=== PATIENT | male | born 1945 | race Caucasian/White ===

== ENCOUNTER 2016-07-05 15:45 | Inpatient (IN) ==
[2016-07-05] MEDS ORDERED: ASPIRIN ONE (15:58)
[2016-07-05] MEDS ORDERED: ASPIRIN PO ONE (15:59)
[2016-07-05 16:13] LABS: MANUAL DIFF NEEDED? NO
--- NOTE | 2016-07-05 16:14 | PROVIDER DOCUMENTATION ---
HPI-Respiratory General - General Chief Complaint: Shortness of Breath Stated Complaint: SOB Time Seen by Provider: 07/05/16 15:56 Source: patient Allergies/Adverse Reactions: Patient Allergies Allergy/AdvReac Type Severity Reaction Status Date / Time metoclopramide HCl * Allergy Unknown Unknown Verified 06/06/16 00:02 [From [facility]] Home Medications: Home Medication List Medication Instructions Recorded Confirmed Last Taken Type Amlodipine Besylate 5 mg PO QAM 09/10/14 07/05/16 07/05/16 History Aspirin 81 mg PO QAM 09/10/14 07/05/16 07/05/16 History Glipizide [Glipizide ER] 10 mg PO BID 09/10/14 07/05/16 07/05/16 History Isosorbide Mononitrate [Isosorbide 90 mg PO QAM 09/10/14 07/05/16 07/05/16 History Mononitrate ER] Levothyroxine [Synthroid] 0.05 mg PO QAM 09/10/14 07/05/16 07/05/16 History Metformin [Glucophage] 850 mg PO BID CC 09/10/14 07/05/16 07/05/16 History Lisinopril 20 mg PO QAM 03/09/15 07/05/16 07/05/16 History Metoprolol Tartrate 50 mg PO QAM #0 03/17/15 07/05/16 07/05/16 Rx Sucralfate [Carafate] 1 gm PO 4XDAY PRN PRN #120 tablet 04/30/15 07/05/16 Rx Polyethylene Glycol 3350 [Miralax] 17 gm PO DAILY 09/21/15 07/05/16 07/05/16 History Tamsulosin [Flomax] 0.4 mg PO HS 09/21/15 07/05/16 07/04/16 History Albuterol Sulfate [Albuterol 18 gm IH 3-4XDAY PRN PRN #1 03/03/16 07/05/1607/05 Rx Sulfate Hfa] [email or web address] Amoxicillin [Amoxil] 875 mg PO TID 7 Days 03/03/16 07/05/16 06/30/16 Rx - History of Present Illness-Resp Nature of Presenting Problem: 70 YO WM with hx of CHF and A fib presents via EMS for exertional SOB x 1 week. Has also had a cough x 2 weeks. Has been getting worse with minimal activity. Is on 2 lpm O2 at home; no SOB with rest, only with movement. Denies chest pain , ZIMMER, abdominal pain, N/V, swelling, fever, increased bruising. Quality of Pain: reports: tightness Severity in ED: reports: moderate Onset/Duration: reports: 1 week ago Timing: reports: still present, getting worse Cough Quality/Degree: reports: mild Episode Frequency: occasional episodes Current Respiratory Medication Therapy: Initiated other (Home O2) Modifying Factors: improves with: exertion (worsens), oxygen (states doesn't make him feel less SOB) Associated Symptoms: reports: cough, shortness of breath, short of breath. denies: chest pain/soreness, dizziness, earache, facial pain, fever/chills, headache, heart racing, hyperventilating, nasal congestion, sinus pain, sore throat, sweaty, wheezing Similar Symptoms Previously?: Yes Recently seen or treated by another doctor?: No (Last seen at [facility] in [place] in May. Was hospitalized for heart failure) Review of Systems - Adult - REVIEW OF SYSTEMS - ADULT Constitutional: denies: chills, fever Eyes: reports: eye pain (had recent surgery left eye, due for surgery again on Thursday). denies: decreased vision, blurred vision, double vision Ears, Nose, Mouth & Throat: denies: ear pain, nose pain, throat pain Cardiovascular: denies: chest pain, syncope Respiratory: reports: cough, dyspnea on exertion. denies: shortness of breath, wheezing Gastrointestinal: denies: abdominal pain, diarrhea, nausea, vomiting Musculoskeletal: denies: bone pain, back pain, joint pain, joint swelling, muscle weakness, neck pain Integumentary: denies: itching, rash Neurological: denies: dizziness/vertigo, headache/migraines, numbness Hematologic/Lymphatic: reports: easy bruising (on Eloquis). denies: blood clots Past History - Adult - PAST MEDICAL HISTORY-ADULT Review of Records: reports: Old Records Reviewed, Nursing Assessment Review, Medications Reviewed, Social history reviewed & non-contributory. Major Childhood Illnesses: reports: denies history Cardiovascular: reports: CAD, CHF, HTN, SC Respiratory: reports: sleep apnea Gastrointestinal: reports: denies history Obstetrical/Gynecological: reports: denies history Genitourinary: reports: denies history Musculoskeletal: reports: denies history Neurological: reports: denies history Endocrine/Immune: reports: Diabetes Other Conditions: reports: denies history - PRIOR SURGERIES/PROCEDURES Surgical/Procedure History: reports: CABG (last bypass 1999), cholecystectomy, cardiac stent (x5, last stent 12 years ago), hernia repair, other (exploratory surgery) - PRIOR HOSPITALIZATIONS Prior Hospitalizations: reports: for other non-related - IMMUNIZATION STATUS Childhood Immunizations: See Nurse Assessment Flu Vaccine: See Nurse Assessment - FAMILY HISTORY Family History: reviewed, not pertinent - SOCIAL HISTORY Smoking: quit greater than 1 year Physical Exam-General - PHYSICAL EXAM-ADULT Initial Vital Signs Reviewed: Yes - CONSTITUTIONAL General Appearance: appears well, alert, mild distress (increased breathing rate ) - EYES Eyes: PERRL/EOMI, pink conjunctivae. negative: EOM palsy, pale conjunctivae, sclera injected, scleral icterus - HEAD, EARS, NOSE, MOUTH & THROAT HENMT: normocephalic/atraumatic, moist mucous membranes - NECK Neck: non-tender, full range of motion, supple, normal inspection - RESPIRATORY Respiratory: chest non-tender, lungs clear, normal breath sounds, no pleuratic chest pain, no accessory muscle use. negative: decreased breath sounds, accessory muscle use, crackles, rales, rhonchi, stridor, wheezing - CARDIOVASCULAR Cardiovascular: normal peripheral pulses (Irregular rate, approx 64 in the room) , no edema, no gallop, no JVD, no murmur. negative: bradycardia, tachycardia - GASTROINTESTINAL (ABDOMEN) Abdominal Exam: normal bowel sounds, non tender, soft, no organomegaly, no pulsatile mass. negative: distended, guarding, rigid, rebound, tenderness, McBurney's point tenderness, Zaldivar's sign - LYMPHATIC Lymphatic: negative: cervical node tenderness - MUSCULOSKELETAL Back Exam: normal inspection, no CVA tenderness. negative: ecchymosis, muscle spasm, swelling Extremity: non-tender, normal gait, normal inspection, no pedal edema, no calf tenderness. negative: deformity, erythema, inflammation, joint effusion, pedal edema Peripheral Pulses: radial (R): 2+, radial (L): 2+, dorsalis-pedis (R): 2+, dorsalis-pedis (L): 2+ - SKIN Integumentary: normal color, warm/dry. 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 negative: aphasia, facial droop, focal weakness, motor weakness, sensory deficit - PSYCHIATRIC Psych/Mental Status: normal mood/affect, normal thought content, normal thought process Progress - PLAN OF CARE/RESULTS Progress/Plan/Lab Results: Vital Signs - 8 hr 07/05/16 15:50 07/05/16 17:38 07/05/16 18:45 Temperature 97.9 F Pulse Rate 66 71 61 Respiratory Rate 24 24 23 Blood Pressure 122/71 122/71 137/83 O2 Sat by Pulse Oximetry 91 L 92 L 94 L Laboratory Results - last 24 hr 07/05/16 07/05/16 07/05/16 15:50 15:50 15:50 WBC 7.56 RBC 4.21 L Hgb 10.9 L Hct 35.4 L MCV 84.1 MCH 25.9 L MCHC 30.8 L RDW Std Deviation 17.8 H Plt Count 150 MPV 10.9 H Immature Gran % (Auto) 0.3 Neut % (Auto) 71.6 Lymph % (Auto) 11.9 L Estill % (Auto) 10.4 H Eos % (Auto) 5.3 Baso % (Auto) 0.5 Immature Gran # (Auto) 0.02 Neut # (Auto) 5.41 Lymph # (Auto) 0.90 L Estill # (Auto) 0.79 H Eos # (Auto) 0.40 Baso # (Auto) 0.04 PTT (Actin FS) Specimen Type Sample Site pH pCO2 pO2 HCO3 Base Excess Oxyhemoglobin ABG O2 Sat (Calculated) ABG O2 Saturation ABG Carboxyhemoglobin ABG Methemoglobin Mika Test Total Hemoglobin Lactate Liter Flow Blood Gas Modality Sodium 140 Potassium 4.2 Chloride 101 Carbon Dioxide 18 L Anion Gap 21 BUN 30 H Creatinine 1.4 H Estimated GFR/1.73 m2 50 BUN/Creatinine Ratio 21 Glucose 189 H Calculated Osmolality 291 Calcium 9.6 Total Bilirubin 0.88 AST 22 ALT 25 Alkaline Phosphatase 95 Creatine Kinase 55 Troponin T Aah-E-Gillmybulmv Pept 1951 H Total Protein 6.7 Albumin 4.1 Globulin 2.6 Albumin/Globulin Ratio 1.6 07/05/16 07/05/16 07/05/16 15:50 15:50 18:45 WBC RBC Hgb Hct MCV MCH MCHC RDW Std Deviation Plt Count MPV Immature Gran % (Auto) Neut % (Auto) Lymph % (Auto) Estill % (Auto) Eos % (Auto) Baso % (Auto) Immature Gran # (Auto) Neut # (Auto) Lymph # (Auto) Estill # (Auto) Eos # (Auto) Baso # (Auto) PTT (Actin FS) 28.5 Specimen Type ARTERIAL Sample Site R RADIAL pH 7.45 pCO2 37 pO2 73 HCO3 26.2 H Base Excess 1.7 Oxyhemoglobin 94.2 L ABG O2 Sat (Calculated) 13.7 L ABG O2 Saturation 96.7 ABG Carboxyhemoglobin 1.70 ABG Methemoglobin 1.0 Mika Test YES Total Hemoglobin 10.3 L Lactate 2.20 Liter Flow 2.0 Blood Gas Modality CANNULA Sodium Potassium Chloride Carbon Dioxide Anion Gap BUN Creatinine Estimated GFR/1.73 m2 BUN/Creatinine Ratio Glucose Calculated Osmolality Calcium Total Bilirubin AST ALT Alkaline Phosphatase Creatine Kinase Troponin T < 0.010 Pnk-G-Tnuenmendwz Pept Total Protein Albumin Globulin Albumin/Globulin Ratio Orders Category Date Time Status IV Insertion ORDERED Care 07/05/16 15:58 Active CHEST-PORTABLE [RAD] Stat Exams 07/05/16 16:06 Completed ABG [RESP] Routine Lab 07/05/16 18:45 Completed CBC WITH DIFF [HEME] Stat Lab 07/05/16 15:50 Completed CK TOTAL [CHEM] Stat Lab 07/05/16 15:50 Completed COMPREHENSIVE METABOLIC PANEL [CHEM] Stat Lab 07/05/16 15:50 Completed PRO B-NATRIURETIC PEPTIDE Stat Lab 07/05/16 15:50 Completed PTT [COAG] Stat Lab 07/05/16 15:50 Completed TROPONIN T Stat Lab 07/05/16 15:50 Completed Aspirin Med 07/05/16 15:58 Discontinued 243 mg .ROUTE .STK-MED ONE Aspirin Med 07/05/16 15:59 Discontinued 325 mg PO NOW ONE Furosemide [Lasix] Med 07/05/16 18:35 Discontinued 40 mg IV NOW ONE EKG [EKG] Stat Ther 07/05/16 15:58 Ordered Result Diagrams: 07/05/16 15:50 07/05/16 15:50 - REASSESSMENT Reassessment #1 Time Reassessed: 18:34 (assumed care of pt. plan to admit for chf exacerbation and worsening chf.) Reassessment #2 Time Reassessed: 18:53 (Re-assessed pt. He states he has become profoundly SOB worsening over the past week. Discussed c Dr. Estrada (ER MD) who agreed c admission. ) - CONSULTS/PCP/HOSPITALIST Notification #1 *Consult/PCP/Hospitalist*: Dr. Waters (Hospitalist) Time Discussed: 19:29 Reason/Comments: Will see pt in the ER and write all orders. Departure - Departure Time of Disposition Decision: 18:55 DIAGNOSIS: CHF exacerbation Qualifiers: Congestive heart failure type: unspecified congestive heart failure type Qualified Code(s): I50.9 - Heart failure, unspecified Disposition: ADMITTED INPATIENT 09 Certified Medical Emergency: Emergent Condition: Stable Referrals and Follow-Ups: None,PCP [Primary Care Provider] - - Critical Care Note This patient required my direct & personal management of CC.: No Attestation - Physician/ LILI Attestation Patient care was provided by Advanced Practice Provider:: Yes Advanced Practice Provider:: Justin Parr Advanced Practice Provider documentation review:: The Mid-level provider documentation, treatment plan and medical decision making was reviewed by the physician who agrees with all treatment and medical decision making by the MLP.
[2016-07-05 16:17] LABS: BASO% 0.5 % (0.0-0.8); EOS% 5.3 % (0.0-10.0); HEMATOCRIT 35.4 % (42.0-52.0); HEMOGLOBIN 10.9 g/dL (14.0-18.0); IMM GRAN# 0.02 X1000 (0.0-0.04); IMM GRAN% 0.3 % (0.0-0.5); LYMPH% 11.9 % (20.5-51.1); MCH 25.9 PG (27-31); MCHC 30.8 g/dL (33-37); MCV 84.1 FL (81-99); MONO# 0.79 X1000 (0.11-0.59); MONO% 10.4 % (1.7-9.3); MPV 10.9 FL (7.4-10.4); NEUT% 71.6 % (42.2-75.2); PLT 150 X1000 (130-400); RBC 4.21 XMIL (4.7-6.1)
--- NOTE | 2016-07-05 16:18 | Diag Imaging Result Doc PS360 ---
EXAM: CHEST-PORTABLE HISTORY: SOB TECHNIQUE: Portable at 1615 COMMENT: There is cardiomegaly and increased pulmonary vascularity. This is not changed significantly since 06/06/2016. The lung bashir are stable in appearance. IMPRESSION: Stable chest. Cardiomegaly. Electronically signed by David Summers 07/05/2016 4:16 PM
[2016-07-05 16:34] LABS: ALBUMIN 4.1 g/dL (3.5-5.0); CALCIUM 9.6 mg/dL (8.8-10.2); POTASSIUM 4.2 mmol/L (3.5-5.1); TOTAL BILIRUBIN 0.88 mg/dL (0.20-1.00); TOTAL PROTEIN 6.7 g/dL (6.3-8.3)
--- NOTE | 2016-07-05 18:02 | ED EKG INTERP ---
This chart was entered by Belén Hendricks, acting as scribe for Will Medina MD. EKG Interpretation - EKG Time of EKG reading by physician:: 15:50 EKG Read and Signed by:: Will Medina EKG Interpretation (*Must complete 3 of following elements*): Abnormal (poor data quality, interpretation may be adversely affectred, atrial fibrillation with slow ventricular response, left axis deviation, ST & T wave abnormilty, consider lateral ischemia, abnormal ECG) Rate: 59 Rhythm: Atrial Fibrillation Rattan: left ND Interval: normal This chart was documented by the indicated scribe, (Belén Hendricks) and accurately reflects the services I performed and decisions made by me, Will Medina MD, as attested by the provider's signature.
[2016-07-05] MEDS ORDERED: LASIX IV ONE (18:35)
[2016-07-05 18:47] LABS: ALLEN TEST YES; BE 1.7 mmoll (-3.0-3.0); BLOOD TYPE ARTERIAL; DRAW SITE R RADIAL; O2(CT) 13.7 mL/dL (15.0-23.0); PCO2(98.6) 37 mmHg (35-45); PO2(98.6) 73 mmHg (60-100); SAMPLE BLOOD; SAO2 96.7 % (95.0-100.0); THB 10.3 g/dL (11.5-17.4); pH(98.6) 7.45 (7.35-7.45)
[2016-07-05 18:49] LABS: MODALITY CANNULA
[2016-07-05] MEDS: LASIX IV SCH (20:30)
[2016-07-05] MEDS ORDERED: LOVENOX SUBQ SCH (20:30)
[2016-07-05] MEDS: COREG PO SCH (20:41)
[2016-07-05 20:43] LABS: HEMOGLOBIN A1C 5.7 % (4.8-6.0)
[2016-07-05 20:58] LABS: FERRITIN 55 ng/mL (30-400)
[2016-07-05] MEDS: FLOMAX PO SCH (21:00)
--- NOTE | 2016-07-05 21:51 | HISTORY AND PHYSICAL ---
PRIMARY CARE PHYSICIAN: Dr. Loving. REASON FOR ADMISSION: Worsening shortness of breath for the last 2 weeks. HISTORY OF PRESENT ILLNESS: Mr. Khris Johnson is a 70-year-old man with past medical history of type 2 diabetes, obstructive sleep apnea with CPAP at night, CAD, atrial fibrillation, hypertensive heart disease, hypothyroidism, BPH, reflux disease and hiatal hernia. Comes in today complaining of a 2 month history of intermittent shortness of breath with exertion which lasts a few days and gets better. However over the last 2 weeks which was a part of 2 weeks he has noticed that his breathing has been getting worse with exertion such that today he said that while he was unloading his car he had a minor blackout spell. He said prior to blacking out he was profoundly short of breath but denies any chest pain, palpitations, diaphoresis, nausea, vomiting or any anginal type symptoms. He says he feels he was out for a few seconds and was not witnessed by anybody. He did not defecate or urinate on himself nor did he hit his head. He said prior to today his exercise tolerance has been getting worse more so over the last few days. Patient has been traveling around several states and states that he has been eating out in a lot of restaurants and not watching his diet as he should. He denies any PND or orthopnea as long as he is using his CPAP machine at night. He admits to having slight left leg swelling during the course of his travels but no pain or redness and he said once he woke up in the morning the swelling had gone down. He admits to having a cough which is dry and but more associated with eating and drinking. No upper respiratory symptoms. No fever, no chills. No decline his urinary output. He admits to having easy satiety and bloating recently. Other than this. REVIEW OF SYSTEMS: Twelve system review is negative. Positive findings per HPI. ALLERGIES: Reglan. HOME MEDICATIONS: Include albuterol sulfate 3-4 times a day p.r.n., Norvasc 5 mg q.a.m., aspirin 81 mg daily, glipizide 10 mg b.i.d., Imdur 90 mg q.a.m., Synthroid 50 mcg daily, lisinopril 20 mg daily, metformin 850 mg b.i.d., metoprolol tartrate 50 mg q.a.m., MiraLAX 17 g daily, Carafate 1 g 4 times a day, Flomax 0.4 mg at bedtime. PAST SURGICAL HISTORY: Notable for CABG, cholecystectomies, stents in his coronary arteries, hiatal hernia repair, prostate surgery and retinal surgery x2. SOCIAL HISTORY: Has not smoked in more than 3 decades, no alcohol or illicit drug use. Lives alone and is a [employer] [employer] vet. FAMILY HISTORY: Notable for heart disease, diabetes in first-degree relatives. No cancers reported. LABORATORY WORK: EKG shows atrial fibrillation with nonspecific ST-wave changes. Left axis deviation, poor R-wave progression. Of note chest x-ray showed increased vascular markings with cephalization. White count 7000, hemoglobin and hematocrit is 11 and 35, platelets 450,000 with normal differential. Bicarb is 18, BUN is 30, creatinine 1.4. GFR is 50. Troponins negative. ProBNP 1900. PTT normal, pH 7.45, pCO2 37, PO2 73 and is on 2 L nasal cannula. PHYSICAL EXAMINATION: GENERAL: Morbidly obese, elderly man who is not in acute distress. He is A, O x3. Normal mood and affect. VITAL SIGNS: Blood pressure is 137/83, heart rate 61, respirations 22, temperature is 97.9, 94% on 2 L. HEENT: Head is normocephalic, atraumatic. PERRLA. EOMI. Anicteric but pale. ENT and oral exam is grossly unremarkable. He has a mild xerostomia with no oropharyngeal exudates. No cyanosis is noted. NECK: Short and thick. He has positive hepatojugular reflux. No JVD. No thyromegaly. CHEST: Surprisingly is clear to auscultation with decreased entry in the bases. CARDIOVASCULAR: First and second heart sounds heard. No gallops, murmurs, rubs. Rhythm is irregular. ABDOMEN: Protuberant, soft. No focal areas of tenderness. No mass or megaly. Bowel sounds hypoactive. RECTAL: Deferred at this time. EXTREMITIES: Patient has trace to +1 edema in the left lower extremity but no redness, no thickened cords, no tenderness in either extremity. Pulses in the feet of the left leg are slightly diminished compared to the right but temperature is the same slightly warm to touch in both legs. No clubbing or peripheral cyanosis. NEURO: No focal deficits. SKIN: Intact. No breakdown, lesion, erythema. MUSCULOSKELETAL EXAM: Grossly normal. ASSESSMENT: 1. Acute on chronic systolic heart failure. 2. Hypertensive heart disease. 3. Coronary artery disease. 4. Atrial fibrillation. 5. Type 2 diabetes. 6. Hypothyroidism. 7. Benign prostatic hypertrophy. 8. Reflux disease. 9. Sleep apnea. 10. Anemia. PLAN: At this time will diurese patient cautiously while following his BMP closely. Also chest film tomorrow to see if diuresis has had any objective impact in his overall clinical condition. Will give the patient B2 agonist breathing treatments to help with his symptoms. At the same time start patient on Coreg as opposed to metoprolol since patient has borderline systolic heart failure. The patient is on Lopressor and there is no data backing Lopressor as opposed to Toprol when it comes to outcome data for CHF. Avoid anticholinergics in this patient with BPH. Will do anemia workup. Patient has low iron, he may benefit from iron transfusion. Continue CPAP at night. Consider statin therapy in this patient with documented coronary artery disease. Get a venous Doppler studies left lower extremity due to the fact that the pulses are diminished compared to the right although patient volunteers no pain and there is edema there on the left compared to the right. The patient has been traveling for several weeks and it will be prudent to at least excluded DVT in the left lower extremity. Resume all his other medications. Put him on sliding scale while he is here, check his A1c and modify treatment if needed. DVT prophylaxis with Lovenox. Pending is venous Doppler study. I have also added on spironolactone pending his echocardiogram and if it is depressed then this can be continued. cc: MD TOD Pires
[2016-07-05 21:58] LABS: URINE CULTURE NEEDED? NO; URINE MICRO REVIEW NEEDED? NO; URINE SOURCE CLEAN CATCH
[2016-07-05 22:07] LABS: BILIRUBIN URINE NEGATIVE (NEGATIVE); BLOOD URINE NEGATIVE (NEGATIVE); COLOR YELLOW; GLUCOSE URINE NEGATIVE (NEGATIVE); LEUKOCYTES URINE NEGATIVE (NEGATIVE); NITRITE URINE NEGATIVE (NEGATIVE); PROTEIN URINE NEGATIVE (NEGATIVE); SP GRAVITY URINE 1.007; TURBIDITY URINE CLEAR (CLEAR); UR EPITHELIAL CELLS <10 /HPF (<10); URINE BACTERIA NEGATIVE /HPF; URINE RBC <10 /HPF (<10); URINE WBC <10 /HPF (<10); UROBILINOGEN URINE NORMAL (NORMAL)
[2016-07-05] MEDS: ALBUTEROL NEB INH SCH (23:20)
--- NOTE | 2016-07-06 01:49 | ED EKG INTERP ---
This chart was entered by Julian Calhoun Scribe, acting as scribe for Yasmany Estrada MD. EKG Interpretation - EKG Time of EKG reading by physician:: 18:48 EKG Read and Signed by:: Yasmany Estrada EKG Interpretation (*Must complete 3 of following elements*): Abnormal (Left axis deviation; ST & T wave abnormality, consider lateral ischemia) Rate: 61 Rhythm: A-fib This chart was documented by the indicated scribe, (Julian Calhoun Scribe) and accurately reflects the services I performed and decisions made by me, Yasmany Estrada MD, as attested by the provider's signature.
[2016-07-06 05:27] LABS: HEMATOCRIT 34.2 % (42.0-52.0); HEMOGLOBIN 10.7 g/dL (14.0-18.0); MCH 26.1 PG (27-31); MCHC 31.3 g/dL (33-37); MCV 83.4 FL (81-99); MPV 10.7 FL (7.4-10.4); RBC 4.1 XMIL (4.7-6.1)
[2016-07-06] MEDS: SYNTHROID PO SCH (06:38)
[2016-07-06] MEDS: ALBUTEROL NEB INH SCH ×3 (07:41→23:06)
--- NOTE | 2016-07-06 09:30 | PROGRESS NOTE ---
DATE: 07/06/2016 SUBJECTIVE: This patient states that he is feeling about the same. He is still having shortness of breath. He also is complaining of mild abdominal discomfort. I checked his lab work and his troponins have been negative but proBNP is 1951. For now, I will continue with diuresis. We are getting an echocardiogram done today and we will continue monitoring this patient in the [facility] unit. OBJECTIVE: Vital Signs: Temperature 97.4 degrees, pulse 60, respiratory rate 20, blood pressure 114/82, oxygen saturation 98 on 2 L of nasal cannula. HEENT: Head normocephalic. No trauma. PERRLA. Neck: Supple. Mild JVD. He has positive hepatojugular reflux. No thyromegaly. Chest: Decreased air entry bilaterally, mostly at the bases. He has a midsternal scar. Cardiovascular: Irregularly irregular rate and rhythm. Abdomen: Protuberant and soft. Mild tenderness to palpation, mostly at the level of the periumbilical area. I cannot feel masses or organomegaly. Bowel sounds present. Extremities: Trace lower extremity edema. No clubbing. No cyanosis. Neurological Examination: The patient is alert and oriented x3. No focal deficits. Laboratory Data: WBC 7, hemoglobin 10.7, hematocrit 34.2, platelets 153,000. Glucose 106. Magnesium 1.8. Troponins negative. TSH 3.4. ASSESSMENT AND PLAN: 1. Congestive heart failure exacerbation, likely systolic. His ejection fraction was around 45% a year ago. I will continue with diuresis and monitoring this patient in the [facility] unit. I will get a new echocardiogram. 2. Hypertensive heart disease. Aware. Continue to monitor and treatment. 3. History of coronary artery disease. He is not complaining of chest pain at this moment but he is complaining of shortness of breath. 4. Atrial fibrillation, rate controlled. Continue with the same management. 5. Type 2 diabetes. I will treat this patient with sliding scale insulin and pattern of blood sugar. Blood sugar is stable at this moment. 6. Hypothyroidism. Continue with the same management. 7. Benign prostatic hypertrophy. Continue with the same treatment. 8. Reflux disease. Continue with proton pump inhibitors. 9. Anemia. Aware. 10. Sleep apnea. Aware. 11. Obesity. Education provided. CRITICAL CARE TIME: 30 minutes. cc: Anjel York MD
[2016-07-06] MEDS: MIRALAX PO SCH (09:49)
[2016-07-06] MEDS: IMDUR PO SCH (09:49)
[2016-07-06] MEDS: ALDACTONE PO SCH (09:49)
[2016-07-06] MEDS: NORVASC PO SCH (09:49)
[2016-07-06] MEDS: COREG PO SCH ×2 (09:50→20:04)
[2016-07-06] MEDS: LASIX IV SCH ×2 (09:50→20:04)
[2016-07-06] MEDS: PRINIVIL PO SCH (09:50)
[2016-07-06] MEDS: ASPIRIN PO SCH (09:50)
[2016-07-06] MEDS: HUMULIN R SUBQ SCH ×3 (10:31→20:11)
--- NOTE | 2016-07-06 13:45 | CONSULTATION ---
DATE OF CONSULTATION: 07/06/2016 INDICATION: Congestive heart failure. HISTORY OF PRESENT ILLNESS: Mr. Khris Gibbs is a 70-year-old white male who normally follows with Dr. Null. He presented for evaluation of shortness of breath that sounds like it has been going on since at least March. However, it got much worse in the last few days. He has been traveling for the last 5 days, eating out at restaurants, but has been compliant with his medications. He reports really any sort of upper right exertion gets him short of breath and yesterday he actually got so short of breath unloading his car from the trip that he thinks he actually blacked out for a few seconds. He had no chest pain or palpitations occurring at that time and no diaphoresis, no nausea, and no loss of bowel or bladder incontinence. Again, he reports compliance with his medications and has not had any issues with lower extremity edema. He has a history of paroxysmal atrial flutter and has not been maintained on any sort of antiarrhythmic per his outpatient cardiology records. PAST MEDICAL HISTORY: 1. Significant for coronary disease with a history of coronary bypass grafting. His last cardiac catheterization was performed in September of 2015. At that time he had a normal left main. Left anterior descending had 100% mid in-stent stenosis. KVNG to the LAD was widely patent. Circumflex had a 30% mid patent distal stent and a 20% mid OM1. The right coronary artery had a 30% proximal lesion with a patent mid stent, 100% mid PDA lesion. The vein graft to the PDA was noted to be open. 2. Morbid obesity. 3. COPD. 4. History of paroxysmal atrial flutter. 5. Hypertension. 6. Hyperlipidemia. 7. Diabetes mellitus. 8. Hypothyroidism. 9. Gastroparesis with peptic ulcer disease and reflux disease. 10. Sleep apnea. SOCIAL HISTORY: He has not smoked in more than 30 years. No alcohol. No illicit drugs. FAMILY HISTORY: Notable for diabetes and cancer. REVIEW OF SYSTEMS: A 10 system review of systems is negative except for those things mentioned in the HPI. PHYSICAL EXAMINATION: Vital signs: He has been afebrile. His heart rate is 89, blood pressure 113/68. General: No acute distress. HEENT: Oropharynx is moist. Poor dentition. Eye examination is pink conjunctivae, white sclerae. Neck: Examination shows no obvious thyromegaly or thyroid tenderness. Cardiovascular: He sounds to be in a regular rate and rhythm. I do not hear any obvious murmurs. There is no S3 present. Unable to visualize JVP secondary to short neck as well as neck girth. Again, no lower extremity edema and warm well perfused lower extremities. Chest: Exam is clear to auscultation bilaterally. He has no increased work of breathing. Abdomen: Soft, nontender, nondistended. He has no obvious organomegaly. Skin Exam: Warm and dry throughout without any rashes. Neurological: He is moving all extremities well. Cranial nerves 2 through 12 are intact without any sensation deficits. Psychiatric: Alert, oriented, pleasant. He has a normal mood and affect. PERTINENT DATA: His electrocardiogram shows atrial fib, rate of 61 beats per minute. No acute ischemic changes identified. This seems to be a new interim finding since his last EKG in October of 2015 in the office, it showed that he was in sinus rhythm. He had an EKG in May of 2016 demonstrating again what appears to be atrial fib, rate of 67 beats per minute. In February of 2016 he again appears to be in atrial fibrillation with a rapid ventricular response. This would seem to correspond to the same time period in which he was having issues with shortness of breath. His laboratory data demonstrates a white count of 7.1, hematocrit 34.2, and a platelet count 153,000. His chemistry yesterday showed a sodium 140, potassium 4.2, BUN 30, creatinine 1.4. His magnesium level was 1.8. His cardiac enzymes are negative. His proBNP is 1,951. It was 1,515 in May 2016. ASSESSMENT: 1. Atrial fibrillation. 2. Congestive heart failure. PLAN: Patient's last echocardiogram per our records was in July of 2015 and EF was roughly 45 to 50%. He had akinesis of the anterior apical segment of the left ventricle suggestive of focal anterior apical scar. Presently he is in atrial fibrillation and this may in fact be symptomatic. I agree with continuing to diurese the patient. We will follow up on the echocardiogram and may necessitate a transesophageal echocardiogram and possible DC cardioversion considering the patient is in atrial fibrillation. In addition, the patient is diabetic, hypertensive, and has a history of heart failure that would warrant anticoagulation in this patient. I will discuss this with him and if he is in agreement we will likely initiate. Considering his history of recent travel and he has not had a D-dimer this hospitalization, I will check a D-dimer and if elevated will consider evaluation for PTE. cc: Truman Manjarrez MD
--- NOTE | 2016-07-06 14:30 | Diag Imaging Result Doc PS360 ---
EXAM: CHEST-2 VIEWS HISTORY: Heart Failure TECHNIQUE: Two views COMMENT: There are granulomatous calcifications in the hilum bilaterally. The heart size is at the upper limits of normal. Overall there is been no significant change since 07/05/2014. Compared to 03/03/2016 there is been no significant change. IMPRESSION: Stable chest. Electronically signed by David Summers 07/06/2016 2:28 PM
--- NOTE | 2016-07-06 16:38 | ECHO REPORT ---
ORDER DATE: 07/06/2016 INDICATION: Diabetes. Coronary disease. Atrial fibrillation. Shortness breath. FINDINGS: 1. Right atrium is mildly enlarged at 4 cm. 2. Moderate tricuspid regurgitation. The RV systolic pressure is 83 indicating pulmonary hypertension. 3. Right ventricle does appear to be enlarged with mild reduction in RV systolic function. 4. Trace pulmonic insufficiency. 5. Mild left atrial enlargement at 4.1 cm. 6. No mitral valve prolapse. Mild mitral regurgitation. 7. Upper limits of normal LV size with an end-diastolic dimension of 5.7. Normal wall thicknesses with posterior and interventricular septal wall thickness 1.1 cm each. Mild reduction to borderline normal LV systolic function with an estimated EF of 45-50%. There does appear to be hypokinesis to akinesis of the very distal anterior apex as well as distal anterior septal. On some views, there is suggestion of a left ventricular apical thrombus. This was difficult to visualize in this patient. Definity contrast was not used on this study and may be of benefit versus a possible transesophageal echocardiogram. 8. Aortic valve opens well. It is trileaflet. No evidence of stenosis or insufficiency. 9. Aorta appears normal in visualized segments. 10. No pericardial effusion seen. cc: MD Melani Botello MD
[2016-07-06] MEDS: ELIQUIS PO SCH (20:04)
[2016-07-06] MEDS: FLOMAX PO SCH (20:04)
[2016-07-07 06:06] LABS: CALCIUM 9.7 mg/dL (8.8-10.2); POTASSIUM 3.8 mmol/L (3.5-5.1)
[2016-07-07] MEDS: HUMULIN R SUBQ SCH ×4 (07:32→20:29)
[2016-07-07] MEDS: SYNTHROID PO SCH (07:40)
[2016-07-07] MEDS: ALBUTEROL NEB INH SCH ×3 (07:42→23:26)
[2016-07-07] MEDS: LASIX IV SCH ×2 (09:48→20:20)
[2016-07-07] MEDS: ASPIRIN PO SCH (09:48)
[2016-07-07] MEDS: PRINIVIL PO SCH (09:48)
[2016-07-07] MEDS: ELIQUIS PO SCH ×2 (09:48→20:19)
[2016-07-07] MEDS: NORVASC PO SCH (09:48)
[2016-07-07] MEDS: IMDUR PO SCH (09:48)
[2016-07-07] MEDS: ALDACTONE PO SCH (09:48)
[2016-07-07] MEDS: COREG PO SCH ×2 (09:48→20:18)
[2016-07-07] MEDS: MIRALAX PO SCH (09:49)
--- NOTE | 2016-07-07 14:23 | PROGRESS NOTE ---
DATE: 07/07/2016 SUBJECTIVE: Mr. Gibbs continues to report significant shortness of breath occurring really with any physical exertion including just standing up next to the bed. PHYSICAL EXAMINATION: Vital signs: He is afebrile. Heart rates are in the 60s to 70s. His blood pressure is 106/77. General: He is no acute distress. Cardiovascular: He is in an irregularly irregular rhythm consistent with atrial fibrillation. Chest: Exam is clear bilaterally. No increased work of breathing. Abdomen: Soft, nontender, nondistended. He has no obvious organomegaly. Skin: Warm and dry throughout. PERTINENT DATA: His laboratory data shows a sodium 141, potassium 3.8, BUN 26, creatinine 1.4. ASSESSMENT: Atrial fibrillation. PLAN: We will refer the patient for a transesophageal echocardiogram and cardioversion tomorrow. His EF appears to be relatively stable in the 45-50% range. There was suggestion of a possible left ventricular apical thrombus. We will further evaluate this with transesophageal echo tomorrow. If there is no evidence of any clot, then we may consider cardioversion. He continues on apixaban. cc: Truman Manjarrez MD
--- NOTE | 2016-07-07 14:46 | PROGRESS NOTE ---
DATE: 07/07/2016 SUBJECTIVE: This patient states that he is feeling about the same. He is still having shortness of breath with physical activity. If he is not walking or doing any kind of physical activity, he feels fine. This patient has been evaluated by Cardiology Department, and they are considering transfixing esophageal echocardiogram and possible cardioversion. In addition because of his comorbidities he will need anticoagulation. OBJECTIVE: Vital Signs: Temperature 97.8 degrees, pulse 71, respiratory rate 18, blood pressure 106/77, oxygen saturation 100% on 4 L of nasal cannula. HEENT: Head normocephalic. No trauma. PERRLA. Neck: Supple. No JVD. No masses. Central trachea. He has a positive hepatojugular reflux. No thyromegaly. Chest: Decreased air entry bilaterally, mostly at the bases. He has a he has a midsternal scar. Cardiovascular: Irregularly irregular rate and rhythm. Abdomen: Protuberant and soft. Mild tenderness to palpation mostly at the level of the periumbilical area. No masses. Bowel sounds present. Extremities: No edema. No clubbing. No cyanosis. Neurological: The patient is alert and oriented x3. No focal deficits. LABORATORY: Sodium 141, potassium 3.8, chloride 102, bicarbonate 26, BUN 26, creatinine 1.4, glucose 133. Calcium 9.7, magnesium 2. ASSESSMENT AND PLAN: 1. Congestive heart failure exacerbation, likely systolic. His ejection fraction was around 40- 45% a year ago. An echocardiogram will be repeated, Cardiology Department is following this patient. Continue with the same management for now. 2. Hypertensive heart disease. Aware, continue to monitor and treat. 3. History of coronary artery disease. He is not complaining of chest pain at this moment. He is complaining of shortness with physical activity. 4. Atrial fibrillation, Cardiology Department is considering a transesophageal echocardiogram and cardioversion for this patient. Also, this patient will need anticoagulation. 5. Type 2 diabetes. Continue with sliding scale insulin and pattern blood sugar. 6. Hypothyroidism. Continue with the same management. 7. Benign prostatic hypertrophy continue the same treatment. 8. Reflux disease. Continue with proton pump inhibitor. 9. Anemia, aware. 10. Sleep apnea, aware. 11. Obesity. Education provided. CRITICAL CARE TIME: 40 minutes. cc: Anjel York MD
[2016-07-07] MEDS: FLOMAX PO SCH (20:18)
[2016-07-07] MEDS: TYLENOL PO PRN (20:18)
[2016-07-07] MEDS ORDERED: G.I. COCKTAIL PO ONE (21:42)
[2016-07-08 05:09] LABS: CALCIUM 9.5 mg/dL (8.8-10.2); POTASSIUM 3.8 mmol/L (3.5-5.1)
--- NOTE | 2016-07-08 05:14 | EKG Report ---
Test Performed on : 07/07/2016 8:01:56 PM Test Reason : chest pain, sob, dizziness Blood Pressure : / mmHG Vent. Rate : 075 BPM Atrial Rate : 267 BPM P-R Int : 000 ms QRS Dur : 086 ms QT Int : 386 ms P-R-T Axes : 000 -56 142 degrees QTc Int : 431 ms Atrial fibrillation. Left axis deviation ST \T\ T wave abnormality, consider lateral ischemia Abnormal ECG When compared with ECG of 05-JUN-2016 23:57, Nonspecific T wave abnormality no longer evident in Inferior leads Nonspecific T wave abnormality has replaced inverted T waves in Anterior leads Confirmed by Terry Conley MD ([id number]) on 07/09/2016 7:16:10 AM
[2016-07-08] MEDS: SYNTHROID PO SCH ×2 (05:58→07:14)
[2016-07-08] MEDS: HUMULIN R SUBQ SCH ×4 (06:16→20:10)
--- NOTE | 2016-07-08 07:18 | PROGRESS NOTE ---
DATE: 07/08/2016 SUBJECTIVE: Patient reports still feeling short of breath. He said that he is better in comparing with previous days but still present. Denies any fever or chills. OBJECTIVE: Vital Signs: Temperature 98.3 degrees, heart rate 80, respiratory rate 14, blood pressure 97/54, O2 saturation 97% on 4 L nasal cannula. General Examination: This is a 70-year- old male lying in bed, in no acute distress. HEENT: Head is normocephalic, atraumatic. Anicteric sclerae and pale conjunctivae. Mucous membranes moist. Pupils equal, round, reactive to light and accommodation. Neck: Supple. Mild JVD present. No thyromegaly. No carotid bruits. No lymphadenopathy. Cardiovascular exam: S1, S2 heard. Irregularly irregular. No murmurs, gallops, or rubs. Respiratory: Decreased air entry globally. There are no crackles or wheezing. Patient not using any accessory muscles or having work of breathing. Abdomen: Soft, nontender to palpation. Nondistended. Mild tenderness to palpation around the periumbilical area, but there is no sign of peritoneal irritation. Extremities: Mild edema in both lower extremities. No peripheral pulses present in both legs. Neurological: Patient alert and oriented x3. Able to move 4 extremities. Cranial nerves 2-12 grossly normal. LABORATORY DATA: BMP from today shows a creatinine 1.6 and BUN 29. ASSESSMENT/PLAN: 1. Congestive heart failure exacerbation, likely systolic. We have checked a new echo that shows again 45-50% ejection fraction. It also showed possible normal left apical thrombus. Cardiology has been consulted and they are planning to do a transthoracic echo and apparently cardioversion will be performed to try to restore sinus rhythm. We will see what they have to say. 2. Hypertensive heart disease. Aware. We will continue with the same management. By now, actually the blood pressure is borderline low in the range of high 90s. The patient is on Lasix 40 mg IV q. 12h. At this point, we are going to continue with the same management. 3. Coronary artery disease. Patient does not report any chest pain at this time. 4. Atrial fibrillation. The patient is going to have cardioversion today after transesophageal echo. This patient is on anticoagulation. 5. Diabetes mellitus type 2. Patient is on sliding scale insulin. 6. Hypothyroidism. We will continue with home medications. 7. Benign prostatic hypertrophy. We will continue with the same home medications. 8. Gastroesophageal reflux disease. We will continue with the PPIs, in this case Protonix. 9. Sleep apnea aware. 10. Obesity the patient has been advised to follow a diet and lose weight. cc: Jim Bailey MD
[2016-07-08] MEDS: ALBUTEROL NEB INH SCH ×3 (07:49→23:12)
[2016-07-08] MEDS: IMDUR PO SCH (08:12)
[2016-07-08] MEDS: ELIQUIS PO SCH ×2 (08:12→20:10)
[2016-07-08] MEDS: ASPIRIN PO SCH (08:12)
[2016-07-08] MEDS: ALDACTONE PO SCH (08:12)
[2016-07-08] MEDS: COREG PO SCH ×2 (08:12→20:09)
[2016-07-08] MEDS: PRINIVIL PO SCH (08:13)
[2016-07-08] MEDS: NORVASC PO SCH (08:13)
[2016-07-08] MEDS ORDERED: XYLOCAINE 2% VISCOUS ONE (10:36)
[2016-07-08] MEDS ORDERED: XYLOCAINE 4% TOPICAL SOLUTION ONE (10:36)
[2016-07-08] MEDS ORDERED: SODIUM CHLORIDE 0.9% 10 ML ONE (10:36)
[2016-07-08] MEDS ORDERED: ANESTHESIA PB SET 88 IN 5742 ONE (10:53)
[2016-07-08] MEDS ORDERED: CLAVE TWINSITE 32 IN 11959 ONE (10:53)
[2016-07-08] MEDS ORDERED: NS 1,000 ML ONE (10:54)
[2016-07-08] MEDS ORDERED: AMIDATE ONE (11:40)
[2016-07-08] MEDS ORDERED: XYLOCAINE-MPF 2% ONE (11:43)
--- NOTE | 2016-07-08 11:44 | ECHO REPORT ---
ORDER DATE: 07/08/2016 PROCEDURE PERFORMED: Transesophageal echocardiogram prior to cardioversion. DESCRIPTION OF PROCEDURE: Informed consent was obtained from the patient. The patient was brought to the cardiac catheterization laboratory. The patient's oropharynx was anesthetized using lidocaine swish and swallow, and Cetacaine spray. Anesthesia was present. Please see detailed anesthesia records. Patient was given etomidate and propofol. The patient tolerated the procedure well. There were no complications. FINDINGS: 1. Normal left ventricular cavity size. Estimated ejection fraction of 40-45%. There is apical hypokinesis with a layered thrombus noted in the left ventricular apex with an area of mobile thrombus as well which was small. 2. Normal right ventricular cavity size and function. 3. Aortic valve leaflets are trileaflet. 4. Mitral valve was normal. Tricuspid valve was normal. Pulmonic valve was normal. 5. There is mild mitral regurgitation. 6. There is no aortic stenosis or regurgitation. 7. There is mild tricuspid regurgitation. 8. There was no flow by color Doppler across the interatrial septum. 9. Left atrium was enlarged. 10. Left atrial appendage had prominent pectinate muscle. In addition, a questionable thrombus was noted with increased smoke in the left atrial appendage. 11. Right atrium was normal. CONCLUSIONS: Normal left ventricular cavity size. Estimated ejection fraction of 40-45%. There is apical hypokinesis with a layered thrombus in the left ventricular apex with an area of mobility as well. Given this, would recommend full anticoagulation. We will cancel the cardioversion. Patient needs to be anticoagulated prior to cardioversion. In addition, there was questionable smoke and thrombus noted in the left atrial appendage as well. cc: MD Truman Man MD
--- NOTE | 2016-07-08 13:36 | Extremity Venous Study ---
PROCEDURE NAME: Venous U/S Left Leg - 07/05/2016 Left lower extremity venous duplex and color flow imaging study using the [employer] vivid E 9 ultrasound System with a 9 L-D transducer. REFERRING PHYSICIAN: Dr. Melani Waters from the Emergency Department. IDENTIFYING DATA: A 70-year-old male. B[employer] PLANT OPERATOR: Mary Salgado RVT. INDICATIONS: 1. Shortness of breath, ICD 10 R06.02. 2. Swelling of the limb, M79.89. The patient had a trip to [place] and began experiencing edema of left lower extremity and shortness of breath. FINDINGS: The left common femoral vein and its branches, deep and superficial femoral veins were satisfactorily imaged. They had flow through them and were compressible. Left popliteal vein and the deep veins below the left knee were all compressible and had flow through them. The left greater saphenous vein has been harvested. The other superficial veins of the left lower extremity were compressible throughout their length. INTERPRETATION: No evidence of acute deep or superficial venous thrombosis of the left lower extremity. cc: MD Melani Chatterjee MD
[2016-07-08] MEDS: LASIX IV SCH ×2 (13:39→19:13)
[2016-07-08] MEDS: MIRALAX PO SCH (13:40)
[2016-07-08] MEDS: FLOMAX PO SCH (20:10)
[2016-07-08] MEDS ORDERED: CALMOSEPTINE OINTMENT TOP PRN (23:34)
[2016-07-09] MEDS: SYNTHROID PO SCH (06:15)
[2016-07-09] MEDS: HUMULIN R SUBQ SCH ×4 (06:15→20:46)
[2016-07-09] MEDS: LASIX IV SCH ×2 (06:18→18:25)
[2016-07-09] MEDS: ALBUTEROL NEB INH SCH ×4 (07:43→22:19)
--- NOTE | 2016-07-09 09:21 | PROGRESS NOTE ---
DATE: 07/09/2016 SUBJECTIVE: The patient reports feeling still short of breath. That happened when he tried to stand up and try to walk, but at present he is feeling fine. He denies any fever or chills. OBJECTIVE: Vital Signs: Temperature is 98.3, heart rate 77, respiratory rate 24, blood pressure 113/64. O2 saturation 100% on 3 L nasal cannula. General: This a 70-year-old male, lying in bed in no acute distress. HEENT: Head is normocephalic, atraumatic. Anicteric sclerae and pale conjunctivae. Mucous membranes moist. Neck supple. Mild JVD present. No carotid bruits. No thyromegaly. No lymphadenopathy. Cardiovascular: S1, S2 heard. Irregularly irregular. There are no murmurs, gallops, or rubs. Respiratory: Decreased air entry globally with mild crackles in both bases but no wheezing. The patient is not using any accessory muscles or having work of breathing. Abdomen is soft, nontender to palpation. Nondistended. Nontender to palpation. Extremities: Mild edema in both lower extremities. Peripheral pulses present in both legs. Neurologic: The patient is alert and oriented x3. Moves 4 extremities. LABORATORY DATA: There are no labs from today. ASSESSMENT AND PLAN: 1. Systolic congestive heart failure. We have checked yesterday's transesophageal and the ejection fraction was between 45% and 50%. Also, that confirmed thrombosis in the left atrial appendage and that is why cardiology recommends full anticoagulation on this patient. Of course, because of this finding, cardioversion cannot be done. 2. Chronic atrial fibrillation. As we mentioned above, cardioversion was not possible to perform. We will continue with full anticoagulation. 3. Coronary artery disease. The patient is not complaining of any chest pain at all. 4. Hypertensive heart disease. Blood pressure is stable. We will continue with the same management. 5. Diabetes mellitus, type 2. The patient is on sliding scale insulin. 6. Hypothyroidism. We will continue home medications. 7. Benign prostatic hypertrophy, aware. 8. Gastroesophageal reflux disease. The patient is on Protonix. 9. Sleep apnea, aware. Overall, this patient is not doing good, feeling still short of breath despite receiving 40 mg of Lasix IV q.12 hours. For check on anatomy of the lungs and to rule out any infection, we will do a CT of the chest today and will go from there. cc: Jim Bailey MD
--- NOTE | 2016-07-09 09:26 | Diag Imaging Result Doc PS360 ---
EXAM: CT THORAX W/O CONTRAST HISTORY: sob TECHNIQUE: CT of the chest without contrast with dose reduction (clarity.) COMMENT: The current study is compared with that of 09/21/2015. There is a fatty replaced prevascular node on the left measuring 2 cm in greatest dimension which has not changed appreciably since 09/21/2015 there is extensive coronary atherosclerotic calcification. There are calcified nodes in the right hilum. There is left nephrolithiasis and a apparent cyst in the left kidney measuring 5.3 cm in diameter. These findings were also present on the previous study. No abnormal fluid collections are present. There is been no significant change in the pulmonary parenchyma since the previous study. There is a calcified granuloma in the left upper lobe. IMPRESSION: Stable CT of the chest. Electronically signed by David Summers 07/09/2016 9:24 AM
[2016-07-09] MEDS: ELIQUIS PO SCH ×2 (10:03→20:45)
[2016-07-09] MEDS: MIRALAX PO SCH (10:03)
[2016-07-09] MEDS: NORVASC PO SCH (10:03)
[2016-07-09] MEDS: ASPIRIN PO SCH (10:03)
[2016-07-09] MEDS: PRINIVIL PO SCH (10:04)
[2016-07-09] MEDS: COREG PO SCH ×2 (10:04→20:45)
[2016-07-09] MEDS: ALDACTONE PO SCH (10:04)
[2016-07-09] MEDS: IMDUR PO SCH (10:04)
--- NOTE | 2016-07-09 12:20 | PROGRESS NOTE ---
DATE: 07/09/2016 SUBJECTIVE: Mr. Johnson continues to report significant amounts of shortness of breath with minimal ambulation. PHYSICAL EXAMINATION: Vital Signs: He is afebrile. His heart rate is 77. Blood pressure is 113/64. Systolics have been in the 90s to 110s. His I's and O's for the course of the hospitalization have been negative 4.1 liters. General: In no acute distress. Cardiovascular: He is in an irregularly irregular rhythm consistent with atrial fibrillation. No lower extremity edema. He has no murmurs. Lungs: Chest exam sounds relatively clear. Poor inspiratory effort. Abdomen: Soft, nontender, and nondistended. No obvious organomegaly. PERTINENT DATA: His sodium yesterday was 139, potassium 3.8, BUN 29, and creatinine 1.6. He had a proBNP of 1951 on presentation with negative cardiac enzymes. He had a chest CT performed this morning, demonstrating what appears to be a stable CT. He does not appear to have any significant parenchymal changes to suggest an etiology for his significant shortness of breath. He does have some peripheral scarring in the periphery of the left lower and left mid lung zones. ASSESSMENT: 1. Continued shortness of breath. 2. Suggestion of diastolic heart failure. 3. Left ventricular thrombus. 4. Atrial fibrillation. PLAN: I believe the patient's shortness of breath is most likely secondary to his continued issues with atrial fibrillation. We may need to consider doing a full ischemia evaluation with possible cardiac catheterization, considering his continued shortness of breath. He did have a transesophageal echo which suggested a left ventricular thrombus. We are unable to actively cardiovert the patient out of atrial fibrillation secondary to this thrombus present. I believe it would be appropriate to consider cardiac catheterization in the patient to fully rule out any possibility of fluid overload or ischemia to correlate with his symptoms. cc: Truman Manjarrez MD
[2016-07-09] MEDS: TYLENOL PO PRN (12:39)
[2016-07-09] MEDS: FLOMAX PO SCH (20:45)
[2016-07-10] MEDS: TYLENOL PO PRN ×2 (00:07→21:04)
[2016-07-10] MEDS: ALBUTEROL NEB INH SCH ×4 (03:59→23:06)
[2016-07-10] MEDS: HUMULIN R SUBQ SCH ×4 (06:05→21:07)
[2016-07-10] MEDS: SYNTHROID PO SCH (06:21)
[2016-07-10] MEDS: LASIX IV SCH ×2 (06:21→18:16)
[2016-07-10] MEDS: MIRALAX PO SCH (09:51)
[2016-07-10] MEDS: COREG PO SCH ×2 (09:52→21:05)
[2016-07-10] MEDS: NORVASC PO SCH (09:52)
[2016-07-10] MEDS: IMDUR PO SCH (09:52)
[2016-07-10] MEDS: ALDACTONE PO SCH (09:53)
[2016-07-10] MEDS: PRINIVIL PO SCH (09:53)
[2016-07-10] MEDS: ASPIRIN PO SCH (09:53)
[2016-07-10] MEDS: ELIQUIS PO SCH ×2 (09:53→21:05)
--- NOTE | 2016-07-10 13:38 | PROGRESS NOTE ---
DATE: 07/10/2016 SUBJECTIVE: The patient reports to continuing to having shortness of breath. Denies any fever or chills. Denies any chest pain. OBJECTIVE: Vital Signs: Temperature 98.2 degrees, heart rate 65, respiratory rate 18, blood pressure 115/65, O2 saturation 98% on 3 L nasal cannula. General Examination: This is a 70-year- old male, lying in bed, in no acute distress. HEENT: Head is normocephalic, atraumatic. Anicteric sclerae and pale conjunctivae. Mucous membranes moist. Neck: Supple. No JVD noted. No carotid bruits. No lymphadenopathy. No thyromegaly. Cardiovascular: S1, S2 heard. Irregularly irregular heart sounds. No gallops, murmurs or rubs. Respiratory: Decreased air entry globally with mild crackles in both bases but no wheezing. Patient is not using any accessory muscles or having work of breathing. Abdomen: Soft, nontender to palpation. Bowel sounds present. No organomegaly. Extremities: No clubbing or cyanosis. Mild edema in both lower extremities with signs of chronic venous insufficiency. Peripheral pulses present in both legs. Neurological: Patient is alert and oriented x3. Moves 4 extremities. LABORATORY DATA: There are no labs from today. ASSESSMENT AND PLAN: 1. Systolic congestive heart failure. As we mentioned before, the transesophageal echo showed ejection fraction to 45-50% and because that also showed left atrial appendage blood clot Cardiology is following this patient on full anticoagulation. 2. Chronic atrial fibrillation. This patient could have any cardioversion because of this finding of blood clots in the heart. Cardiology has evaluated this patient. I think that because of this chronic atrial fibrillation that this patient is still short of breath so they are apparently planning to do a cardiac catheterization. We will follow recommendations. 3. Coronary artery disease. Patient is not complaining of any chest pain. 4. Hypertensive heart disease. Blood pressure is better controlled. 5. Diabetes mellitus type 2. Patient is on sliding scale insulin. We will continue with the same. 6. Hypothyroidism. Will continue with home medications. 7. Benign prostatic hypertrophy, aware. 8. Gastroesophageal reflux disease. Patient is on Protonix. 9. Sleep apnea. Aware. Overall this patient continues to feel short of breath. Cardiology suggested a heart catheterization. The CT of the chest that we ordered to check for lung narrowing was unremarkable. At this time, we will see what Cardiology has to say. cc: Jim Bailey MD
[2016-07-10] MEDS: FLOMAX PO SCH (21:05)
--- NOTE | 2016-07-11 05:12 | EKG Report ---
Test Performed on : 07/10/2016 6:22:46 PM Test Reason : chest pain Blood Pressure : / mmHG Vent. Rate : 072 BPM Atrial Rate : 166 BPM P-R Int : 000 ms QRS Dur : 090 ms QT Int : 374 ms P-R-T Axes : 000 -52 179 degrees QTc Int : 409 ms Atrial fibrillation. Left anterior fascicular block T wave abnormality, consider lateral ischemia Abnormal ECG When compared with ECG of 07-JUL-2016 20:01, Nonspecific T wave abnormality now evident in Inferior leads Inverted T waves have replaced nonspecific T wave abnormality in Anterior leads Confirmed by Terry Conley MD ([id number]) on 07/11/2016 7:58:15 AM
[2016-07-11 05:58] LABS: CALCIUM 9.6 mg/dL (8.8-10.2); POTASSIUM 3.8 mmol/L (3.5-5.1)
[2016-07-11] MEDS: HUMULIN R SUBQ SCH ×4 (06:33→21:05)
[2016-07-11] MEDS: ALBUTEROL NEB INH SCH ×4 (06:50→22:02)
[2016-07-11 08:40] LABS: MANUAL DIFF NEEDED? NO
[2016-07-11 08:45] LABS: BASO% 0.9 % (0.0-0.8); EOS# 0.58 X1000 (0.0-0.7); EOS% 8.9 % (0.0-10.0); HEMATOCRIT 37.1 % (42.0-52.0); HEMOGLOBIN 11.7 g/dL (14.0-18.0); IMM GRAN# 0.02 X1000 (0.0-0.04); IMM GRAN% 0.3 % (0.0-0.5); LYMPH# 1.02 X1000 (1.2-3.4); LYMPH% 15.6 % (20.5-51.1); MCH 26.2 PG (27-31); MCHC 31.5 g/dL (33-37); MONO# 0.95 X1000 (0.11-0.59); MONO% 14.5 % (1.7-9.3); MPV 10.5 FL (7.4-10.4); NEUT% 59.8 % (42.2-75.2); PLT 172 X1000 (130-400); RBC 4.47 XMIL (4.7-6.1)
--- NOTE | 2016-07-11 09:14 | PROGRESS NOTE ---
DATE: 07/11/2016 SUBJECTIVE: Patient reports that he is having shortness of breath. Also, he reported having had chest pain in the left side of the thorax that lasted approximately five minutes and would go away by its own. No radiation noted. It was sharp in nature and no nausea, vomiting or diaphoresis noted. OBJECTIVE: Vital Signs: Temperature 97.8 degrees, heart rate 73, respiratory rate 18, blood pressure 118/70, O2 saturation 97% on 2 L nasal cannula. General Examination: This is a 70-year- old male, lying in bed in no acute distress. HEENT: Head is normocephalic, atraumatic. Anicteric sclerae and pale conjunctivae. Mucous membranes moist. Neck: Supple. No JVD noted. No carotid bruits. No lymphadenopathy. No thyromegaly. Cardiovascular exam: S1, S2 heard. No murmurs, gallops, or rubs. Regular rate and rhythm. Respiratory exam: Decreased air entry globally with mild crackles still present in both bases, but there is no wheezing noted. The patient is not using any accessory muscles or having work of breathing. Abdomen: Soft, nontender to palpation. Bowel sounds present. No organomegaly. Extremities: No clubbing or cyanosis but there is still mild edema with some signs of chronic venous insufficiency in both lower extremities. Peripheral pulses present in both legs. Neurological exam: Patient alert and oriented x3. Moves 4 extremities. LABORATORY DATA: The BMP showed creatinine 1.6 and BUN 29. ASSESSMENT AND PLAN: 1. Systolic congestive heart failure. Patient on Lasix 40 mg intravenous every 12 hours, and he is still noticing shortness of breath. CT of the chest done 2 days ago showed no significant change in the pulmonary parenchyma, and they do not describe any pulmonary edema at this time. Patient evaluated by cardiology. They have ordered a Lexiscan that is going to be done today. We will follow recommendations from cardiology. 2. Chronic atrial fibrillation. The patient is not a candidate for cardioversion because of left atrial appendage thrombus. We will continue with anticoagulation. 3. Coronary artery disease. Yesterday, he had an episode of chest pain last night, so we will see what this Lexiscan test shows. 4. Hypertensive heart disease. Blood pressure is in better control. 5. Hypothyroidism. Will continue home medications. 6. Benign prostatic hypertrophy, aware. 7. Gastroesophageal reflux disease. Patient is on some Protonix. cc: Jim Bailey MD
[2016-07-11] MEDS ORDERED: LEXISCAN ONE (09:15)
[2016-07-11] MEDS: IMDUR PO SCH (11:34)
[2016-07-11] MEDS: SYNTHROID PO SCH (11:35)
[2016-07-11] MEDS: ELIQUIS PO SCH ×2 (11:35→21:06)
[2016-07-11] MEDS: PRINIVIL PO SCH (11:35)
[2016-07-11] MEDS: MIRALAX PO SCH (11:35)
[2016-07-11] MEDS: NORVASC PO SCH (11:35)
[2016-07-11] MEDS: ASPIRIN PO SCH (11:35)
[2016-07-11] MEDS: LASIX IV SCH ×2 (11:35→18:00)
[2016-07-11] MEDS: COREG PO SCH ×2 (11:35→21:06)
[2016-07-11] MEDS: ALDACTONE PO SCH (11:35)
--- NOTE | 2016-07-11 12:59 | PROGRESS NOTE ---
DATE: 07/11/2016 SUBJECTIVE: Mr. Gibbs continues to complain of issues of shortness of breath. This does not seem to be substantiated by hypoxia on his overnight O2 saturations. PHYSICAL EXAMINATION: Vital signs: Afebrile. Heart rate is 70s to 80s. Blood pressure 116/68. General: He is in no acute distress. Cardiovascular: He is in an irregularly irregular rhythm consistent with atrial fibrillation. He has no lower extremity edema. Chest: Exam sounds clear bilaterally. No increased work of breathing. Abdomen: Soft, nontender, nondistended. He has no obvious organomegaly. PERTINENT DATA: White count 6.5, hematocrit 37.1, platelet count is 172,000, sodium 141, potassium 3.8, BUN 29, creatinine 1.6. ProBNP of 704. Stress today seems consistent with previous showing an anterior scar which is consistent with recent cardiac catheterizations. ASSESSMENT: 1. Continued dyspnea. 2. Atrial fibrillation. PLAN: Patient's symptoms seem out of proportion to what is going on from a cardiac standpoint. His proBNP is relatively low and has actually improved with no resolution in his symptoms. With continued diuresis his creatinine has risen slightly. His CT scan did not show any evidence for pulmonary edema so I do not believe the patient is in heart failure. His symptoms seem out of proportion to his atrial fib. His CT scan does not show any clear evidence of any significant findings to suggest an etiology to his shortness of breath. In addition, his D-dimer was normal. I would recommend pulmonary consultation to rule out any obvious pulmonary pathology. At this point, I have no further recommendations. I believe he can be discharged home from a cardiovascular standpoint as his atrial fibrillation is controlled. He is on appropriate medications presently. He is on appropriate anticoagulation. At some point, he can have reconsideration for a potential transesophageal echocardiogram and cardioversion in the future to see if his clot has resolved. Right now I would continue him on the [employer] cc: Truman Manjarrez MD
--- NOTE | 2016-07-11 16:38 | Diag Imaging Result Document ---
PROCEDURE NAME: MYOCARDIAL PERF SCAN, STR/REST - 07/11/2016 REFERRING PHYSICIAN: Dr. Truman Manjarrez and Hospitalist Service INDICATION: Chest pain, coronary artery disease. SUMMARY OF ELECTROCARDIOGRAPHIC PORTION OF THE STUDY: Resting electrocardiogram shows atrial fibrillation with controlled rate, 65 beats per minute. Resting blood pressure is 125/70. Resting ECG shows a left axis deviation with a diffuse repolarization abnormality, poor R wave progression across precordial leads, septal scar. During infusion of Lexiscan, the heart rate increased to 84 beats per minute. Blood pressure dropped to 95/57. The patient reported no chest pain, shortness of breath or palpitations. ECG showed no significant changes. The patient was in atrial fibrillation throughout the entire study. Occasional PVCs noted. CONCLUSIONS: Electrocardiographic response to infusion of Lexiscan is deemed to be unremarkable. SUMMARY OF THE MYOCARDIAL PERFUSION PORTION OF THE STUDY: Poststress tomographic views of the left ventricle showed a moderately extensive, severe apical anterior defect. The rest images showed that this defect is essentially a scar with very trivial periinfarction ischemia in the most apical portion of the defect. The polar plots revealed the same. There is a moderate size apical anterior scar with very minimal ronen-scar ischemia. This is consistent with an old anterior apical infarction. Gated SPECT shows relatively normal ventricular size with apical anterior akinesis. Ejection fraction by the Luis tool protocol is 49%, by the Myometrix protocol is 45%. I believe visually the ejection fraction is in the neighborhood of 45%. The lung/heart ratio is elevated, suggesting elevation of the left ventricular end diastolic pressure. The TID is normal. CONCLUSIONS: 1. Abnormal resting electrocardiogram. The patient demonstrates atrial fibrillation with diffuse repolarization abnormalities, septal scar. No significant abnormalities induced by infusion of Lexiscan. 2. Abnormal poststress myocardial perfusion scan. There is a scintigraphic evidence of a small to moderate size apical anterior scar with very trivial periinfarction ischemia. 3. Mildly decreased ejection fraction estimated at 45% with apical anterior akinesis. The study would be consistent with an old anterior apical myocardial infarction. Clinical correlation is recommended. cc: MD Truman Hubbard MD
[2016-07-11] MEDS: FLOMAX PO SCH (21:06)
[2016-07-12] MEDS: ALBUTEROL NEB INH SCH ×4 (03:36→21:52)
[2016-07-12 04:53] LABS: MANUAL DIFF NEEDED? NO
[2016-07-12 04:59] LABS: BASO% 0.7 % (0.0-0.8); EOS# 0.65 X1000 (0.0-0.7); EOS% 9.5 % (0.0-10.0); HEMOGLOBIN 12.2 g/dL (14.0-18.0); IMM GRAN# 0.03 X1000 (0.0-0.04); IMM GRAN% 0.4 % (0.0-0.5); LYMPH# 1.31 X1000 (1.2-3.4); LYMPH% 19.2 % (20.5-51.1); MCH 25.8 PG (27-31); MCHC 31.3 g/dL (33-37); MCV 82.5 FL (81-99); MONO% 11.7 % (1.7-9.3); MPV 10.2 FL (7.4-10.4); NEUT% 58.5 % (42.2-75.2); PLT 179 X1000 (130-400); RBC 4.73 XMIL (4.7-6.1)
[2016-07-12 05:26] LABS: CALCIUM 9.7 mg/dL (8.8-10.2); POTASSIUM 4.1 mmol/L (3.5-5.1)
[2016-07-12] MEDS: LASIX IV SCH ×2 (06:51→18:51)
[2016-07-12] MEDS: HUMULIN R SUBQ SCH ×4 (06:51→20:10)
[2016-07-12] MEDS: SYNTHROID PO SCH (06:51)
[2016-07-12] MEDS: ASPIRIN PO SCH (08:26)
[2016-07-12] MEDS: COREG PO SCH ×2 (08:26→20:08)
[2016-07-12] MEDS: IMDUR PO SCH (08:27)
[2016-07-12] MEDS: ELIQUIS PO SCH ×2 (08:27→20:08)
[2016-07-12] MEDS: ALDACTONE PO SCH (08:27)
[2016-07-12] MEDS: MIRALAX PO SCH (09:17)
[2016-07-12] MEDS: NORVASC PO SCH (09:17)
[2016-07-12] MEDS: PRINIVIL PO SCH (09:17)
--- NOTE | 2016-07-12 09:38 | PROGRESS NOTE ---
DATE: 07/12/2016 SUBJECTIVE: Patient reports still feeling short of breath. No fever or chills noted OBJECTIVE: Vital Signs: Temperature 97.8 degrees, heart rate 54, respiratory 20, blood pressure 112/61, O2 saturation 100% on 3 L nasal cannula. General: This is a 70-year-old male, lying in bed, in no acute distress. HEENT: Head is normocephalic, atraumatic. Anicteric sclerae and pale conjunctivae. Mucous membranes moist. Neck: Supple. No JVD noted. No carotid bruits. No lymphadenopathy. No thyromegaly. Cardiovascular: S1, S2 heard. Irregularly irregular. No murmurs, gallops, or rubs. Respiratory: Decreased air entry globally with fine crackles still present in both bases. Patient not using any accessory muscles or having work of breathing. Abdomen: Soft, nontender to palpation. Bowel sounds present. No organomegaly. Extremities: No clubbing, cyanosis. Mild edema in both lower extremities with signs of chronic venous insufficiency. Peripheral pulses present in both legs. Neurological: Patient alert and oriented x3. Able to move 4 extremities. LABORATORY DATA: White cell count 6.83, hemoglobin 12.2, hematocrit 39.0, platelets 179,000. BMP shows creatinine 1.6, BUN 34. ASSESSMENT/PLAN: 1. Persistent shortness of breath. Initially on this patient, we suspect shortness of breath because of cardiac source. We suspect congestive heart failure, but CT of the chest done 3 days ago did not show any signs of pulmonary edema. The patient has been, during the last 3-4 days, on Lasix 40 mg IV q.12 hours and patient is still short of breath. Cardiology also evaluated this patient and Dr. Manjarrez did think he is not in any heart failure. Lexiscan test was done yesterday which was basically unremarkable. From a cardiology standpoint. The patient is good to go. They have recommended to have a pulmonary consultation to see what else can be done for this patient. 2. Chronic atrial fibrillation. Patient is on Eliquis. Also because this patient has a left atrial appendage thrombus, she should continue with the same medication and elective cardioversion can be considered in the future. 3. Coronary artery disease. At this time, patient is not complaining of any chest pain, and as we mentioned before, the Lexiscan scan test done yesterday returned basically unremarkable. 4. Hypertensive heart disease. Blood pressure is definitely better. 5. Hypothyroidism. We will continue home medications. 6. Benign prostatic hypertrophy, aware. 7. Gastroesophageal disease patient is on Protonix. cc: Jim Bailey MD
--- NOTE | 2016-07-12 14:47 | CONSULTATION ---
DATE OF CONSULTATION: 07/12/2016 REFERRING PHYSICIAN: Dr. Jim Bailey MD Thank you very much for asking me to see this very unfortunate 70-year-old male. DIAGNOSES: 1. Exertional dyspnea, probably a result of restrictive pulmonary defect, obesity, with left ventricular dysfunction. Likely also to be rapid ventricular response. I do not believe that this is a pulmonary thromboembolism. 2. Morbid obesity. 3. Hypertension. RECOMMENDATIONS: Will give bronchodilators as well as Lovenox, supplemental oxygen. Intriguing is the possibility of a pulmonary thromboembolism. Will follow closely along with you. HISTORY OF PRESENT ILLNESS: This very unfortunate 70-year-old white male has recurrent episodes of exertional dyspnea. He relates shortness of breath and near syncope associated with this and has developed some chest pain. He subsequently was admitted to the hospital. I am consulted to assist in his care. REVIEW OF SYSTEMS: Positive for weakness, weight gain, and some anorexia. No ENT symptoms of odynophagia, dysphagia, epistaxis, or painful swallowing. No eye pain. No skin rashes, itching, or bruises. No seizures. No loss of consciousness or paralysis. Except for the features mentioned above, all other symptoms on the review of systems are negative. SOCIAL HISTORY: He is obese and is a former smoker with an approximately 20 pack-year history, having quit over 30 years ago. He lives alone. PAST MEDICAL HISTORY: Positive for ischemic heart disease as well as hypertension. HOME MEDS: Imdur 90 mg a day. Synthroid 50 mcg a day. Lisinopril 20 mg daily. Metformin 875 mg p.o. b.i.d. Metoprolol 50 mg q.a.m. MiraLAX 17 g a day. Carafate 1 g q.i.d. Flomax 0.4 mg at bedtime. FAMILY HISTORY: Noncontributory. PHYSICAL EXAMINATION: Vital Signs: He has a blood pressure of 118/58 with a pulse of 65, respirations of 18, and temperature 97.8 degrees. Neck: No thyromegaly. Lungs: There are crackles in both bases. Cardiac: Reveals a regular rhythm. Abdomen: Soft. Skin: Warm and dry. Extremities: There is 2+ edema. Neurological: He is grossly nonfocal. LABORATORY: His sodium is 137, potassium 4.1, chloride 98, CO2 is 25, BUN 34, creatinine 1.4, glucose 201. White count is 6800 with a hemoglobin of 12.2, hematocrit of 39.0, and platelets of 179,000.Imaging: Chest radiograph shows a modest cardiomegaly with edema. cc: Jim Bailey MD
[2016-07-12] MEDS: TYLENOL PO PRN (18:42)
[2016-07-12] MEDS: FLOMAX PO SCH (20:08)
[2016-07-13 04:46] LABS: MANUAL DIFF NEEDED? NO
[2016-07-13 04:53] LABS: EOS# 0.68 X1000 (0.0-0.7); HEMATOCRIT 38.8 % (42.0-52.0); HEMOGLOBIN 12.5 g/dL (14.0-18.0); IMM GRAN# 0.02 X1000 (0.0-0.04); IMM GRAN% 0.3 % (0.0-0.5); LYMPH# 1.35 X1000 (1.2-3.4); LYMPH% 19.8 % (20.5-51.1); MCH 26.5 PG (27-31); MCHC 32.2 g/dL (33-37); MCV 82.2 FL (81-99); MONO# 0.93 X1000 (0.11-0.59); MONO% 13.7 % (1.7-9.3); MPV 10.1 FL (7.4-10.4); NEUT% 55.2 % (42.2-75.2); PLT 182 X1000 (130-400); RBC 4.72 XMIL (4.7-6.1)
[2016-07-13 05:10] LABS: CALCIUM 10.4 mg/dL (8.8-10.2); POTASSIUM 4.1 mmol/L (3.5-5.1)
[2016-07-13] MEDS: ALBUTEROL NEB INH SCH ×2 (05:11→10:50)
[2016-07-13] MEDS: HUMULIN R SUBQ SCH ×4 (06:03→20:22)
[2016-07-13] MEDS: LASIX IV SCH (06:19)
[2016-07-13] MEDS: SYNTHROID PO SCH (06:19)
[2016-07-13] MEDS: ALDACTONE PO SCH (09:53)
[2016-07-13] MEDS: PRINIVIL PO SCH (09:53)
[2016-07-13] MEDS: NORVASC PO SCH (09:53)
[2016-07-13] MEDS: MIRALAX PO SCH (09:53)
[2016-07-13] MEDS: COREG PO SCH ×2 (09:53→20:22)
[2016-07-13] MEDS: ASPIRIN PO SCH (09:53)
[2016-07-13] MEDS: IMDUR PO SCH (09:54)
[2016-07-13] MEDS: ELIQUIS PO SCH ×2 (09:54→20:22)
[2016-07-13] MEDS ORDERED: DUONEB (A & A) INH PRN (13:05)
--- NOTE | 2016-07-13 15:02 | PROGRESS NOTE ---
DATE: 07/13/2016 SUBJECTIVE: Patient reports less short of breath but that sensation still present. No fever or chills noted, no chest pain. OBJECTIVE: Vitals: Temperature 97.0 degrees, heart rate 81, respiratory 16, blood pressure 117/67, O2 saturation 99% 2 L nasal cannula. General Examination: This is a chronically ill- looking 70-year-old male lying in bed in no acute distress. HEENT: Head is normocephalic, atraumatic. Anicteric sclerae and pale conjunctivae. Mucous membranes moist. Neck: Supple. No JVD noted. No carotid bruits. No lymphadenopathy. No thyromegaly. Cardiovascular: S1 and S2 heard. Irregularly irregular. No murmurs, gallops, or rubs. Respiratory Examination: Decreased air entry globally but there is no crackles, no wheezing noted. Patient is not using any accessory muscles or having work of breathing. Abdomen: Soft, nontender to palpation. Bowel sounds present. No organomegaly. Extremities: No clubbing, cyanosis. Mild edema in both lower extremities with signs of chronic venous insufficiency. Peripheral pulses present in both legs. Neurological: Patient alert, oriented x3. Moves 4 extremities. LABORATORY DATA: White cell count 6.81, hemoglobin 12.5, hematocrit 38.8, platelets 182,000. BMP remarkable for creatinine 1.4 and BUN 33. ASSESSMENT/PLAN: 1. Persistent shortness of breath. Patient has been in the hospital for almost week. Initially we suspected congestive heart failure. Patient was on furosemide 40 mg IV q.12 hours for last few days but the shortness of breath has been unchanged. CT of the chest done 3 days ago did not show any signs of pulmonary edema. Also Cardiology has been consulted and permaculture designer was following this patient. He does not think this patient is in any heart failure and also they ordered a stress test a Lexiscan that was unremarkable so from cardiology standpoint this patient good to go and there was recommendation to consult pulmonary who thinks this could be related to chronic obstructive pulmonary disease. At this point what I have done today is to increase the frequency of nebulizations to every 4 hours. The patient was receiving albuterol. We are going to do with this time DuoNeb. We are going to add Spiriva to his current treatment. We are going to consult physical therapy. Will continue with incentive spirometry. Regarding this condition if this patient started feeling better tomorrow day after he after he can go. 2. Chronic atrial fibrillation. Patient is on Eliquis. It is important to remark that the patient also has atrial appendage thrombosis so that is why cardioversion was not possible to perform. At this point he can go home with Eliquis and get an appointment with his permaculture designer and see if we can perform cardioversion in the near future. 3. Coronary artery disease. No chest pain reported and the stress test was normal. 4. Hypertensive heart disease. Blood pressure is well controlled with blood pressure in the 120s and 130. Will continue with same management. 5. Hypothyroidism, will continue with home medications. 6. Benign prostatic hypertrophy, aware. 7. Gastroesophageal reflux disease. Patient is on Protonix. 8. Physical deconditioning. Physical therapy has been consulted. Will see they recommend for this patient to go to rehab facility versus going home with home health. cc: Jim Bailey MD
[2016-07-13] MEDS: TYLENOL PO PRN ×2 (15:06→22:12)
[2016-07-13] MEDS: DUONEB (A & A) INH SCH ×3 (15:42→23:02)
[2016-07-13] MEDS: SPIRIVA INH SCH (19:07)
[2016-07-13] MEDS: FLOMAX PO SCH (20:22)
[2016-07-14] MEDS: DUONEB (A & A) INH SCH ×6 (03:59→23:03)
[2016-07-14 04:58] LABS: BASO% 0.9 % (0.0-0.8); EOS# 0.62 X1000 (0.0-0.7); EOS% 9.7 % (0.0-10.0); HEMATOCRIT 37.7 % (42.0-52.0); IMM GRAN# 0.02 X1000 (0.0-0.04); IMM GRAN% 0.3 % (0.0-0.5); LYMPH# 1.33 X1000 (1.2-3.4); LYMPH% 20.7 % (20.5-51.1); MANUAL DIFF NEEDED? NO; MCH 26.1 PG (27-31); MCHC 31.8 g/dL (33-37); MCV 82.1 FL (81-99); MONO# 0.65 X1000 (0.11-0.59); MONO% 10.1 % (1.7-9.3); MPV 10.1 FL (7.4-10.4); NEUT% 58.3 % (42.2-75.2); PLT 170 X1000 (130-400); RBC 4.59 XMIL (4.7-6.1)
[2016-07-14 05:21] LABS: CALCIUM 10.4 mg/dL (8.8-10.2); POTASSIUM 4.6 mmol/L (3.5-5.1)
[2016-07-14] MEDS: HUMULIN R SUBQ SCH ×4 (06:06→20:45)
[2016-07-14] MEDS: SYNTHROID PO SCH (06:38)
[2016-07-14] MEDS ORDERED: HALL'S COUGH LOZENGE MT PRN (06:39)
[2016-07-14] MEDS: SPIRIVA INH SCH (07:33)
[2016-07-14] MEDS: MIRALAX PO SCH (09:43)
[2016-07-14] MEDS: NORVASC PO SCH (09:44)
[2016-07-14] MEDS: ALDACTONE PO SCH (09:44)
[2016-07-14] MEDS: ELIQUIS PO SCH ×2 (09:44→20:44)
[2016-07-14] MEDS: IMDUR PO SCH (09:44)
[2016-07-14] MEDS: COREG PO SCH ×2 (09:44→20:44)
[2016-07-14] MEDS: ASPIRIN PO SCH (09:44)
[2016-07-14] MEDS: PRINIVIL PO SCH (09:44)
[2016-07-14] MEDS: LASIX PO SCH (09:44)
--- NOTE | 2016-07-14 13:44 | PROGRESS NOTE ---
DATE: 07/14/2016 SUBJECTIVE: The patient is still complaining of having shortness of breath even at rest. He is very concerned about going home. He denies having any fever or chills. Seen and examined in his room before he was transferred downstairs. OBJECTIVE: Vital Signs: Blood pressure 112/66, pulse of 77, respiration 19, temperature 97.9 degrees, saturations of 97% on 2 L. General Appearance: Morbidly obese, white male, in no acute distress. HEENT: Anicteric sclerae and conjunctivae. Neck: Supple. No JVD. No bruit. Cardiovascular: S1, S2. Normal rate and rhythm. No murmur, rubs, or gallops. Pulmonary: He has wheezes bilaterally. GI: Soft, nontender, nondistended. Normoactive bowel sounds. Musculoskeletal: No clubbing, cyanosis, or edema. LABORATORY: White count 6.42, hemoglobin 12.0, hematocrit of 37.7, platelets of 170,000. Chemistry: Sodium 136, potassium is 4.6, chloride 98, bicarb 25, BUN 37, creatinine 1.7, glucose of 177. ASSESSMENT AND PLAN: This is a 70-year-old white male, admitted to the hospital for congestive heart failure exacerbation. 1. Mild systolic congestive heart failure, depression, ejection fraction of 45%-50%. The patient is feeling somewhat better though when he came in, but still not at his baseline. We will continue IV Lasix. 2. Mild chronic obstructive pulmonary disease exacerbations. The patient has wheezes bilaterally. We will continue with nebulizer treatment. We will add IV steroid and keep him on Spiriva. 3. Chronic kidney disease stage 3. We will watch his renal function carefully. We will recheck it tomorrow, and if increasing again we will stop his Aldactone and his lisinopril. 4. Hypertension. We will keep the patient on isosorbide and Norvasc. 5. Atrial fibrillation. We will continue Coreg and Eliquis for anticoagulation. Cardiology is following. 6. Hypothyroidism. Continue Synthroid. 7. Deconditioning. Consult Physical Therapy to ambulate the patient. 8. Deep vein thrombosis prophylaxis. The patient is on Eliquis. 9. Medication, laboratory, and radiology were personally reviewed.
[2016-07-14] MEDS: TYLENOL PO PRN (14:50)
[2016-07-14] MEDS: SOLU-MEDROL IV SCH ×2 (14:54→20:47)
[2016-07-14] MEDS: FLOMAX PO SCH (20:44)
[2016-07-15] MEDS: DUONEB (A & A) INH SCH ×6 (03:37→22:55)
[2016-07-15] MEDS: SOLU-MEDROL IV SCH ×2 (05:23→17:11)
[2016-07-15] MEDS: SYNTHROID PO SCH (06:09)
[2016-07-15] MEDS: HUMULIN R SUBQ SCH ×4 (06:09→21:03)
[2016-07-15 06:24] LABS: BASO% 0.1 % (0.0-0.8); EOS# 0.01 X1000 (0.0-0.7); EOS% 0.1 % (0.0-10.0); HEMATOCRIT 37.2 % (42.0-52.0); IMM GRAN# 0.02 X1000 (0.0-0.04); IMM GRAN% 0.3 % (0.0-0.5); LYMPH# 0.65 X1000 (1.2-3.4); LYMPH% 8.4 % (20.5-51.1); MANUAL DIFF NEEDED? YES; MCH 26.4 PG (27-31); MCHC 32.3 g/dL (33-37); MCV 81.8 FL (81-99); MONO# 0.24 X1000 (0.11-0.59); MONO% 3.1 % (1.7-9.3); MPV 10.3 FL (7.4-10.4); PLT 171 X1000 (130-400); RBC 4.55 XMIL (4.7-6.1)
[2016-07-15 06:50] LABS: POTASSIUM 5.1 mmol/L (3.5-5.1)
[2016-07-15 06:54] LABS: LYMPHS 10 % (21-51); MONO 1 % (1-9)
[2016-07-15] MEDS: SPIRIVA INH SCH (07:37)
[2016-07-15] MEDS: MIRALAX PO SCH (08:01)
[2016-07-15] MEDS: ASPIRIN PO SCH (08:01)
[2016-07-15] MEDS: IMDUR PO SCH (08:02)
[2016-07-15] MEDS: NORVASC PO SCH (08:02)
[2016-07-15] MEDS: PRINIVIL PO SCH (08:02)
[2016-07-15] MEDS: ALDACTONE PO SCH (08:02)
[2016-07-15] MEDS: ELIQUIS PO SCH ×2 (08:02→21:02)
[2016-07-15] MEDS: LASIX PO SCH (08:02)
[2016-07-15] MEDS: COREG PO SCH ×2 (08:02→21:02)
--- NOTE | 2016-07-15 10:30 | PROGRESS NOTE ---
DATE: 07/15/2016 SUBJECTIVE: The patient is feeling much better. Breathing is much improved. He has ambulated with the staff to the bathroom without any significant shortness of breath. OBJECTIVE: Vital Signs: Blood pressure 131/74, pulse of 75, respirations 20, temperature 97.3 degrees, saturation of 97% on 2 L nasal cannula. General Appearance: Obese, white male, in no acute distress. HEENT: Anicteric sclerae. Clear conjunctivae. Neck: Supple. No JVD. No bruit. Cardiovascular: S1 and S2. Normal rate and rhythm. No murmur, rubs, or gallops. Pulmonary: Clear to auscultation bilaterally. GI: Soft, nontender, nondistended. Normoactive bowel sounds. Musculoskeletal: No clubbing, cyanosis, or edema. Laboratory: White count of 7.71, hemoglobin 12, hematocrit 37.2, platelets 171,000. Chemistry: Sodium 134, potassium 5.1, chloride 98, bicarb 20, BUN 39, creatinine 1.7, glucose of 293. ASSESSMENT AND PLAN: 1. This is a 70-year-old, white male admitted to the hospital for systolic congestive heart failure exacerbations. The patient is still on intravenous Lasix and has been doing well. His creatinine has been stable. 2. Chronic kidney disease stage III. We will monitor his renal function. 3. Chronic obstructive pulmonary disease exacerbation, improving. We will cut down his steroid. We will keep him on Spiriva and nebulizer treatment. The patient is on home oxygen at 2 L as needed. 4. Hypertension. The patient is on isosorbide and Norvasc. Blood pressure is reasonably controlled. 5. Hypothyroidism. Continue Synthroid. 6. Deconditioning. Continue physical therapy. 7. Deep vein thrombosis prophylaxis. The patient is on Eliquis for his atrial fibrillation. 8. Code status. The patient is a full code. 9. Disposition. The patient probably is going home tomorrow. We will cut down his steroids today.
[2016-07-15] MEDS ORDERED: SOLU-MEDROL ONE (13:21)
[2016-07-15] MEDS: FLOMAX PO SCH (21:02)
[2016-07-16] MEDS: DUONEB (A & A) INH SCH ×2 (03:26→07:34)
[2016-07-16] MEDS: SOLU-MEDROL IV SCH (05:57)
[2016-07-16] MEDS: HUMULIN R SUBQ SCH ×2 (06:01→11:33)
[2016-07-16] MEDS: SYNTHROID PO SCH (06:03)
[2016-07-16 06:06] VITALS: BP 109/67
[2016-07-16 07:16] LABS: EOS# 0.01 X1000 (0.0-0.7); EOS% 0.1 % (0.0-10.0); HEMATOCRIT 36.8 % (42.0-52.0); HEMOGLOBIN 11.6 g/dL (14.0-18.0); IMM GRAN# 0.03 X1000 (0.0-0.04); IMM GRAN% 0.3 % (0.0-0.5); LYMPH% 6.8 % (20.5-51.1); MANUAL DIFF NEEDED? YES; MCH 26.1 PG (27-31); MCHC 31.5 g/dL (33-37); MCV 82.7 FL (81-99); MONO# 0.78 X1000 (0.11-0.59); MONO% 6.7 % (1.7-9.3); MPV 10.6 FL (7.4-10.4); NEUT% 86.1 % (42.2-75.2); PLT 172 X1000 (130-400); RBC 4.45 XMIL (4.7-6.1)
[2016-07-16] MEDS: SPIRIVA INH SCH (07:36)
[2016-07-16 07:39] LABS: CALCIUM 9.9 mg/dL (8.8-10.2); POTASSIUM 4.8 mmol/L (3.5-5.1)
[2016-07-16 08:09] LABS: BANDS 2 % (0-1); LYMPHS 6 % (21-51); MONO 4 % (1-9)
[2016-07-16] MEDS: MIRALAX PO SCH (08:27)
[2016-07-16] MEDS: IMDUR PO SCH (08:28)
[2016-07-16] MEDS: PRINIVIL PO SCH (08:29)
[2016-07-16] MEDS: ASPIRIN PO SCH (08:29)
[2016-07-16] MEDS: ELIQUIS PO SCH (08:29)
[2016-07-16] MEDS: ALDACTONE PO SCH (08:29)
[2016-07-16] MEDS: COREG PO SCH (08:30)
[2016-07-16] MEDS: NORVASC PO SCH (08:30)
[2016-07-16] MEDS: LASIX PO SCH (08:30)
--- NOTE | 2016-07-16 12:55 | PROGRESS NOTE ---
DATE: 07/16/2016 SUBJECTIVE: The patient is feeling well. He is eager to go home. He denies having any fever or chills. Denies having any cough. Denies having any shortness of breath. OBJECTIVE: Vital signs: Blood pressure 109/67, pulse of 71, respiration 16, temperature 98.1 degrees, saturations of 98% on 2 L nasal cannula. The patient is on 3 L at home. General appearance: Obese white male, in no acute distress. HEENT: Anicteric. Clear conjunctivae. Neck: Supple. No JVD. No bruit. Cardiovascular: S1, S2. Normal rate and rhythm. No murmur, rubs, or gallops. Pulmonary: Clear to auscultation bilaterally. GI: Soft, nontender, nondistended. Normoactive bowel sounds. Musculoskeletal: No clubbing, cyanosis, or edema. LABORATORY: White count 11.68, hemoglobin 11.6, hematocrit of 36.8, platelets 172,000. Sodium 136, potassium 4.8, chloride 100, bicarb 22, BUN 40, creatinine 1.4, glucose of 204. ASSESSMENT AND PLAN: This is a 70-year-old admitted to the hospital for acute respiratory failure. 1. Acute respiratory failure. This is a combination of a pulmonary process and cardiac process. The patient had a stress test in the hospital and was found to have systolic heart failure. Had an acute exacerbation when he was in the hospital. At the same time, the patient does have chronic lung disease and chronic obstructive pulmonary disease exacerbation. He seems to be doing well with IV steroid for the past 2 days. Of course, IV steroid caused his WBC to increase. The patient is asymptomatic and feeling much better. I will continue steroids but we will taper the patient down for the next week and will discharge the patient home today with his home medication.
--- NOTE | 2016-07-16 15:23 | DISCHARGE SUMMARY ---
ADMISSION DATE: 07/05/2016 DISCHARGE DATE: 07/16/2016 CONSULTATIONS: 1. Dr. Truman Manjarrez with Cardiology. 2. Dr. Clayton Price with Pulmonology. PERTINENT PROCEDURES: 1. Echocardiogram showed an EF of 45-50% with hypokinesis to akinesis to the very distal anterior apex as well as distal anterior septal. 2. Venous Doppler of the left leg showed no evidence of acute deep or superficial venous thrombosis of the left lower extremity. 3. ALYCE cardioversion that showed an EF of 40-45%. Apical hypokinesis with layered thrombus in the left ventricular apex with area of mobility as well. Recommended full anticoagulation. Canceled the cardioversion. 4. Chest CT was stable. 5. Perfusion scan, abnormal. 6. Resting electrocardiogram demonstrated atrial fibrillation with diffuse repolarization abnormalities. Septal scar. No significant abnormalities induced by the infusion of Lexiscan. Abnormal post stress test myocardial perfusion scan. Evidence of a small to moderate size apical anterior scar with very trivial periinfarction ischemia mildly decreased EF at 45% with apical anterior akinesis consistent with old anterior apical OK. DISCHARGE DIAGNOSES: 1. Systolic congestive heart failure exacerbation. Patient was adequately diuresed. Stable. 2. Atrial fibrillation. The patient was set to undergo a ALYCE cardioversion however there was noted to be layered thrombus in the left ventricle apex with an area of mobility as well and recommended anticoagulation. The patient will resume on Eliquis. 3. Exertional dyspnea as a result of restrictive pulmonary deficit, obesity and LV dysfunction along with atrial fibrillation. We will need to continue on bronchodilators. Supplemental O2 as well as anticoagulation followed by Dr. Price. 4. Chronic kidney disease stage 3. Stable. 5. Chronic obstructive pulmonary disease exacerbation improved. 6. Hypertension. Continue home medications. 7. Hypothyroidism. Continue Synthroid. 8. Deconditioning. Continue with physical therapy. HOSPITAL COURSE: Mr. Gibbs is a 70-year-old male with a past medical history obstructive sleep apnea with CPAP at night, diabetes mellitus type 2, coronary artery disease, atrial fibrillation, hypertensive heart disease, hypothyroidism, BPH, reflux disease and hiatal hernia. He came to the ED with a 2 month history of intermittent shortness of breath with exertion that lasts a few days and then gets better. However the last 2 weeks prior to his admission he noticed his breathing had been getting worse with exertion. On the day of his admission he was unloading his car and had a minor blackout spell. Prior to blacking out, he was profoundly short of breath but did not have any chest pain, palpitations, diaphoresis, nausea, vomiting or any anginal- type symptoms. He did not defecate or urinate on himself. There were no witnesses nor did he hit his head. The patient did admit to traveling several states and had been eating out a lot at restaurants and was not watching his diet as he should. Also complained of some left leg swelling. EKG showed atrial fibrillation with nonspecific ST wave changes. Poor R-wave progression. Chest x-ray, showed increased vascular markings. White count of 7000. Creatinine of 1.4. GFR was 50. Negative troponins. ProBNP of 1900. Mr. Gibbs was admitted for acute on chronic systolic heart failure. Started on IV diuresis, followed his renal function closely. Also had a consult for Cardiology. He did undergo venous Doppler studies of his left leg that did not show any deep or superficial venous thrombosis. He did have an echocardiogram that showed an EF of 40-45% with hypokinesis to akinesis at the distal anterior apex and suggestion of left ventricular apical thrombus. He was set to undergo ALYCE cardioversion. The patient did have a ALYCE, however it did show a layered thrombus in the left ventricular apex of an area of mobility as well. Given this, they recommended full anticoagulation and canceled the cardioversion. Patient was started on Eliquis. Given elevated D-dimer, he underwent a chest CT that was stable. No pulmonary emboli noted. Also underwent a perfusion scan that was abnormal. Dr. Price was consulted in reference to continued exertional dyspnea and felt that it was the result of restrictive pulmonary defect, obesity, and LV function as well as his atrial fibrillation. Recommendations to continue on bronchodilators. Supplemental O2 as well as anticoagulation. Clinically, the patient has improved. His breathing has improved. He is ambulating with staff to the bathroom without any significant shortness of breath. The patient is appropriate for discharge today. VITAL SIGNS: Temperature is 98.1 degrees, heart rate 71, respirations 16, blood pressure 109/67, O2 is 97% on 2 L nasal cannula. DISCHARGE MEDICATIONS: As per Dr. Anderson: 1. Albuterol sulfate 18 g inhaled 3-4 times per day. 2. Norvasc 5 mg p.o. q.a.m. 3. Eliquis 5 mg p.o. b.i.d. 4. Aspirin 81 mg p.o. q.a.m. 5. Lasix 20 mg p.o. daily. 6. Glipizide ER 10 mg p.o. b.i.d. 7. Isosorbide mononitrate. 90 mg p.o. q.a.m. 8. Synthroid 0.05 mg p.o. q.a.m. 9. Lisinopril 20 mg p.o. q.a.m. 10. Metformin 850 mg p.o. b.i.d. 11. Metoprolol 50 mg p.o. q.a.m. 12. MiraLAX 17 g p.o. at bedtime. 13. Prednisone dose pack as directed. 14. Aldactone 25 mg p.o. daily. 15. Carafate 1 g p.o. 4 times a day. 16. Flomax 0.4 mg p.o. at bedtime. 17. Spiriva 1 puff inhaled RT daily. DISPOSITION: The patient is being discharged home. FOLLOWUP: He will continue to follow up with Dr. Truman Manjarrez as instructed as well as his primary care physician, Dr. Aidan Loving. He has an appointment set up on July 24 at 10:40 a.m. as well as follow up with the racket stringer. The patient can return to the ED for any worsening of symptoms. DISCHARGE TIME: Greater than 30 minutes. Dictated by ROBIN Cabrera for Anil Anderson MD Addendum: I personally evaluated and examined the patient in conjunction to the CLOTH HAND[employer]ER and agreed with his assessments and disposition [facility]
== END 2016-07-16 11:55 | disposition home or self-care (01) ==
LOC: ED 15:45 → SUATTDRO 20:12 → 3S 20:12 → 3N 07-14 11:27
PROVIDERS: ATTEND Internal Medicine

== ENCOUNTER 2016-10-14 17:56 | Observation (INO) ==
[2016-10-14] MEDS ORDERED: AFRIN NASAL SPRAY NAS ONE (18:53)
[2016-10-14 19:35] LABS: MANUAL DIFF NEEDED? NO
[2016-10-14 19:46] LABS: BASO% 0.6 % (0.0-0.8); EOS# 0.35 X1000 (0.0-0.7); EOS% 5.1 % (0.0-10.0); HEMATOCRIT 31.3 % (42.0-52.0); HEMOGLOBIN 9.6 g/dL (14.0-18.0); IMM GRAN# 0.02 X1000 (0.0-0.04); IMM GRAN% 0.3 % (0.0-0.5); LYMPH# 1.23 X1000 (1.2-3.4); MCH 24.9 PG (27-31); MCHC 30.7 g/dL (33-37); MCV 81.3 FL (81-99); MONO# 0.72 X1000 (0.11-0.59); MONO% 10.6 % (1.7-9.3); MPV 10.2 FL (7.4-10.4); NEUT% 65.4 % (42.2-75.2); PLT 162 X1000 (130-400); RBC 3.85 XMIL (4.7-6.1)
[2016-10-14 19:51] LABS: INR 1.23; PROTIME 13.1 Seconds (9.2-11.7); PTT 29.1 Seconds (22.0-36.0)
[2016-10-14 19:56] LABS: ALBUMIN 3.8 g/dL (3.5-5.0); CALCIUM 9.2 mg/dL (8.8-10.2); TOTAL BILIRUBIN 1.16 mg/dL (0.20-1.00); TOTAL PROTEIN 6.2 g/dL (6.3-8.3)
--- NOTE | 2016-10-14 20:25 | Diag Imaging Result Doc PS360 ---
EXAM: CT HEAD W/O CONTRAST - 10/14/2016 HISTORY: BLEEDING TECHNIQUE: Dose reduction protocol COMPARISON: None. FINDINGS: There are generalized mild atrophic changes. There is a chronic appearing infarct at anterior periventricular white matter on the right. There are mild chronic appearing microvascular ischemic changes similar location on the left. There is no acute-appearing infarct is identified, although acute infarcts may not be immediately visible. There is no evidence of intracranial hemorrhage, mass effect, midline shift. The visualized nasal cavities and nasopharynx are largely opacified. There is some paranasal sinus disease. IMPRESSION: Chronic appearing ischemic changes. No intracranial hemorrhage or mass effect. Opacification of much of the visualized nasal cavities and nasopharynx. Paranasal sinus disease. Electronically signed by Te Galindo 10/14/2016 8:22 PM
[2016-10-14] MEDS ORDERED: NS 1,000 ML IV ONE (21:14)
[2016-10-14] MEDS ORDERED: PROTONIX IV ONE (21:40)
[2016-10-14] MEDS ORDERED: SODIUM CHLORIDE 0.9% INJ ONE (21:40)
--- NOTE | 2016-10-14 21:42 | PROVIDER DOCUMENTATION ---
This chart was entered by Gabriella Angela Scribe, acting as scribe for Eliceo Rhodes MD. HPI-EENT General - General Chief Complaint: Nose Bleed Stated Complaint: nose bleed Time Seen by Provider: 10/14/16 18:27 Source: patient Allergies/Adverse Reactions: Patient Allergies Allergy/AdvReac Type Severity Reaction Status Date / Time metoclopramide HCl * AdvReac Severe NAUSEA Verified 10/14/16 18:35 [From Reglan] Home Medications: Home Medication List Medication Instructions Recorded Confirmed Last Taken Type Amlodipine Besylate 5 mg PO QAM 09/10/14 10/14/16 10/13/16 21:00 History Aspirin 81 mg PO QAM 09/10/14 10/14/16 10/13/16 21:00 History Glipizide [Glipizide ER] 10 mg PO QAM 09/10/14 10/14/16 10/13/16 21:00 History Metformin [Glucophage] 500 mg PO QAM 09/10/14 10/14/16 10/13/16 21:00 History Lisinopril 2.5 mg PO QAM 03/09/15 10/14/16 10/13/16 21:00 History Metoprolol Tartrate 50 mg PO QAM #0 03/17/15 10/14/16 10/13/16 21:00 Rx Apixaban [Eliquis] 5 mg PO BID #60 tablet 07/16/16 10/14/16 10/13/16 21:00 Rx Tiotropium [place] Inhaler 1 puff INH RTDAILY #30 inhaler 07/16/16 10/14/16 09:00 Rx [Spiriva] Albuterol [Albuterol Neb] 2.5 mg INH [id number] 10/11/16 10/14/16 10/13/16 21:00 History Atorvastatin Calcium 80 mg PO HS 10/11/16 10/14/16 10/13/16 21:00 History Budesonide [Pulmicort Flexhaler] 2 puff IH QPM 10/11/16 10/14/16 10/13/16 21:00 History Cholecalciferol (Vit D3) [Vitamin 1,000 unit PO QAM 10/11/16 10/14/16 10/13/16 21:00 History D] Clopidogrel Bisulfate [Clopidogrel] 75 mg PO QAM 10/11/16 10/14/16 10/13/16 21: 00 History Escitalopram Oxalate 20 mg PO QAM 10/11/16 10/14/16 10/13/16 21:00 History Ketorolac 0.5% Oph Solution 1 drop LEFT EYE 4XDAY 10/11/16 10/14/16 10/13/16 21: 00 History [Toradol 0.5% Oph Solution] Levothyroxine Sodium [Synthroid] 50 microgm PO DAILY 10/11/16 10/14/16 10/13/16 21:00 History Melatonin 5 mg PO HS 10/11/16 10/14/16 10/13/16 21:00 History Naphazoline HCl/Pheniramine 1 drop BOTH EYES QPM 10/11/16 10/14/16 10/13/16 21: 00 History [Naphcon-A Eye Drops] Nitroglycerin 0.4 mg SL PRN PRN 10/11/16 10/14/16 Unknown History Ondansetron HCl [Zofran] 4 mg PO Q6H PRN PRN 10/11/16 10/14/16 10/13/16 21:00 History Polyethylene Glycol 3350 [Miralax] 17 gm PO PRN PRN 10/11/16 10/14/16 10/13/16 21:00 History Polyethylene Glycol 3350 [Miralax] 17 gm PO QPM 10/11/16 10/14/16 10/13/16 20: 00 History Polyvinyl Alcohol Eye Drops 1 drop LEFT EYE PRN PRN 10/11/16 10/14/16 10/13/16 21:00 History [Tearisol Oph Solution] Ranitidine HCl 150 mg PO QPM 10/11/16 10/14/16 10/13/16 21:00 History Tamsulosin HCl 0.4 mg PO QPM 10/11/16 10/14/16 10/13/16 21:00 History Furosemide [Lasix] 40 mg PO DAILY 10/14/16 10/14/16 10/13/16 21:00 History - History of Present Illness-EENT General Nature of Presenting Problem: 70 Y/O M presents to ED with EENT. Pt states that he began having a nose bleed around 5pm and states that he is on 3 different types of blood thinners. Pt states that he was just sitting and felt something in his nose and it was bleeding. Bright red blood noted. EENT Location: reports: nose Quality of Pain: reports: none Severity: reports: severe Onset/Duration: reports: just prior to arrival, 1-3 hours ago Timing: reports: still present Associated Symptoms: denies: cough, drooling, ear drainage, facial pain/swelling , fever, malaise, poor fluid intake, poor solids intake - Nose Nose Problem Symptoms: nosebleed Review of Systems - Adult - REVIEW OF SYSTEMS - ADULT Constitutional: denies: chills, fever Eyes: reports: no symptoms reported Ears, Nose, Mouth & Throat: reports: epistaxis. denies: ear pain, hearing loss , loose teeth, mouth swelling, throat pain Cardiovascular: reports: no symptoms reported Respiratory: reports: no symptoms reported Gastrointestinal: reports: no symptoms reported Genitourinary: reports: no symptoms reported Musculoskeletal: reports: no symptoms reported Integumentary: reports: no symptoms reported Neurological: reports: no symptoms reported Psychiatric: reports: no symptoms reported Endocrine: reports: no symptoms reported Hematologic/Lymphatic: reports: no symptoms reported Allergic/Immunologic: reports: no symptoms reported All Other Systems: Reviewed and Negative Past History - Adult - PAST MEDICAL HISTORY-ADULT Review of Records: reports: Old Records Reviewed, Nursing Assessment Review, Medications Reviewed, Social history reviewed & non-contributory. Major Childhood Illnesses: reports: denies history Cardiovascular: reports: CAD, CHF, HTN, [place] Respiratory: reports: sleep apnea Gastrointestinal: reports: denies history Obstetrical/Gynecological: reports: denies history Genitourinary: reports: denies history Musculoskeletal: reports: denies history Neurological: reports: denies history Endocrine/Immune: reports: Diabetes Other Conditions: reports: denies history - PRIOR SURGERIES/PROCEDURES Surgical/Procedure History: reports: CABG (last bypass 1999), cholecystectomy, cardiac stent (x5, last stent 12 years ago), hernia repair, other (exploratory surgery) - PRIOR HOSPITALIZATIONS Prior Hospitalizations: reports: for other non-related - IMMUNIZATION STATUS Childhood Immunizations: See Nurse Assessment Flu Vaccine: See Nurse Assessment - FAMILY HISTORY Family History: reviewed, not pertinent Physical Exam- EENT - Physical Exam EENT General Appearance: alert, no apparent distress Eye Exam: bilateral eye: normal inspection, PERRL, EOMI Ear Exam: bilateral ear: auricle normal, canal normal, TM normal Nasal Exam: active bleeding Throat Exam: pharynx normal Neck: full range of motion, supple, normal inspection Respiratory: lungs clear, normal breath sounds Cardiovascular: regular rate, rhythm, no edema, no gallop, no JVD, no murmur Abdominal Exam: non tender, soft Lymphatic: no adenopathy Back Exam: no CVA tenderness, no vertebral tenderness Extremity: non-tender, normal gait Integumentary: normal color, normal turgor Psych/Mental Status: normal mood/affect, normal thought content, normal thought process, oriented x 3 Progress - PLAN OF CARE/RESULTS Progress/Plan/Lab Results: Vital Signs - 8 hr 10/14/16 18:15 10/14/16 19:34 Temperature 97.9 F Pulse Rate 80 74 Respiratory Rate 21 Blood Pressure 132/73 117/75 O2 Sat by Pulse Oximetry 92 L 96 Laboratory Results - last 24 hr 10/14/16 10/14/16 10/14/16 19:12 19:12 19:14 WBC 6.82 RBC 3.85 L Hgb 9.6 L Hct 31.3 L MCV 81.3 MCH 24.9 L MCHC 30.7 L RDW Std Deviation 17.1 H Plt Count 162 MPV 10.2 Immature Gran % (Auto) 0.3 Neut % (Auto) 65.4 Lymph % (Auto) 18.0 L [place] % (Auto) 10.6 H Eos % (Auto) 5.1 Baso % (Auto) 0.6 Immature Gran # (Auto) 0.02 Neut # (Auto) 4.46 Lymph # (Auto) 1.23 [place] # (Auto) 0.72 H Eos # (Auto) 0.35 Baso # (Auto) 0.04 PT 13.1 H INR 1.23 PTT (Actin FS) 29.1 Sodium 138 Potassium 4.0 Chloride 100 Carbon Dioxide 23 L Anion Gap 15 BUN 23 H Creatinine 1.5 H Estimated GFR/1.73 m2 46 BUN/Creatinine Ratio 15 Glucose 57 L Calculated Osmolality 277 Calcium 9.2 Total Bilirubin 1.16 H AST 14 ALT 12 Alkaline Phosphatase 91 Total Protein 6.2 L Albumin 3.8 Globulin 2.4 Albumin/Globulin Ratio 1.6 Orders Category Date Time Status [facility] Communication Order DIRECTED Care 10/14/16 20:[address] HEAD W/O CONTRAST [CT] Stat Exams 10/14/16 18:55 Completed CBC WITH DIFF [HEME] Stat Lab 10/14/16 19:12 Completed COMPREHENSIVE METABOLIC PANEL [CHEM] Stat Lab 10/14/16 19:12 Completed PROTIME WITH INR [COAG] Stat Lab 10/14/16 19:14 Completed PTT [COAG] Stat Lab 10/14/16 19:14 Completed TYPE & SCREEN [BBK] Stat Lab 10/14/16 21:40 Uncollected 0.9% Sodium Chloride Inj [Ns] 1,000 ml Med 10/14/16 21:14 Active IV 999 mls/hr Oxymetazoline Nasal [place] [Afrin Nasal [place]] Med 10/14/16 18:53 Discontinued See Dose Instructions GARRET NOW ONE Pantoprazole [Protonix] Med 10/14/16 21:40 Once 40 mg IV NOW ONE Sodium Chloride 0.9% Med 10/14/16 21:40 Once 10 ml INJ NOW ONE Result Diagrams: 10/14/16 19:12 10/14/16 19:12 - CONSULTS/PCP/HOSPITALIST Notification #1 *Consult/PCP/Hospitalist*: Time Discussed: 21:36 Reason/Comments: Admit Consult Disposition: Admit (Admit Accepted) Procedures - ENT PROCEDURES Epistaxis Management: Bilateral Clots cleared from Nasal Passages:: By Patient Blowing Nose Nasal Drops Instilled: Afrin External Pressure for ___ Minutes.: 180 Inspection: Otoscope Nasal Rocket Insertion: Right Departure - Departure Date of Disposition Decision: 10/14/16 Time of Disposition Decision: 21:41 DIAGNOSIS: Epistaxis not due to trauma Disposition: ADMITTED INPATIENT 09 Certified Medical Emergency: Emergent Condition: Stable Referrals and Follow-Ups: None,PCP [Primary Care Provider] - - Critical Care Note This patient required my direct & personal management of CC.: No Attestation - Physician/ LILI Attestation The physician spent face to face time with patient:: Yes Advanced Practice Provider documentation review:: Supervising physician onsite and consulted in the evaluation and care of this patient. The physician did have a face to face encounter with the patient. This chart was documented by the indicated scribe, (Gabriella Angela Scribe) and accurately reflects the services I performed and decisions made by me, Eliceo Rhodes MD, as attested by the provider's signature.
--- NOTE | 2016-10-14 22:23 | HISTORY AND PHYSICAL ---
PRIMARY CARE PHYSICIAN: [facility]. CHIEF COMPLAINT: Nosebleeds. HISTORY OF PRESENTING ILLNESS: A 70-year-old male with a history of atrial fibrillation, chronic kidney disease, diabetes mellitus type 2, congestive heart failure, hypertension, COPD on home oxygen who apparently has been having nosebleeds for the past 2 days. He states that it was not improving. He is apparently on antiplatelets and anticoagulants, and he was evaluated in the ER. He apparently had a packing placed on the right nose. However, it still was oozing and due to his presenting symptoms, it was thought that we would place him for observation for further evaluation by ENT. At the time of my examination, he had denied any headache, fever, chills, chest pain, shortness of breath or any recent weight changes. He complains of nosebleeds. PAST MEDICAL HISTORY: Hypertension, atrial fibrillation, chronic kidney disease, congestive heart failure, systolic distention, chronic anemia, diabetes mellitus, type 2, COPD on home oxygen. PAST SURGICAL HISTORY: Cataract surgery. Cholecystectomy. ALLERGIES: Reglan. CURRENT MEDICATIONS: As listed in the medication reconciliation. SOCIAL HISTORY: He is a former smoker. Denies any history of alcohol or illicit drug use. FAMILY HISTORY: Positive for coronary artery disease in father. REVIEW OF SYSTEMS: Twelve point review of systems is as listed in HPI. Other systems negative. PHYSICAL EXAMINATION: GENERAL: Cooperative, friendly male. He is resting more comfortably now. VITAL SIGNS: Temperature 97.9 degrees, pulse 80, respirations 21, blood pressure 132/73, saturating 92%. HEENT: Atraumatic, normocephalic. Extraocular movements intact. There is a moderate amount of blood from his nose. Packing is in place. NECK: No masses. CHEST: Clear to auscultation. CARDIOVASCULAR: Regular rate and rhythm. ABDOMEN: Soft. Positive bowel sounds. EXTREMITIES: No edema. NEUROLOGIC: He is awake, alert, oriented x3. : No bladder distention. SKIN: Warm. LABORATORIES AND STUDIES: WBC 6.82, hemoglobin 9.6, hematocrit 31.3, platelets 162,000. Sodium 138, potassium 4, chloride 100, CO2 23, BUN is 23, creatinine 1.5, glucose is 57. ASSESSMENT: This is a 70-year-old male with a history of hypertension, atrial fibrillation, chronic kidney disease, diabetes mellitus type 2 who presented to emergency department with complaint of nosebleeds that have been ongoing for the past 2 days. He was evaluated in the ER. He had packing placed. However, it still is oozing and due to his presenting symptoms, we will place him in for observation for further management. ASSESSMENT: 1. Epistaxis. 2. Atrial fibrillation on anticoagulants. 3. Diabetes mellitus type 2. 4. Hypertension. PLAN: 1. We will admit patient to medical floor with telemetry. 2. Consult ENT. 3. We will monitor blood glucose and put patient on sliding scale insulin regimen. 4. We will hold his anticoagulants for now. 5. Monitor blood pressure. Resume antihypertensive agent. 6. Put patient on DVT prophylaxis with SCDs. 7. Continue to follow and reassess. cc: Stepan Weaver MD
[2016-10-14] MEDS ORDERED: TEARISOL OPH SOLUTION LEFT EYE PRN (23:02)
[2016-10-14] MEDS ORDERED: ZOFRAN IV PRN (23:02)
[2016-10-14] MEDS ORDERED: DUONEB (A & A) INH PRN (23:02)
[2016-10-14] MEDS ORDERED: MELATONIN PO SCH (23:25)
[2016-10-14] MEDS ORDERED: FLOMAX PO SCH (23:26)
[2016-10-15] MEDS: SYNTHROID PO SCH ×3 (03:35→06:16)
[2016-10-15] MEDS: HUMULIN R SUBQ SCH ×2 (06:15→11:16)
[2016-10-15 06:48] LABS: MANUAL DIFF NEEDED? NO
[2016-10-15 06:58] LABS: BASO% 0.7 % (0.0-0.8); EOS# 0.29 X1000 (0.0-0.7); EOS% 5.2 % (0.0-10.0); HEMATOCRIT 28.8 % (42.0-52.0); HEMOGLOBIN 8.8 g/dL (14.0-18.0); IMM GRAN# 0.02 X1000 (0.0-0.04); IMM GRAN% 0.4 % (0.0-0.5); LYMPH# 0.93 X1000 (1.2-3.4); LYMPH% 16.5 % (20.5-51.1); MCH 25.2 PG (27-31); MCHC 30.6 g/dL (33-37); MCV 82.5 FL (81-99); MONO# 0.63 X1000 (0.11-0.59); MONO% 11.2 % (1.7-9.3); MPV 10.7 FL (7.4-10.4); PLT 140 X1000 (130-400); RBC 3.49 XMIL (4.7-6.1)
[2016-10-15] MEDS ORDERED: SYNTHROID PO SCH (07:00)
[2016-10-15 07:46] LABS: CALCIUM 9.2 mg/dL (8.8-10.2); POTASSIUM 4.9 mmol/L (3.5-5.1)
[2016-10-15 07:47] VITALS: BP 110/70
[2016-10-15] MEDS: KETOROLAC 0.5% LEFT EYE SCH ×2 (08:31→08:33)
[2016-10-15] MEDS ORDERED: PRINIVIL PO SCH (09:00)
[2016-10-15] MEDS ORDERED: LEXAPRO PO SCH (09:00)
[2016-10-15] MEDS ORDERED: NORVASC PO SCH (09:00)
[2016-10-15] MEDS ORDERED: LOPRESSOR PO SCH (09:00)
[2016-10-15] MEDS ORDERED: FLOMAX PO SCH ×2 (09:00→21:00)
[2016-10-15] MEDS ORDERED: LASIX PO SCH (09:00)
[2016-10-15] MEDS ORDERED: BACTROBAN OINTMENT TOP ONE (10:38)
[2016-10-15] MEDS ORDERED: AFRIN NASAL SPRAY NAS ONE (10:39)
--- NOTE | 2016-10-15 13:23 | DISCHARGE SUMMARY ---
ADMISSION DATE: 10/14/2016 DISCHARGE DATE: 10/15/2016 CONSULTATIONS: Dr. Kermit Terry with ENT. PERTINENT PROCEDURES: Head CT showed chronic appearing ischemic changes. No intracranial hemorrhage or mass effect. Opacification of much of the visualized nasal cavities and nasopharynx basal sinus disease. DISCHARGE DIAGNOSES: 1. Epistaxis. The patient was seen by Dr. Terry. He repositioned his rhino rocket. Will see the patient in his office on Thursday and initiated the patient on doxycycline 50 mg p.o. b.i.d. He can return back to the senior living today. 2. Atrial fibrillation on anticoagulant. 3. Diabetes mellitus type 2. 4. Hypertension. HOSPITAL COURSE: Mr. Johnson is a 70-year-old male with history of atrial fibrillation, chronic kidney disease, diabetes mellitus type 2, congestive heart failure, hypertension , COPD on home O2 who had been having nosebleeds for the past 2 days and was not improving. He apparently is on antiplatelets and anticoagulants. He was evaluated in the ED where they placed a rhino rocket and wanted to admit him for observation with ENT evaluation. His anticoagulants were initially held. He was evaluated by Dr. Terry. His packing was repositioned. He was placed on doxycycline 50 b.i.d. He will be seen again in the office by Dr. Terry on Thursday and from his standpoint he can be discharged back to [facility]. VITAL SIGNS: At time of his discharge, temperature 97.6 degrees, heart rate 75 , respirations 20, blood pressure is 110/70, O2 94% on 2 L nasal cannula. DISCHARGE DIET: Healthy heart. DISCHARGE MEDICATIONS: As per Dr. Mackay. Please see MAR. FOLLOWUP: Mr. Johnson is being discharged back to [facility] with his rhino rocket in place and doxycycline 50 mg p.o. b.i.d. He will follow up with Dr. Terry on Thursday. He can return to the ED for any worsening of symptoms. I personally evaluated this patient face to face, images, vitals signs and lab work were reviewed, patient is table, Dr Terry adjusted the pressure on the rhino rocket, and he will monitor this patient in a couple days , I agree with the assessment and plan for this patient, and can be discharged today, Anjel Heredia MD Dictated by ROBIN Cabrera for Anjel York MD cc: Anjel York MD [facility]
[2016-10-15] MEDS ORDERED: VISINE OPH DROPS BOTH EYES SCH (21:00)
[2016-10-15] MEDS ORDERED: DOXYCYCLINE PO SCH (21:00)
[2016-10-15] MEDS ORDERED: MELATONIN PO SCH (21:00)
== END 2016-10-15 14:26 ==
LOC: 3N 17:56 → ED 17:56 → SUATTDRO 22:30
PROVIDERS: ATTEND Internal Medicine

== ENCOUNTER 2016-10-24 15:33 | Inpatient (IN) ==
--- NOTE | 2016-10-24 15:55 | EKG Report ---
Test Performed on : 10/24/2016 3:38:44 PM Test Reason : Chest Pain Blood Pressure : / mmHG Vent. Rate : 054 BPM Atrial Rate : 300 BPM P-R Int : 000 ms QRS Dur : 158 ms QT Int : 462 ms P-R-T Axes : 000 -36 110 degrees QTc Int : 438 ms Undetermined rhythm Left axis deviation Left bundle branch block Abnormal ECG When compared with ECG of 11-OCT-2016 21:00, Current undetermined rhythm precludes rhythm comparison, needs review Unconfirmed Result
--- NOTE | 2016-10-24 16:15 | Diag Imaging Result Doc PS360 ---
CHEST-2 VIEWS - 10/24/2016 INDICATION: CP TECHNIQUE: COMPARISON: 10/11/2016 FINDINGS: Stable cardiomegaly. Pulmonary vascularity is top normal. No focal infiltrates, pneumothorax, or pleural effusion. IMPRESSION: Cardiomegaly. No change from prior. Electronically signed by Dawson Willams 10/24/2016 4:13 PM
[2016-10-24 16:24] LABS: MANUAL DIFF NEEDED? NO
--- NOTE | 2016-10-24 16:24 | PROVIDER DOCUMENTATION ---
This chart was entered by Elba Walker Scribe, acting as scribe for Yasmany Chávez CRNP. HPI-Respiratory General - General Chief Complaint: Chest Pain Stated Complaint: TROUBLE BREATHING, HURTING ALL OVER Time Seen by Provider: 10/24/16 15:48 Source: patient Allergies/Adverse Reactions: Patient Allergies Allergy/AdvReac Type Severity Reaction Status Date / Time metoclopramide HCl * AdvReac Severe NAUSEA Verified 10/24/16 16:44 [From Reglan] Home Medications: Home Medication List Medication Instructions Recorded Confirmed Last Taken Type Amlodipine Besylate 5 mg PO QAM 09/10/14 10/24/16 10/24/16 08:00 History Aspirin 81 mg PO QAM 09/10/14 10/24/16 10/24/16 08:00 History Glipizide [Glipizide ER] 10 mg PO QAM 09/10/14 10/24/16 10/24/16 08:00 History Metformin [Glucophage] 500 mg PO QAM 09/10/14 10/24/16 10/24/16 08:00 History Lisinopril 2.5 mg PO QAM 03/09/15 10/24/16 10/24/16 08:00 History Metoprolol Tartrate 50 mg PO QAM #0 03/17/15 10/24/16 10/24/16 08:00 Rx Apixaban [Eliquis] 5 mg PO BID #60 tablet 07/16/16 10/24/16 10/24/16 08:00 Rx Tiotropium [place] Inhaler 1 puff INH RTDAILY #30 inhaler 07/16/16 10/24/16 09:00 Rx [Spiriva] Albuterol [Albuterol Neb] 2.5 mg INH [id number] 10/11/16 10/24/16 10/13/16 21:00 History Atorvastatin Calcium 80 mg PO HS 10/11/16 10/24/16 10/24/16 08:00 History Budesonide [Pulmicort Flexhaler] 2 puff IH QPM 10/11/16 10/24/16 10/13/16 21:00 History Clopidogrel Bisulfate [Clopidogrel] 75 mg PO QAM 10/11/16 10/24/16 10/13/16 21: 00 History Escitalopram Oxalate 20 mg PO QAM 10/11/16 10/24/16 10/13/16 21:00 History Ketorolac 0.5% Oph Solution 1 drop LEFT EYE 4XDAY 10/11/16 10/24/16 10/13/16 21: 00 History [Toradol 0.5% Oph Solution] Levothyroxine Sodium [Synthroid] 50 microgm PO DAILY 10/11/16 10/24/16 10/24/16 08:00 History Melatonin 5 mg PO HS 10/11/16 10/24/16 10/13/16 21:00 History Naphazoline HCl/Pheniramine 1 drop BOTH EYES QPM 10/11/16 10/24/16 10/13/16 21: 00 History [Naphcon-A Eye Drops] Nitroglycerin 0.4 mg SL PRN PRN 10/11/16 10/24/16 Unknown History Ondansetron HCl [Zofran] 4 mg PO Q6H PRN PRN 10/11/16 10/24/16 10/13/16 21:00 History Polyethylene Glycol 3350 [Miralax] 17 gm PO QPM 10/11/16 10/24/16 10/13/16 20: 00 History Polyvinyl Alcohol Eye Drops 1 drop LEFT EYE PRN PRN 10/11/16 10/24/16 10/13/16 21:00 History [Tearisol Oph Solution] Ranitidine HCl 150 mg PO QPM 10/11/16 10/24/16 10/24/16 08:00 History Tamsulosin HCl 0.4 mg PO QPM 10/11/16 10/24/16 10/24/16 08:00 History Furosemide [Lasix] 40 mg PO DAILY 10/14/16 10/24/16 10/24/16 08:00 History - History of Present Illness-Resp Nature of Presenting Problem: Patient is a 70 y/o M presents to the ED with shortness of breath. Pt states left side chest pain. Pt states chest pain radiates to left shoulder and posterior neck. Pt's son states Pt was just in a 21 day rehab program. Pt's son states syncopal episodes this am. Pt's son states LOC was only a few seconds. Pt denies headache. Quality of Pain: reports: aching Severity in ED: reports: mild Onset/Duration: reports: 1-3 hours ago (1.5 hrs) Timing: reports: still present Cough Quality/Degree: reports: no cough Current Respiratory Medication Therapy: Initiated see nurses note Modifying Factors: improves with: nothing Associated Symptoms: reports: chest pain/soreness (left side of chest pain), shortness of breath, other (neck pain, syncope, and left shoulder pain). denies : cough, dizziness, earache, facial pain, fever/chills, flu-like symptoms, headache, heart racing, hurts to breathe, hyperventilating, lightheadedness, muscle/bodyaches, nasal congestion, nasal drainage, sinus pain, short of breath , sore throat, sweaty, wheezing Similar Symptoms Previously?: No Recently seen or treated by another doctor?: No Review of Systems - Adult - REVIEW OF SYSTEMS - ADULT Constitutional: denies: chills, fever Eyes: denies: decreased vision, blurred vision, double vision Ears, Nose, Mouth & Throat: denies: ear pain, nose pain, throat pain Cardiovascular: reports: chest pain (left side). denies: heart murmur, irregular heart rate Respiratory: reports: shortness of breath. denies: cough, wheezing Gastrointestinal: denies: abdominal pain, diarrhea, nausea, vomiting Genitourinary: denies: dysuria, flank pain, hematuria Musculoskeletal: reports: neck pain, other (left shoulder pain). denies: bone pain, back pain Integumentary: denies: hives, itching, rash Neurological: reports: syncope. denies: dizziness/vertigo, headache/migraines, numbness, seizure, slurred speech Psychiatric: denies: anxiety, depression, suicidal thoughts Endocrine: reports: no symptoms reported Hematologic/Lymphatic: reports: no symptoms reported Allergic/Immunologic: reports: no symptoms reported All Other Systems: Reviewed and Negative Past History - Adult - PAST MEDICAL HISTORY-ADULT Review of Records: reports: Nursing Assessment Review, Medications Reviewed, Social history reviewed & non-contributory. Major Childhood Illnesses: reports: denies history Cardiovascular: reports: CAD, CHF, HTN, [place] Respiratory: reports: sleep apnea Gastrointestinal: reports: denies history Obstetrical/Gynecological: reports: denies history Genitourinary: reports: denies history Musculoskeletal: reports: denies history Neurological: reports: denies history Psychiatric: reports: depression Endocrine/Immune: reports: Diabetes, thyroid disorder Other Conditions: reports: denies history - PRIOR SURGERIES/PROCEDURES Surgical/Procedure History: reports: CABG (last bypass 1999), cholecystectomy, cardiac stent (x5, last stent 12 years ago), hernia repair, other (exploratory surgery) - PRIOR HOSPITALIZATIONS Prior Hospitalizations: reports: for other non-related - IMMUNIZATION STATUS Childhood Immunizations: See Nurse Assessment Flu Vaccine: See Nurse Assessment - FAMILY HISTORY Family History: reviewed, not pertinent - SOCIAL HISTORY Smoking: quit less than 1 year, cigarettes Substance Use: denies Living Situation: family Physical Exam-General - PHYSICAL EXAM-ADULT Initial Vital Signs Reviewed: Yes - CONSTITUTIONAL General Appearance: alert, no apparent distress. negative: lethargic, slow to respond - EYES Eyes: PERRL/EOMI, pink conjunctivae. negative: pale conjunctivae, sunken eyes - HEAD, EARS, NOSE, MOUTH & THROAT HENMT: normocephalic/atraumatic, moist mucous membranes, normal ENT inspection. negative: angioedema, hearing deficit - NECK Neck: normal inspection. negative: lymphadenopathy, tender lateral - RESPIRATORY Respiratory: chest non-tender, lungs clear, normal breath sounds. negative: crackles, rhonchi - CARDIOVASCULAR Cardiovascular: normal peripheral pulses, other (irregular rates). negative: regular rate, rhythm - GASTROINTESTINAL (ABDOMEN) Abdominal Exam: non tender, soft. negative: distended, rebound - LYMPHATIC Lymphatic: no adenopathy. negative: enlargement, streaking - MUSCULOSKELETAL Back Exam: normal inspection, no CVA tenderness. negative: ecchymosis, swelling Extremity: normal range of motion, normal inspection, pedal edema. negative: deformity, erythema Peripheral Pulses: radial (R): 2+, radial (L): 2+, dorsalis-pedis (R): 2+, dorsalis-pedis (L): 2+ - SKIN Integumentary: normal color, normal turgor, warm/dry. negative: diaphoresis, ecchymosis, erythema, tenderness - NEUROLOGIC Neurologic: grossly normal. negative: aphasia, facial droop - PSYCHIATRIC Psych/Mental Status: normal mood/affect, oriented x 3. negative: anxious, paranoid, tearful Progress - PLAN OF CARE/RESULTS Progress/Plan/Lab Results: Vital Signs - 8 hr 10/24/16 15:36 10/24/16 16:50 Temperature 97.9 F Pulse Rate 63 59 L Respiratory Rate 22 18 Blood Pressure 107/58 111/57 O2 Sat by Pulse Oximetry 95 95 Laboratory Results - last 24 hr 10/24/16 10/24/16 10/24/16 15:44 15:44 15:44 WBC 6.83 RBC 3.37 L Hgb 8.3 L Hct 27.6 L MCV 81.9 MCH 24.6 L MCHC 30.1 L RDW Std Deviation 17.7 H Plt Count 161 MPV 10.8 H Immature Gran % (Auto) 0.0 Neut % (Auto) 78.9 H Lymph % (Auto) 9.4 L [place] % (Auto) 8.9 Eos % (Auto) 2.5 Baso % (Auto) 0.3 Immature Gran # (Auto) 0.00 Neut # (Auto) 5.39 Lymph # (Auto) 0.64 L [place] # (Auto) 0.61 H Eos # (Auto) 0.17 Baso # (Auto) 0.02 PT INR PTT (Actin FS) D-Dimer 0.74 H Sodium 135 L Potassium 4.8 Chloride 101 Carbon Dioxide 19 L Anion Gap 15 BUN 33 H Creatinine 1.9 H Estimated GFR/1.73 m2 35 BUN/Creatinine Ratio 17 Glucose 142 H Calculated Osmolality 280 Calcium 9.0 Magnesium 2.4 Total Bilirubin 1.07 H AST 13 ALT 12 Alkaline Phosphatase 83 Creatine Kinase 132 Troponin T Dlb-C-Ymtojbdomcq Pept Total Protein 6.1 L Albumin 3.8 Globulin 2.3 Albumin/Globulin Ratio 1.7 10/24/16 10/24/16 10/24/16 15:44 15:44 15:44 WBC RBC Hgb Hct MCV MCH MCHC RDW Std Deviation Plt Count MPV Immature Gran % (Auto) Neut % (Auto) Lymph % (Auto) [place] % (Auto) Eos % (Auto) Baso % (Auto) Immature Gran # (Auto) Neut # (Auto) Lymph # (Auto) [place] # (Auto) Eos # (Auto) Baso # (Auto) PT 13.4 H INR 1.26 PTT (Actin FS) 28.8 D-Dimer Sodium Potassium Chloride Carbon Dioxide Anion Gap BUN Creatinine Estimated GFR/1.73 m2 BUN/Creatinine Ratio Glucose Calculated Osmolality Calcium Magnesium Total Bilirubin AST ALT Alkaline Phosphatase Creatine Kinase Troponin T < 0.010 Hda-M-Zrfeveietio Pept 3458 H Total Protein Albumin Globulin Albumin/Globulin Ratio Orders Category Date Time Status CHEST-2 VIEWS [RAD] Stat Exams 10/24/16 15:43 Completed LUNG SCAN / VQ [NM] Stat Exams 10/24/16 17:17 Ordered CBC WITH ELECTRONIC DIFF [HEME] Stat Lab 10/24/16 15:44 Completed CK PROFILE [SP CHEM] Stat Lab 10/24/16 15:44 Completed COMPREHENSIVE METABOLIC PANEL [CHEM] Stat Lab 10/24/16 15:44 Completed D-DIMER [CHEM] Stat Lab 10/24/16 15:44 Completed MAGNESIUM [CHEM] Stat Lab 10/24/16 15:44 Completed PRO B-NATRIURETIC PEPTIDE Stat Lab 10/24/16 15:44 Completed PROTIME WITH INR [COAG] Stat Lab 10/24/16 15:44 Completed PTT [COAG] Stat Lab 10/24/16 15:44 Completed TROPONIN T Stat Lab 10/24/16 15:44 Completed Furosemide [Lasix] Med 10/24/16 17:15 Discontinued 40 mg IV NOW ONE Morphine Med 10/24/16 17:16 Discontinued 4 mg IV NOW ONE Ondansetron [Zofran] Med 10/24/16 17:16 Discontinued 4 mg IV NOW ONE EKG [EKG] Stat Ther 10/24/16 15:43 Draft Result Diagrams: 10/24/16 15:44 10/24/16 15:44 - EKG 1 Time of EKG reading by physician:: 15:38 EKG Read and Signed by:: Gerardo Crabtree EKG Interpretation (*Must complete 3 of following elements*): Abnormal Rate: 54 Rhythm: undetermined rhythm Comments: left axis deviation; LBBB - XRAY 1 XRAY Study: Chest Impression: Abnormal (Cardiomegaly. No change from prior) - CONSULTS/PCP/HOSPITALIST Notification #1 *Consult/PCP/Hospitalist*: Hospitalist ([facility]) Consult Disposition: Will see in ED, Admit Departure - Departure Date of Disposition Decision: 10/24/16 Time of Disposition Decision: 17:15 DIAGNOSIS: CHF (congestive heart failure) Qualifiers: Congestive heart failure type: unspecified congestive heart failure type Congestive heart failure chronicity: acute on chronic Qualified Code(s): I50.9 - Heart failure, unspecified Disposition: ADMITTED INPATIENT 09 Certified Medical Emergency: Emergent Condition: Stable Referrals and Follow-Ups: None,PCP [Primary Care Provider] - - Critical Care Note This patient required my direct & personal management of CC.: No Attestation - Physician/ LILI Attestation Patient care was provided by Advanced Practice Provider:: Yes Advanced Practice Provider:: Yasmany Chávez Advanced Practice Provider documentation review:: The Mid-level provider documentation, treatment plan and medical decision making was reviewed by the physician who agrees with all treatment and medical decision making by the MLP. The physician spent face to face time with patient:: Yes Advanced Practice Provider documentation review:: Supervising physician onsite and consulted in the evaluation and care of this patient. The physician did have a face to face encounter with the patient. This chart was documented by the indicated scribe, (Elba Walker Scribe) and accurately reflects the services I performed and decisions made by me, Yasmany Chávez CRNP, as attested by the provider's signature.
[2016-10-24 16:28] LABS: BASO% 0.3 % (0.0-0.8); EOS# 0.17 X1000 (0.0-0.7); EOS% 2.5 % (0.0-10.0); HEMATOCRIT 27.6 % (42.0-52.0); HEMOGLOBIN 8.3 g/dL (14.0-18.0); LYMPH# 0.64 X1000 (1.2-3.4); LYMPH% 9.4 % (20.5-51.1); MCH 24.6 PG (27-31); MCHC 30.1 g/dL (33-37); MCV 81.9 FL (81-99); MONO# 0.61 X1000 (0.11-0.59); MONO% 8.9 % (1.7-9.3); MPV 10.8 FL (7.4-10.4); NEUT% 78.9 % (42.2-75.2); PLT 161 X1000 (130-400); RBC 3.37 XMIL (4.7-6.1)
[2016-10-24 16:38] LABS: INR 1.26; PROTIME 13.4 Seconds (9.2-11.7); PTT 28.8 Seconds (22.0-36.0)
[2016-10-24 16:48] LABS: ALBUMIN 3.8 g/dL (3.5-5.0); MAGNESIUM 2.4 mg/dL (1.5-2.7); POTASSIUM 4.8 mmol/L (3.5-5.1); TOTAL BILIRUBIN 1.07 mg/dL (0.20-1.00); TOTAL PROTEIN 6.1 g/dL (6.3-8.3)
[2016-10-24] MEDS ORDERED: LASIX IV ONE (17:15)
[2016-10-24] MEDS ORDERED: ZOFRAN IV ONE (17:16)
[2016-10-24] MEDS ORDERED: MORPHINE IV ONE (17:16)
--- NOTE | 2016-10-24 19:45 | HISTORY AND PHYSICAL ---
PRESENTING COMPLAINT: Shortness of breath. HISTORY OF PRESENTING COMPLAINT: Mr. Johnson is a 70-year-old, male with multiple comorbidities including congestive heart failure, diabetes mellitus, chronic kidney disease, COPD on home oxygen, triple antithrombotic therapy, who was recently seen here and discharged to [facility] on 10/15/2016 at that time because of nasal bleeding. Apparently Mr. Johnson was sent home yesterday and he seemed to have been doing well. He went to pay some bills and then just started having an acute onset of shortness of breath upon ambulation so he decided to come to the emergency department where he was evaluated and found to be saturating between 94-95% on room air. Patient also referred that during the acute onset of the shortness of breath he did feel some chest pain that radiated to the back and to the left arm. When he was given morphine at the ER the pain has now subsided. PAST MEDICAL HISTORY: 1. Hypertension. 2. Atrial fibrillation. 3. Chronic kidney disease. 4. Congestive heart failure. 5. Diabetes mellitus. 6. Coronary artery disease status post multiple stents including a stent placed in August of this year. PAST SURGICAL HISTORY: Cataract surgery and cholecystectomy. ALLERGIES: Reglan. CURRENT MEDICATIONS: Reviewed with patient and are documented in the chart. SOCIAL HISTORY: Patient is a former smoker who stopped about 40 years ago. He denies alcohol or any illicit drugs. FAMILY HISTORY: Positive for coronary artery disease in the family, diabetes and hypertension. REVIEW OF SYSTEMS: A 12 point review of systems has been conducted with the patient and was unremarkable except what is in the HPI. Specifically, patient denies any abdominal pain, no diarrhea, no headaches, no vomiting and no urine symptoms. The [facility] PHYSICAL EXAMINATION: VITAL SIGNS: Blood pressure is 111/57, pulse of 71 and goes down to 59, respiration is 18. GENERAL: Mr. Johnson is a 70-year-old, male. He is obese with a BMI of 32.7. He is in bed and seems to be in mild respiratory distress. HEENT: Head is normocephalic and atraumatic. Mucosa is pink and moist. Anicteric, acyanotic. NECK: Supple. There is positive JVD. No carotid bruit. RESPIRATORY SYSTEM: Good air entry bilaterally in the lungs. There are a few bibasilar crackles. No accessory muscle use. CARDIOVASCULAR: Irregularly irregular heart rate, bradycardic. I do not appreciate any murmurs. No rubs. No gallops. ABDOMEN: Soft, distended. There is no hepatosplenomegaly. Bowel sounds are present. There is an old midline complete surgical scar from the xiphoid to the pubis midline. There is also a sternotomy scar. EXTREMITIES: Pedal edema about 2+, distal pulses are present. CENTRAL NERVOUS SYSTEM: Patient is awake, alert, oriented x4. Motor function is intact, 5/5 in all extremities. There is no sensory deficit. Executive function seems to be intact. Normal cerebellar functions. I did not explore the patient's gait. Cranial nerves 2-12 have been grossly examined and are unremarkable. PSYCHIATRIC: Patient seems to have good judgment and insight of his disease. LABORATORY DATA: 1. WBC 6.83, hemoglobin is 8.3, platelet count of 161,000. Chemistry is reviewed. Sodium is 135, potassium is 4.8, chloride 101, bicarbonate 19, anion gap of 15, BUN is 33, and creatinine is 1.9. This is not new. Patient left the hospital with 1.6 previously. proBNP is 3458, this is higher than it has been. Troponins have been negative. 2. Chest x-ray: Cardiomegaly with mild pulmonary vascular congestion. 3. EKG shows atrial fibrillation, bradycardic with left axis deviation and left bundle branch block. 4. Review of echocardiogram done in June of this year shows an ejection fraction of 45-50%. 5. 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 ASSESSMENT: Mr. Johnson is a 70-year-old, male who has been back and forth to the hospital. Recently discharged to rehabilitation. Sent home yesterday. He comes back with acute onset of shortness of breath. proBNP is significantly elevated. Chest x-ray is consistent with pulmonary edema. 1. Hypoxemic respiratory distress secondary to pulmonary edema. 2. Acute on chronic congestive systolic heart failure. 3. Coronary artery disease status post multiple stents in the past. Recently a stent placed in August 2016. 4. Triple antithrombotic therapy. Patient is on aspirin, Plavix and Eliquis. He recently had a nosebleed but this has resolved. 5. History of atrial fibrillation. Currently patient is still in atrial fibrillation but is actually bradycardic so I will kind of hold off on the beta-ignacio since he seems to also have left bundle branch block with bradycardia on EKG. I presume patient will probably benefit from a pacemaker/defibrillator. We will, however, defer this recommendation to the Cardiology group. 6. Chronic kidney disease. Stable. PLAN: In general, I think Mr. Johnson is having acute on chronic congestive heart failure. We will admit him to [facility], continue with IV Lasix 40 IV b.i.d., continue with triple antithrombotic therapy. I have withheld the lisinopril because of the little bump in his creatinine. I have also withheld his diabetic oral medications because of acidosis and mild worsening creatinine. We will use insulin to control the glucose while the patient is here in the hospital. We will consult Cardiology to evaluate the patient as well and ask Physical Therapy to evaluate the patient as well. In terms of rate control for the atrial fibrillation, I withheld the metoprolol because patient is now bradycardic. I wonder if patient would benefit from any device because of severe coronary artery disease, low EF and significant arrhythmia. cc: Dereck Schaefer MD MTDD
[2016-10-24] MEDS ORDERED: PEPCID PO SCH (21:00)
[2016-10-24] MEDS: PATIENT'S OWN MED BOTH EYES SCH ×2 (21:46→21:47)
[2016-10-24] MEDS: MELATONIN PO SCH (21:47)
[2016-10-24] MEDS: FLOMAX PO SCH (21:48)
[2016-10-24] MEDS: ELIQUIS PO SCH (21:48)
[2016-10-24] MEDS: LIPITOR PO SCH (21:48)
--- NOTE | 2016-10-24 21:51 | Diag Imaging Result Doc PS360 ---
LUNG SCAN / VQ - 10/24/2016 INDICATION: elevated D-Dimer TECHNIQUE: 39.4 mCi of DTPA was used for inhalation. 5.5 mCi of MAA was used for injection. COMPARISON: Chest x-ray from today FINDINGS: There is normal localization pattern of both radiotracer. No perfusion defects. IMPRESSION: Negative for pulmonary embolism. Electronically signed by Dawson Willams 10/24/2016 9:49 PM
[2016-10-24] MEDS: PULMICORT FLEXHALER INH SCH (22:05)
[2016-10-24] MEDS: MIRALAX PO SCH (22:11)
[2016-10-25] MEDS ORDERED: MORPHINE IV ONE (00:32)
[2016-10-25 05:18] LABS: MANUAL DIFF NEEDED? NO
[2016-10-25 05:33] LABS: INR 1.26; PROTIME 13.4 Seconds (9.2-11.7)
[2016-10-25 05:37] LABS: BASO% 0.6 % (0.0-0.8); EOS# 0.28 X1000 (0.0-0.7); EOS% 5.8 % (0.0-10.0); HEMATOCRIT 26.2 % (42.0-52.0); HEMOGLOBIN 7.7 g/dL (14.0-18.0); LYMPH# 0.89 X1000 (1.2-3.4); LYMPH% 18.6 % (20.5-51.1); MCH 24.2 PG (27-31); MCHC 29.4 g/dL (33-37); MCV 82.4 FL (81-99); MONO# 0.65 X1000 (0.11-0.59); MONO% 13.6 % (1.7-9.3); MPV 10.2 FL (7.4-10.4); NEUT% 61.4 % (42.2-75.2); PLT 157 X1000 (130-400); RBC 3.18 XMIL (4.7-6.1)
[2016-10-25 05:41] LABS: ALBUMIN 3.5 g/dL (3.5-5.0); CALCIUM 9.5 mg/dL (8.8-10.2); POTASSIUM 4.7 mmol/L (3.5-5.1); TOTAL BILIRUBIN 0.86 mg/dL (0.20-1.00); TOTAL PROTEIN 6.1 g/dL (6.3-8.3)
[2016-10-25] MEDS: SYNTHROID PO SCH (06:01)
[2016-10-25 06:29] LABS: IRON SATURATION 7 %; TIBC 278 ug/dL; TOTAL IRON 20 ug/dL (53-167); UNBOUND IRON 258 ug/dL (112-346)
[2016-10-25 06:46] LABS: RETIC% 1.62 % (0.8-2.1)
[2016-10-25] MEDS: ELIQUIS PO SCH ×2 (08:16→21:10)
[2016-10-25] MEDS: NORVASC PO SCH (08:16)
[2016-10-25] MEDS: ASPIRIN PO SCH (08:16)
[2016-10-25] MEDS: PLAVIX PO SCH (08:16)
--- NOTE | 2016-10-25 09:01 | Diag Imaging Result Doc PS360 ---
CHEST-PORTABLE - 10/25/2016 INDICATION: SOB TECHNIQUE: COMPARISON: 10/24/2016 FINDINGS: Stable cardiomegaly and pulmonary vascular congestion. No infiltrates or significant edema. No pneumothorax or pleural effusion. IMPRESSION: No change from prior. Electronically signed by Dawson Willams 10/25/2016 8:59 AM
[2016-10-25] MEDS ORDERED: NS 500 ML ONE (09:03)
[2016-10-25] MEDS: TYLENOL PO PRN (10:49)
--- NOTE | 2016-10-25 14:30 | CONSULTATION ---
DATE OF CONSULTATION: 10/25/2016 IMPRESSION: 1. Acute congestive heart failure mixed systolic/diastolic. Left ventricular ejection fraction reportedly 45%. 2. Significant anemia. 3. Atherosclerotic coronary disease. A) status post previous myocardial infarction 1998 and 2 subsequent coronary angioplasty/stent procedures. B) status post coronary bypass grafting 1999 at the [facility]. C) status post 3 coronary angioplasty/stent procedures 2003. D) status post more recent coronary angioplasty/stent procedure in August 2016. Records not available as procedures performed in the [facility] system. The last procedure performed at [facility]. 4. Chronic atrial fibrillation. 5. Left bundle branch block. 6. Tendency for bradycardia manifest. 7. Diabetes mellitus. RECOMMENDATIONS: 1. Agree with plans to diurese. 2. Agree with plans to transfuse. 3. Continue medical management of patient's coronary atherosclerosis. Is reasonable to hold beta ignacio pending increase in heart rate and reconsider dosing. 4. Patient is service connected for his heart condition and consideration should be given to contacting [facility] for possible transfer particularly in the event if extended hospitalization is needed. HISTORY: This 70-year-old white male with extensive history of coronary atherosclerosis as outlined above, mixed systolic/diastolic heart failure, diabetes mellitus, chronic kidney disease, COPD requiring chronic home oxygen, and atrial fibrillation was admitted through emergency room with acute dyspnea. He has had chronic tendency for recurrent dyspnea and has been on chronic home O2 on an as needed basis. He underwent coronary angioplasty/stent procedure at the [facility] in August of this year after which he continued on aspirin, Plavix and Eliquis. He relates that during his hospital stay he was almost continually on oxygen. He was transferred to a rehab facility here in the [facility]. Last week he was transferred to the emergency room for evaluation of acute nose bleed which apparent was quite significant. He stabilized with packing of his nose. He was sent back to the rehab facility. He was just discharged from rehab facility 2 days ago. Yesterday morning he went out to pay some bills in [facility] and became acutely dyspneic. He had some chest discomfort radiating to the back of his neck. He contacted his family and was emergently brought to the ER here. He has been started on diuretic therapy for congestive heart failure. He is also receiving transfusion of blood for significant anemia. He is present without dyspnea or chest discomfort on supplemental oxygen. He did note some transient melena not long after he had a prominent nose bleed last week. PAST MEDICAL HISTORY: 1. Atherosclerotic coronary disease as outlined above. 2. Atrial fibrillation, chronic. 3. Chronic kidney disease. 4. Diabetes mellitus. 5. Congestive heart failure mixed systolic and diastolic. 6. Obstructive sleep apnea. He does use CPAP. 7. Chronic lung disease requiring home oxygen use on an as needed basis. 8. History of apical infarct with some associated laminated thrombus by transesophageal echocardiography at this facility earlier this year. PAST SURGICAL HISTORY: Also includes cataract surgery and cholecystectomy. ALLERGIES: He is allergic or intolerant to Reglan. MEDICATIONS: Prior to admission as listed. SOCIAL HISTORY: He quit smoking more than 40 years ago. He has history of some heavy alcohol use in the past but has not drank alcohol in many years. He served with the [employer] during the [place] [employer]. He has been followed by the [place] medical system for the past 5 or so years and is service connected. FAMILY HISTORY: Positive for coronary disease, diabetes and hypertension. REVIEW OF SYSTEMS: Pulmonary: Noteworthy for dyspnea. Gastrointestinal: Noteworthy for melena for a few days last week but otherwise negative. Constitutional: Negative/noncontributory. Remainder of review of systems negative/noncontributory with 14 total systems reviewed. PHYSICAL EXAMINATION: General: This is a obese older white male in no distress. Vital signs: Blood pressure 100/60, heart rate 66 and irregular. HEENT: Extraocular movements intact. Mucous membranes moist. Neck: Supple without jugular venous distention evident. Chest: Auscultation of the chest reveals bibasilar inspiratory crackles. Cardiac Exam: Reveals an irregular rate and rhythm without appreciable murmur or gallop. Abdomen: Soft, nontender. Extremities: Without edema. Neurologic Exam: Reveals him to be alert, fully oriented. Speech is fluent. Moves all 4 extremities equally well. Skin: Warm and dry. Psychiatric: Reveals mood to be appropriate. DIAGNOSTIC DATA: ECG demonstrates atrial fibrillation, left axis deviation, and left bundle branch block. LABORATORY DATA: Remarkable for hematocrit 26.2, white blood cell count 4.8, platelet count 157,000, BUN 36, creatinine 1.8. Troponin T less than 0.01. cc: Alec Khan MD
[2016-10-25] MEDS ORDERED: LASIX IV ONE (15:32)
[2016-10-25] MEDS: NORCO-7.5 PO PRN (16:33)
[2016-10-25] MEDS: LASIX IV SCH (16:35)
--- NOTE | 2016-10-25 16:41 | PROGRESS NOTE ---
DATE: 10/25/2016 SUBJECTIVE: Today, Mr. Johnson referred to be doing a little better. He continues to have some muscular pains at the back. He denies any chest pain, however. OBJECTIVE: Vital signs: Blood pressure is 109/54, pulse is 63, respirations 18 , temperature 97.6 degrees. General: Mr. Johnson is a 70-year-old male. He is in bed. He did not seem to be in any remarkable distress. HEENT: Mucosa is pink and moist. Anicteric. Acyanotic. Neck: Supple. Chest: Good air entry bilaterally. Few bibasilar crepitations. Cardiovascular: Regular rate and rhythm. It feels slightly bradycardic. I did not appreciate any murmurs. No rubs. No gallops. Abdomen: Distended, nontender. There is a midline old surgical scar. Extremities: No pedal edema. Central nervous system: The patient is awake alert and oriented. No focal neurological deficit. LABORATORY DATA: WBC is 4.79, hemoglobin is 7.7, platelet count of 157,000. The patient has retic count of 1.62. Chemistry is also reviewed. Sodium 139, potassium is 4.7 , chloride is 103, BUN went up to 36, creatinine came down to 1.8. IMAGING: A chest x-ray this morning showed stable cardiomegaly and pulmonary vascular congestion. ASSESSMENT: 1. Acute hypoxemic respiratory distress, secondary to pulmonary edema. We are going to continue with the diuretic therapy. 2. Severe iron deficiency anemia. Hemoglobin and hematocrit have dropped to 7.7. We will group and crossmatch the patient and give him 2 units of packed red blood cells. I think the patient has a chronic gastrointestinal bleed. He has a history of gastritis on a previous esophagogastroduodenoscopy done in March 2015, also presumably because of anemia. 3. Triple anti-thrombolic therapy. We will continue with this; however, put the patient on proton pump inhibitor. 4. History of chronic atrial fibrillation. Beta ignacio has been withheld because the patient was bradycardic. 5. Significant coronary artery disease, status post coronary artery bypass graft and multiple stents. 6. Chronic kidney disease, stable. 7. Folate deficiency. We will replace this. PLAN: In general, I think Mr. Dutta is relatively stable. We will give him 2 PRBC transfusion today. Continue with the diuretic therapy. Replace his folate, and review him tomorrow morning with new labs. cc: Dereck Schaefer MD MTDRicardo
[2016-10-25] MEDS: PULMICORT FLEXHALER INH SCH (21:06)
[2016-10-25] MEDS: LIPITOR PO SCH (21:08)
[2016-10-25] MEDS: FLOMAX PO SCH (21:09)
[2016-10-25] MEDS: FOLIC ACID PO SCH (21:10)
[2016-10-25] MEDS: MIRALAX PO SCH (21:11)
[2016-10-25] MEDS: MELATONIN PO SCH (21:11)
[2016-10-25] MEDS: PATIENT'S OWN MED BOTH EYES SCH (21:22)
[2016-10-26] MEDS: LASIX IV SCH ×2 (05:42→18:03)
[2016-10-26] MEDS: PROTONIX PO SCH ×2 (05:43→07:04)
[2016-10-26] MEDS: SYNTHROID PO SCH ×2 (05:43→07:04)
[2016-10-26] MEDS: SPIRIVA INH SCH ×2 (07:46)
[2016-10-26] MEDS: NORVASC PO SCH (09:38)
[2016-10-26] MEDS: ELIQUIS PO SCH ×2 (09:38→21:20)
[2016-10-26] MEDS: ASPIRIN PO SCH (09:38)
[2016-10-26] MEDS: PLAVIX PO SCH (09:39)
[2016-10-26] MEDS: FOLIC ACID PO SCH ×2 (09:39→21:20)
[2016-10-26 10:37] LABS: MANUAL DIFF NEEDED? NO
[2016-10-26 10:49] LABS: BASO% 0.6 % (0.0-0.8); EOS# 0.25 X1000 (0.0-0.7); EOS% 4.8 % (0.0-10.0); HEMATOCRIT 32.2 % (42.0-52.0); HEMOGLOBIN 9.9 g/dL (14.0-18.0); IMM GRAN# 0.02 X1000 (0.0-0.04); IMM GRAN% 0.4 % (0.0-0.5); LYMPH# 0.48 X1000 (1.2-3.4); LYMPH% 9.2 % (20.5-51.1); MCH 24.9 PG (27-31); MCHC 30.7 g/dL (33-37); MCV 81.1 FL (81-99); MONO# 0.45 X1000 (0.11-0.59); MONO% 8.6 % (1.7-9.3); MPV 10.2 FL (7.4-10.4); NEUT% 76.4 % (42.2-75.2); PLT 147 X1000 (130-400); RBC 3.97 XMIL (4.7-6.1)
[2016-10-26 11:31] LABS: POTASSIUM 4.5 mmol/L (3.5-5.1)
--- NOTE | 2016-10-26 14:03 | PROGRESS NOTE ---
DATE: 10/26/2016 SUBJECTIVE: Patient denies chest discomfort or dyspnea on supplemental oxygen per nasal cannula. He does complain of vague abdominal discomfort as well as anorexia. OBJECTIVE: Vital Signs: Blood pressure 109/73, heart rate 68. Oxygen saturation 92% on nasal cannula oxygen at 2 L/minute. ECG monitor shows atrial fibrillation and left bundle branch block. Neck: There is no significant jugular venous distention. Chest: Auscultation of chest reveals diminished breath sounds diffusely. No rales could be appreciated. Cardiac Exam: Reveals an irregular rate and rhythm without appreciable murmur or gallop. There is no evidence of peripheral edema. LABORATORY DATA: Demonstrates hematocrit 32.2 following recent transfusion, white blood cell count 5.2. BUN 33, creatinine 1.8 which is stable since admission. IMPRESSION: 1. Acute on chronic congestive heart failure. Clinically appears to have improved with diuresis as well as transfusion for severe anemia. 2. Significant anemia. I suspect this is likely related to recent significant nosebleed on triple therapy anticoagulation. 3. Atherosclerotic coronary disease. Patient continues without angina. He is status post fairly recent angioplasty/stent procedure in August 2016. 4. Chronic atrial fibrillation. 5. Left bundle branch block. 6. Diabetes mellitus. RECOMMENDATIONS: 1. Transition back to oral diuretic therapy. 2. Resume metoprolol succinate 25 mg daily. 3. Consider patient's request for transfer to [facility] for further care, particularly if continued hospitalization is needed. cc: Alec Khan MD
--- NOTE | 2016-10-26 14:57 | PROGRESS NOTE ---
DATE: 10/26/2016 SUBJECTIVE: Today Mr. Johnson referred to be doing the same. He said he has not seen any improvement. However, when I saw him he was sitting up at the edge of the bed eating some breakfast, something that he was not able to do when he came in. He also had a lot of complaints. He said he has been in and out of multiple hospitals and he keeps going back into heart failure. He is not very happy because the condition keeps coming back. OBJECTIVELY: Vital Signs: Blood pressure is 109/73, pulse 68, respirations 18, temperature 97.8 degrees. General: Mr. Johnson is a 70-year-old male. He was sitting up in the bed not seemingly in an distress. HEENT: Mucosa is pink and moist. Anicteric. Acyanotic. Neck: Supple. Chest: Clear. Cardiovascular: Regular rate and rhythm. No murmurs, no rubs, no gallops. Abdomen: Soft, slightly distended but nontender. Bowel sounds are present. There is an old midline surgical scar which is noted. Extremities: No pedal edema. Central Nervous System: Patient is awake, alert and oriented. LABORATORY DATA: WBC is 5.23, hemoglobin is 9.9, platelet count of 147,000. Chemistry is reviewed. Creatinine continues to be 1.8. ASSESSMENT: 1. Acute hypoxemic respiratory distress secondary to pulmonary edema. The patient is doing fine. 2. Severe iron deficiency anemia. Patient is status post 2 PRBC transfusions. Hemoglobin and hematocrit is stable. Guaiac is negative. 3. Triple antithrombotic therapy noted. 4. History of chronic atrial fibrillation currently rate controlled. Beta-ignacio was withheld yesterday. 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 5. Chronic kidney disease stage 3B. Stable. 6. Folate deficiency. We will continue to replace. 7. In general, I think clinically Mr. Johnson seems to be stable. However he has multiple complaints. He does not seem to be happy that his condition keeps coming back. At one point he said he is not willing to go home any time soon because he wants his condition to be fixed. Mr. Johnson has had multiple office care in the [place] system. I will get in touch with the [place] tomorrow to see if we can get some documentation from them or if they want to take him in over there. cc: Dereck Schaefer MD
[2016-10-26] MEDS: TOPROL XL PO SCH (15:49)
[2016-10-26] MEDS: NORCO-7.5 PO PRN (16:06)
[2016-10-26] MEDS: PULMICORT FLEXHALER INH SCH (20:57)
[2016-10-26] MEDS: MELATONIN PO SCH (21:20)
[2016-10-26] MEDS: FLOMAX PO SCH (21:20)
[2016-10-26] MEDS: MIRALAX PO SCH (21:20)
[2016-10-26] MEDS: LIPITOR PO SCH (21:20)
[2016-10-26] MEDS: PATIENT'S OWN MED BOTH EYES SCH (22:18)
[2016-10-26] MEDS: TYLENOL PO PRN (23:21)
[2016-10-27 05:14] LABS: MANUAL DIFF NEEDED? NO
[2016-10-27 05:24] LABS: BASO% 0.6 % (0.0-0.8); EOS# 0.28 X1000 (0.0-0.7); EOS% 5.3 % (0.0-10.0); HEMATOCRIT 31.9 % (42.0-52.0); LYMPH# 0.76 X1000 (1.2-3.4); LYMPH% 14.5 % (20.5-51.1); MCH 25.1 PG (27-31); MCHC 31.3 g/dL (33-37); MCV 80.2 FL (81-99); MONO# 0.59 X1000 (0.11-0.59); MONO% 11.2 % (1.7-9.3); MPV 10.4 FL (7.4-10.4); NEUT% 68.4 % (42.2-75.2); PLT 168 X1000 (130-400); RBC 3.98 XMIL (4.7-6.1)
[2016-10-27 05:46] LABS: CALCIUM 10.1 mg/dL (8.8-10.2); MAGNESIUM 1.9 mg/dL (1.5-2.7); POTASSIUM 4.1 mmol/L (3.5-5.1)
--- NOTE | 2016-10-27 05:57 | EKG Report ---
Test Performed on : 10/25/2016 06:24:00 AM Test Reason : chest pain Blood Pressure : / mmHG Vent. Rate : 043 BPM Atrial Rate : 357 BPM P-R Int : 000 ms QRS Dur : 162 ms QT Int : 526 ms P-R-T Axes : 000 -42 109 degrees QTc Int : 444 ms Atrial fibrillation. with slow ventricular response. Left axis deviation Left bundle branch block Abnormal ECG When compared with ECG of 25-OCT-2016 00:02, (Unconfirmed) No significant change was found Confirmed by Jignesh Valdez MD ([id number]) on 10/27/2016 7:50:41 PM
--- NOTE | 2016-10-27 06:05 | EKG Report ---
Test Performed on : 10/25/2016 00:02:41 AM Test Reason : No Order in resmio Blood Pressure : / mmHG Vent. Rate : 048 BPM Atrial Rate : 061 BPM P-R Int : 000 ms QRS Dur : 164 ms QT Int : 506 ms P-R-T Axes : 000 -44 112 degrees QTc Int : 452 ms Atrial fibrillation. with slow ventricular response. Left axis deviation Left bundle branch block Abnormal ECG When compared with ECG of 24-OCT-2016 15:38, (Unconfirmed) No significant change was found Confirmed by Jignesh Valdez MD ([id number]) on 10/27/2016 7:47:32 PM
[2016-10-27] MEDS: LASIX IV SCH (06:13)
[2016-10-27] MEDS: SYNTHROID PO SCH (06:14)
[2016-10-27] MEDS: PROTONIX PO SCH (06:14)
--- NOTE | 2016-10-27 07:32 | Diag Imaging Result Doc PS360 ---
EXAM: CHEST-PORTABLE HISTORY: dyspnea TECHNIQUE: AP portable at 0500 COMMENT: There is cardiomegaly. There are calcified nodes present in the right hilum. The pulmonary edema present on 10/25/2016 has improved. IMPRESSION: Improved pulmonary edema. Electronically signed by David Summers 10/27/2016 7:30 AM
[2016-10-27] MEDS: SPIRIVA INH SCH (07:40)
[2016-10-27] MEDS: NORVASC PO SCH (09:26)
[2016-10-27] MEDS: ASPIRIN PO SCH (09:26)
[2016-10-27] MEDS: PLAVIX PO SCH (09:26)
[2016-10-27] MEDS: TOPROL XL PO SCH (09:26)
[2016-10-27] MEDS: FOLIC ACID PO SCH ×2 (09:26→21:11)
--- NOTE | 2016-10-27 12:42 | PROGRESS NOTE ---
DATE: 10/27/2016 SUBJECTIVE: Today Mr. Gibbs referred to be doing a lot better from a breathing standpoint, but then since this morning, he started having some nasal bleeding through the right nostril. OBJECTIVE: Vital signs: Blood pressure is 120/60, pulse about 61, respiration is 16, temperature is 98.4 degrees. General: Mr. Gibbs is a 70-year-old male. He was in bed. He did not seem to be in any distress. HEENT: Mucosa is pink and moist. Anicteric. Acyanotic. Neck: Supple. Chest: Good air entry bilateral. No crepitations. No rhonchi. Cardiovascular: Regular rate and rhythm. There are no murmurs, no rubs, no gallops. Abdomen: Soft, distended, but nontender. Bowel sounds are present. There is an old surgical scar noted on the anterior abdominal wall midline. Central nervous system: Patient is awake and alert and oriented x4. There is no focal neurological deficit. Face: The right nostril has the gauze stuffed in there to help clot the bleeding vessel. LABORATORY DATA: WBC is 5.25, hemoglobin is 10.0, platelet count of 168,000. Chemistry is reviewed; sodium is 135, potassium is 4.1, chloride is 98, bicarbonate is 27, creatinine continues to 1.8 which has not changed. ProBNP is 3648, that is pretty much stable. Patient's I O: 3425 yesterday, today 125. Patient has a negative total balance of -4590. A chest x-ray this morning shows improved pulmonary edema. CURRENT MEDICATIONS: Have been reviewed. Include: 1. Amlodipine 5 mg daily. 2. Aspirin 81 mg daily. 3. Atorvastatin 80 mg daily. 4. Budesonide 2 puffs daily. 5. Plavix 75 mg daily. 6. Folic acid 1 mg b.i.d. 7. Levothyroxine 50 mg daily. 8. Melatonin. 9. Metoprolol 25 mg daily has been started. 10. Pantoprazole 40 mg daily. 11. Lasix 20 mg b.i.d. has been started. ASSESSMENT: 1. Acute hypoxemic respiratory distress on presentation secondary to pulmonary edema: This is improved. Patient is on minimum nasal oxygen and is saturating very well. A chest x-ray this morning shows remarkable improvement. 2. Severe iron deficiency anemia secondary to chronic blood loss: The patient was admitted and discharged just at the end of last month because of nasal bleed. Had an EGD that shows some gastritis as well so I think he kind of bleeds very frequently because of the triple antithrombotic therapy. Patient at this time got 2 units of PRBC, and hemoglobin and hematocrit are stable. 3. Right nasal bleed: We think this is secondary to the antithrombotic therapy. For now, I have withheld the Eliquis. We will continue observing him on the aspirin and clopidogrel. 4. Chronic atrial fibrillation, currently rate controlled: We will continue with the beta ignacio. For now, Eliquis has been withheld because of the bleeding. 5. Chronic kidney disease, stage 3B. 6. Folate deficiency: We will continue to replace. This morning I had to put in a nasal tampon in the right nostril. The patient tolerated the procedure without any problem. We will keep it in there for 24-48 hours to make sure that he has adequate hemostasis before we remove it. I have also tried to get in touch with the [place] system to see if the patient can be accepted over there for his medical care. Patient this morning voiced his willingness to wanting to be transferred to the OR system. I was able to speak with Nurse Garret, one of the triage nurse in the [place] hospital. She took all the information and promised to get hold of the admitting nurses and call me back. I did not get any call back. cc: Dereck Schaefer MD MTDD
[2016-10-27] MEDS: NORCO-7.5 PO PRN (14:47)
--- NOTE | 2016-10-27 16:38 | PROGRESS NOTE ---
DATE: 10/27/2016 SUBJECTIVE: The patient continues without further dyspnea. He had recurrent nosebleed this morning. Eliquis has been held. There has been no chest pain. OBJECTIVE: Vital Signs: Blood pressure 113/77, heart rate 75. Neck: There is no significant jugular venous distention. Chest: Clear to auscultation bilaterally with somewhat diminished breath sounds diffusely. Cardiac: Reveals an irregular rate and rhythm without appreciable murmur or gallop. Extremities: There is no evidence of peripheral edema. LABORATORY DATA: Includes hematocrit 31.9, white blood cell count 5.25. BUN 29, creatinine 1.8. IMPRESSION: 1. Recent acute on chronic congestive heart failure mixed systolic/diastolic. Left ventricular ejection fraction reportedly 45%. Patient appears to have improved clinically with diuresis. 2. Significant anemia on presentation. Patient transfused. Suspect likely recent prominent nosebleed last week culprit. No evidence of any significant blood loss following transfusion, other than limited nosebleed. 3. Atherosclerotic coronary disease. Patient has had fairly recent angioplasty/stent procedure in August of this year. 4. Chronic atrial fibrillation. 5. Left bundle branch block. 6. Diabetes mellitus. RECOMMENDATIONS: 1. Continue current cardiovascular regimen unchanged with exception of holding Eliquis. 2. Consider resuming Eliquis at 2.5 mg twice daily. 3. Continue dual anti-platelet therapy given fairly recent angioplasty/stent procedure. cc: Alec Khan MD
[2016-10-27] MEDS: TEARISOL OPH SOLUTION LEFT EYE PRN (20:49)
[2016-10-27] MEDS: MIRALAX PO SCH (21:09)
[2016-10-27] MEDS: LASIX PO SCH (21:10)
[2016-10-27] MEDS: LIPITOR PO SCH (21:10)
[2016-10-27] MEDS: MELATONIN PO SCH (21:10)
[2016-10-27] MEDS: PULMICORT FLEXHALER INH SCH (21:11)
[2016-10-27] MEDS: FLOMAX PO SCH (21:11)
[2016-10-27] MEDS: PATIENT'S OWN MED BOTH EYES SCH (21:11)
[2016-10-28 05:30] LABS: MANUAL DIFF NEEDED? NO
[2016-10-28 05:35] LABS: BASO% 0.5 % (0.0-0.8); EOS# 0.34 X1000 (0.0-0.7); EOS% 5.7 % (0.0-10.0); HEMATOCRIT 31.4 % (42.0-52.0); HEMOGLOBIN 9.9 g/dL (14.0-18.0); LYMPH# 0.89 X1000 (1.2-3.4); LYMPH% 14.8 % (20.5-51.1); MCH 25.6 PG (27-31); MCHC 31.5 g/dL (33-37); MCV 81.1 FL (81-99); MONO# 0.74 X1000 (0.11-0.59); MONO% 12.3 % (1.7-9.3); MPV 10.4 FL (7.4-10.4); NEUT% 66.7 % (42.2-75.2); PLT 164 X1000 (130-400); RBC 3.87 XMIL (4.7-6.1)
[2016-10-28 05:51] LABS: CALCIUM 9.4 mg/dL (8.8-10.2); POTASSIUM 3.9 mmol/L (3.5-5.1)
[2016-10-28] MEDS: SYNTHROID PO SCH (06:07)
[2016-10-28] MEDS: PROTONIX PO SCH (06:07)
[2016-10-28] MEDS: SPIRIVA INH SCH (07:39)
[2016-10-28] MEDS: PLAVIX PO SCH (08:22)
[2016-10-28] MEDS: LASIX PO SCH ×2 (08:22→20:41)
[2016-10-28] MEDS: ASPIRIN PO SCH (08:22)
[2016-10-28] MEDS: TOPROL XL PO SCH (08:22)
[2016-10-28] MEDS: FOLIC ACID PO SCH ×2 (08:22→20:41)
[2016-10-28] MEDS: NORVASC PO SCH (08:22)
[2016-10-28] MEDS ORDERED: SAMSCA PO ONE (09:58)
[2016-10-28] MEDS: ZOFRAN PO PRN ×2 (10:11→20:43)
--- NOTE | 2016-10-28 11:01 | PROGRESS NOTE ---
DATE: 10/28/2016 SUBJECTIVE: Today, Mr. Johnson refers to be a little better. However, complains of some nausea in the epigastrium. No vomiting. Has not had any more nasal bleed and no diarrhea. Also denies of any chest pain. OBJECTIVE: Vital signs: Blood pressure is 102/70, pulse of 78, respirations 14 , temperature 98.7. General: Mr. Johnson is a 70-year-old, male. He is in bed, not seemingly distressed. HEENT: Mucosa is pink and moist. Anicteric. Acyanotic. Neck: Supple. No JVD. Chest: Air entry continues to be reduced bilaterally. There are mild crepitations in the posterior lung bases. Cardiovascular: Regular rate and rhythm. No murmurs, no rubs. No gallops. Abdomen: Soft, distended, but nontender. Bowel sounds are present. There is an old surgical scar noted on the anterior abdominal wall midline. 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 No focal neurological deficit. LABORATORY DATA: WBC is 6.00, hemoglobin is 9.9, platelet count 164. Chemistry is reviewed. Creatinine continues to be as 1.7, relatively stable. Sodium is 132. ASSESSMENT: 1. Acute hypoxemic respiratory distress on presentation, secondary to pulmonary edema. The patient was placed on nasal cannula. However, because of nasal bleed, this was discontinued. He is currently on a face mask and he is saturating 97%. 2. Acute on chronic congestive heart failure. Ejection fraction reported to be 45%. The patient seems to now be euvolemic and well compensated. 3. Severe iron deficiency anemia secondary to chronic blood loss. The patient is status post 2 packed red blood cells transfusion. Hemoglobin and hematocrit is stable. 4. Nasal bleed, likely secondary to antithrombotic therapy. Eliquis has been withheld. Patient's nose was packed yesterday. This was removed and there has not been any more bleeding since yesterday. 5. Chronic atrial fibrillation. Currently rate controlled. Patient has been started on a beta ignacio. As I said, Eliquis has been withheld. We will for now use Plavix with the aspirin for antithrombotic therapy. 6. Chronic kidney disease, stage 3B. Stable. 7. Folate deficiency. We will continue to replace this. 8. Hyponatremia. We will give the patient a dose of Samsca to get his sodium around 135 to 140 since he is a congestive heart failure patient. PLAN: So, in general, I think Mr. Gibbs is relatively stable. [facility] I spoke this morning with Nurse Brennan who is their admission nurse and she said they know about him and they are looking for a bed. As soon as there is a bed available, they will notify us to send him over there. cc: Dereck Schaefer MD MTDRicardo
--- NOTE | 2016-10-28 13:55 | PROGRESS NOTE ---
DATE: 10/28/2016 SUBJECTIVE: Patient continues without dyspnea or chest discomfort. He has not had any further nose bleeds. OBJECTIVE: Vital signs: Blood pressure 114/71, heart rate 62, oxygen saturation 99%. Neck: There is no significant jugular venous distention. Chest: Is clear to auscultation. Cardiac exam: Reveals an irregular rate and rhythm without appreciable murmur or gallop. There is no evidence of peripheral edema. LABORATORY DATA: Includes a hematocrit of 31.4 which is stable. BUN 24, creatinine 1.7. IMPRESSION: 1. Recent acute on chronic congestive heart failure mixed systolic and diastolic in nature. The patient clinically improved. 2. Significant anemia on presentation. Patient stabilized after transfusion. Because of recurrent epistaxis, Eliquis on hold. 3. Atherosclerotic coronary disease. Patient has history of previous coronary bypass surgery, multiple previous angioplasty/stent procedures, and recent angioplasty/stent procedure in August this year. 4. Chronic atrial fibrillation. 5. Left bundle branch block. 6. Diabetes mellitus. 7. Chronic pulmonary disease requiring home oxygen. RECOMMENDATIONS: 1. Continue current cardiovascular regimen unchanged. Consider resuming Eliquis at 2.5 mg twice daily. 2. Continue dual anti-platelet therapy in light of fairly recent angioplasty/stent procedure. cc: Alec Khan MD
[2016-10-28] MEDS: PULMICORT FLEXHALER INH SCH (20:10)
[2016-10-28] MEDS: PATIENT'S OWN MED BOTH EYES SCH ×2 (20:39→20:41)
[2016-10-28] MEDS: LIPITOR PO SCH (20:41)
[2016-10-28] MEDS: FLOMAX PO SCH (20:41)
[2016-10-28] MEDS: MELATONIN PO SCH (20:41)
[2016-10-28] MEDS: MIRALAX PO SCH (20:41)
[2016-10-29 05:40] LABS: MANUAL DIFF NEEDED? NO
[2016-10-29 05:47] LABS: BASO% 0.9 % (0.0-0.8); EOS# 0.29 X1000 (0.0-0.7); EOS% 5.1 % (0.0-10.0); HEMATOCRIT 33.8 % (42.0-52.0); HEMOGLOBIN 10.4 g/dL (14.0-18.0); LYMPH# 0.86 X1000 (1.2-3.4); LYMPH% 15.2 % (20.5-51.1); MCH 25.1 PG (27-31); MCHC 30.8 g/dL (33-37); MCV 81.6 FL (81-99); MONO# 0.74 X1000 (0.11-0.59); MONO% 13.1 % (1.7-9.3); MPV 10.6 FL (7.4-10.4); NEUT% 65.7 % (42.2-75.2); PLT 170 X1000 (130-400); RBC 4.14 XMIL (4.7-6.1)
[2016-10-29] MEDS: PROTONIX PO SCH (05:59)
[2016-10-29] MEDS: SYNTHROID PO SCH (05:59)
[2016-10-29 06:10] LABS: CALCIUM 9.1 mg/dL (8.8-10.2); POTASSIUM 4.4 mmol/L (3.5-5.1)
[2016-10-29] MEDS: SPIRIVA INH SCH (07:37)
[2016-10-29] MEDS: FOLIC ACID PO SCH ×2 (08:38→20:23)
[2016-10-29] MEDS: LASIX PO SCH ×2 (08:38→20:23)
[2016-10-29] MEDS: NORVASC PO SCH (08:38)
[2016-10-29] MEDS: ASPIRIN PO SCH (08:38)
[2016-10-29] MEDS: TOPROL XL PO SCH (08:38)
[2016-10-29] MEDS: PLAVIX PO SCH (08:38)
--- NOTE | 2016-10-29 10:55 | PROGRESS NOTE ---
DATE: 10/29/2016 SUBJECTIVE: Today Mr. Johnson referred to be feeling presumably the same. He actually shows very little emotions. He said he still is having some shortness of breath whenever he walks around. OBJECTIVE: Vital signs: Blood pressure is 116/67, pulse of 63, respiration is 17, temperature 97.9 degrees. General exam: Mr. Johnson is a 70-year-old male. He was in bed. Not seemingly distressed. HEENT: Mucosa is pink and moist. Anicteric. Acyanotic. Neck: Supple. Chest: Air entry is bilaterally reduced. There is still some diffuse posterior wet crackles. Cardiovascular: Regular rate and rhythm. There is no murmurs, no rubs, no gallops. Abdomen: Soft, distended, but nontender. There is an old surgical scar noted on the anterior abdominal wall. ROUTE SPECIALIST: Patient is awake and alert and oriented. There is no focal neurological deficit. Extremities: No pedal edema. Distal pulses are present bilaterally. LABORATORY DATA: WBC is 5.67, hemoglobin is 10.4, platelet count 170. Chemistry is also reviewed. Creatinine is 1.8. Rest of chemistry is completely unremarkable. Sodium is back to 139 after Samsca yesterday. ASSESSMENT: 1. Acute hypoxemic respiratory distress on presentation secondary to pulmonary edema. This morning face mask was actually resting on top of the site table, and he seems to be breathing very well, but he did say that he just took it out to eat breakfast. He has been saturating pretty fine on the face mask throughout the night. Saturations have been in the 96s to 97s. 2. Acute on chronic congestive heart failure. Ejection fraction 45%. The patient seems to be euvolemic and compensated at this point. 3. Severe iron deficiency anemia secondary to chronic blood loss. Patient is status post two packed red blood cell transfusion. Hemoglobin and hematocrit is stable. 4. Nasal bleed likely secondary to anti thrombolytic therapy. Eliquis has been withheld. The patient has not had any more nasal bleed since 2 days ago. 5. Chronic atrial fibrillation currently rate controlled. Patient is on beta ignacio. Eliquis was withheld. There are recommendations from cardiology, who started at a lower dose. We will put the patient on 2.5 twice daily and monitor him while he is here in the hospital. 6. Chronic kidney disease stage III-B. Creatinine is stable. 7. Folate deficiency. We will replace this. 8. Hyponatremia in the context of congestive heart failure. Samsca was given yesterday. Sodium has now normalized. DISPOSITION: The patient insists he would rather go to [facility] in [place] to continue his care. He is very adamant that he would not want to go home and have to come back with similar presentation because that is what has been going on in the past few months. I spoke with . Carol Lake, who is the admitting nurse in [place] for the [facility], and she did say they have Mr. Johnson on their list and that there is no medical bed at this point; as soon as there is one open, she will contact us and get him transferred over there. This has been communicated to Mr. Johnson. cc: Dereck Schaefer MD MTDD
[2016-10-29] MEDS: NORCO-7.5 PO PRN (13:47)
[2016-10-29] MEDS ORDERED: COLACE LIQUID PO PRN (15:11)
[2016-10-29] MEDS: IMDUR PO SCH (16:24)
[2016-10-29] MEDS: LIPITOR PO SCH (20:23)
[2016-10-29] MEDS: ELIQUIS PO SCH (20:23)
[2016-10-29] MEDS: FLOMAX PO SCH (20:23)
[2016-10-29] MEDS: MIRALAX PO SCH (20:24)
[2016-10-29] MEDS: MELATONIN PO SCH (20:24)
[2016-10-29] MEDS: PULMICORT FLEXHALER INH SCH (21:22)
[2016-10-29] MEDS: PATIENT'S OWN MED BOTH EYES SCH (23:39)
[2016-10-30] MEDS: NITROGLYCERIN SL PRN (05:08)
[2016-10-30] MEDS ORDERED: MORPHINE IV ONE (05:25)
[2016-10-30] MEDS: SYNTHROID PO SCH ×2 (05:41→06:27)
[2016-10-30] MEDS: PROTONIX PO SCH ×2 (05:41→06:27)
--- NOTE | 2016-10-30 06:11 | EKG Report ---
Test Performed on : 10/30/2016 04:58:03 AM Test Reason : CP Blood Pressure : / mmHG Vent. Rate : 066 BPM Atrial Rate : 416 BPM P-R Int : 000 ms QRS Dur : 152 ms QT Int : 450 ms P-R-T Axes : 000 -40 123 degrees QTc Int : 471 ms Atrial fibrillation. Left axis deviation Nonspecific intraventricular block Possible Lateral infarct , age undetermined Abnormal ECG When compared with ECG of 25-OCT-2016 06:24, Current undetermined rhythm precludes rhythm comparison, needs review Nonspecific intraventricular block has replaced Left bundle branch block Borderline criteria for Lateral infarct are now present Confirmed by Jignesh Valdez MD ([id number]) on 11/02/2016 12:19:28 PM
[2016-10-30 07:13] LABS: CALCIUM 9.7 mg/dL (8.8-10.2); POTASSIUM 4.4 mmol/L (3.5-5.1)
[2016-10-30] MEDS: SPIRIVA INH SCH (08:46)
[2016-10-30] MEDS: PLAVIX PO SCH (10:30)
[2016-10-30] MEDS: FOLIC ACID PO SCH ×2 (10:30→22:53)
[2016-10-30] MEDS: IMDUR PO SCH (10:30)
[2016-10-30] MEDS: ASPIRIN PO SCH (10:30)
[2016-10-30] MEDS: LASIX PO SCH ×2 (10:31→22:53)
[2016-10-30] MEDS: TOPROL XL PO SCH (10:31)
[2016-10-30] MEDS: ELIQUIS PO SCH ×2 (10:31→22:53)
[2016-10-30] MEDS: NORVASC PO SCH (10:31)
--- NOTE | 2016-10-30 11:52 | PROGRESS NOTE ---
DATE: 10/30/2016 SUBJECTIVE: Patient reports feeling fine. Did not get short of breath when he went to the bathroom but apparently when he removes the nasal cannula, oxygen drops to the low 80s. But he does not report any shortness of breath when he walks around. OBJECTIVE: Vital Signs: Temperature 97.6 degrees, heart rate 77, respiratory rate 21, blood pressure 122/67, O2 saturation 96% on 2 L nasal cannula. General Examination: This is a 70-year- old male, lying in bed, in no acute distress. HEENT: Head is normocephalic, atraumatic. Anicteric sclerae. Pale conjunctivae. Mucous membranes moist. Neck: Supple. No JVD noted. No carotid bruits. No lymphadenopathy. No thyromegaly. Cardiovascular: S1 and S2 heard. Irregularly irregular heart rhythm. No murmurs, gallops, or rubs. Respiratory: Clear bilaterally to auscultation. There are mild crackles in both bases. Patient is not using any accessory muscles or having work of breathing. Abdomen: Soft. Nontender to palpation. Bowel sounds are present. No organomegaly. There is an old scar noted in the anterior abdominal wall. Extremities: No clubbing, cyanosis, or edema. Peripheral pulses present in both legs. Neurological: Patient is alert and oriented x3. Moves 4 extremities. LABORATORY DATA: White cell count 5.67, hemoglobin 10.4, hematocrit 33.8, platelets 170,000. BMP remarkable for creatinine 1.9 and sugar 122. ASSESSMENT AND PLAN: 1. Acute hypoxemic respiratory failure secondary to pulmonary edema. At this time, this patient is definitely doing much better. Oxygen bhandari, he is on 2 L of oxygen by nasal cannula which is his home medication. For pulmonary edema, he is on Lasix 20 mg p.o. b.i.d. Cardiology is also following this patient. We will follow their recommendations. 2. Acute on chronic congestive heart failure, mixed systolic and diastolic. At this point, the patient clinically is much better. No shortness of breath at rest. Also, when he is walking from bed to bathroom he also denies any shortness of breath. At this time, we are going to continue with the same management, in this case furosemide 20 mg p.o. b.i.d. 3. Severe iron-deficiency anemia secondary to chronic blood loss. After 2 units of PRBCs the hemoglobin is stable so far. The last hemoglobin that we have is 10.4. We will continue to check CBC. 4. Nasal bleeding, likely secondary to thrombolytic therapy. Eliquis has been restarted because for last 3 days he has not had any more bleeding. Also the aspirin and Plavix have been restarted as well considering that he had a recent angioplasty with stenting in August 2016. 5. Chronic atrial fibrillation. Currently rate controlled and also Eliquis has been restarted. Currently he is on low dose of this medication as per cardiology's recommendation, in this case 2.5 mg p.o. b.i.d. We will continue to monitor him closely. 6. Coronary artery disease, status post recent angioplasty. The patient complains of mild chest pain last night that lasted less than a minute, like pressure, but right now he is not having any chest pain. We are going to continue with both antiplatelet medication and we will monitor him closely. 7. Chronic kidney disease stage 3B. Creatinine at baseline. 8. Folate deficiency. We are going to supplement this. 9. Hyponatremia. That condition has resolved after 1 dose of Samsca. 10. Disposition. Patient clinically is doing good. The patient reports that most of the time he feels better, he goes home, and then when he starts developing shortness of breath he is back. At this time I am planning to keep him 1 more day. He is maintaining his O2 saturation of 90 and above and he is not complaining of any shortness of breath while he walks. I am planning to send him home tomorrow. cc: MD TOD Saenz
[2016-10-30] MEDS: TYLENOL PO PRN (15:46)
[2016-10-30] MEDS: NORCO-7.5 PO PRN ×2 (17:27→22:53)
[2016-10-30] MEDS: PULMICORT FLEXHALER INH SCH (21:01)
[2016-10-30] MEDS: LIPITOR PO SCH (22:53)
[2016-10-30] MEDS: FLOMAX PO SCH (22:53)
[2016-10-30] MEDS: MELATONIN PO SCH (22:53)
[2016-10-30] MEDS: MIRALAX PO SCH (22:57)
[2016-10-30] MEDS: PATIENT'S OWN MED BOTH EYES SCH (22:57)
[2016-10-31] MEDS: NORCO-7.5 PO PRN ×2 (03:34→18:00)
[2016-10-31] MEDS: SYNTHROID PO SCH (06:05)
[2016-10-31] MEDS: PROTONIX PO SCH (06:05)
[2016-10-31] MEDS: SPIRIVA INH SCH (07:38)
[2016-10-31] MEDS: ELIQUIS PO SCH ×2 (10:25→23:25)
[2016-10-31] MEDS: TOPROL XL PO SCH (10:25)
[2016-10-31] MEDS: ASPIRIN PO SCH (10:25)
[2016-10-31] MEDS: FOLIC ACID PO SCH ×2 (10:25→23:25)
[2016-10-31] MEDS: PLAVIX PO SCH (10:25)
[2016-10-31] MEDS: IMDUR PO SCH (10:25)
[2016-10-31] MEDS: NORVASC PO SCH (10:26)
[2016-10-31] MEDS: LASIX PO SCH ×2 (10:26→23:25)
--- NOTE | 2016-10-31 13:56 | PROGRESS NOTE ---
DATE: 10/31/2016 SUBJECTIVE: Patient reports feeling fine. Denies any shortness of breath. Sometimes he remove nasal cannula to eat and to walk and he did not feel any short of breath. He denies any chest pain. OBJECTIVE: Vital Signs: Temperature 97.6 degrees, heart rate 72, respiratory 16, blood pressure 119/84, O2 saturation 98% on 2 L nasal cannula. General Examination: This is a 71-year-old male lying in bed in no acute distress. HEENT: Head is normocephalic, atraumatic. Anicteric sclerae and pale conjunctivae. Mucous membranes moist. Neck: Supple. No JVD noted. No carotid bruits. No lymphadenopathy. No thyromegaly. Cardiovascular: S1, S2 heard. Irregularly irregular heart rhythm. No murmurs, gallops, or rubs. Respiratory : There is some crackles in both bases pretty much the same in compared with yesterday but patient not using any accessory muscles or having work of breathing. Abdomen: Soft, nontender to palpation. Bowel sounds present. No organomegaly. There is an old scar in the anterior abdominal wall. Extremities: No clubbing, cyanosis, or edema. Peripheral pulses present in both legs. Neuro: Patient alert, oriented x3. Moves 4 extremities. LABORATORY DATA: There is no labs from today. ASSESSMENT AND PLAN: 1. Acute hypoxemic respiratory failure secondary to pulmonary edema. This patient he is doing fine. He is on his oxygen baseline which is 2 L/minute at home. Cardiology is following this patient. Currently he is on Lasix 20 mg p.o. twice daily. At home he is on 40 mg daily and Ins and Outs indicates that he is making during the last 24 hours 2500 mL of urine. Considering that he reports that when he is in the hospital and he feels okay after few days or weeks from discharge he started having shortness of breath again we may need to increase the doses of Lasix from 40 daily to 60 daily. Cardiology is following also this patient, will see what they have to say today. 2. Acute on chronic congestive heart failure diastolic and systolic. Cardiology following this patient. At this point they are okay to continue with furosemide same doses. 3. Severe iron-deficient anemia secondary to chronic blood loss. Hemoglobin checked it 2 days ago is so far stable. Will continue with the same management. 4. Nasal breathing secondary to anticoagulation therapy. Because this bleeding has stopped Eliquis has been restarted 2 days ago and there is no more signs of bleeding. 5. Chronic atrial fibrillation. Patient is on Eliquis. 6. Coronary artery disease status post recent angioplasty. Patient is not reporting any chest pain recently. Patient is on both antiplatelet medication in this case aspirin and Plavix. Will continue with the same management. 7. Chronic kidney disease stage 3 creatinine at baseline. Will continue with the same management. 8. Folate deficiency. We are going to supplement this. 9. Hyponatremia. We do not have labs from today but is most likely be okay. 10. Disposition. The patient clinically is doing good so I think at this point we are going to keep this patient 1 more day because he is afraid that when he gets home he is going to start having shortness of breath he is going to be back to the hospital so we are going to keep this patient here and he is feeling okay tomorrow we will discharge him. cc: Jim Bailey MD MTDD
[2016-10-31] MEDS: PULMICORT FLEXHALER INH SCH (19:22)
[2016-10-31] MEDS: PATIENT'S OWN MED BOTH EYES SCH (23:24)
[2016-10-31] MEDS: LIPITOR PO SCH (23:25)
[2016-10-31] MEDS: FLOMAX PO SCH (23:26)
[2016-10-31] MEDS: MELATONIN PO SCH (23:26)
[2016-10-31] MEDS: MIRALAX PO SCH (23:26)
[2016-11-01 06:38] LABS: MANUAL DIFF NEEDED? NO
[2016-11-01 06:50] LABS: BASO% 0.7 % (0.0-0.8); EOS# 0.31 X1000 (0.0-0.7); EOS% 5.6 % (0.0-10.0); HEMATOCRIT 32.9 % (42.0-52.0); LYMPH# 0.82 X1000 (1.2-3.4); LYMPH% 14.9 % (20.5-51.1); MCH 24.9 PG (27-31); MCHC 30.4 g/dL (33-37); MCV 81.8 FL (81-99); MONO# 0.48 X1000 (0.11-0.59); MONO% 8.7 % (1.7-9.3); MPV 10.5 FL (7.4-10.4); NEUT% 70.1 % (42.2-75.2); PLT 156 X1000 (130-400); RBC 4.02 XMIL (4.7-6.1)
[2016-11-01] MEDS: PROTONIX PO SCH ×2 (06:55→06:56)
[2016-11-01] MEDS: SYNTHROID PO SCH (07:03)
[2016-11-01 07:07] LABS: CALCIUM 9.5 mg/dL (8.8-10.2); POTASSIUM 4.2 mmol/L (3.5-5.1)
[2016-11-01] MEDS: SPIRIVA INH SCH (07:53)
[2016-11-01] MEDS: LASIX PO SCH (09:22)
[2016-11-01] MEDS: ELIQUIS PO SCH (09:23)
[2016-11-01] MEDS: IMDUR PO SCH (09:23)
[2016-11-01] MEDS: NORVASC PO SCH (09:23)
[2016-11-01] MEDS: ASPIRIN PO SCH (09:23)
[2016-11-01] MEDS: FOLIC ACID PO SCH (09:23)
[2016-11-01] MEDS: TOPROL XL PO SCH (09:23)
[2016-11-01] MEDS: PLAVIX PO SCH (09:24)
[2016-11-01] MEDS: LASIX IV SCH (09:29)
--- NOTE | 2016-11-01 09:51 | Diag Imaging Result Doc PS360 ---
EXAM: CHEST-2 VIEWS HISTORY: pulmonary edema TECHNIQUE: PA and lateral chest COMMENT: There is no appreciable change in the chest since the previous examination of 10/27/2016. The lungs appear somewhat clearer compared to 10/25/2016. There may be a minimal amount of fluid in the minor fissure on the right. Costophrenic angles are otherwise clear. IMPRESSION: No evidence of acute pulmonary disease. Improved pulmonary edema since 10/25/2016. Electronically signed by David Summers 11/01/2016 9:48 AM
--- NOTE | 2016-11-01 10:27 | PROGRESS NOTE ---
DATE: 10/31/2016 SUBJECTIVE: The patient reports getting short of breath with minimal exertion like going from the bed to the bathroom. Also, when he tries to chart picker something from the floor he also gets more short of breath. He denies any fever or chills. OBJECTIVE: Vital Signs: Temperature is 98.1, heart rate 51, respiratory rate 18, blood pressure 95/74, and O2 saturation 97% on 3 L nasal cannula. General: This is a chronically ill-appearing 71-year-old male lying in bed in no acute distress. HEENT: The head is normocephalic and atraumatic. Anicteric sclerae. Pale conjunctivae. Neck: Supple. No JVD noted. No carotid bruits. No lymphadenopathy. No thyromegaly. Cardiovascular: S1 and S2 are heard. Irregularly irregular heart rhythm. No murmurs, gallops, or rubs. Respiratory: Some crackles in both bases but the same when compared with yesterday. The patient is not using any accessory muscles or having work of breathing. Abdomen: Soft and nontender to palpation. Bowel sounds are present. No organomegaly. Old scar in the anterior abdominal wall. Extremities: No clubbing, cyanosis, or edema. Peripheral pulses are present in both legs. Neurological: The patient is alert and oriented times 3 and moves all 4 extremities. LABORATORY DATA: White cell count is 5.52, hemoglobin 10, hematocrit 32.9, and platelets 156. BMP is remarkable for a creatinine of 1.5 and BUN of 25. ASSESSMENT AND PLAN: 1. Acute hypoxemic respiratory failure secondary to pulmonary edema. Clinically this patient reports not doing good in the last 2 days. Surprisingly he is oxygen needs are back to baseline. He is using 2 L of oxygen at home. Cardiology is following this patient and on their last note from 3 days ago they said that they are okay with the current medical treatment. Currently he is receiving Lasix 20 mg p.o. b.i.d. Input and output from yesterday indicate that he was making good urine. Because this patient reports more shortness of breath what we are going to do today is first check an x-ray, PA and lateral, and then we are going to increase his dosage of Lasix from 20 mg to 40 mg IV and see how he does. We will see what Cardiology has to say today. 2. Acute on chronic congestive heart failure, diastolic and systolic. Cardiology is following this patient. We are going to make the changes mentioned in the above number. 3. Iron deficiency anemia secondary to chronic blood loss. Hemoglobin has been the same during the last few days. We will check a CBC. 4. Nasal bleeding secondary to anticoagulation therapy, not present any more. Eliquis has been restarted 3 days ago with no more signs of bleeding. 5. Chronic atrial fibrillation. The patient is Eliquis. 6. Coronary artery disease status post recent angioplasty. The patient did not report any chest pain recently. We will continue with the same management. 7. Chronic kidney disease stage 3. Creatinine is at his baseline. We will continue to monitor. 8. Folate deficiency. We are going to supplement this. 9. Hyponatremia. The sodium is okay today. 10.Disposition: The patient is going to be monitored here in the hospital and see how he responds to the new dosage of Lasix and we will check the results of his chest x-ray. cc: Jim Bailey MD
[2016-11-01] MEDS: NORCO-7.5 PO PRN (14:40)
[2016-11-01] MEDS: PULMICORT FLEXHALER INH SCH (19:13)
[2016-11-02] MEDS: LIPITOR PO SCH ×2 (00:54→22:35)
[2016-11-02] MEDS: ELIQUIS PO SCH ×3 (00:55→22:37)
[2016-11-02] MEDS: FLOMAX PO SCH ×2 (00:55→22:36)
[2016-11-02] MEDS: FOLIC ACID PO SCH ×3 (00:55→22:36)
[2016-11-02] MEDS: MELATONIN PO SCH ×2 (00:55→22:35)
[2016-11-02] MEDS: MIRALAX PO SCH ×2 (00:55→22:37)
[2016-11-02] MEDS: LASIX IV SCH ×3 (00:56→22:37)
[2016-11-02] MEDS: PATIENT'S OWN MED BOTH EYES SCH ×2 (05:17→22:40)
[2016-11-02] MEDS: SYNTHROID PO SCH (06:08)
[2016-11-02] MEDS: PROTONIX PO SCH (06:08)
[2016-11-02 06:34] LABS: MANUAL DIFF NEEDED? NO
[2016-11-02 06:37] LABS: BASO% 0.4 % (0.0-0.8); EOS% 5.8 % (0.0-10.0); HEMATOCRIT 33.7 % (42.0-52.0); HEMOGLOBIN 10.5 g/dL (14.0-18.0); IMM GRAN# 0.02 X1000 (0.0-0.04); IMM GRAN% 0.3 % (0.0-0.5); LYMPH# 0.93 X1000 (1.2-3.4); LYMPH% 13.4 % (20.5-51.1); MCH 24.9 PG (27-31); MCHC 31.2 g/dL (33-37); MONO# 0.68 X1000 (0.11-0.59); MONO% 9.8 % (1.7-9.3); MPV 10.5 FL (7.4-10.4); NEUT% 70.3 % (42.2-75.2); PLT 177 X1000 (130-400); RBC 4.21 XMIL (4.7-6.1)
[2016-11-02 07:03] LABS: CALCIUM 9.7 mg/dL (8.8-10.2); POTASSIUM 4.1 mmol/L (3.5-5.1)
[2016-11-02] MEDS: SPIRIVA INH SCH (08:19)
--- NOTE | 2016-11-02 11:27 | Diag Imaging Result Doc PS360 ---
EXAM: CT THORAX W/O CONTRAST HISTORY: sob TECHNIQUE: CT of the chest without contrast with dose reduction (clarity.) COMMENT: The current study is compared with that of 07/09/2016. There is some pleural-based fibrosis present in the lingula and left lower lobe which has not changed significantly since the previous study. There are scattered calcified granulomata. No evidence of acute pulmonary parenchymal disease is present. There is a fatty replaced aorticopulmonary window node which has increased slightly in largest dimension from 19 to 22 mm since the previous study. There is a right paratracheal node which has increased from 12 to 14 mm. There is extensive coronary calcification. There is previous sternotomy. No abnormal fluid collections are present. The visualized portion of the abdomen has not changed significantly. Other than postsurgical changes in the posterior left sixth rib, and the sternotomy changes both of which were present at the time the previous study, the visualized skeleton is intact and unchanged in appearance. IMPRESSION: No significant change since 07/09/2016. Electronically signed by David Summers 11/02/2016 11:25 AM
[2016-11-02] MEDS: PLAVIX PO SCH (11:36)
[2016-11-02] MEDS: ASPIRIN PO SCH (11:37)
[2016-11-02] MEDS: IMDUR PO SCH (11:37)
[2016-11-02] MEDS: TOPROL XL PO SCH (11:38)
[2016-11-02] MEDS: NORVASC PO SCH (11:38)
[2016-11-02] MEDS: NORCO-7.5 PO PRN ×3 (11:55→22:33)
--- NOTE | 2016-11-02 13:22 | PROGRESS NOTE ---
DATE: 11/02/2016 SUBJECTIVE: Patient reports that from around 8-9 p.m. he started getting short of breath. He reports that is more short of breath than the previous days. Patient reports that 2-3 days ago he was able to go to the bathroom but now he cannot do that because he got short of breath. He also described chest tightness in the substernal area. He denies any nausea, vomiting, or diaphoresis. OBJECTIVE: Vital Signs: Temperature 98.4 degrees, heart rate 71, respiratory rate 18, blood pressure 112/47, O2 saturation 98% on 3 L nasal cannula. General Examination: This is a chronically ill appearing 71-year-old male, lying in bed, in no acute distress. HEENT: Head is normocephalic, atraumatic. Anicteric sclerae and pale conjunctivae. Mucous membranes moist. Neck: Supple. No JVD noted. No carotid bruits. No lymphadenopathy. No thyromegaly. Cardiovascular: S1, S2 heard. Irregularly irregular heart rhythm. No murmurs , gallops, or rubs. Respiratory: There are few crackles noted in both bases but definitely decreased and the physical examination is pretty much the same in comparing with the last 3 days. The patient is not using any accessory muscles or having work of breathing. Abdomen: Soft, a little bit distended but nontender to palpation. Bowel sounds present. No organomegaly. Extremities: No clubbing, cyanosis, or edema. Peripheral pulses present in both legs. Neurological: Patient is alert and oriented x3. Moves 4 extremities. LABORATORY DATA: White cell count 6.94, hemoglobin 10.5, hematocrit 33.7, platelets 177,000. BMP is remarkable for creatinine 1.6 with BUN 24. ASSESSMENT AND PLAN: 1. Acute hypoxemic respiratory failure secondary to pulmonary edema. Clinically this patient is not doing good during the last 2 days, complaining of more shortness of breath and chest discomfort and chest tightness. His oxygen needs are still the same in this case, 2 L of oxygen which is what he is on at home. Cardiology has been following this patient. The last note is from 3 days ago. At this point, the patient has been increased from yesterday from Lasix 20 mg p.o. b.i.d. to Lasix 40 IV b.i.d. The x-ray basically shows pulmonary edema. Considering that he persists to be on short of breath, I prefer to first check cardiac enzymes and troponins q.6 h. x3. Also we are going to do a CT of the chest without contrast to see if there is any anything that could explain the shortness of breath. Cardiology will be reconsulted today. 2. Acute on chronic congestive heart failure and diastolic and systolic. We have increased the doses of Lasix from 20 to 40 mg IV b.i.d. The patient is still complaining of shortness of breath. Cardiology is following. We will see what they have to say today. 3. Iron deficiency anemia secondary to chronic blood loss. The hemoglobin is stable so far. 4. Chronic atrial fibrillation. The patient is on Eliquis 2.5 mg p.o. b.i.d. as per cardiology recommendations. 5. Coronary artery disease, status post recent angioplasty. Patient is reporting more shortness of breath and chest tightness from the last 1-2 days. We are going to reconsult Cardiology to see if we need to proceed with a more cardiac workup or not. 6. Chronic kidney disease. Creatinine at baseline we will continue checking BMP. 7. Folate deficiency. Patient is going to be supplement with folic. 8. Hyponatremia, resolved. DISPOSITION: Reconsult Cardiology today to see if this patient will need further cardiac workup or not. cc: Jim Bailey MD MTDD
[2016-11-02] MEDS: NITROGLYCERIN SL PRN (13:55)
--- NOTE | 2016-11-02 15:39 | PROGRESS NOTE ---
DATE: 11/02/2016 SUBJECTIVE: Mr. Gibbs is not complaining of any overt chest pain. He is complaining of a lot of shortness of breath that seems to be worse over the last 24 hours. PHYSICAL EXAMINATION: Vital signs: Afebrile, heart rate is 64, blood pressure 97/65. General: He is in no acute distress. Cardiovascular: Regular rate and rhythm. He has no murmurs, no S3, no lower extremity edema. Chest: Clear bilaterally. No increased work of breathing. Abdomen: Soft, nontender. PERTINENT DATA: White count 6.9, hematocrit 33.7, platelet count 177,000. Sodium 136, potassium 4.1, BUN 24, creatinine 1.6. Cardiac enzymes are negative. His proBNP is 1904, which is down from a peak of 3641 this hospitalization. ASSESSMENT: The patient with continued shortness of breath that seems worse over the last 24 hours. PLAN: His chest CT did not seem to show any significant worsening. I will plan on checking myocardial perfusion imaging in the morning. He reportedly had a stent over at the OR in [place]. We will try to evaluate the patency of that. In addition, I will try to increase his antianginals in the form of adding in Ranexa. Presently, his heart rate and blood pressure seem well-controlled, so I do not think we can adjust many more of those. cc: Truman Manjarrez MD
[2016-11-02] MEDS: TEARISOL OPH SOLUTION LEFT EYE PRN (17:25)
[2016-11-02] MEDS: RANEXA PO SCH (22:34)
--- NOTE | 2016-11-03 05:48 | EKG Report ---
Test Performed on : 11/02/2016 10:49:14 AM Test Reason : chest pain Blood Pressure : / mmHG Vent. Rate : 062 BPM Atrial Rate : 375 BPM P-R Int : 000 ms QRS Dur : 170 ms QT Int : 458 ms P-R-T Axes : 000 -51 110 degrees QTc Int : 464 ms Atrial fibrillation. with premature ventricular or aberrantly conducted complexes. Left axis deviation Left bundle branch block Abnormal ECG When compared with ECG of 30-OCT-2016 04:58, (Unconfirmed) Left bundle branch block has replaced Nonspecific intraventricular block Borderline criteria for Lateral infarct are no longer present Confirmed by Jignesh Valdez MD ([id number]) on 11/05/2016 6:15:03 PM
[2016-11-03] MEDS: SYNTHROID PO SCH (06:37)
[2016-11-03] MEDS: PROTONIX PO SCH (06:37)
[2016-11-03 06:39] LABS: MANUAL DIFF NEEDED? NO
[2016-11-03 06:56] LABS: BASO% 0.8 % (0.0-0.8); EOS# 0.39 X1000 (0.0-0.7); EOS% 6.2 % (0.0-10.0); HEMATOCRIT 34.5 % (42.0-52.0); HEMOGLOBIN 10.7 g/dL (14.0-18.0); IMM GRAN# 0.02 X1000 (0.0-0.04); IMM GRAN% 0.3 % (0.0-0.5); LYMPH# 0.93 X1000 (1.2-3.4); LYMPH% 14.8 % (20.5-51.1); MCH 24.7 PG (27-31); MCV 79.5 FL (81-99); MONO# 0.67 X1000 (0.11-0.59); MONO% 10.7 % (1.7-9.3); MPV 10.3 FL (7.4-10.4); NEUT% 67.2 % (42.2-75.2); PLT 171 X1000 (130-400); RBC 4.34 XMIL (4.7-6.1)
[2016-11-03 06:58] LABS: CALCIUM 10.1 mg/dL (8.8-10.2); POTASSIUM 3.6 mmol/L (3.5-5.1)
[2016-11-03] MEDS: PULMICORT FLEXHALER INH SCH ×3 (07:16→23:07)
[2016-11-03] MEDS ORDERED: LEXISCAN ONE (08:43)
[2016-11-03] MEDS: SPIRIVA INH SCH (11:20)
[2016-11-03] MEDS: LASIX IV SCH (11:52)
[2016-11-03] MEDS: FOLIC ACID PO SCH ×2 (12:09→20:28)
[2016-11-03] MEDS: RANEXA PO SCH ×2 (12:09→20:27)
[2016-11-03] MEDS: ASPIRIN PO SCH (12:09)
[2016-11-03] MEDS: IMDUR PO SCH (12:09)
[2016-11-03] MEDS: NORVASC PO SCH ×2 (12:09→12:10)
[2016-11-03] MEDS: PLAVIX PO SCH (12:09)
[2016-11-03] MEDS: ELIQUIS PO SCH ×2 (12:09→20:28)
[2016-11-03] MEDS: TOPROL XL PO SCH ×2 (12:09→12:12)
--- NOTE | 2016-11-03 13:42 | Diag Imaging Result Document ---
PROCEDURE NAME: MYOCARDIAL PERF SCAN, STR/REST - 11/03/2016 MYOCARDIAL PERFUSION SCAN: INDICATION: Chest pain. PROCEDURES PERFORMED: 1. Lexiscan stress. 2. One-day stress rest myocardial perfusion imaging. PROCEDURE IN DETAIL: Mr. Gibbs is brought to the nuclear laboratory and had a resting study with injection of 14.8 mCi of technetium-99m sestamibi with usual imaging protocol utilized. He subsequently was brought back down and had a Lexiscan stress and at peak stress, was injected with 41.8 mCi of technetium-99m sestamibi with usual imaging protocol utilized. FINDINGS: LEXISCAN STRESS RESULTS: 1. Baseline EKG shows sinus rhythm, and a appearance of a nonspecific intraventricular conduction delay. Appearance of a left bundle type pattern. In addition, patient appears to be in atrial fib. 2. No evidence of ischemic related EKG changes or significant arrhythmias identified. Occasional PVCs or aberrantly conducted beats are noted. PERFUSION IMAGING RESULTS: 1. No evidence of abnormal extracardiac uptake. 2. TID ratio is 1.07. 3. Perfusion imaging shows a moderate sized, moderate to severe intensity fixed defect located in the apex, anterior apical, portions of the mid anterior and portions of the anterior septum. This defect is fixed. There is no evidence of significant reversibility. In addition, there does appear to be prominent uptake of the right ventricle suggesting pulmonary hypertension and/or right ventricular hypertrophy. 4. Mild reduction in LV systolic function with a calculated ejection fraction of 41%. The end- diastolic volume is 114. End systolic volume of 67. There appears to be akinesis of the apex. cc: Truman Manjarrez MD
--- NOTE | 2016-11-03 16:23 | PROGRESS NOTE ---
DATE: 11/03/2016 SUBJECTIVE: The patient reports still noticing shortness of breath, a little bit better. He also noticed some chest discomfort, too, every time he tries to walk around. Denies any fever or chills. OBJECTIVE: Vital Signs: Temperature 98 degrees, heart rate 88, respiratory rate 17, blood pressure 118/63, O2 saturation 97% on 2 L nasal cannula. General Examination: This is a chronically ill-appearing, 71-year-old, male. Lying in bed, in no acute distress. HEENT: Head is normocephalic, atraumatic. Neck: Supple. No JVD noted. Cardiovascular: Irregularly irregular heart rhythm. No murmurs, gallops, or rubs. Neck: Supple. No JVD noted. Respiratory: There is almost no crackles noted in both bases. Decreased air entry globally. The patient is not using any accessory muscles or having work of breathing. Abdomen : Soft, a little bit distended, but nontender to palpation. Bowel sounds present. No organomegaly. Extremities: No clubbing, cyanosis, or edema. Peripheral pulses present in both legs. Neurological: The patient alert and oriented x3. Able to move 4 extremities. LABORATORY DATA: White cell count 6.27, hemoglobin 10.7, hematocrit 34.5, platelets 171,000. BMP remarkable for creatinine 1.6. ASSESSMENT AND PLAN: 1. Acute hypoxemic respiratory failure, secondary to pulmonary edema. Clinically, he is not doing ok because he was complaining of shortness of breath for the last 2 the patient 3 days. He is fine while he is resting on the bed. Also, he complains of chest tightness. Oxygen needs are at baseline. He uses 2 L of oxygen at home. Cardiology has reevaluated this patient. They decided to perform a stress test to evaluate a stent that had been placed recently in the [facility] in [place]. At this point, we are going to continue with Lasix 40 mg IV twice daily. We have checked 3 sets of troponins and, so far, all of them have been negative. 2. [id number] congestive heart failure, diastolic and systolic. Will continue with Lasix 40 mg IV daily. We may need to check an x-ray tomorrow to see if there is any improvement in the in the pulmonary edema. 3. Chronic atrial fibrillation. The patient has been started on Eliquis 2.5 mg p.o. b.i.d., as per Cardiology recommendations. 4. Coronary artery disease, status post recent angioplasty. The stress test has been ordered for this patient to see if the stent, recently placed in August, is patent or not. We will follow the results of this exam. 5. Chronic kidney disease. The patient at baseline. 6. Folate deficiency. The patient is going to receive supplemental folic acid. 7. Hyponatremia. That condition is resolved. 8. Disposition: The patient has been ordered a stress test. Cardiology is following. We will follow their recommendations. cc: Jim Bailey MD MTDD
[2016-11-03] MEDS: MIRALAX PO SCH (20:27)
[2016-11-03] MEDS: MELATONIN PO SCH (20:27)
[2016-11-03] MEDS: FLOMAX PO SCH (20:27)
[2016-11-03] MEDS: LIPITOR PO SCH (20:27)
[2016-11-03] MEDS: NORCO-7.5 PO PRN (20:28)
[2016-11-03] MEDS: PATIENT'S OWN MED BOTH EYES SCH (20:30)
[2016-11-04] MEDS: NORCO-7.5 PO PRN ×4 (02:20→21:42)
[2016-11-04 06:20] LABS: MANUAL DIFF NEEDED? NO
[2016-11-04] MEDS: PROTONIX PO SCH (06:22)
[2016-11-04] MEDS: SYNTHROID PO SCH (06:22)
[2016-11-04 06:24] LABS: BASO% 0.5 % (0.0-0.8); EOS# 0.44 X1000 (0.0-0.7); EOS% 5.9 % (0.0-10.0); HEMATOCRIT 33.4 % (42.0-52.0); HEMOGLOBIN 10.5 g/dL (14.0-18.0); IMM GRAN# 0.02 X1000 (0.0-0.04); IMM GRAN% 0.3 % (0.0-0.5); LYMPH# 1.06 X1000 (1.2-3.4); LYMPH% 14.3 % (20.5-51.1); MCH 24.9 PG (27-31); MCHC 31.4 g/dL (33-37); MCV 79.3 FL (81-99); MONO# 0.88 X1000 (0.11-0.59); MONO% 11.9 % (1.7-9.3); MPV 10.3 FL (7.4-10.4); NEUT% 67.1 % (42.2-75.2); PLT 159 X1000 (130-400); RBC 4.21 XMIL (4.7-6.1)
[2016-11-04 06:44] LABS: CALCIUM 9.5 mg/dL (8.8-10.2); POTASSIUM 3.9 mmol/L (3.5-5.1)
[2016-11-04] MEDS: ASPIRIN PO SCH (09:13)
[2016-11-04] MEDS: FOLIC ACID PO SCH ×2 (09:13→21:41)
[2016-11-04] MEDS: RANEXA PO SCH ×2 (09:13→21:41)
[2016-11-04] MEDS: TOPROL XL PO SCH (09:13)
[2016-11-04] MEDS: PLAVIX PO SCH (09:13)
[2016-11-04] MEDS: NORVASC PO SCH (09:13)
[2016-11-04] MEDS: IMDUR PO SCH (09:13)
[2016-11-04] MEDS: LASIX IV SCH (09:13)
[2016-11-04] MEDS: ELIQUIS PO SCH ×2 (09:13→21:41)
[2016-11-04 09:29] LABS: ALLEN TEST NO; BE 1.4 mmoll (-3.0-3.0); BLOOD TYPE ARTERIAL; DRAW SITE R BRACHIAL; METHB 1.1 % (0.0-1.5); O2(CT) 15.5 mL/dL (15.0-23.0); PCO2(98.6) 33 mmHg (35-45); PO2(98.6) 102 mmHg (60-100); SAMPLE BLOOD; SAO2 99.2 % (95.0-100.0); THB 11.3 g/dL (11.5-17.4); pH(98.6) 7.48 (7.35-7.45)
[2016-11-04 09:30] LABS: MODALITY CANNULA
--- NOTE | 2016-11-04 10:29 | CONSULTATION ---
DATE OF CONSULTATION: 11/04/2016 CHIEF COMPLAINT: Shortness of breath. HISTORY OF PRESENT ILLNESS: This is a 71-year-old, male with a past medical history of hypertension, atrial fibrillation, chronic kidney disease, congestive heart failure, diabetes and CAD that presented to the emergency room with complaints of acute onset of shortness of breath. He also did have some chest pain that radiated to his left arm and back. The pain has since subsided, but the patient continues to be short of breath. He has been admitted for evaluation of his hypoxic respiratory failure secondary to pulmonary edema. REVIEW OF SYSTEMS: A 10-point review of systems was conducted. Pertinent is as noted in HPI, otherwise noncontributory. PAST MEDICAL HISTORY: As mentioned in the HPI, otherwise noncontributory. PAST SURGICAL HISTORY: Cataract surgery and cholecystectomy. ALLERGIES: Reglan. SOCIAL HISTORY: Former smoker, stopped 40 years ago. Denies the use of alcohol or illicit drugs. FAMILY HISTORY: Notable for CAD, diabetes and hypertension. ACTIVE MEDICATIONS: 1. Tylenol. 2. Norvasc. 3. Eliquis. 4. Aspirin. 5. Lipitor. 6. Pulmicort. 7. Plavix. 8. Colace. 9. Folic acid. 10. Lasix. 11. [place]. 12. Imdur. 13. Synthroid. 14. Melatonin. 15. Toprol. 16. Nitroglycerin. 17. Zofran. 18. Protonix. 19. MiraLAX. 20. Ranexa. 21. Flomax. 22. Spiriva. PHYSICAL EXAMINATION: Vital Signs: Blood pressure 117/71, heart rate 74, respiratory rate 16, temperature 97.9, oxygen saturation 100%. General: A chronically ill-appearing , 71-year-old male, lying in bed in no acute distress. HEENT: Normocephalic and atraumatic. PERRL. Cardiovascular: Irregular rate and rhythm. S1 and S2 present. Chest: Reduced entry. Abdomen: Soft. Bowel sounds present. Extremities: No edema noted. Neurologic: Alert and oriented x3. No focal deficits. LABS/INVESTIGATIONS: WBC 7.42, RBC is 4.21, hemoglobin 10.5, hematocrit 33.4, platelet count 159. Sodium 136, potassium 3.9, chloride 96, CO2 27, anion gap 13, BUN 26, creatinine 1.6, glucose 155. ASSESSMENT/PLAN: This is a 71-year-old, male with a past medical history mentioned in the history of present illness, that presented to the hospital with complaints of acute shortness of breath. He is admitted for his acute on chronic hypoxemic respiratory failure secondary to pulmonary edema. Cardiology is following. Patient is complaining of worsening shortness of breath. He does have a history of cardiac stents and will continue Eliquis, Plavix, his home medications for blood pressure control and thyroid. Antianginals. Protonix for gastrointestinal prophylaxis and inhaled Spiriva and Pulmicort. Further recommendations pending diagnostic studies. COPD Pulmonary fibrosis Lymphnodes can be observed. Thank you for the courtesy of this consult. Dictated by ROBIN Rand for Eros Owens MD cc: ROBIN Rand MD MTDD
[2016-11-04] MEDS: SPIRIVA INH SCH (12:15)
[2016-11-04] MEDS: PULMICORT FLEXHALER INH SCH (19:24)
--- NOTE | 2016-11-04 20:12 | PROGRESS NOTE ---
DATE: 11/04/2016 SUBJECTIVE: The patient is resting comfortably in bed. He complains of severe shortness of breath with minimal exertion. He states that he can barely get up to walk to the restroom without feeling severely short of breath. He does report that he does use oxygen at home only as needed. OBJECTIVE: Vital Signs: Temperature 98.4 degrees, blood pressure 129/89, heart rate 73, respirations 16, O2 saturations 96% on 2 L nasal cannula. Intake 1.4 L, output 2.2 L. General: This is a morbidly obese male, lying in bed, in no acute distress. HEENT: Head normocephalic atraumatic. Heart: S1, S2. Normal. Lungs: Equal air entry bilaterally. No wheezing. No rales. Abdomen: Positive bowel sounds. Soft, nontender, nondistended. Extremities: +1 edema. No cyanosis. No calf tenderness. Neurologic: The patient is alert and oriented x 3. LABS: White blood cell count 7.4, hemoglobin 10, hematocrit 33, platelets 159, 000. Sodium 136, potassium 3.9, chloride 96, CO2 27, BUN 26, creatinine 1.6, glucose 155. ASSESSMENT AND PLAN: 1. Acute on chronic diastolic and systolic congestive heart failure exacerbation. Continue with the diuretic therapy as directed by the lead generation marketing manager. The patient still remains symptomatic. 2. Coronary artery disease status post coronary artery bypass graft. Continue on the current cardiac medications. The patient had a recent angioplasty and is currently on antiplatelet therapy. 3. Chronic atrial fibrillation. The patient is currently rate controlled. Continue on Toprol XL. 4. Benign prostatic hypertrophy. Continue on Flomax. 5. Hypothyroidism. Continue on Synthroid. 6. Obesity. Aware. 7. Chronic obstructive pulmonary disease. Continue on bronchodilator therapy and Spiriva. 8. Diabetes mellitus type 2. We will start the patient on sliding scale insulin. 9. Chronic kidney disease. Stable. 10. Continue with physical therapy. cc: MD TOD Massey
[2016-11-04] MEDS: MELATONIN PO SCH (21:41)
[2016-11-04] MEDS: LIPITOR PO SCH (21:41)
[2016-11-04] MEDS: HUMULIN R SUBQ SCH (21:41)
[2016-11-04] MEDS: FLOMAX PO SCH (21:41)
[2016-11-04] MEDS: MIRALAX PO SCH (21:41)
[2016-11-04] MEDS: PATIENT'S OWN MED BOTH EYES SCH (21:43)
[2016-11-05 05:04] LABS: ALLEN TEST YES; BE 0.1 mmoll (-3.0-3.0); BLOOD TYPE ARTERIAL; DRAW SITE R RADIAL; METHB 0.9 % (0.0-1.5); O2(CT) 14.2 mL/dL (15.0-23.0); PCO2(98.6) 39 mmHg (35-45); PO2(98.6) 112 mmHg (60-100); SAMPLE BLOOD; SAO2 99.2 % (95.0-100.0); THB 10.3 g/dL (11.5-17.4); pH(98.6) 7.41 (7.35-7.45)
[2016-11-05 05:05] LABS: MODALITY CANNULA
[2016-11-05 06:06] LABS: MANUAL DIFF NEEDED? NO
[2016-11-05 06:09] LABS: BASO% 0.6 % (0.0-0.8); EOS% 5.6 % (0.0-10.0); HEMATOCRIT 34.5 % (42.0-52.0); HEMOGLOBIN 10.6 g/dL (14.0-18.0); IMM GRAN# 0.02 X1000 (0.0-0.04); IMM GRAN% 0.3 % (0.0-0.5); LYMPH# 0.85 X1000 (1.2-3.4); LYMPH% 11.8 % (20.5-51.1); MCH 24.5 PG (27-31); MCHC 30.7 g/dL (33-37); MCV 79.9 FL (81-99); MONO# 0.76 X1000 (0.11-0.59); MONO% 10.6 % (1.7-9.3); MPV 10.3 FL (7.4-10.4); NEUT% 71.1 % (42.2-75.2); PLT 150 X1000 (130-400); RBC 4.32 XMIL (4.7-6.1)
[2016-11-05] MEDS: HUMULIN R SUBQ SCH ×2 (06:22→22:37)
[2016-11-05] MEDS: PROTONIX PO SCH (06:22)
[2016-11-05] MEDS: SYNTHROID PO SCH (06:22)
[2016-11-05] MEDS: NORCO-7.5 PO PRN (06:22)
[2016-11-05 06:31] LABS: ALBUMIN 4.3 g/dL (3.5-5.0); DIRECT BILIRUBIN 0.3 mg/dL (0.00-0.20); TOTAL BILIRUBIN 1.11 mg/dL (0.20-1.00); TOTAL PROTEIN 6.7 g/dL (6.3-8.3)
[2016-11-05 06:35] LABS: HEMOGLOBIN A1C 5.4 % (4.8-6.0)
[2016-11-05 06:40] LABS: CALCIUM 10.2 mg/dL (8.8-10.2); POTASSIUM 4.7 mmol/L (3.5-5.1)
--- NOTE | 2016-11-05 07:43 | Diag Imaging Result Doc PS360 ---
EXAM: CHEST-2 VIEWS INDICATION: pulmonary edema TECHNIQUE: 2 views COMPARISON: 11/01/2016 FINDINGS: Lungs are essentially clear. No new consolidation is appreciated. The cardiac silhouette is prominent but stable. IMPRESSION: Essentially stable chest with no definite acute pathology by plain radiograph. Electronically signed by Justin Rodriguez 11/05/2016 7:41 AM
[2016-11-05] MEDS: SPIRIVA INH SCH (07:50)
[2016-11-05] MEDS: ASPIRIN PO SCH (08:10)
[2016-11-05] MEDS: RANEXA PO SCH ×2 (08:10→22:36)
[2016-11-05] MEDS: NORVASC PO SCH (08:10)
[2016-11-05] MEDS: PLAVIX PO SCH (08:10)
[2016-11-05] MEDS: LASIX IV SCH (08:10)
[2016-11-05] MEDS: IMDUR PO SCH (08:11)
[2016-11-05] MEDS: TOPROL XL PO SCH (08:11)
[2016-11-05] MEDS: ELIQUIS PO SCH ×2 (08:11→22:36)
[2016-11-05] MEDS: FOLIC ACID PO SCH ×2 (08:11→22:37)
--- NOTE | 2016-11-05 13:02 | PROGRESS NOTE ---
DATE: 11/05/2016 SUBJECTIVE: The patient is resting comfortably in bed. He states that he started having a nose bleed this morning. OBJECTIVE: Vital Signs: Temperature 98 degrees, blood pressure 135/69, heart rate 72, respirations 16, O2 saturation is 98% on the face mask. General: This is an overweight male lying in bed, in no acute distress. Heart: S1, S2 normal. Lungs: Equal air entry bilaterally. No crackles. No rales. Abdomen: Positive bowel sounds. Soft, nontender, nondistended. Extremities: No edema. No cyanosis. No calf tenderness. Neurologic: The patient is alert and oriented x4. LABS: White blood cell count 7.2, hemoglobin 10, hematocrit 34, platelets 150, 000. Sodium 135, potassium 4.7, chloride 94, CO2 27, BUN 32, creatinine 1.9, glucose 153, total bilirubin 1. ASSESSMENT AND PLAN: 1. Acute on chronic systolic and diastolic congestive heart failure exacerbation. The patient is currently on IV Lasix as directed by the tube room cashier. Will continue to monitor the patient's urine output closely. The chest x-ray shows clear lungs. 2. Coronary artery disease status post coronary artery bypass graft. Continue on the current cardiac medications. 3. Chronic atrial fibrillation. The patient is currently rate controlled. Continue on Toprol XL 4. Hypothyroidism. Continue on Synthroid. 5. Benign prostatic hypertrophy. Continue Flomax. 6. Constipation. We will start the patient on scheduled laxative therapy. 7. Chronic kidney disease. The patient's creatinine is slightly elevated. This may be secondary to the Lasix. We will continue to monitor closely while on diuretic therapy. 8. Chronic obstructive pulmonary disease. Continue on bronchodilator therapy. 9. Continue with physical therapy. 10. Disposition. The patient states that he may be interested in going to rehab on discharge. We will consult social security specialist for placement. cc: Claudia Diaz MD [facility]
[2016-11-05] MEDS: PULMICORT FLEXHALER INH SCH (19:38)
[2016-11-05] MEDS: MELATONIN PO SCH (22:36)
[2016-11-05] MEDS: FLOMAX PO SCH (22:36)
[2016-11-05] MEDS: LIPITOR PO SCH (22:36)
[2016-11-05] MEDS: PATIENT'S OWN MED BOTH EYES SCH (22:37)
[2016-11-05] MEDS: MIRALAX PO SCH (22:40)
[2016-11-06 04:50] LABS: ALLEN TEST YES; BE 0.7 mmoll (-3.0-3.0); BLOOD TYPE ARTERIAL; DRAW SITE R RADIAL; O2(CT) 12.2 mL/dL (15.0-23.0); PCO2(98.6) 40 mmHg (35-45); SAMPLE BLOOD; SAO2 89.4 % (95.0-100.0); THB 10.1 g/dL (11.5-17.4); pH(98.6) 7.41 (7.35-7.45)
[2016-11-06 04:55] LABS: PO2(98.6) 49 mmHg (60-100)
[2016-11-06 04:56] LABS: MODALITY ROOM AIR
[2016-11-06] MEDS: PROTONIX PO SCH ×2 (05:46→06:04)
[2016-11-06] MEDS: SYNTHROID PO SCH ×2 (05:46→06:04)
[2016-11-06 06:19] LABS: MANUAL DIFF NEEDED? NO
[2016-11-06] MEDS: HUMULIN R SUBQ SCH ×6 (06:19→22:08)
[2016-11-06 06:29] LABS: BASO% 0.8 % (0.0-0.8); EOS# 0.33 X1000 (0.0-0.7); HEMATOCRIT 33.2 % (42.0-52.0); HEMOGLOBIN 10.5 g/dL (14.0-18.0); IMM GRAN# 0.03 X1000 (0.0-0.04); IMM GRAN% 0.5 % (0.0-0.5); LYMPH# 0.75 X1000 (1.2-3.4); LYMPH% 11.4 % (20.5-51.1); MCH 25.1 PG (27-31); MCHC 31.6 g/dL (33-37); MCV 79.2 FL (81-99); MONO# 0.59 X1000 (0.11-0.59); MPV 10.5 FL (7.4-10.4); NEUT% 73.3 % (42.2-75.2); PLT 148 X1000 (130-400); RBC 4.19 XMIL (4.7-6.1)
[2016-11-06 07:10] LABS: CALCIUM 9.2 mg/dL (8.8-10.2); POTASSIUM 4.5 mmol/L (3.5-5.1)
[2016-11-06] MEDS: SPIRIVA INH SCH (08:00)
[2016-11-06] MEDS: TOPROL XL PO SCH (10:29)
[2016-11-06] MEDS: FOLIC ACID PO SCH ×2 (10:29→20:46)
[2016-11-06] MEDS: RANEXA PO SCH ×2 (10:29→20:46)
[2016-11-06] MEDS: IMDUR PO SCH (10:29)
[2016-11-06] MEDS: LASIX IV SCH (10:30)
[2016-11-06] MEDS: PLAVIX PO SCH (10:30)
[2016-11-06] MEDS: ELIQUIS PO SCH ×2 (10:30→20:46)
[2016-11-06] MEDS: NORVASC PO SCH (10:30)
[2016-11-06] MEDS: ASPIRIN PO SCH (10:30)
[2016-11-06] MEDS: ZOFRAN PO PRN (12:41)
--- NOTE | 2016-11-06 18:23 | PROGRESS NOTE ---
DATE: 11/06/2016 SUBJECTIVE: The patient was up walking with Physical Therapy this morning, and states that he is feeling better. No acute events noted overnight. OBJECTIVE: Vital Signs: Temperature 97 degrees, blood pressure 116/79, heart rate 72, respirations 20, O2 saturations 99% on a Ventimask. General: This is a morbidly obese male, lying in bed, in no acute distress. Heart: S1, S2. Normal. Regular rate and rhythm. Lungs: Clear to auscultation bilaterally. No crackles. No wheezing. No rales. Abdomen: Positive bowel sounds. Soft, nontender, nondistended. Extremities: No edema. No cyanosis. No calf tenderness. Neurologic: The patient is alert and oriented x4. LABORATORY STUDIES: White blood cell count 6.5, hemoglobin 10, hematocrit 33, platelets 148,000. Sodium 133, potassium 4.5, chloride 95, CO2 26, BUN 30, creatinine 1.7, glucose 158. ASSESSMENT AND PLAN: 1. [id number] systolic and diastolic congestive heart failure exacerbation. Improved. We will switch the patient to oral Lasix. 2. Coronary artery disease, status post coronary artery bypass graft. Continue on the current cardiac medications. 3. Chronic atrial fibrillation. The patient is currently rate controlled. Continue on Toprol- XL. 4. Hypothyroidism. Continue on Synthroid. 5. Chronic obstructive pulmonary disease. Continue on bronchodilator therapy. 6. Chronic kidney disease. Stable. 7. Disposition. The patient states that he would like to go to [facility]. Director Of Vendor Management is assisting with placement. The patient is stable for discharge to rehab once a bed is available. cc: Claudia Diaz MD
[2016-11-06] MEDS: NORCO-7.5 PO PRN ×2 (18:29→23:52)
[2016-11-06] MEDS: PULMICORT FLEXHALER INH SCH (20:11)
[2016-11-06] MEDS: LIPITOR PO SCH (20:45)
[2016-11-06] MEDS: MIRALAX PO SCH (20:45)
[2016-11-06] MEDS: FLOMAX PO SCH (20:46)
[2016-11-06] MEDS: MELATONIN PO SCH (20:46)
[2016-11-06] MEDS: PATIENT'S OWN MED BOTH EYES SCH (22:09)
[2016-11-07] MEDS: SYNTHROID PO SCH ×2 (05:32→06:03)
[2016-11-07] MEDS: PROTONIX PO SCH ×2 (05:32→06:03)
[2016-11-07 06:16] LABS: POTASSIUM 4.3 mmol/L (3.5-5.1)
[2016-11-07] MEDS: HUMULIN R SUBQ SCH (06:19)
[2016-11-07] MEDS: SPIRIVA INH SCH (07:41)
[2016-11-07] MEDS: PLAVIX PO SCH (10:08)
[2016-11-07] MEDS: NORVASC PO SCH (10:08)
[2016-11-07] MEDS: IMDUR PO SCH (10:09)
[2016-11-07] MEDS: ELIQUIS PO SCH (10:09)
[2016-11-07] MEDS: RANEXA PO SCH (10:09)
[2016-11-07] MEDS: TOPROL XL PO SCH (10:09)
[2016-11-07] MEDS: ASPIRIN PO SCH (10:09)
[2016-11-07] MEDS: FOLIC ACID PO SCH (10:09)
[2016-11-07 11:32] VITALS: BP 117/63
--- NOTE | 2016-11-08 14:05 | DISCHARGE SUMMARY ---
ADMISSION DATE: 10/24/2016 DISCHARGE DATE: 11/07/2016 CONSULTATIONS: 1. Dr. Alec Khan with Cardiology. 2. Dr. Owens with Pulmonology. PERTINENT PROCEDURES: 1. V/Q scan. Negative for PE. 2. Chest CT. No significant change since 07/09/2016. 3. Myocardial perfusion scan. Does not show anything acute. DISCHARGE DIAGNOSES: 1. Acute on chronic systolic and diastolic congestive heart failure exacerbation. 2. Coronary artery disease status post coronary artery bypass grafting. 3. Chronic atrial fibrillation 4. Acute hypoxemic respiratory distress secondary to pulmonary edema. 5. Hypothyroidism. 6. Chronic obstructive pulmonary disease. 7. Chronic kidney disease. HOSPITAL COURSE: Mr. Johnson is a 71-year-old male with a past medical history of congestive heart failure, diabetes mellitus, chronic kidney disease, COPD on home O2. Triple antithrombotic therapy, recently discharged from here to [facility] on 2016. At that time, because of nasal bleeding, he was sent home the day before his admission. Seemed to be doing well. He went to go pay some bills and just started having acute onset of shortness of breath upon ambulation. He decided to come to the ED where he was evaluated and he was saturating between 94 and 95% on room air. He also referred that during his acute onset shortness of breath he did feel some chest pain that radiated to the back and down the left arm and when he was given morphine in the ED, his chest pain subsided. Laboratory and diagnostic data in the ED showed a white count of 6, hemoglobin of 8. Platelet count 161,000. Sodium 135, potassium 4.8. BUN 33, creatinine 1.9. ProBNP of 3458. Troponins have been negative. Chest x-ray showed cardiomegaly with mild pulmonary vascular congestion. EKG showed atrial fibrillation, bradycardia with left axis deviation and a left bundle branch block. He was admitted for hypoxemic respiratory distress secondary to pulmonary edema. Admitted to [facility], started on IV Lasix. Consulted Cardiology. V/Q scan ruled out any PE. He also had severe iron deficiency anemia. He was given 2 units of PRBC. Also had a nasal bleed. His Eliquis was held. The patient requested to be sent to the [facility] and we did put in a request for transfer with the [facility], however, they did not have any beds available. Per Mr. Johnson, he states he has been coming to the hospital for several months now. He gets better. He goes back home and has to come back to the hospital and that is why he wants to go to the [facility] to continue his care. Patient was able to come off IV Lasix. He was transitioned to p.o. He was weaned back down to his normal home O2 at 2 L. However, he continued to complain of shortness of breath. CT of the chest was performed. 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 Scattered calcifications. No evidence of acute pulmonary parenchymal disease. No significant change since 07/09/2016. Dr. Manjarrez decided to do a perfusion scan to check the patency of his stent. Pulmonology was also consulted. They recommended to continue his bronchodilators. Subsequent follow-up chest x-ray showed that the lungs are essentially clear. There was no new consolidation. No pulmonary or vascular congestion. The [facility] still did not have any beds. He stated he would like to go to rehab. Unfortunately, he did not have any rehab days available. Initially, he declined home health. However, he is now going home with [facility]. He has been up walking with physical therapy. He is being discharged home today with [facility]. Follow up with his PCP, his [facility] doctor. VITAL SIGNS: Temperature is 97.9 degrees, heart rate 67, respirations 18, blood pressure 117/63, O2 is 97% on room air. DISCHARGE DIET: Diabetic. DISCHARGE MEDICATIONS: 1. Albuterol nebulizer 2.5 mg inhaled RT 4 times a day. 2. Norvasc 5 mg p.o. q.a.m. 3. Eliquis 2.5 mg p.o. b.i.d. 4. Aspirin 81 mg p.o. q.a.m. 5. Pravastatin 80 mg p.o. at bedtime. 6. Pulmicort 2 puffs inhaled every evening. 7. Plavix 75 mg p.o. q.a.m. 8. Colace 25 mg p.o. q. 24 hours. 9. Escitalopram p.r.n. 20 mg p.o. q.a.m. 10. Folic acid 1 mg p.o. b.i.d. 11. Lasix 40 mg p.o. daily. 12. Glipizide 10 mg p.o. q.a.m. 13. [place] 7/325, 1 each p.o. q.4 hours. 14. Imdur 120 mg p.o. daily. 15. Toradol ophthalmic solution 1 drop left eye. 16. Synthroid 50 mcg p.o. daily, Q.a.m. 17. Melatonin 5 mg p.o. at bedtime. 18. Toprol-XL 25 mg p.o. daily. 19. Naphazoline HCL 1 drop both eyes. 20. Nitroglycerin 0.4 mg sublingual p.r.n. 21. Zofran 4 mg p.o. q.6 hours p.r.n. 22. MiraLAX 17 g p.o. q.p.m. 23. Terazol ophthalmic solution 1 drop left eye. 24. Zantac 150 mg p.o. q.p.m. 25. Ranexa 500 mg p.o. b.i.d. 26. Flomax 0.4 mg p.o. q.p.m. 27. Spiriva 1 puff inhaled RT daily. DISPOSITION: Mr. Johnson is being discharged home with [facility]. DISCHARGE INSTRUCTIONS: He is to follow up with Dr. Khan in 2 weeks. [facility]. Take all medications as prescribed. Diabetic diet. Strict I's and O's and daily weights. Return to the ED for any worsening of symptoms. Dictated by ROBIN Cabrera for Claudia Diaz MD cc: Claudia Diaz MD [facility]
== END 2016-11-07 12:09 | disposition home health service (06) ==
LOC: ED 15:33 → SUATTDRO 19:26 → 3S 19:26 → 4N 10-29 15:10
PROVIDERS: ATTEND Internal Medicine

== ENCOUNTER 2018-05-23 08:11 | Inpatient (IN) ==
[2018-05-23] MEDS ORDERED: TORADOL IV ONE (09:03)
[2018-05-23] MEDS ORDERED: ZOFRAN IV ONE (09:03)
--- NOTE | 2018-05-23 09:44 | PROVIDER DOCUMENTATION ---
HPI-Chest Pain - General Chief Complaint: Chest Pain Stated Complaint: cp Time Seen by Provider: 05/23/18 08:20 Allergies/Adverse Reactions: Patient Allergies Allergy/AdvReac Type Severity Reaction Status Date / Time metoclopramide HCl * AdvReac Intermediate NAUSEA Verified 03/05/18 20:35 [From [facility]] Home Medications: Home Medication List Medication Instructions Recorded Confirmed Last Taken Type Atorvastatin Calcium 20 mg PO QHS 10/11/16 01/09/18 12/03/17 20:00 History Clopidogrel Bisulfate [Clopidogrel] 75 mg PO QAM 10/11/16 01/09/18 12/04/17 08:00 History Escitalopram Oxalate 20 mg PO QAM 10/11/16 01/09/18 12/04/17 08:00 History Melatonin 5 mg PO HS 10/11/16 01/09/18 12/03/17 20:00 History Nitroglycerin 0.4 mg SL PRN PRN 10/11/16 01/09/18 12/22/16 History 3 - 0.4 SL Docusate Sodium [Colace] 250 mg PO QHS 12/23/16 01/09/18 12/03/17 20:00 History Loratadine 10 mg PO QAM 03/28/17 01/09/18 12/04/17 08:00 History Tamsulosin [Flomax] 0.4 mg PO QHS 09/11/17 01/09/18 12/03/17 20:00 History Acetaminophen [Tylenol] 500 mg PO Q6H PRN PRN 10/23/17 01/09/18 Unknown History Amiodarone HCl 200 mg PO QAM 10/23/17 01/09/18 12/04/17 08:00 History Apixaban [Eliquis] 2.5 mg PO BID 10/23/17 01/09/18 12/04/17 08:00 History Budesonide/Formoterol Fumarate 1 unit INH QHS 10/23/17 01/09/18 12/03/17 20:00 History [Symbicort 160-4.5 Mcg Inhaler] Lactulose 10 gm PO QAM 10/23/17 01/09/18 12/04/17 08:00 History Multivitamin [Multi-Vitamin Daily] 1 tab PO QAM 10/23/17 01/09/18 12/04/17 08:00 History Pantoprazole [Protonix] 40 mg PO QAM 10/23/17 01/09/18 12/04/17 07:00 History Polyethylene Glycol 3350 [Miralax] 1 packet PO QAM 10/23/17 01/09/18 12/04/17 08:00 History Tetrahydrozoline HCl [Opti-Clear] 15 ml OP PRN PRN 10/23/17 01/09/18 Unknown History Trazodone [Desyrel] 50 mg PO QHS 10/23/17 01/09/18 12/03/17 20:00 History Umeclidinium [place] [Incruse 62.5 mcg IH QAM 10/23/17 01/09/18 12/04/17 08:00 History Ellipta] Ranitidine [Zantac] 150 mg PO QAM 12/05/17 01/09/18 12/04/17 08:00 History Guaifenesin/Dm [Robitussin-Dm] 10 ml PO Q4H PRN PRN 01/09/18 01/09/18 Unknown History Hydralazine HCl 10 mg PO TID 01/09/18 01/09/18 Unknown History Hydrocodone/Chlorphen P-Stirex 5 ml PO Q12H PRN PRN 01/09/18 01/09/18 01/04/18 History [Hydrocodone-Chlorphen ER Susp] Levalbuterol HCl 0.63 mg IH Q4H PRN PRN 01/09/18 01/09/18 Unknown History Spironolactone [Aldactone] 25 mg PO QAM 01/09/18 01/09/18 Unknown History Furosemide [Lasix] 40 mg PO BID #60 tab 01/13/18 Unknown Rx Levothyroxine Sodium [Synthroid] 88 microgm PO QAM #120 tab 01/13/18 Unknown Rx Metolazone [Zaroxolyn] 2.5 mg PO DAILY #120 tab 01/13/18 Unknown Rx - History of Present Illness-CP Nature of Presenting Problem: Presents to the with complaints of chest pain that started yesterday. He states that it goes across his chest and into his left arm. He states that it feels stabbing in nature and nothing makes it better. He was at rest when it started. He states it was always present but would go through phases where it would get worse. He did not try anything at home. He states that nitro does not work for him. He endorses some nausea associated with it and felt more nauseous after dinner last night. He endorses some associated SOB as well. He has a significant cardiac history which includes cabg, 6 stents, afib, CHF and COPD. He sees Dr Null and does not remember when his last stress test was but states it was a long time ago. Review of Systems - Adult - REVIEW OF SYSTEMS - ADULT Constitutional: reports: no symptoms reported. denies: chills, fever Eyes: reports: no symptoms reported Ears, Nose, Mouth & Throat: reports: no symptoms reported Cardiovascular: reports: chest pain. denies: palpitations Respiratory: reports: see HPI, shortness of breath Gastrointestinal: reports: see HPI, nausea. denies: vomiting Genitourinary: reports: no symptoms reported Musculoskeletal: reports: no symptoms reported Integumentary: reports: no symptoms reported Neurological: reports: no symptoms reported Psychiatric: reports: no symptoms reported Endocrine: reports: no symptoms reported Hematologic/Lymphatic: reports: no symptoms reported Allergic/Immunologic: reports: no symptoms reported All Other Systems: Reviewed and Negative Past History - Adult - PAST MEDICAL HISTORY-ADULT Review of Records: reports: Old Records Reviewed, Nursing Assessment Review, Medications Reviewed Major Childhood Illnesses: reports: denies history Cardiovascular: reports: A-Fib, CAD, CHF, HTN, hyperlipidemia, [place] Respiratory: reports: COPD, sleep apnea Gastrointestinal: reports: denies history Obstetrical/Gynecological: reports: denies history Genitourinary: reports: kidney disease (CKD) Musculoskeletal: reports: denies history Neurological: reports: denies history Psychiatric: reports: depression Endocrine/Immune: reports: Diabetes, thyroid disorder Other Conditions: reports: denies history - PRIOR SURGERIES/PROCEDURES Surgical/Procedure History: reports: CABG (last bypass 1999), cholecystectomy, cardiac stent (x5, last stent 12 years ago), hernia repair, orthopedic (extremity) (bone spur), other (exploratory surgery; retina; prostate) - PRIOR HOSPITALIZATIONS Prior Hospitalizations: reports: for other non-related - IMMUNIZATION STATUS Childhood Immunizations: See Nurse Assessment Flu Vaccine: See Nurse Assessment - FAMILY HISTORY Family History: reviewed, not pertinent Physical Exam-General - CONSTITUTIONAL General Appearance: appears well, alert, no apparent distress - EYES Eyes: PERRL/EOMI - HEAD, EARS, NOSE, MOUTH & THROAT HENMT: normocephalic/atraumatic, moist mucous membranes - NECK Neck: non-tender, full range of motion, supple - RESPIRATORY Respiratory: chest non-tender, lungs clear, normal breath sounds, no respiratory distress, no accessory muscle use, other (CP reproducible at some points to palpation) - CARDIOVASCULAR Cardiovascular: normal peripheral pulses, regular rate, rhythm - GASTROINTESTINAL (ABDOMEN) Abdominal Exam: normal bowel sounds, non tender, soft - LYMPHATIC Lymphatic: no adenopathy - MUSCULOSKELETAL Back Exam: normal inspection Extremity: normal range of motion, non-tender, normal gait - SKIN Integumentary: normal color, normal turgor, warm/dry - NEUROLOGIC Neurologic: grossly normal, no motor/sensory deficits - PSYCHIATRIC Psych/Mental Status: normal mood/affect, oriented x 3 - HEART Score HEART Score: History: Moderately Suspicious HEART Score: ECG: Non-Specific Repolarization Disturbance/LBBB/PM HEART Score: Age: > or = 65 Years HEART Score: Risk Factors for Atherosclerotic Disease: > or = 3 Risk Factors or History of Atherosclerotic Disease HEART Score: Troponin: 1-3x Normal Limit Total HEART Score:: 7 Progress - PLAN OF CARE/RESULTS Progress/Plan/Lab Results: Vital Signs - 8 hr 05/23/18 08:22 05/23/18 08:42 05/23/18 08:50 Temperature 98.1 F 98.0 F Pulse Rate 63 74 75 Respiratory Rate 18 21 15 Blood Pressure 110/75 106/72 O2 Sat by Pulse Oximetry 97 99 05/23/18 08:51 05/23/18 09:00 05/23/18 09:10 Temperature Pulse Rate 85 70 65 Respiratory Rate 17 16 15 Blood Pressure O2 Sat by Pulse Oximetry 98 97 100 05/23/18 09:20 05/23/18 09:30 05/23/18 09:40 Temperature Pulse Rate 66 61 64 Respiratory Rate 15 20 20 Blood Pressure O2 Sat by Pulse Oximetry 98 96 93 L 05/23/18 09:50 05/23/18 10:00 05/23/18 10:10 Temperature Pulse Rate 101 H 108 H 64 Respiratory Rate 14 26 H 17 Blood Pressure O2 Sat by Pulse Oximetry 90 L 97 05/23/18 10:20 05/23/18 10:30 05/23/18 10:40 Temperature Pulse Rate 62 66 71 Respiratory Rate 20 23 20 Blood Pressure O2 Sat by Pulse Oximetry 96 94 L 94 L 05/23/18 10:50 05/23/18 11:00 05/23/18 11:10 Temperature Pulse Rate 68 74 70 Respiratory Rate 27 H 19 18 Blood Pressure O2 Sat by Pulse Oximetry 95 92 L 90 L 05/23/18 11:20 05/23/18 11:30 05/23/18 11:40 Temperature Pulse Rate 69 64 62 Respiratory Rate 20 23 19 Blood Pressure O2 Sat by Pulse Oximetry 94 L 92 L 94 L 05/23/18 11:50 05/23/18 12:00 05/23/18 12:10 Temperature Pulse Rate 66 73 65 Respiratory Rate 17 19 17 Blood Pressure O2 Sat by Pulse Oximetry 95 95 95 05/23/18 12:20 Temperature Pulse Rate 63 Respiratory Rate 18 Blood Pressure O2 Sat by Pulse Oximetry 95 Laboratory Results - last 24 hr 05/23/18 05/23/18 05/23/18 08:45 09:20 09:20 WBC 8.53 RBC 4.64 L Hgb 13.7 L Hct 39.9 L MCV 86.0 MCH 29.5 MCHC 34.3 RDW Std Deviation 16.4 H Plt Count 152 MPV 9.9 Immature Gran % (Auto) 0.5 Neut % (Auto) 70.7 Lymph % (Auto) 12.1 L Coffey % (Auto) 10.7 H Eos % (Auto) 5.4 Baso % (Auto) 0.6 Immature Gran # (Auto) 0.04 Neut # (Auto) 6.04 Lymph # (Auto) 1.03 L Coffey # (Auto) 0.91 H Eos # (Auto) 0.46 Baso # (Auto) 0.05 PT INR PTT (Actin FS) Sodium 131 L Potassium 4.5 Chloride 92 L Carbon Dioxide 24 L Anion Gap 15 BUN 60 H Creatinine 2.5 H Estimated GFR/1.73 m2 26 BUN/Creatinine Ratio 24 Glucose 167 H POC Glucose 189 H Calculated Osmolality 283 Calcium 10.4 H Total Bilirubin 1.15 H AST 51 H ALT 39 Alkaline Phosphatase 180 H Troponin T [id number]-A-Smuveaoqbxe Pept Total Protein 7.8 Albumin 4.7 Globulin 3.1 Albumin/Globulin Ratio 1.5 Amylase 76 Lipase 98 H 05/23/18 05/23/18 05/23/18 09:20 09:20 09:20 WBC RBC Hgb Hct MCV MCH MCHC RDW Std Deviation Plt Count MPV Immature Gran % (Auto) Neut % (Auto) Lymph % (Auto) Coffey % (Auto) Eos % (Auto) Baso % (Auto) Immature Gran # (Auto) Neut # (Auto) Lymph # (Auto) Coffey # (Auto) Eos # (Auto) Baso # (Auto) PT 17.1 H INR 1.29 PTT (Actin FS) 35.5 Sodium Potassium Chloride Carbon Dioxide Anion Gap BUN Creatinine Estimated GFR/1.73 m2 BUN/Creatinine Ratio Glucose POC Glucose Calculated Osmolality Calcium Total Bilirubin AST ALT Alkaline Phosphatase Troponin T 0.059 Tpr-[id number]-Wvebzucbqkn Pept 1963 H Total Protein Albumin Globulin Albumin/Globulin Ratio Amylase Lipase Orders Category Date Time Status Admit - [facility] Routine AdmDCTranf 05/23/18 11:50 Active Activity - Up with Assistance ORDERED Care 05/23/18 11:50 Active FSBS/Accucheck Result AC + HS Care 05/23/18 11:50 Active Intake and Output-Strict ORDERED Care 05/23/18 11:50 Active Update & Confirm Home Medicati ROUTINE Care 05/23/18 11:54 Active Vital Signs Order Q 8-HR ASSESS Care 05/23/18 11:50 Active Z-Document. for Tele Applied ORDERED Care 05/23/18 11:52 Active Diabetic Diet Diet 05/23/18 11:52 Active NPO Diet 05/24/18 00:01 Active CHEST-2 VIEWS [RAD] Stat Exams 05/23/18 09:02 Completed Barbara [MYOCARDIAL PERF SCAN, STR/REST] [NM] Stat Exams 05/24/18 08:00 Ordered AMYLASE [CHEM] Stat Lab 05/23/18 09:20 Completed CBC WITH ELECTRONIC DIFF [HEME] Stat Lab 05/23/18 09:20 Completed CBC WITH NO DIFF [HEME] Routine Lab 05/24/18 06:00 Uncollected CK PROFILE [SP CHEM] Q6H Lab 05/23/18 11:43 Ordered CK PROFILE [SP CHEM] Q6H Lab 05/23/18 17:43 Ordered COMPREHENSIVE METABOLIC PANEL [CHEM] Routine Lab 05/24/18 06:00 Uncollected COMPREHENSIVE METABOLIC PANEL [CHEM] Stat Lab 05/23/18 09:20 Completed LIPASE [CHEM] Stat Lab 05/23/18 09:20 Completed PRO B-NATRIURETIC PEPTIDE Stat Lab 05/23/18 09:20 Completed PROTIME WITH INR [COAG] Stat Lab 05/23/18 09:20 Completed PTT [COAG] Stat Lab 05/23/18 09:20 Completed TROPONIN T Q6H Lab 05/23/18 11:43 Ordered TROPONIN T Q6H Lab 05/23/18 17:43 Ordered TROPONIN T Stat Lab 05/23/18 09:20 Completed TSH Urgent Lab 05/23/18 11:55 Ordered Ketorolac [Toradol] Med 05/23/18 09:03 Discontinued 30 mg IV NOW ONE Ondansetron [Zofran] Med 05/23/18 09:03 Discontinued 4 mg IV NOW ONE Telemetry [OM.EQ] Routine Oth 05/23/18 11:50 Active Transfer/Admit Order [TRANSFER] Routine Transfer 05/23/18 11:55 Ordered Result Diagrams: 05/23/18 09:20 05/23/18 09:20 - EKG 1 Time of EKG reading by physician:: 08:20 EKG Read and Signed by:: Alondra Dooley EKG Interpretation (*Must complete 3 of following elements*): Abnormal Rate: 68 QRS: LBB Prior EKG Comparison: unchanged from prior - CONSULTS/PCP/HOSPITALIST Notification #1 *Consult/PCP/Hospitalist*: Dr Cheney Time Discussed: 11:15 Consult Disposition: other (Admit to hospitalist, will see patient in consult) #2 Consult: SIDE LASTER TACK for hospitalist Time Discussed: 11:20 Consult Disposition: Admit Departure - Departure Date of Disposition Decision: 05/23/18 Time of Disposition Decision: 11:20 DIAGNOSIS: CAD (coronary artery disease), Chest pain, CHF (congestive heart failure), CKD (chronic kidney disease) Disposition: ADMITTED INPATIENT 09 Certified Medical Emergency: Emergent Condition: Stable - Critical Care Note This patient required my direct & personal management of CC.: No Attestation - Physician/ LILI Attestation Patient care was provided by Advanced Practice Provider:: No The physician spent face to face time with patient:: Yes Advanced Practice Provider documentation review:: Supervising physician onsite and consulted in the evaluation and care of this patient. The physician did have a face to face encounter with the patient.
[2018-05-23 09:47] LABS: BASO# 0.05 X1000 (0.0-0.2); BASO% 0.6 % (0.0-0.8); EOS# 0.46 X1000 (0.0-0.7); EOS% 5.4 % (0.0-10.0); HEMATOCRIT 39.9 % (42.0-52.0); HEMOGLOBIN 13.7 g/dL (14.0-18.0); IMM GRAN# 0.04 X1000 (0.0-0.04); IMM GRAN% 0.5 % (0.0-0.5); LYMPH# 1.03 X1000 (1.2-3.4); LYMPH% 12.1 % (20.5-51.1); MCH 29.5 PG (27-31); MCHC 34.3 g/dL (33-37); MONO# 0.91 X1000 (0.11-0.59); MONO% 10.7 % (1.7-9.3); MPV 9.9 FL (7.4-10.4); NEUT# 6.04 X1000 (1.4-6.5); NEUT% 70.7 % (42.2-75.2); PLT 152 X1000 (130-400); RBC 4.64 XMIL (4.7-6.1); RDW 16.4 % (11.5-14.5); WBC 8.53 X1000 (4.8-10.8)
[2018-05-23 10:04] LABS: ALB/GLOB RATIO 1.5; ALBUMIN 4.7 g/dL (3.5-5.0); CALCIUM 10.4 mg/dL (8.8-10.2); CREATININE 2.5 mg/dL (0.7-1.2); POTASSIUM 4.5 mmol/L (3.5-5.1); TOTAL BILIRUBIN 1.15 mg/dL (0.20-1.00); TOTAL PROTEIN 7.8 g/dL (6.3-8.3)
[2018-05-23 10:07] LABS: INR 1.29; PROTIME 17.1 Seconds (11.0-16.0)
[2018-05-23 10:24] LABS: PTT 35.5 Seconds (22.3-41.8)
--- NOTE | 2018-05-23 10:47 | Diag Imaging Result Doc PS360 ---
EXAM: CHEST-2 VIEWS HISTORY: chest pain TECHNIQUE: Chest two views COMPARISON: 01/12/2018 FINDINGS: The lungs are well expanded. The heart is not enlarged. The vessels are not distended. There are no infiltrates although there is likely scarring in the left base. Tiny left effusion versus pleural thickening. IMPRESSION: Small left pleural effusion versus pleural thickening Electronically signed by Patrice Ordonez 05/23/2018 10:45 AM
--- NOTE | 2018-05-23 12:15 | CARDIOLOGY CONSULTATION ---
DATE: 05/23/2018 REASON FOR CONSULTATION: Cardiology was consulted for chest pain. HISTORY OF PRESENT ILLNESS: Mr. Gibbs is a 72-year-old, gentleman with a known history of coronary artery disease, pulmonary arterial hypertension, severe. Comes with complaints of chest pain. He describes his chest pain as sharp in character, associated with chest wall tenderness on the left side, radiating to the left shoulder and left arm. This happened since yesterday. There are no palpitations. There is no dizziness or syncope. He has chronic shortness of breath which has been stable. He has a history of chronic atrial fibrillation, pulmonary arterial hypertension. When he was admitted on 01/10/2018, he had a CT scan which at that time had pleural effusion, ascites, and anasarca. He was started on IV Lasix and then treated at that time. Currently, today, his chest x-ray revealed small pleural effusion. He underwent cardiac catheterization 09/17/2017 which revealed severe pulmonary arterial hypertension with mean pulmonary artery systolic pressure of 40 mmHg. He has severe coronary artery disease with total occlusion of the left anterior descending artery, total occlusion of PDA, and patent DAVIS to left anterior descending artery, patent saphenous vein graft to PDA, LV function of 40%. There is significant pulmonary arterial hypertension. Pulmonary hypertension clinic referral to [facility] was made. He has also chronic renal insufficiency. REVIEW OF SYSTEMS: A 14 point review of systems was done. GI System: There is no history of nausea, vomiting, diarrhea. There is no history of hematemesis or melena. Central Nervous System: No focal weakness to suggest a CVA or TIA. System: There is no dysuria or hematuria. PAST MEDICAL HISTORY: 1. Coronary artery disease, coronary artery bypass grafting. 2. Severe pulmonary arterial hypertension. 3. COPD. 4. LV dysfunction. 5. Chronic atrial fibrillation. 6. Chronic renal insufficiency. 7. Chronically elevated troponin. 8. Gastroesophageal reflux disease, gastritis. 9. Splenomegaly. 10. Cataract surgery. 11. Hernia repair. CURRENT MEDICATIONS: Unverified but it includes amiodarone 200 mg a day, Eliquis 2.5 mg a day, atorvastatin 20, Plavix 75, Lasix 40 b.i.d., hydralazine, loratadine, metolazone, spironolactone 25, ranitidine, levothyroxine. PHYSICAL EXAMINATION: Vital Signs: Blood pressure was 106/72. Cardiovascular System: Normal jugular venous pressure. There was no thyromegaly. There was no carotid bruit. First and second heart sounds were heard. There was no S3 gallop. Respiratory System: Normal air entry. There were no crepitations or rhonchi. Abdomen: Soft, nontender. There was no guarding or rigidity. Bowel sounds were heard. Central Nervous System: Alert, oriented, was moving all 4 extremities. Examination of extremities revealed no pedal edema. HEENT: Atraumatic, normocephalic. Pupils were equal and reacting to light. Examination of his chest wall revealed severe tenderness in the 4th and 5th left costochondral junction, reproducible chest pain. ASSESSMENT AND PLAN: Mr. Khris Johnson is a 72-year-old, gentleman with a history of coronary artery disease, coronary artery bypass grafting, severe pulmonary arterial hypertension, chronic atrial fibrillation. 1. Gastroesophageal reflux disease. Had a cardiac catheterization in 2018 as described above. His symptoms of chest pain are very atypical, more suggestive of costochondritis. From a cardiac standpoint, first set of cardiac enzymes were negative. We will get serial cardiac enzymes. If cardiac enzymes are negative, we will plan for a Cardiolite stress test to assess for and rule out ischemia. 2. He has left ventricular dysfunction, ejection fraction of 40%. I have not made any changes to his medications. 3. He has atrial fibrillation and he is on anticoagulation therapy. I have not made any changes. 4. He has severe pulmonary arterial hypertension. Referral to [facility] was planned as outpatient to Pul[facility] Hypertension Clinic. 5. He has abnormal amylase levels as well. Would defer further workup as far as that is concerned to the hospitalist service. However, he does not complain of any chest pain. 6. Chronic renal insufficiency. Creatinine around 2. I have not made any other changes. Thank you for the consult. We will follow hospital course. cc: Vu Cheney MD
--- NOTE | 2018-05-23 14:38 | HISTORY AND PHYSICAL ---
CHIEF COMPLAINT: Chest pain, shortness of breath. HISTORY OF PRESENT ILLNESS: This is a 72-year-old gentleman with a history of CAD, severe pulmonary artery hypertension who presented to the emergency room complaining of left-sided chest pain that radiates to his left shoulder for the last 24 hours. He denies any palpitations, dizziness, or syncope. He has chronic shortness of breath and he states that this is unchanged. PAST MEDICAL HISTORY: 1. Coronary artery disease. Coronary artery bypass graft in 1999 with 4 stents placed 2 or 3 years after. 2. Severe pulmonary hypertension. 3. COPD. 4. LV dysfunction. 5. Chronic renal insufficiency. 6. Chronically elevated troponin. 7. Chronic atrial fibrillation. 8. Gastroesophageal reflux disease. PAST SURGICAL HISTORY: Cataract surgery, hernia repair, coronary artery bypass graft. SOCIAL HISTORY: He denies alcohol, tobacco, or illicit drug use. ALLERGIES: Reglan. HOME MEDICATIONS: A list will be obtained by the nursing staff and once verified, will review and restart as is appropriate. REVIEW OF SYSTEMS: Discussed with patient with pertinent positives stated in HPI. He denies any syncope or dizziness, any nausea, vomiting, diarrhea, constipation, black or bloody vomitus or stools, any hematuria, dysuria, frequency, urgency. PHYSICAL EXAMINATION: GENERAL: This is a 72-year-old gentleman who is sitting up in the bed, in no distress. VITAL SIGNS: Blood pressure is 128/90, with heart rate of 59, respirations are 16, temperature is 97.9 degrees oral, with room air saturations 95 to 97%. EYES: Pupils equal, round, react to light. EOMs are intact. Sclerae anicteric. HENT: Head is normocephalic, atraumatic. Mucous membranes are moist. NECK: Supple with trachea midline. No JVD. PULMONARY: Breath sounds are clear with no increased work of breathing noted. Chest rises and falls symmetrically with respiration. Chest wall is tender to palpation about the area of the 4th and 5th costochondral junctions, which is reproducible with palpation. NEUROLOGIC: He is alert and oriented x3. SKIN: Warm and dry. LABS: WBC is 8.5, with hemoglobin 13.7, hematocrit 39, and platelets 152,000. Sodium 131, potassium 4.5, BUN is 60, creatinine 2.5, with a glucose of 167, calcium is 10.4, total, bilirubin is 1.5 with AST of 51, ALT of 39, alkaline phosphatase 180. Troponin is negative. Lipase is 98. ASSESSMENT: 1. Chest pain. His chest pain is atypical, more suggestive of costochondritis. He does have reproducible pain at the 4th and 5th left costochondral junction. This pain covers his left chest and up into his shoulder. We will continue to rule-out enzymes. We will check an EKG in the morning. He will be NPO after midnight and if he rules out, we will get Lexiscan in the morning. Dr. Cheney in Cardiology has been consulted. 2. Left ventricular dysfunction with EF of 40%. We will continue his home medications as appropriate. 3. Atrial fibrillation. He is on Eliquis, which we will continue. 4. Severe pulmonary artery hypertension. He has been referred to the Pulmonary Hypertension Clinic at [place]. 5. Chronic obstructive pulmonary disease. 6. Chronic kidney disease with a baseline creatinine of 2.1 to 2.4 over the last 6 months or so. 7. Elevated lipase. PLAN: The patient will be admitted to the hospital. Placed on telemetry. We will follow vital signs. We will continue to trend his cardiac enzymes as well as troponin. If he rules out we will get a Lexiscan in the morning. He will be placed on pattern blood glucose with sliding scale insulin. We will continue NSAIDs for his costochondritis. DuoNeb p.r.n. wheezing, shortness of breath. We will continue his Plavix. Further treatments pending hospital course. Dictated by ROBIN Rowan for Anjel York MD This chart was documented by, ROBIN Rowan and accurately reflects the services performed, treatment plan and medical decisions as attested by the providers signature Anjel York MD. cc: ROIBN Rowan MD
[2018-05-23] MEDS: DUONEB (A & A) INH SCH ×2 (15:00→19:45)
[2018-05-23] MEDS: ULTRAM PO PRN ×2 (17:23→23:44)
[2018-05-23] MEDS: HUMALOG SUBQ SCH ×2 (17:23→22:08)
[2018-05-23] MEDS: ELIQUIS PO SCH (22:08)
[2018-05-24] MEDS: DUONEB (A & A) INH SCH ×5 (03:28→20:15)
[2018-05-24 04:12] LABS: URINE SOURCE CLEAN CATCH
[2018-05-24 04:15] LABS: BILIRUBIN URINE NEGATIVE (NEGATIVE); BLOOD URINE NEGATIVE (NEGATIVE); COLOR YELLOW; GLUCOSE URINE NEGATIVE (NEGATIVE); KETONE URINE NEGATIVE (NEGATIVE); LEUKOCYTES URINE NEGATIVE (NEGATIVE); NITRITE URINE NEGATIVE (NEGATIVE); PH URINE 5.5; PROTEIN URINE NEGATIVE (NEGATIVE); SP GRAVITY URINE 1.012; TURBIDITY URINE CLEAR (CLEAR); UROBILINOGEN URINE NORMAL (NORMAL)
[2018-05-24 04:17] LABS: UR EPITHELIAL CELLS <10 /HPF (<10); URINE BACTERIA NEGATIVE /HPF; URINE RBC <10 /HPF (<10); URINE WBC <10 /HPF (<10)
[2018-05-24 06:32] LABS: HEMATOCRIT 36.5 % (42.0-52.0); HEMOGLOBIN 12.2 g/dL (14.0-18.0); MCH 29.8 PG (27-31); MCHC 33.4 g/dL (33-37); MCV 89.2 FL (81-99); MPV 9.7 FL (7.4-10.4); RBC 4.09 XMIL (4.7-6.1); RDW 16.4 % (11.5-14.5); WBC 9.23 X1000 (4.8-10.8)
[2018-05-24] MEDS: HUMALOG SUBQ SCH ×4 (06:39→20:35)
[2018-05-24 07:21] LABS: ALB/GLOB RATIO 1.3; CALCIUM 9.4 mg/dL (8.8-10.2); CREATININE 3.5 mg/dL (0.7-1.2); POTASSIUM 4.3 mmol/L (3.5-5.1); TOTAL BILIRUBIN 1.12 mg/dL (0.20-1.00); TOTAL PROTEIN 7.2 g/dL (6.3-8.3)
[2018-05-24] MEDS ORDERED: LEXISCAN ONE (08:07)
[2018-05-24] MEDS ORDERED: NS 250 ML IV SCH (08:15)
[2018-05-24] MEDS ORDERED: NS 1,000 ML IV SCH (08:15)
[2018-05-24] MEDS ORDERED: AMINOPHYLLINE ONE (08:36)
[2018-05-24] MEDS: ELIQUIS PO SCH ×2 (10:28→20:33)
[2018-05-24] MEDS: ULTRAM PO PRN ×2 (11:53→20:31)
--- NOTE | 2018-05-24 12:03 | Diag Imaging Result Doc PS360 ---
EXAM: US ABDOMEN-COMPLETE 05/24/2018 HISTORY: elevated lipase, nausea TECHNIQUE: Abdominal ultrasound COMMENT: The study is limited due to the patient's body habitus and bowel gas. The pancreas is obscured. The visualized portions of the aorta and inferior vena cava are within normal limits. The liver is hyperechoic suggesting fatty change. There is antegrade flow in the portal vein. The kidneys are somewhat hyperechoic in appearance. There are multiple cysts present in the kidneys. The gallbladder is surgically absent. There is no evidence of biliary dilatation the common bile duct measuring 5 mm. The spleen is enlarged measuring over 17 cm. No abnormal fluid collections are present. IMPRESSION: Hepatic steatosis. Splenomegaly. The possibility of cirrhosis is suggested. Questionable medical renal disease. Electronically signed by David Summers 05/24/2018 12:01 PM
--- NOTE | 2018-05-24 12:29 | EKG Report ---
Test Performed on : 05/23/2018 08:17:18 AM Test Reason : ED. NO EKG ORDER FOR MUSE Blood Pressure : / mmHG Vent. Rate : 068 BPM Atrial Rate : 072 BPM P-R Int : 000 ms QRS Dur : 184 ms QT Int : 472 ms P-R-T Axes : 000 -56 102 degrees QTc Int : 501 ms Undetermined rhythm Left axis deviation Left bundle branch block Abnormal ECG When compared with ECG of 09-JAN-2018 20:35, Current undetermined rhythm precludes rhythm comparison, needs review Unconfirmed Result
[2018-05-24 13:32] LABS: URINE SOURCE CATH
[2018-05-24 13:41] LABS: BILIRUBIN URINE NEGATIVE (NEGATIVE); BLOOD URINE NEGATIVE (NEGATIVE); COLOR YELLOW; GLUCOSE URINE NEGATIVE (NEGATIVE); KETONE URINE NEGATIVE (NEGATIVE); LEUKOCYTES URINE NEGATIVE (NEGATIVE); NITRITE URINE NEGATIVE (NEGATIVE); PH URINE 5.5; PROTEIN URINE NEGATIVE (NEGATIVE); SP GRAVITY URINE 1.005; TURBIDITY URINE CLEAR (CLEAR); UROBILINOGEN URINE NORMAL (NORMAL)
[2018-05-24 13:42] LABS: UR EPITHELIAL CELLS <10 /HPF (<10); URINE BACTERIA NEGATIVE /HPF; URINE RBC <10 /HPF (<10); URINE WBC <10 /HPF (<10)
--- NOTE | 2018-05-24 14:03 | Diag Imaging Result Document ---
PROCEDURE NAME: MYOCARDIAL PERF SCAN, STR/REST - 05/24/2018 MYOCARDIAL PERFUSION SCAN AND RESULT: INDICATION: Chest pain, history of coronary disease. PROCEDURES PERFORMED: 1. Lexiscan stress. 2. One-day stress/rest myocardial perfusion imaging. PROCEDURE IN DETAIL: Mr. Gibbs was brought to the nuclear laboratory and had a resting study with injection of 12.3 mCi of technetium-99m sestamibi with the usual imaging protocol utilized. He subsequently was brought back in and had a Lexiscan stress, and at peak stress, was injected with 36.8 mCi of technetium-99m sestamibi with the usual imaging protocol utilized FINDINGS: LEXISCAN STRESS RESULTS: 1. Baseline EKG appears to show atrial fibrillation with a nonspecific intraventricular conduction delay that appears to be an atypical left bundle. 2. Lexiscan stress does not demonstrate any clear evidence of ischemic-related EKG changes or significant arrhythmias. PERFUSION IMAGING RESULTS: 1. There does appear to be evidence of abnormal extracardiac uptake that appears to be in the area of the left forearm. It is present on both the rest and stress imaging, suggesting the possibility of external contamination. 2. TID ratio of 1.14. On review of splash images, there does not appear to be any significant transient ischemic dilatation. 3. Perfusion imaging demonstrates a moderate- to large-sized predominantly fixed defect that is severe in intensity. It is involving the apex, distal anterior septum, and the mid anterior septum. There is some very scant ronen-infarct ischemia in the more basal portions of the defect predominantly in the mid anterior septum portion. Again this is a very scant amount of ischemia with a predominantly fixed component suggesting infarct. 4. There is a reduced ejection fraction of 33% on myometric software with an end-diastolic volume of 108 and systolic volume of 72. There is severe hypokinesis of the septum and the apex, as well as the distal inferior wall. cc: MD Jacquelyn Botello CRNP MTDD
--- NOTE | 2018-05-24 14:18 | PROGRESS NOTE ---
DATE: 05/24/2018 SUBJECTIVE: This patient is still complaining of chest pain, but I do believe the pain that is chest wall pain is reproducible with palpation. His BUN and creatinine increased compared with yesterday. Creatinine went up from 2.5 to 3.5. He received yesterday a single dose of Toradol. I will hold for today his diuretics, and I will re-evaluate this patient tomorrow. Patient has been evaluated by Cardiology Department, and they did a stress test today; pending results. OBJECTIVE: Vital Signs: Temperature 97.6 degrees, pulse 75, respiratory rate 21, blood pressure 104/65, oxygen saturation 98 on room air. HEENT: Head normocephalic. No trauma. PERRLA. Neck: Supple. No JVD. No masses. Central trachea. Chest: Clear to auscultation. Painful to palpation at the level of the chest wall. Abdomen: Soft, nontender, nondistended. No hepatosplenomegaly. Extremities: No edema. No clubbing. No cyanosis. Neurological: The patient is alert. He is oriented x3. No focal deficits. LABORATORY: WBC 9.2, hemoglobin 12.2, hematocrit 36.5, platelets 117,000. Sodium 131, potassium 4.3, chloride 93, bicarbonate 23, BUN 70, creatinine 3.5, glucose 144, calcium 9.4, AST 34, ALT 30, alkaline phosphatase 154. ASSESSMENT AND PLAN: 1. Chest pain. This patient had a stress test done today, but it looks like this is more related to costochondritis. We will continue monitoring this patient and follow the recommendation of Cardiology Department. 2. Coronary artery disease with an ejection fraction of 40%, systolic congestive heart failure. Continue with home medications, but today I will stop for now the diuretics since this patient's kidney function got worse. 3. Uyaem-mc-[id number] kidney disease. His baseline creatinine is between 2.1 to 2.4 over the last 6 months. Today it is 3.5. We will monitor. I gave him a low dose of fluids 250 mL, and I held his diuretics for now. I will re-evaluate his numbers tomorrow. 4. Severe pulmonary artery hypertension. It looks like this patient has been following with the [facility] at [place]. For now, we will continue with the same management. 5. Chronic obstructive pulmonary disease. Continue with home medication. 6. Elevated lipase. This is chronic. I do not think he is having any problem today with the pancreas. 7. History of coronary artery disease with coronary artery bypass graft in 1999 with 4 stents placed 2 or 3 years ago. He is not sure if he is still taking the Plavix. For now, I will put him back on that medication, and we will find out. cc: Anjel York MD
[2018-05-24 14:35] LABS: PROTEIN CREAT RATIO 0.2; UR CREAT RANDOM 55.7 mg/dL (14-26); UR PROT RANDOM 12.2 mg/dL
[2018-05-24] MEDS ORDERED: COLACE PO SCH (21:00)
[2018-05-24] MEDS ORDERED: SYMBICORT 160/4.5 MICROGM INHALER INH SCH (21:00)
[2018-05-24] MEDS ORDERED: FLOMAX PO SCH (21:00)
[2018-05-24] MEDS ORDERED: DESYREL PO SCH (21:00)
[2018-05-24] MEDS ORDERED: MELATONIN PO SCH (21:00)
[2018-05-24] MEDS ORDERED: LIPITOR PO SCH (21:00)
[2018-05-25] MEDS: DUONEB (A & A) INH SCH ×2 (03:22→07:37)
[2018-05-25] MEDS: HUMALOG SUBQ SCH ×2 (06:29→10:49)
[2018-05-25 07:10] LABS: ALB/GLOB RATIO 1.1; ALBUMIN 3.6 g/dL (3.5-5.0); CALCIUM 9.1 mg/dL (8.8-10.2); CREATININE 2.6 mg/dL (0.7-1.2); TOTAL BILIRUBIN 1.1 mg/dL (0.20-1.00); TOTAL PROTEIN 6.9 g/dL (6.3-8.3)
[2018-05-25] MEDS ORDERED: INCRUSE ELLIPTA INH SCH (07:30)
[2018-05-25] MEDS: ELIQUIS PO SCH (08:27)
[2018-05-25] MEDS ORDERED: LEXAPRO PO SCH (09:00)
[2018-05-25] MEDS ORDERED: SYNTHROID PO SCH (09:00)
[2018-05-25] MEDS ORDERED: PLAVIX PO SCH (09:00)
[2018-05-25] MEDS ORDERED: CLARITIN PO SCH (09:00)
[2018-05-25] MEDS ORDERED: PROTONIX PO SCH (09:00)
[2018-05-25] MEDS ORDERED: BASAGLAR SUBQ ONE (11:12)
[2018-05-25 11:35] VITALS: BP 104/61
[2018-05-25] MEDS ORDERED: LEVEMIR SUBQ ONE (11:37)
--- NOTE | 2018-05-25 12:20 | DISCHARGE SUMMARY ---
ADMISSION DATE: 05/23/2018 DISCHARGE DATE: 05/25/2018 PRIMARY CARE PHYSICIAN: Dr. Shaw. ADMISSION DIAGNOSES: 1. Chest pain, atypical, more suggestive of costochondritis. 2. The left ventricular dysfunction with ejection fraction of 40%. 3. Atrial fibrillation on chronic anticoagulation. 4. Severe pulmonary artery hypertension. 5. Chronic obstructive pulmonary disease. 6. Chronic kidney disease with a baseline of 2.1 to 2.4 over the last 6 months. 7. Elevated lipase. DISCHARGE DIAGNOSES: 1. Chest pain, resolved. Related to costochondritis. 2. Coronary artery disease with an ejection fraction of 40%, systolic congestive heart failure. 3. Acute on chronic kidney disease. 4. Severe pulmonary arterial hypertension and has been followed by the [facility] in [place]. 5. Chronic obstructive pulmonary disease. 6. Elevated lipase, chronic. 7. History of coronary artery disease with coronary artery bypass grafting in 1999 with 4 stents placed 2 or 3 years ago. SUMMARY OF FINDINGS: This is a 72-year-old male who presented to the emergency room with left- sided chest pain that radiated to his left shoulder for 24 hours prior to arriving, had chronic shortness of breath and states that has been unchanged. He had reproducible pain at the 4th and 5th left costochondral junction. The pain covered his left chest and up into his left shoulder. He was ruled out with negative troponins. We did an abdominal ultrasound on 05/24/2018 that showed hepatic steatosis, splenomegaly and the possibility of cirrhosis, suggested questionable medical renal disease. We did a myocardial perfusion scan yesterday that findings showed a baseline EKG with atrial fibrillation and the Lexiscan does not demonstrate any clear evidence of ischemia related to EKG changes or significant arrhythmias. The perfusion images did show an appearance of evidence of abnormal extracardiac uptake that appeared to be in the area of the left forearm but showed the possibility of external contamination. It did demonstrate a moderate to large size predominantly fixed defect that is severe in intensity involving the apex, distal anterior septum and mid anterior septum with scant ronen-infarct ischemia in the more basal portions of the defect predominantly in the mid anterior septum portion, reduced ejection fraction of 33%, and it is now felt that he can be safely discharged home. DISCHARGE MEDICATIONS: Will include: 1. Atorvastatin 20 mg p.o. at bedtime. 2. Symbicort 160/4.5, 1 inhalation at bedtime. 3. Plavix 75 mg p.o. q.a.m. 4. Colace 250 mg p.o. at bedtime. 5. Escitalopram 20 mg p.o. q.a.m. 6. Synthroid 88 mcg p.o. q.a.m. 7. Loratadine 10 mg p.o. q.a.m. 8. Melatonin 5 mg p.o. at bedtime. 9. Protonix 40 mg p.o. q.a.m. 10. Tamsulosin 0.4 mg p.o. at bedtime. 11. Trazodone 50 mg p.o. at bedtime. 12. Incruse Ellipta 62.5 mcg inhalation q.a.m. 13. Tylenol 500 mg p.o. q.6 hours p.r.n. 14. Amiodarone 200 mg p.o. q.a.m. 15. Eliquis 2.5 mg p.o. b.i.d. 16. Lasix 40 mg p.o. b.i.d. 17. Hydralazine 10 mg p.o. t.i.d. 18. Prescription for Levemir 5 units subcutaneous daily. 19. Insulin pen. 20. Lactulose 10 g per 15 mL, give 10 g p.o. q.a.m. 21. Albuterol 0.63 mg inhalation q.4 hours p.r.n. 22. Metolazone 2.5 mg p.o. daily. 23. Multivitamin p.o. q.a.m.. 24. Nitroglycerin 0.4 mg sublingually p.r.n. 25. MiraLAX 17 g p.o. q.a.m. 26. Zantac 150 mg p.o. q.a.m. 27. Spironolactone 25 mg p.o. q.a.m. 28. Opti-Clear p.r.n. FOLLOWUP: He will need to follow up with his primary care physician in 1 to 2 weeks, call the office for an appointment. TIME SPENT: 35 minutes. Dictated by ROBIN Gray for Jim Bailey MD Addendum: Patient seen and examined by myself. Agree with ROBIN note. It reflects my assessment and plan. Patient is being discharged in stable condition. cc: ROBIN Gray MD MTDD
== END 2018-05-25 15:58 | DRG 206 ==
LOC: SUPCPDRO → ED 08:11 → 4N 12:24 → SUATTDRO 12:24
PROVIDERS: ATTEND Internal Medicine
CPT/HCPCS: 36415; 71020; 71046; 76700; 78452; 80053; 81001; 82150; 82550; 82570; 82948; 83690; 83880; 84153; 84156; 84300; 84439; 84443; 84480; 84484; 85025; 85027; 85610; 85730; 93005; 93017; 94640; 94761; 96374; 96375; 99285; A9270; A9500; J0280; J0820; J1815; J1885; J2405; J2785; J7030; XXXXX

== ENCOUNTER 2018-06-30 13:30 | Inpatient (IN) ==
[2018-06-30] MEDS ORDERED: ASPIRIN PO ONE (13:56)
[2018-06-30 14:31] LABS: INR 1.21; PROTIME 16.2 Seconds (11.0-16.0); PTT 34.2 Seconds (22.3-41.8)
--- NOTE | 2018-06-30 14:37 | Diag Imaging Result Doc PS360 ---
EXAM: CHEST-PORTABLE 06/30/2018 HISTORY: cp TECHNIQUE: AP portable at 1406 COMMENT: There is blunting of the left costophrenic angle and a prominent fat pad over the cardiophrenic angle on the left. Compared to 05/23/2018 this has not changed. There are calcified granulomata present in the left upper lobe and right hilum. IMPRESSION: No evidence of acute disease. Electronically signed by David Summers 06/30/2018 2:34 PM
[2018-06-30 14:58] LABS: BASO# 0.07 X1000 (0.0-0.2); BASO% 0.8 % (0.0-0.8); EOS# 0.59 X1000 (0.0-0.7); HEMATOCRIT 39.6 % (42.0-52.0); HEMOGLOBIN 13.2 g/dL (14.0-18.0); IMM GRAN# 0.06 X1000 (0.0-0.04); IMM GRAN% 0.7 % (0.0-0.5); LYMPH# 1.14 X1000 (1.2-3.4); LYMPH% 13.6 % (20.5-51.1); MCH 29.3 PG (27-31); MCHC 33.3 g/dL (33-37); MCV 87.8 FL (81-99); MONO# 1.05 X1000 (0.11-0.59); MONO% 12.5 % (1.7-9.3); MPV 10.3 FL (7.4-10.4); NEUT# 5.47 X1000 (1.4-6.5); NEUT% 65.4 % (42.2-75.2); PLT 143 X1000 (130-400); RBC 4.51 XMIL (4.7-6.1); RDW 15.8 % (11.5-14.5); WBC 8.38 X1000 (4.8-10.8)
[2018-06-30 15:09] LABS: ALB/GLOB RATIO 1.2; ALBUMIN 4.4 g/dL (3.5-5.0); CALCIUM 10.4 mg/dL (8.8-10.2); POTASSIUM 4.2 mmol/L (3.5-5.1); TOTAL BILIRUBIN 0.66 mg/dL (0.20-1.00); TOTAL PROTEIN 8.1 g/dL (6.3-8.3)
--- NOTE | 2018-06-30 16:24 | EKG Report ---
Test Performed on : 06/30/2018 1:40:37 PM Test Reason : AFIB Blood Pressure : / mmHG Vent. Rate : 067 BPM Atrial Rate : 288 BPM P-R Int : 000 ms QRS Dur : 170 ms QT Int : 462 ms P-R-T Axes : 000 -53 099 degrees QTc Int : 488 ms Atrial fibrillation. with premature ventricular or aberrantly conducted complexes. Left axis deviation Left bundle branch block Abnormal ECG When compared with ECG of 23-MAY-2018 08:17, (Unconfirmed) Previous ECG has undetermined rhythm, needs review Unconfirmed Result
--- NOTE | 2018-06-30 17:38 | Diag Imaging Result Doc PS360 ---
EXAM: CT ABDOMEN/PELVIS W/O CONTRAST - 06/30/2018 HISTORY: abd pain, acute kidney injury TECHNIQUE: CT abdomen/pelvis without contrast. No contrast administered per request the referring provider. COMPARISON: 01/09/2018 FINDINGS: There is some limitation of detail due to the lack of administered contrast. There is pleural thickening at the posterior base of the left chest which is decreased. The visualized lung bases appear essentially clear. There is a 1.5 cm low-density lesion in the posterior superior right lobe of liver which appears grossly stable. Otherwise, there are no acute abnormalities of the liver, spleen, adrenal glands, or pancreas identified. The gallbladder surgically absent. There are bilateral renal cysts. There are stable cortical calcification versus nonobstructing stone at the upper left kidney. There is no obvious renal injury or perinephric hematoma. There is no hydronephrosis. The stomach is moderately distended with debris. There is no evidence of small bowel obstruction. There is no substantial bowel wall thickening identified. There is a moderate amount retained fecal debris in the colon. The rectum is distended with fecal debris. There is an anterior abdominal wall surgical mesh. There is no peritoneal or retroperitoneal hematoma identified. There is no free air or free fluid identified. IMPRESSION: Some limitation of detail due to the lack of administered contrast. No obvious renal injury. No obvious injury to the abdomen or pelvis. Moderately distended stomach with retained debris. Apparent constipation. 1.5 cm low-density lesion in posterior superior right lobe of liver which is clinically stable compared to prior. Stable cortical calcification versus nonobstructing stone at upper left kidney. Constipation. Apparent rectal fecal impaction. This exam was performed using automated exposure control, adjustment of mA or kV according to patient size, and/or use of iterative reconstruction technique. Electronically signed by Te Galindo 06/30/2018 5:36 PM
--- NOTE | 2018-06-30 18:06 | PROVIDER DOCUMENTATION ---
This chart was entered by Tiny San Scribe, acting as scribe for Brian Barajas MD. HPI-Chest Pain <Gino Platt - Last Filed: 06/30/18 20:33> - General Source: patient - History of Present Illness-CP Location: reports: other (L sided) Chest Pain Radiation: reports: neck, shoulders, epigastric Quality of Pain: reports: sharp Severity in ED: moderate Onset/Duration: this morning Timing: still present Context/Activities at Onset: reports: none Modifying Factors: improves with: nothing Associated Symptoms: reports: abdominal pain, syncope (near) Nitro Today/Relief: 0.4 mg x 1, provided at home, no relief Aspirin Treatment Today: 325 mg x 1, provided by ED Prior Chest Pain/Cardiac Workup: reports: heart attack Similar Symptoms Previously?: Yes Recently Seen Here or By Another Healthcare Provider: No <Brian Barajas - Last Filed: 07/01/18 07:02> - General Chief Complaint: Chest Pain Stated Complaint: CHEST PAIN Time Seen by Provider: 06/30/18 13:43 Allergies/Adverse Reactions: Patient Allergies Allergy/AdvReac Type Severity Reaction Status Date / Time metoclopramide HCl * AdvReac Intermediate NAUSEA Verified 03/05/18 20:35 [From Reglan] Home Medications: Home Medication List Medication Instructions Recorded Confirmed Last Taken Type Atorvastatin Calcium 20 mg PO QHS 10/11/16 06/30/18 06/30/18 History Clopidogrel Bisulfate [Clopidogrel] 75 mg PO QAM 10/11/16 06/30/18 06/30/18 History Escitalopram Oxalate 20 mg PO QAM 10/11/16 06/30/18 06/30/18 History Melatonin 5 mg PO HS 10/11/16 06/30/18 06/30/18 History Nitroglycerin 0.4 mg SL PRN PRN 10/11/16 06/30/18 06/30/18 History Docusate Sodium [Colace] 250 mg PO QHS 12/23/16 06/30/18 06/30/18 History Loratadine 10 mg PO QAM 03/28/17 06/30/18 06/30/18 History Tamsulosin [Flomax] 0.4 mg PO QHS 09/11/17 06/30/18 06/30/18 History Acetaminophen [Tylenol] 500 mg PO Q6H PRN PRN 10/23/17 06/30/18 06/30/18 History Amiodarone HCl 200 mg PO QAM 10/23/17 06/30/18 06/30/18 History Apixaban [Eliquis] 2.5 mg PO BID 10/23/17 06/30/18 06/30/18 History Budesonide/Formoterol Fumarate 1 unit INH QHS 10/23/17 06/30/18 06/30/18 History [Symbicort 160-4.5 Mcg Inhaler] Lactulose 10 gm PO QAM 10/23/17 06/30/18 06/30/18 History Multivitamin [Multi-Vitamin Daily] 1 tab PO QAM 10/23/17 06/30/18 06/30/18 History Pantoprazole [Protonix] 40 mg PO QAM 10/23/17 06/30/18 06/30/18 History Polyethylene Glycol 3350 [Miralax] 1 packet PO QAM 10/23/17 06/30/18 06/30/18 History Tetrahydrozoline HCl [Opti-Clear] 15 ml OP PRN PRN 10/23/17 06/30/18 06/30/18 History Trazodone [Desyrel] 50 mg PO QHS 10/23/17 06/30/18 06/30/18 History Umeclidinium [place] [Incruse 62.5 mcg IH QAM 10/23/17 06/30/18 06/30/18 History Ellipta] Ranitidine [Zantac] 150 mg PO QAM 12/05/17 06/30/18 06/30/18 History Hydralazine HCl 10 mg PO TID 01/09/18 06/30/18 06/30/18 History Levalbuterol HCl 0.63 mg IH Q4H PRN PRN 01/09/18 06/30/18 06/30/18 History Spironolactone [Aldactone] 25 mg PO QAM 01/09/18 06/30/18 06/30/18 History Furosemide [Lasix] 40 mg PO BID #60 tab 01/13/18 06/30/18 06/30/18 Rx Levothyroxine Sodium [Synthroid] 88 microgm PO QAM #120 tab 01/13/18 06/30/18 06/30/18 Rx Metolazone [Zaroxolyn] 2.5 mg PO DAILY #120 tab 01/13/18 06/30/18 06/30/18 Rx Insulin Detemir [Levemir] 5 unit SUBQ DAILY #5 insuln.pen 05/25/18 06/30/18 06/30/18 Rx - History of Present Illness-CP Nature of Presenting Problem: 72 y/o male presents to ED with L sided chest pain radiating to neck, shoulder, and abdomen onset this morning. Pt reports he was given nitro at assisted living, but it has not helped. Pt states he has felt like he "will pass out" since this morning. Pt is alert and oriented. (Brian Barajas) Review of Systems - Adult - REVIEW OF SYSTEMS - ADULT Constitutional: denies: chills, fever Eyes: reports: no symptoms reported Ears, Nose, Mouth & Throat: reports: no symptoms reported Cardiovascular: reports: chest pain. denies: palpitations Respiratory: denies: cough, shortness of breath Gastrointestinal: reports: abdominal pain. denies: diarrhea, nausea, vomiting Genitourinary: reports: no symptoms reported Musculoskeletal: reports: joint pain (shoulder), neck pain. denies: back pain Integumentary: reports: no symptoms reported Neurological: reports: other (near syncope). denies: dizziness/vertigo, seizure Psychiatric: reports: no symptoms reported Endocrine: reports: no symptoms reported Hematologic/Lymphatic: reports: no symptoms reported Allergic/Immunologic: reports: no symptoms reported All Other Systems: Reviewed and Negative <Brian Barajas - Last Filed: 07/01/18 07:02> Past History - Adult - PAST MEDICAL HISTORY-ADULT Review of Records: reports: Old Records Reviewed, Nursing Assessment Review, Medications Reviewed Major Childhood Illnesses: reports: denies history Cardiovascular: reports: A-Fib, CAD, CHF, HTN, hyperlipidemia, MT Respiratory: reports: COPD, sleep apnea Gastrointestinal: reports: denies history, GERD Obstetrical/Gynecological: reports: denies history Genitourinary: reports: kidney disease (CKD) Musculoskeletal: reports: denies history Neurological: reports: denies history Psychiatric: reports: depression Endocrine/Immune: reports: Diabetes, thyroid disorder (hypo) Diabetes Type: Type 2 Other Conditions: reports: denies history - PRIOR SURGERIES/PROCEDURES Surgical/Procedure History: reports: CABG (last bypass 1999), cholecystectomy, cardiac stent (x5, last stent 12 years ago), hernia repair, orthopedic (extremity) (bone spur), other (exploratory surgery; retina; prostate) - PRIOR HOSPITALIZATIONS Prior Hospitalizations: reports: for other non-related - IMMUNIZATION STATUS Childhood Immunizations: See Nurse Assessment Flu Vaccine: See Nurse Assessment - FAMILY HISTORY Family History: reviewed, not pertinent - SOCIAL HISTORY Smoking: non-smoker Substance Use: none/never Alcohol Use Frequency: never Living Situation: care facility <Brian Barajas - Last Filed: 07/01/18 07:02> Physical Exam-General - PHYSICAL EXAM-ADULT Initial Vital Signs Reviewed: Yes - CONSTITUTIONAL General Appearance: appears well, alert, no apparent distress - EYES Eyes: PERRL/EOMI, pink conjunctivae - HEAD, EARS, NOSE, MOUTH & THROAT HENMT: normocephalic/atraumatic, moist mucous membranes, normal ENT inspection - NECK Neck: non-tender, full range of motion - RESPIRATORY Respiratory: chest non-tender, lungs clear, normal breath sounds - CARDIOVASCULAR Cardiovascular: normal peripheral pulses, regular rate, rhythm - GASTROINTESTINAL (ABDOMEN) Abdominal Exam: normal bowel sounds, non tender, soft - MUSCULOSKELETAL Back Exam: normal inspection, no CVA tenderness Extremity: normal range of motion, non-tender, normal gait - SKIN Integumentary: normal color, warm/dry - NEUROLOGIC Neurologic: grossly normal - PSYCHIATRIC Psych/Mental Status: normal mood/affect, normal thought content, normal thought process <Brian Barajas - Last Filed: 07/01/18 07:02> - HEART Score HEART Score: History: Slightly Suspicious HEART Score: ECG: Normal HEART Score: Age: > or = 65 Years HEART Score: Risk Factors for Atherosclerotic Disease: > or = 3 Risk Factors or History of Atherosclerotic Disease HEART Score: Troponin: < or = Normal Limit Total HEART Score:: 4 <Brian Barajas - Last Filed: 07/01/18 07:02> Progress - PLAN OF CARE/RESULTS Result Diagrams: 06/30/18 14:10 06/30/18 14:10 <Gino Platt - Last Filed: 06/30/18 20:33> - PLAN OF CARE/RESULTS Result Diagrams: 06/30/18 14:10 06/30/18 14:10 - EKG 1 Time of EKG reading by physician:: 13:40 EKG Read and Signed by:: Brian Barajas EKG Interpretation (*Must complete 3 of following elements*): Abnormal Rate: 67 Rhythm: Afib with premature ventricular or aberrantly conducted complexes [place]: left QRS: LBB CO Interval: normal ST Wave: normal - XRAY 1 XRAY Study: Chest Impression: Normal (COMMENT: There is blunting of the left costophrenic angle and a prominent fat pad over the cardiophrenic angle on the left. Compared to 05/23/2018 this has not changed. There are calcified granulomata present in the left upper lobe and right hilum. IMPRESSION: No evidence of acute disease. Electronically signed by David Summers 06/30/2018 2:34 PM) - CT/MRI 1 CT Study: Abdomen, Pelvis Impression: Abnormal (FINDINGS: There is some limitation of detail due to the lack of administered contrast. There is pleural thickening at the posterior base of the left chest which is decreased. The visualized lung bases appear essentially clear. There is a 1.5 cm low-density lesion in the posterior superior right lobe of liver which appears grossly stable. Otherwise, there are no acute abnormalities of the liver, spleen, adrenal glands, or pancreas identified. The gallbladder surgically absent. There are bilateral renal cysts. There are stable cortical calcification versus nonobstructing stone at the upper left kidney. There is no obvious renal injury or perinephric hematoma. There is no hydronephrosis. The stomach is moderately distended with debris. There is no evidence of small bowel obstruction. There is no substantial bowel wall thickening identified. There is a moderate amount retained fecal debris in the colon. The rectum is distended with fecal debris. There is an anterior abdominal wall surgical mesh. There is no peritoneal or retroperitoneal hematoma identified. There is no free air or free fluid identified. IMPRESSION: Some limitation of detail due to the lack of administered contrast. No obvious renal injury. No obvious injury to the abdomen or pelvis. Moderately distended stomach with retained debris. Apparent constipation. 1.5 cm low-density lesion in posterior superior right lobe of liver which is clinically stable compared to prior. Stable cortical calcification versus nonobstructing stone at upper left kidney. Constipation. Apparent rectal fecal impaction. This exam was performed using automated exposure control, adjustment of mA or kV according to patient size, and/or use of iterative reconstruction technique. Electronically signed by Te Galindo 06/30/2018 5:36 PM) - CONSULTS/PCP/HOSPITALIST Notification #1 *Consult/PCP/Hospitalist*: ROBIN Vo for hospitalist Consult Disposition: Admit <Brian Barajas - Last Filed: 07/01/18 07:02> - PLAN OF CARE/RESULTS Progress/Plan/Lab Results: Laboratory Results - last 24 hr 06/30/18 06/30/18 06/30/18 14:10 14:10 14:10 WBC 8.38 RBC 4.51 L Hgb 13.2 L Hct 39.6 L MCV 87.8 MCH 29.3 MCHC 33.3 RDW Std Deviation 15.8 H Plt Count 143 MPV 10.3 Immature Gran % (Auto) 0.7 H Neut % (Auto) 65.4 Lymph % (Auto) 13.6 L [place] % (Auto) 12.5 H Eos % (Auto) 7.0 Baso % (Auto) 0.8 Immature Gran # (Auto) 0.06 H Neut # (Auto) 5.47 Lymph # (Auto) 1.14 L [place] # (Auto) 1.05 H Eos # (Auto) 0.59 Baso # (Auto) 0.07 PT INR PTT (Actin FS) Sodium 136 Potassium 4.2 Chloride 93 L Carbon Dioxide 25 Anion Gap 18 BUN 63 H Creatinine 2.0 H Estimated GFR/1.73 m2 33 BUN/Creatinine Ratio 32 Glucose 162 H Calculated Osmolality 293 Calcium 10.4 H Total Bilirubin 0.66 AST 35 H ALT 34 Alkaline Phosphatase 129 H Creatine Kinase 54 Troponin T Egs-E-Cohhtmypzxi Pept 3229 H Total Protein 8.1 Albumin 4.4 Globulin 3.7 Albumin/Globulin Ratio 1.2 Lipase 121 H 06/30/18 06/30/18 06/30/18 14:10 14:10 22:25 WBC RBC Hgb Hct MCV MCH MCHC RDW Std Deviation Plt Count MPV Immature Gran % (Auto) Neut % (Auto) Lymph % (Auto) [place] % (Auto) Eos % (Auto) Baso % (Auto) Immature Gran # (Auto) Neut # (Auto) Lymph # (Auto) [place] # (Auto) Eos # (Auto) Baso # (Auto) PT 16.2 H INR 1.21 PTT (Actin FS) 34.2 Sodium Potassium Chloride Carbon Dioxide Anion Gap BUN Creatinine Estimated GFR/1.73 m2 BUN/Creatinine Ratio Glucose Calculated Osmolality Calcium Total Bilirubin AST ALT Alkaline Phosphatase Creatine Kinase Troponin T 0.049 0.041 Qow-Q-Szvtchpsgbu Pept Total Protein Albumin Globulin Albumin/Globulin Ratio Lipase Orders Category Date Time Status Admit - [facility] Routine AdmDCTranf 06/30/18 21:26 Active Apply Mechanical Device [QM] ORDERED Care 06/30/18 21:26 Active FSBS/Accucheck Result Q4HR Care 06/30/18 21:26 Active Notify MD if DIRECTED Care 06/30/18 21:26 Active Nursing- MD Consult Request ROUTINE Care 06/30/18 21:27 Active Saline Loc DIRECTED Care 06/30/18 21:26 Active Update & Confirm Home Medicati ROUTINE Care 06/30/18 21:25 Active Vital Signs Order Q 4-HR ASSESS Care 06/30/18 21:26 Active Z-Document. for Tele Applied ORDERED Care 06/30/18 21:26 Completed Physician/Provider Consults Routine Cons 07/01/18 08:00 Ordered Heart Healthy Diet Diet 06/30/18 21:27 Completed NPO Diet 07/01/18 00:01 Active CHEST-PORTABLE [RAD] Stat Exams 06/30/18 13:[address] ABDOMEN/PELVIS W/O CONTRAST [CT] Stat Exams 06/30/18 15:19 Completed BASIC METABOLIC PANEL [CHEM] Routine Lab 07/01/18 06:00 Ordered CBC WITH ELECTRONIC DIFF [HEME] Routine Lab 07/01/18 06:00 Ordered CBC WITH ELECTRONIC DIFF [HEME] Stat Lab 06/30/18 14:10 Completed CK PROFILE [SP CHEM] Stat Lab 06/30/18 14:10 Completed COMPREHENSIVE METABOLIC PANEL [CHEM] Stat Lab 06/30/18 14:10 Completed LIPASE [CHEM] Stat Lab 06/30/18 14:10 Completed LIPID PROFILE W/DIR LDL [LIPIDS] Routine Lab 07/01/18 06:00 Ordered MAGNESIUM [CHEM] Routine Lab 07/01/18 06:00 Ordered PRO B-NATRIURETIC PEPTIDE Stat Lab 06/30/18 14:10 Completed PROTIME WITH INR [COAG] Stat Lab 06/30/18 14:10 Completed PTT [COAG] Stat Lab 06/30/18 14:10 Completed TROPONIN T Lab 06/30/18 22:25 Completed TROPONIN T Lab 07/01/18 05:30 Ordered TROPONIN T Lab 07/01/18 13:30 Ordered TROPONIN T Stat Lab 06/30/18 14:10 Completed 0.9% Sodium Chloride Inj [Ns] 500 ml Med 06/30/18 20:09 Discontinued .ROUTE As directed 0.9% Sodium Chloride Inj [Ns] 500 ml Med 06/30/18 20:04 Discontinued IV 999 mls/hr ATORVAstatin [Lipitor] Med 07/01/18 21:00 Active 20 mg PO QHS Acetaminophen [Tylenol] Med 06/30/18 21:26 Active 650 mg PO Q6H PRN PRN Amiodarone [Cordarone] Med 07/01/18 09:00 Active 200 mg PO QAM Apixaban [Eliquis] Med 07/01/18 09:00 Active 2.5 mg PO BID Aspirin Med 06/30/18 13:56 Discontinued 325 mg PO NOW ONE Bisacodyl [Dulcolax] Med 06/30/18 21:50 Discontinued 10 mg CO NOW ONE Budesonide/Formoterol Inhaler [Symbicort 160/4.5 Med 07/01/18 21:00 Active Microgm Inhaler] 1 puff INH RTDAILY@2100 Clopidogrel [Plavix] Med 07/01/18 09:00 Active 75 mg PO QAM Docusate Sodium [Colace] Med 07/01/18 21:00 Active 200 mg PO QHS Escitalopram [Lexapro] Med 07/01/18 09:00 Active 20 mg PO QAM Furosemide [Lasix] Med 07/01/18 09:00 Active 40 mg PO BID Hydralazine [Apresoline] Med 07/01/18 09:00 Active 10 mg PO TID Insulin Lispro [Humalog] Med 06/30/18 22:00 Active See Protocol SUBQ Q4H Lactulose Med 07/01/18 09:00 Active 30 ml PO QAM Levalbuterol Neb [Xopenex Neb] Med 06/30/18 21:29 Active 0.63 mg INH Q4H PRN PRN Levothyroxine [Synthroid] Med 07/01/18 07:00 Active 88 microgm PO DAILY@0700 Melatonin Med 07/01/18 21:00 Active 5 mg PO HS Metolazone [Zaroxolyn] Med 07/01/18 09:00 Active 2.5 mg PO DAILY Morphine Med 06/30/18 20:09 Discontinued 2 mg .ROUTE .STK-MED ONE Morphine Med 06/30/18 20:04 Discontinued 2 mg IV NOW ONE Multivit,Fe,Ca,FA & Min [Thera M Plus] Med 07/01/18 09:00 Active 1 each PO QAM Nitroglycerin Sl [Nitroglycerin] Med 06/30/18 21:26 Active 0.4 mg SL Q5M PRN PRN Omeprazole [Prilosec] Med 07/01/18 07:00 Active 20 mg PO DAILY@0700 Ondansetron [Zofran] Med 06/30/18 21:26 Active 4 mg IV Q4H PRN PRN Polyethylene Glycol 3350 [Miralax] Med 07/01/18 09:00 Active 17 gm PO QAM Ranitidine [Zantac] Med 07/01/18 09:00 Active 150 mg PO QAM Spironolactone [Aldactone] Med 07/01/18 09:00 Active 25 mg PO QAM Tamsulosin [Flomax] Med 07/01/18 21:00 Active 0.4 mg PO QHS Tetrahydrozoline Oph Drops [Visine Oph Drops] Med 06/30/18 21:29 Active 0 ml BOTH EYES PRN PRN Trazodone [Desyrel] Med 07/01/18 21:00 Active 50 mg PO QHS Umeclidinium [place] Inhaler [Incruse Ellipta] Med 07/01/18 07:30 Active 1 puff INH RTDAILY MDI Treatments Stat Oth 06/30/18 21:31 Active Oxygen Device Routine Oth 06/30/18 21:26 Active Telemetry [OM.EQ] Routine Oth 06/30/18 21:26 Active EKG [EKG] Routine Ther 07/01/18 06:00 Ordered EKG [EKG] Stat Ther 06/30/18 13:40 Draft Transfer/Admit Order [TRANSFER] Routine Transfer 06/30/18 21:40 Completed Pt signed out to me by Dr. Barajas, workup finished but pt just needed to be ad mitted for ACS workup, spoke with hospitalist and will admit (Gino Platt) Departure - Departure Date of Disposition Decision: 06/30/18 Time of Disposition Decision: 20:35 Certified Medical Emergency: Emergent - Critical Care Note This patient required my direct & personal management of CC.: No <Gino Platt - Last Filed: 06/30/18 20:33> <Brian Barajas - Last Filed: 07/01/18 07:02> - Departure DIAGNOSIS: Chest pain Qualifiers: Chest pain type: other chest pain Qualified Code(s): R07.89 - Other chest pain Disposition: ADMITTED INPATIENT 09 Condition: Stable Attestation - Physician/ LILI Attestation Patient care was provided by Advanced Practice Provider:: No The physician spent face to face time with patient:: Yes Advanced Practice Provider documentation review:: Supervising physician onsite and consulted in the evaluation and care of this patient. The physician did have a face to face encounter with the patient. <Brian Barajas - Last Filed: 07/01/18 07:02> This chart was documented by the indicated scribe, (Tiny San, Scribmanan) and accurately reflects the services I performed and decisions made by me, Brian Barajas MD, as attested by the provider's signature.
[2018-06-30] MEDS ORDERED: MORPHINE IV ONE (20:04)
[2018-06-30] MEDS ORDERED: NS 500 ML IV ONE (20:04)
[2018-06-30] MEDS ORDERED: NS 500 ML ONE (20:09)
[2018-06-30] MEDS ORDERED: MORPHINE ONE (20:09)
[2018-06-30] MEDS ORDERED: NITROGLYCERIN SL PRN (21:26)
[2018-06-30] MEDS ORDERED: TYLENOL PO PRN (21:26)
[2018-06-30] MEDS ORDERED: VISINE OPH DROPS BOTH EYES PRN (21:29)
[2018-06-30] MEDS ORDERED: XOPENEX NEB INH PRN (21:29)
[2018-06-30] MEDS ORDERED: DULCOLAX PR ONE (21:50)
--- NOTE | 2018-06-30 23:23 | HISTORY AND PHYSICAL ---
CHIEF COMPLAINT: Chest pain. HISTORY OF PRESENT ILLNESS: Mr. Johnson is a pleasant 72-year-old male who presents to the emergency room tonight after having substernal chest pain. It appears that he was admitted on 05/23/2018 for chest pain. He has had multiple admissions over the last year for shortness of breath and chest pain, is well known to Cardiology. He had a stress test on his last admission and is followed closely by Cardiology. I believe his ejection fraction was 33%. He is being maintained medically. He has had coronary artery bypass grafting as well as multiple stents in the past. He stated that this morning he just felt abnormal, thought maybe his blood sugar was low. He checked it. It was normal. He then had what he considered to be a near syncopal episode. The people at the intermediate facility helped him back to his room from what he was telling me. He then started having 10/10 substernal chest pain that radiated into his left neck and abdomen. This was unrelieved by a spray of nitroglycerin. He received morphine in the emergency room. Pain has somewhat subsided at this time. He will be admitted in observation status and Cardiology consulted tomorrow morning. PAST MEDICAL HISTORY: 1. Congestive heart failure with an ejection fraction around 33%. 2. Coronary artery disease status post bypass grafting and multiple stents. 3. Severe pulmonary hypertension. 4. COPD. 5. Chronic kidney disease stage 3. 6. Tropinemia. 7. Chronic atrial fibrillation. 8. GERD. PREVIOUS SURGICAL HISTORY: CABG, multiple cardiac stents, hernia repair, cataract surgery. SOCIAL HISTORY: No tobacco, alcohol or illicit drugs. FAMILY HISTORY: Father in his 40s with myocardial infarction. ALLERGY: Reglan. HOME MEDICATION: A list of home medications could not be obtained on admission. An order was placed for Nursing to reconcile home medications with the intermediate facility. REVIEW OF SYSTEMS: Fourteen-point review of systems conducted with the patient. Pertinent positives listed above in the HPI. He also described what sounded like constipation. He denied hematochezia, melena. No nausea, vomiting. No hematemesis. Denied diaphoresis. He was positive for urinary frequency but denied dysuria or hematuria. PHYSICAL EXAMINATION: VITAL SIGNS: Temperature 98.5, pulse 71, respirations 19, blood pressure 87/68, oxygen saturation 96% on room air. GENERAL: Pleasant 72-year-old male lying in the ER stretcher, answers all questions appropriately, is alert and oriented times 3. HEENT: Head is atraumatic, normocephalic. Pupils equal, round, react to light. Extraocular eye movement is intact. Sclerae are anicteric. Conjunctiva are pink. Oral mucosa is moist. NECK: Supple. No JVD. No thyromegaly. Trachea is midline. No cervical lymphadenopathy. CARDIAC: S1, S2 appreciated. No murmurs, gallops, rubs. LUNGS: Clear to auscultation bilaterally. No rhonchi, wheezes, rales. Symmetrical rise and fall with respiration. ABDOMEN: Protuberant, soft, nondistended, nontender. Bowel sounds present all 4 quadrants, normoactive. No pulsatile mass. No organomegaly. EXTREMITIES: No clubbing, cyanosis, or edema. One-plus pedal pulses bilaterally. GENITOURINARY: No bladder distention. Patient voids. Otherwise deferred. NEUROLOGICAL: Alert and oriented times 3. No focal motor deficits. Otherwise nonfocal examination. DIAGNOSTIC DATA: Chest x-ray shows blunting of the left costophrenic angle, unchanged since the 05/23/2018 x-ray, no acute disease. CT of the abdomen and pelvis shows apparent constipation with a possible rectal fecal impaction. LABORATORY DATA: WBC 8.38. Hemoglobin 13.2. Hematocrit 39.6. Platelet count 143. Sodium 136. Potassium 4.2. Chloride 93. Carbon dioxide 25. BUN 63. Creatinine 2. Glucose 162. ASSESSMENT AND PLAN: 1. Chest pain, rule out acute myocardial infarction. Seems somewhat to be atypical. It is possibly related to his constipation. We will continue patient's home bowel regimen and give a rectal suppository. We will consult Dr. Truman Manjarrez to evaluate tomorrow. NPO after midnight. 2. Chronic obstructive pulmonary disease. Continue bronchodilators. 3. Congestive heart failure. I believe his ejection fraction is around 33%. Continue home medications. 4. Chronic atrial fibrillation. Continue Eliquis and amiodarone. 5. Pulmonary artery hypertension. Believe he has been referred to the pulmonary hypertension clinic in [place]. 6. Chronic kidney disease 3. Patient is at baseline. Further recommendations per patient clinical course. Dictated by ROBIN Parnell for Melani Waters MD cc: ROBIN Parnell MD Independent exam performed by me showed no abnormal cardiorespiratory findings. Dr. Manjarrez was notified and will see in a.m. Serial troponins ordered. Pt appears to be optimally treated for angina. MTDD
[2018-06-30] MEDS: HUMALOG SUBQ SCH (23:52)
[2018-07-01] MEDS: MORPHINE IV PRN ×2 (02:39→08:19)
[2018-07-01] MEDS: HUMALOG SUBQ SCH ×6 (03:55→21:55)
[2018-07-01] MEDS: PRILOSEC PO SCH (06:32)
[2018-07-01] MEDS ORDERED: SYNTHROID PO SCH (07:00)
--- NOTE | 2018-07-01 07:30 | EKG Report ---
Test Performed on : 07/01/2018 07:09:59 AM Test Reason : CP Blood Pressure : / mmHG Vent. Rate : 070 BPM Atrial Rate : 416 BPM P-R Int : 000 ms QRS Dur : 176 ms QT Int : 470 ms P-R-T Axes : 000 -54 108 degrees QTc Int : 507 ms Atrial fibrillation. with a competing junctional pacemaker. Left axis deviation Left bundle branch block Abnormal ECG When compared with ECG of 30-JUN-2018 13:40, (Unconfirmed) No significant change was found Confirmed by Roderick LI, Donaldo Brown ([id number]) on 07/02/2018 10:53:51 AM
[2018-07-01 08:02] LABS: BASO# 0.05 X1000 (0.0-0.2); BASO% 0.6 % (0.0-0.8); EOS# 0.65 X1000 (0.0-0.7); EOS% 8.3 % (0.0-10.0); HEMOGLOBIN 12.7 g/dL (14.0-18.0); IMM GRAN# 0.05 X1000 (0.0-0.04); IMM GRAN% 0.6 % (0.0-0.5); LYMPH# 1.48 X1000 (1.2-3.4); LYMPH% 18.9 % (20.5-51.1); MCH 29.6 PG (27-31); MCHC 33.4 g/dL (33-37); MCV 88.6 FL (81-99); MONO# 1.03 X1000 (0.11-0.59); MONO% 13.1 % (1.7-9.3); MPV 9.7 FL (7.4-10.4); NEUT# 4.58 X1000 (1.4-6.5); NEUT% 58.5 % (42.2-75.2); PLT 139 X1000 (130-400); RBC 4.29 XMIL (4.7-6.1); WBC 7.84 X1000 (4.8-10.8)
[2018-07-01] MEDS: INCRUSE ELLIPTA INH SCH (08:41)
[2018-07-01 08:46] LABS: CALCIUM 9.5 mg/dL (8.8-10.2); CREATININE 2.3 mg/dL (0.7-1.2); MAGNESIUM 2.2 mg/dL (1.5-2.7); POTASSIUM 3.9 mmol/L (3.5-5.1)
[2018-07-01] MEDS ORDERED: ELIQUIS PO SCH (09:00)
[2018-07-01] MEDS ORDERED: CORDARONE PO SCH (09:00)
[2018-07-01] MEDS ORDERED: RELISTOR SUBQ ONE (12:04)
--- NOTE | 2018-07-01 12:26 | PROGRESS NOTE ---
DATE: 07/01/2018 SUBJECTIVE: This morning, Mr. Johnson referred to be still hurting. According to him, the pain gets better with morphine but aspirin and nitroglycerin did not really help. OBJECTIVELY: Current Vital Signs: Blood pressure is 104/51, pulse is 67, respirations are 16, temperature is 97.9 degrees. General Examination : Mr. Johnson is a 72-year-old, gentleman. He is in bed. He is not in any distress. HEENT: Mucosa is pink and moist. Anicteric. Acyanotic. Neck: Supple. Chest: Good air entry bilaterally. There were no crepitations. No rhonchi. Cardiovascular: Regular rate and rhythm. There is an old sternotomy scar on the anterior chest wall. GI: Abdomen is soft, nontender. Extremities: No pedal edema. 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 There is no focal neurological deficit. Laboratory Data: Has been reviewed. Hemoglobin is 12.7. Rest of CBC is unremarkable. Creatinine is 2.3. That is probably the patient's baseline. A CT scan of the abdomen and pelvis showed a distended stomach with apparent constipation. ASSESSMENT: 1. Atypical chest pain. The patient is pending cardiology evaluation. It is very possible that this is noncardiac. However, the patient has an extensive coronary history. 2. Severe coronary artery disease, status post coronary artery bypass graft and stents in the past. 3. History of gastroparesis. 4. Severe constipation. We will start the patient on a bowel regimen. 5. Chronic kidney disease stage 3B. PLAN: In general, Mr. Jhonson, who lives in assisted living, still complained of some epigastric pain and chest pain. I think the pain is probably not cardiac-related. However, he has a very strong cardiac history and will be pending further recommendations from cardiology. We will also start the patient on a bowel regimen to help with the constipation and start him back on his metoclopramide. We will try as much as possible to avoid any narcotic excessive use in this patient. cc: Dereck Schaefer MD
[2018-07-01] MEDS: ALDACTONE PO SCH (13:41)
[2018-07-01] MEDS: APRESOLINE PO SCH ×2 (13:41→18:00)
[2018-07-01] MEDS: LASIX PO SCH ×2 (13:42→21:54)
[2018-07-01] MEDS: LACTULOSE PO SCH (13:42)
[2018-07-01] MEDS: LEXAPRO PO SCH (13:43)
[2018-07-01] MEDS: PLAVIX PO SCH (13:45)
[2018-07-01] MEDS: MIRALAX PO SCH (13:45)
[2018-07-01] MEDS: ZAROXOLYN PO SCH (13:46)
[2018-07-01] MEDS: ZANTAC PO SCH (13:46)
[2018-07-01] MEDS: THERA M PLUS PO SCH (13:46)
--- NOTE | 2018-07-01 15:17 | CONSULTATION ---
DATE OF CONSULTATION: 07/01/2018 IMPRESSION: 1. Recurrent chest discomfort with mixed but predominantly atypical features for myocardial ischemia. There has been no evidence of myocardial insult, despite extended duration of chest discomfort. 2. Atherosclerotic coronary disease. Patient is status post previous coronary bypass grafting. Last cardiac catheterization study in September of 2017 dictated continued medical management, and more recent Lexiscan sestamibi study demonstrated no significant burden of ischemia. Left ventricular ejection fraction on recent nuclear study was 33%. 3. Moderate to severe pulmonary hypertension. 4. Chronic obstructive pulmonary disease. 5. Chronic atrial fibrillation. 6. Chronic kidney disease. 7. History of apical thrombus. RECOMMENDATIONS: 1. Given persistence of atrial fibrillation despite amiodarone for well over a year, I would consider atrial fibrillation chronic/permanent. Recommend discontinuation of amiodarone. 2. Add metoprolol to try a short anti anginal regimen. 3. Repeat echocardiography to reassess left ventricular ejection fraction. It is noteworthy that on previous echocardiography in November of last year indicated left ventricular ejection fraction 45%. A more recent nuclear study indicated left ejection fraction 33%. HISTORY: This 72-year-old white male with past history of previous coronary bypass surgery, ischemic cardiomyopathy, pulmonary hypertension, chronic kidney disease, and chronic atrial fibrillation was admitted to the emergency room yesterday for evaluation of chest pain. He resides in assisted living. He relates that around noon yesterday, he started having sharp substernal discomfort. Discomfort is piercing but discomfort was also persistent. There is also some associated dull discomfort. Discomfort was neither pleuritic nor positional. Discomfort persisted despite several sublingual nitroglycerin's. With persistent discomfort, EMS was summoned. He was brought to the emergency room and discomfort was finally relieved with morphine. He denies any orthopnea or shortness of breath. He was just hospitalized a few weeks ago, and also has multiple hospitalizations for chest discomfort over the past 2 years. He had coronary angiography in November of last year which demonstrated systolic PA pressure of 70 mmHg, occluded left anterior descending coronary artery, occluded posterior descending artery, patent left internal mammary artery graft to left anterior descending coronary, and patent saphenous vein graft to posterior descending artery with mild narrowing of saphenous vein graft, and left ventricular ejection fraction of 40%. More recent Lexiscan sestamibi study demonstrated evidence of infarction in distribution of left anterior descending coronary. But no significant burden of ischemia. Left ventricular ejection fraction on nuclear study was 33%. PAST MEDICAL HISTORY: 1. Atherosclerotic coronary disease with previous coronary bypass grafting and ischemic cardiomyopathy. 2. Moderate to severe pulmonary hypertension. 3. Chronic obstructive pulmonary disease. 4. Chronic kidney disease stage 3. 5. Chronic atrial fibrillation. 6. Gastroesophageal reflux disease. PAST SURGICAL HISTORY: Coronary bypass grafting, multiple cardiac stents, hernia repair, and cataract surgery. ALLERGIES: He is allergic or intolerant to Reglan. MEDICATIONS PRIOR TO ADMISSION: As listed. SOCIAL HISTORY: He does not currently smoke. He has history of previous significant cigarette use in the past. He does not use alcohol. He currently lives in assisted living. He has a daughter who resides in [place], [place]. FAMILY HISTORY: Positive for coronary disease. REVIEW OF SYSTEMS: Pulmonary: Negative for dyspnea or cough. Gastrointestinal: Negative. Constitutional: Negative. Remainder of the review of systems negative/noncontributory with 14 total systems reviewed. PHYSICAL EXAMINATION: General: This is an elderly white male in no distress on room air. Vital Signs: Blood pressure 104/51, heart rate 80, and oxygen saturation 96% on room air. HEENT: Extraocular movements appear intact. Mucous membranes are moist. Neck: Supple. Estimated jugular venous pressure is around 10 cm. There are no carotid bruits. Chest: Clear to auscultation. Cardiac: Exam reveals an irregular rate and rhythm without appreciable murmur or gallop. Abdomen: Soft. Bowel sounds are normal. Extremities: Without edema. Neurologic: Exam reveals him to be alert and fully oriented. Speech is fluent. Moves all 4 extremities equally well. PERTINENT DATA: Twelve-lead EKG demonstrates atrial fibrillation. Left axis deviation and left bundle branch block. LABORATORY DATA: Includes white blood cell count 7.84, hematocrit 38.0, hemoglobin 12.7, and platelet count 139,000. Sodium 138, potassium 3.9, chloride 99, carbon dioxide 25, BUN 66, creatinine 2.3. Glucose 135. Initial troponin 0.041. Followup troponin 0.056. cc: Alec Khan MD
--- NOTE | 2018-07-01 17:59 | ECHO REPORT ---
ORDER DATE: 07/01/2018 INDICATIONS: Chest pain. CHF. FINDINGS: 1. Right atrium appears normal in size at 3.1 cm. 2. Mild tricuspid regurgitation. RV systolic pressure is 65. 3. Normal RV size and systolic function. 4. No significant pulmonic insufficiency. 5. Severe left atrial enlargement with a volume index of 48. 6. No mitral valve prolapse. Mild mitral regurgitation. No evidence of mitral stenosis. 7. Normal LV size, end-diastolic dimension of 4.7. Moderate left ventricular hypertrophy with a posterior and interventricular septal wall thickness of 1.0 and 1.5 cm respectively. There is reduction in LV systolic function on the order of 40%. Previous echo in November 2017 estimated at 45%. Optison contrast was used and did not identify any clear evidence of organized thrombus in the apex, but there is some evidence of low flow in this area based on the swirling of the contrast. 8. Aortic valve opens well. It is trileaflet. There is no evidence of stenosis or insufficiency. 9. Aorta appears normal in visualized segments. 10. No pericardial effusion identified. cc: MD Lisa Botello PA
[2018-07-01] MEDS: LOPRESSOR PO SCH ×2 (20:02→21:55)
[2018-07-01] MEDS: COLACE PO SCH (21:53)
[2018-07-01] MEDS: ELIQUIS PO SCH (21:53)
[2018-07-01] MEDS: MELATONIN PO SCH (21:53)
[2018-07-01] MEDS: FLOMAX PO SCH (21:54)
[2018-07-01] MEDS: LIPITOR PO SCH (21:54)
[2018-07-01] MEDS: DESYREL PO SCH (21:54)
[2018-07-01] MEDS: SYMBICORT 160/4.5 MICROGM INHALER INH SCH (22:56)
[2018-07-02] MEDS: MORPHINE IV PRN (00:25)
[2018-07-02] MEDS: HUMALOG SUBQ SCH ×7 (02:23→22:32)
[2018-07-02] MEDS: PRILOSEC PO SCH (06:19)
[2018-07-02] MEDS: MOVANTIK PO SCH (06:19)
[2018-07-02] MEDS: SYNTHROID PO SCH (06:25)
[2018-07-02] MEDS: PLAVIX PO SCH (08:20)
[2018-07-02] MEDS: LEXAPRO PO SCH (08:20)
[2018-07-02] MEDS: ZANTAC PO SCH (08:20)
[2018-07-02] MEDS: THERA M PLUS PO SCH (08:22)
[2018-07-02] MEDS: ZAROXOLYN PO SCH (08:22)
[2018-07-02] MEDS: ELIQUIS PO SCH ×2 (08:23→22:31)
[2018-07-02] MEDS: LASIX PO SCH ×2 (08:24→22:31)
[2018-07-02] MEDS: LACTULOSE PO SCH (08:27)
[2018-07-02] MEDS: APRESOLINE PO SCH ×3 (08:28→22:31)
[2018-07-02] MEDS: LOPRESSOR PO SCH ×2 (08:29→22:32)
[2018-07-02] MEDS: ALDACTONE PO SCH (08:29)
[2018-07-02] MEDS: MIRALAX PO SCH (08:31)
[2018-07-02 08:50] LABS: CALCIUM 9.3 mg/dL (8.8-10.2); CREATININE 2.4 mg/dL (0.7-1.2)
--- NOTE | 2018-07-02 12:30 | PROGRESS NOTE ---
DATE: 07/02/2018 SUBJECTIVE: This morning Mr. Johnson refers to be doing okay. He had 1 more episode of chest discomfort early on today. OBJECTIVE: Vital Signs: Blood pressure is 89/57, pulse of 65, respiration is 18 and temperature is 98.0 degrees. General exam: Mr. Johnson is a 72-year-old male. He is in bed, not seemingly distressed. HEENT: Mucosa is pink and moist. Anicteric. Acyanotic. Neck: Supple. Chest: Air entry is bilaterally reduced, but no crackles, no rhonchi. Cardiovascular: Regular rate and rhythm. There is an old sternotomy scar on the anterior chest wall. GI: Abdomen is soft, distended, but nontender. Extremities: No pedal edema. CRITICAL CARE PARAMEDIC: Patient is awake, alert, oriented. There is no focal neurological deficit. Intake/output: The patient's I's and O's revealed he was able to tolerate about 75% of his breakfast today. He had 2 bowel movements yesterday and none today. LAB WORKS: Chemistry is reviewed. Creatinine is 2.4. Rest of chemistry is unremarkable. CURRENT MEDICATIONS: Have all been reviewed. ASSESSMENT: 1. Atypical chest pain. 2. Severe coronary artery disease status post coronary artery bypass graft and stents in the past. 3. History of gastroparesis. 4. Severe constipation, likely due to underlying narcotic use. 5. Chronic kidney disease stage III-B. 6. History of congestive heart failure with ejection fraction of 40%. Patient is currently euvolemic. PLAN: So, in general, I think Mr. Johnsno is fairly stable. His blood pressures have been up and down, so we are going to be keeping eyes on that today. His amiodarone was discontinued and metoprolol was started yesterday by Cardiology. cc: Dereck Schaefer MD
[2018-07-02] MEDS: ZOFRAN IV PRN ×2 (13:36→22:40)
[2018-07-02] MEDS: LIPITOR PO SCH (22:31)
[2018-07-02] MEDS: COLACE PO SCH (22:31)
[2018-07-02] MEDS: FLOMAX PO SCH (22:32)
[2018-07-02] MEDS: MELATONIN PO SCH (22:32)
[2018-07-02] MEDS: DESYREL PO SCH (22:32)
[2018-07-02] MEDS: SYMBICORT 160/4.5 MICROGM INHALER INH SCH (23:13)
[2018-07-03] MEDS: HUMALOG SUBQ SCH ×7 (02:10→22:27)
[2018-07-03] MEDS: PRILOSEC PO SCH (06:19)
[2018-07-03] MEDS: SYNTHROID PO SCH (06:19)
[2018-07-03] MEDS: MOVANTIK PO SCH (06:19)
[2018-07-03] MEDS: INCRUSE ELLIPTA INH SCH (08:23)
[2018-07-03] MEDS: LEXAPRO PO SCH (09:24)
[2018-07-03] MEDS: PLAVIX PO SCH (09:24)
[2018-07-03] MEDS: ZANTAC PO SCH (09:24)
[2018-07-03] MEDS: THERA M PLUS PO SCH (09:24)
[2018-07-03] MEDS: ELIQUIS PO SCH ×2 (09:24→20:11)
[2018-07-03] MEDS: LASIX PO SCH ×2 (09:24→20:11)
[2018-07-03] MEDS: MIRALAX PO SCH (09:24)
[2018-07-03] MEDS: LOPRESSOR PO SCH ×2 (09:25→20:13)
[2018-07-03] MEDS: APRESOLINE PO SCH ×2 (09:25→17:39)
[2018-07-03] MEDS: ZAROXOLYN PO SCH (09:25)
[2018-07-03] MEDS: ALDACTONE PO SCH (09:25)
[2018-07-03] MEDS: LACTULOSE PO SCH (09:26)
[2018-07-03] MEDS: ZOFRAN IV PRN ×2 (11:26→22:18)
--- NOTE | 2018-07-03 19:38 | PROGRESS NOTE ---
DATE: 07/03/2018 SUBJECTIVE: This morning Mr. Johnson referred to be doing fairly okay, denies any complaints. There was no more chest pain. OBJECTIVE: Vital signs: Blood pressure is 86/55, pulse is 54, respirations 16, temperature 98.0 degrees, the patient is saturating 98%. General: Mr. Johnson is a 72-year-old gentleman. He was in bed, no distress. Mucosa is pink and moist. Anicteric. Acyanotic. Neck: Supple. Chest: Good air entry bilateral, did not hear any crepitations. No rhonchi. There is an old sternotomy scar on the anterior chest wall. Cardiovascular: Regular rate and rhythm. No murmurs, no rubs, no gallops. GI: Abdomen is soft, distended but nontender. Bowel sounds present. Extremities: No pedal edema. 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 There is no focal neurological deficit. LABORATORY DATA: None for today. Patient glucose is 168. CURRENT MEDICATIONS: Have all been reviewed. ASSESSMENT: 1. Atypical chest pain, improved. 2. Severe coronary artery disease status post coronary artery bypass graft and stents in the past. Cardiology is on board. 3. History of gastroparesis, improved. 4. Severe constipation likely due to narcotic use. Patient was given methylnaltrexone and he is currently on Movantik. He has been moving his bowel on daily basis. 5. Chronic kidney disease stage IIIB noted. 6. History of congestive heart failure with ejection fraction of 40%. The patient is currently euvolemic. PLAN: In general, I think Mr. Johnson is doing a whole lot better. He has been seen also by Cardiology. There is a plan to transition him back to the assisted living. Unfortunately, that cannot be done over the weekend, so hopefully we can discharge him on Thursday. cc: Dereck Schaefer MD
[2018-07-03] MEDS: COLACE PO SCH (20:11)
[2018-07-03] MEDS: DESYREL PO SCH (20:11)
[2018-07-03] MEDS: LIPITOR PO SCH (20:11)
[2018-07-03] MEDS: MELATONIN PO SCH (20:11)
[2018-07-03] MEDS: FLOMAX PO SCH (20:12)
[2018-07-03] MEDS: SYMBICORT 160/4.5 MICROGM INHALER INH SCH (23:02)
[2018-07-04] MEDS: HUMALOG SUBQ SCH ×7 (03:29→21:45)
[2018-07-04] MEDS: PRILOSEC PO SCH (06:08)
[2018-07-04] MEDS: MOVANTIK PO SCH (06:08)
[2018-07-04] MEDS: SYNTHROID PO SCH (06:08)
[2018-07-04] MEDS: INCRUSE ELLIPTA INH SCH (08:00)
[2018-07-04] MEDS: ALDACTONE PO SCH (08:37)
[2018-07-04] MEDS: LASIX PO SCH (08:37)
[2018-07-04] MEDS: THERA M PLUS PO SCH (08:37)
[2018-07-04] MEDS: ZANTAC PO SCH (08:37)
[2018-07-04] MEDS: APRESOLINE PO SCH (08:37)
[2018-07-04] MEDS: MIRALAX PO SCH (08:37)
[2018-07-04] MEDS: LOPRESSOR PO SCH ×2 (08:37→19:24)
[2018-07-04] MEDS: ELIQUIS PO SCH ×2 (08:37→20:14)
[2018-07-04] MEDS: LACTULOSE PO SCH (08:37)
[2018-07-04] MEDS: PLAVIX PO SCH (08:37)
[2018-07-04] MEDS: LEXAPRO PO SCH (08:37)
[2018-07-04] MEDS: ZAROXOLYN PO SCH (08:38)
[2018-07-04] MEDS: NS 1,000 ML IV SCH (13:00)
--- NOTE | 2018-07-04 13:35 | PROGRESS NOTE ---
DATE: 07/04/2018 SUBJECTIVE: Today Mr. Gibbs refers to be doing a lot better. He said he had one episode of chest pain early on today. They gave him one time morphine and he felt better. He has not had any more chest pain. OBJECTIVELY: Vital: Blood pressure is 71/42, pulse is 73, respirations 20, temperature is 97.5 degrees. General: Mr. Gibbs is a 72-year-old male. He is in bed. No distress. HEENT: Mucosa is pink and moist. Anicteric, acyanotic. Neck: Supple. Chest: Clear to auscultation. No crepitations. No rhonchi. Cardiovascular: Regular rate and rhythm. There is an old sternotomy scar on the anterior chest wall. Abdomen: Soft, nontender. Bowel sounds present. Extremities: No pedal edema. UNDERTAKER HELPER: Patient is awake, alert, and oriented. LABORATORY WORK: No laboratory work for today. Glucose is 272. ASSESSMENT: 1. Atypical chest pain, improved. 2. Severe coronary artery disease, status post coronary artery bypass graft and stents in the past. 3. History of gastroparesis, improved. 4. Constipation, secondary to narcotic use. The patient is on home bowel regimen. 5. Chronic kidney disease stage 3B. 6. History of congestive heart failure with ejection fraction of 40%. Patient is currently euvolemic. 7. Hypotension secondary to blood pressure medications. We have withhold this for now. cc: Dereck Schaefer MD
[2018-07-04] MEDS: COLACE PO SCH (20:14)
[2018-07-04] MEDS: LIPITOR PO SCH (20:14)
[2018-07-04] MEDS: FLOMAX PO SCH (20:14)
[2018-07-04] MEDS: MELATONIN PO SCH (20:14)
[2018-07-04] MEDS: ZOFRAN IV PRN (21:45)
[2018-07-04] MEDS: SYMBICORT 160/4.5 MICROGM INHALER INH SCH (21:50)
[2018-07-05] MEDS: HUMALOG SUBQ SCH ×3 (02:39→09:07)
[2018-07-05] MEDS: SYNTHROID PO SCH (06:17)
[2018-07-05] MEDS: PRILOSEC PO SCH (06:17)
[2018-07-05] MEDS: MOVANTIK PO SCH (06:18)
--- NOTE | 2018-07-05 07:00 | Diag Imaging Result Doc PS360 ---
EXAM: KUB ABDOMEN HISTORY: SBO TECHNIQUE: Abdomen single view COMPARISON: None. FINDINGS: The bowel loops are not dilated. No organomegaly. Surgical clips and coils overlying the abdomen. Left pelvic phlebolith. Mild degenerative spine changes. IMPRESSION: No bowel obstruction. Electronically signed by Patrice Ordonez 07/05/2018 6:57 AM
--- NOTE | 2018-07-05 07:02 | Diag Imaging Result Doc PS360 ---
EXAM: CHEST-PORTABLE HISTORY: dyspnea TECHNIQUE: Portable chest single view COMPARISON: 06/30/2018 FINDINGS: Poor inspiratory effort. The heart is not enlarged. The vessels are not distended. There are no infiltrates. No effusion identified. IMPRESSION: Negative exam. Electronically signed by Patrice Ordonez 07/05/2018 7:00 AM
[2018-07-05 07:55] LABS: ALBUMIN 3.7 g/dL (3.5-5.0); CALCIUM 8.9 mg/dL (8.8-10.2); CREATININE 2.4 mg/dL (0.7-1.2); PHOSPHORUS 4.1 mg/dL (2.7-4.5); POTASSIUM 3.1 mmol/L (3.5-5.1)
[2018-07-05] MEDS: ZANTAC PO SCH (09:06)
[2018-07-05] MEDS: THERA M PLUS PO SCH (09:06)
[2018-07-05] MEDS: LOPRESSOR PO SCH (09:06)
[2018-07-05] MEDS: PLAVIX PO SCH (09:07)
[2018-07-05] MEDS: ELIQUIS PO SCH (09:07)
[2018-07-05] MEDS: LACTULOSE PO SCH (09:07)
[2018-07-05] MEDS: MIRALAX PO SCH (09:07)
[2018-07-05] MEDS: LEXAPRO PO SCH (09:07)
[2018-07-05] MEDS: NS 1,000 ML IV SCH (09:08)
[2018-07-05] MEDS ORDERED: SAMSCA PO ONE (11:32)
[2018-07-05 12:32] VITALS: BP 93/74
--- NOTE | 2018-07-06 11:28 | DISCHARGE SUMMARY ---
ADMISSION DATE: 06/30/2018 DISCHARGE DATE: 07/05/2018 DISPOSITION: Back to [facility]. CONSULTATIONS DURING THIS ADMISSION: Cardiology was consulted. Patient was seen by Dr. Khan. INVASIVE PROCEDURES DONE DURING THIS ADMISSION: None. IMAGING STUDIES OF SIGNIFICANCE: 1. A chest x-ray on admission showed no evidence of acute disease. 2. A CT scan of the abdomen and pelvis showed apparent rectal fecal impaction. 3. A repeat chest x-ray was negative. 4. A KUB this morning showed no bowel obstruction. ADMISSION DIAGNOSES: 1. Chest pain. 2. Chronic obstructive pulmonary disease. DIAGNOSES AT THE TIME OF DISCHARGE: 1. Atypical chest pain. 2. Severe coronary artery disease, status post coronary artery bypass graft and stents in the past. 3. History of gastroparesis. 4. Chronic kidney disease stage IIIB. 5. History of congestive heart failure with ejection fraction of 40%. 6. Hypotension, believed to be related to blood pressure medication as well as diuretics use. These were withheld. The patient was gently hydrated. Blood pressures have been normalized. 7. Hyponatremia, presumably multifactorial including medication side effects and syndrome of inappropriate antidiuretic hormone secretion. Diuretics have been withheld and the patient was given a dose of Samsca. He is advised to repeat his BMP in 1 week. DISCHARGE MEDICATIONS: 1. Nitroglycerin. 2. Atorvastatin 20 mg p.o. at bedtime. 3. Melatonin 5 mg at bedtime. 4. Escitalopram 20 mg p.o. q.a.m. 5. Clopidogrel 75 mg p.o. daily. 6. Colace 250 p.o. at bedtime. 7. Tamsulosin 0.4 p.o. daily. 8. Apixaban 2.5 b.i.d. 9. Pantoprazole 40 mg p.o. q.a.m. 10. MiraLAX. 11. Trazodone 50 mg at bedtime. 12. Levothyroxine 88 mcg p.o. daily. 13. Levemir 5 units subcutaneous daily. 14. Metoprolol 25 mg b.i.d. 15. Movantik 12.5 p.o. before breakfast. PRESENTING COMPLAINT: Chest pain. HISTORY OF PRESENTING COMPLAINT: Mr. Johnson is a 75-year-old, male who has multiple, multiple comorbidities including coronary artery disease, status post coronary artery bypass graft and stents in the past. He also has congestive heart failure. Ejection fraction is around 33%. Mr. Johnson came to the emergency department and got admitted because of chest pain. He was admitted for further medical care. HOSPITAL COURSE: Mr. Johnson was admitted to the medical floor on the telemetry monitoring. His chest pain was, for the most part, relieved only with morphine. The patient was seen by cardiology and from discussions with Dr. Khan, it appears to him that the pain is not cardiac related, which I also do believe. His troponins were trended 4 times in a row. There were all negative. There were not any changes on his EKG. Cardiology decided to change his amiodarone to metoprolol. During the later part of the hospital course, he was found to be remarkably hypotensive. He looked slightly dry so his diuretics and blood pressure medications were withheld. He was given gentle diuresis overnight. His blood pressures have been phenomenally better after those changes. He has been completely asymptomatic. We think he is now stable for discharge and he will follow up with his primary care doctor. All the discharge instructions have been discussed with Mr. Johnson and he voiced understanding. At the time of the dictation, we are still pending for [facility] to come and evaluate him. They will make a decision either to take him back or let him go to rehab. His current vitals, blood pressure is 93/74, pulse is 57, respirations are 19, temperature is 97 degrees. His physical exam is unremarkable. He looks remarkably well hydrated now. Time spent for discharge was 37 minutes. cc: MD Alba Ford MD William D. Denney, MD
== END 2018-07-05 15:54 | DRG 313 ==
LOC: SUPCPDRO → ED 13:30 → 3N 13:30 → SUATTDRO 22:28 → 3N 22:57
PROVIDERS: ATTEND Internal Medicine
CPT/HCPCS: 71010; 71045; 74000; 74018; 74176; 80048; 80053; 80061; 80069; 82550; 82948; 83690; 83721; 83735; 83880; 83935; 84300; 84484; 85025; 85610; 85730; 93005; 93010; 93306; 94640; 94761; 96361; 96374; 99285; A9270; C8929; J1815; J2270; J2405; J7030; J7040; Q9957; XXXXX

== ENCOUNTER 2018-07-09 22:46 | Inpatient (IN) ==
[2018-07-09] MEDS ORDERED: ASPIRIN PO ONE (23:53)
[2018-07-09] MEDS ORDERED: ASPIRIN ONE (23:53)
[2018-07-10 00:03] LABS: ALB/GLOB RATIO 1.4; ALBUMIN 3.9 g/dL (3.5-5.0); CALCIUM 9.2 mg/dL (8.8-10.2); POTASSIUM 4.2 mmol/L (3.5-5.1); TOTAL BILIRUBIN 0.62 mg/dL (0.20-1.00); TOTAL PROTEIN 6.6 g/dL (6.3-8.3)
[2018-07-10 00:18] LABS: BASO# 0.05 X1000 (0.0-0.2); BASO% 0.7 % (0.0-0.8); EOS# 0.52 X1000 (0.0-0.7); EOS% 6.9 % (0.0-10.0); HEMATOCRIT 35.1 % (42.0-52.0); HEMOGLOBIN 11.6 g/dL (14.0-18.0); IMM GRAN# 0.06 X1000 (0.0-0.04); IMM GRAN% 0.8 % (0.0-0.5); LYMPH# 1.11 X1000 (1.2-3.4); LYMPH% 14.7 % (20.5-51.1); MCH 29.5 PG (27-31); MCV 89.3 FL (81-99); MONO# 0.87 X1000 (0.11-0.59); MONO% 11.5 % (1.7-9.3); MPV 10.3 FL (7.4-10.4); NEUT# 4.96 X1000 (1.4-6.5); NEUT% 65.4 % (42.2-75.2); PLT 132 X1000 (130-400); RBC 3.93 XMIL (4.7-6.1); RDW 16.4 % (11.5-14.5); WBC 7.57 X1000 (4.8-10.8)
[2018-07-10] MEDS ORDERED: LASIX IV ONE (01:13)
[2018-07-10] MEDS ORDERED: MORPHINE IV ONE (01:16)
[2018-07-10] MEDS ORDERED: MORPHINE ONE (01:19)
--- NOTE | 2018-07-10 04:51 | PROVIDER DOCUMENTATION ---
This chart was entered by Daisha Bourne Scribe, acting as scribe for Cameron Christianson MD. HPI-Chest Pain - General Stated Complaint: cp Time Seen by Provider: 07/09/18 22:56 Source: patient Allergies/Adverse Reactions: Patient Allergies Allergy/AdvReac Type Severity Reaction Status Date / Time metoclopramide HCl * AdvReac Intermediate NAUSEA Verified 03/05/18 20:35 [From Reglan] Home Medications: Home Medication List Medication Instructions Recorded Confirmed Last Taken Type Atorvastatin Calcium 20 mg PO QHS 10/11/16 07/09/18 06/30/18 History Clopidogrel Bisulfate [Clopidogrel] 75 mg PO QAM 10/11/16 07/09/18 06/30/18 History Escitalopram Oxalate 20 mg PO QAM 10/11/16 07/09/18 06/30/18 History Melatonin 5 mg PO HS 10/11/16 07/09/18 06/30/18 History Nitroglycerin 0.4 mg SL PRN PRN 10/11/16 07/09/18 06/30/18 History Docusate Sodium [Colace] 250 mg PO QHS 12/23/16 07/09/18 06/30/18 History Loratadine 10 mg PO QAM 03/28/17 07/09/18 06/30/18 History Tamsulosin [Flomax] 0.4 mg PO QHS 09/11/17 07/09/18 06/30/18 History Acetaminophen [Tylenol] 500 mg PO Q6H PRN PRN 10/23/17 07/09/18 06/30/18 History Apixaban [Eliquis] 2.5 mg PO BID 10/23/17 07/09/18 06/30/18 History Budesonide/Formoterol Fumarate 1 unit INH QHS 10/23/17 07/09/18 06/30/18 History [Symbicort 160-4.5 Mcg Inhaler] Lactulose 10 gm PO QAM 10/23/17 07/09/18 06/30/18 History Multivitamin [Multi-Vitamin Daily] 1 tab PO QAM 10/23/17 07/09/18 06/30/18 History Pantoprazole [Protonix] 40 mg PO QAM 10/23/17 07/09/18 06/30/18 History Polyethylene Glycol 3350 [Miralax] 1 packet PO QAM 10/23/17 07/09/18 06/30/18 History Tetrahydrozoline HCl [Opti-Clear] 15 ml OP PRN PRN 10/23/17 07/09/18 06/30/18 History Trazodone [Desyrel] 50 mg PO QHS 10/23/17 07/09/18 06/30/18 History Umeclidinium [place] [Incruse 62.5 mcg IH QAM 10/23/17 07/09/18 06/30/18 History Ellipta] Levalbuterol HCl 0.63 mg IH Q4H PRN PRN 01/09/18 07/09/18 06/30/18 History Spironolactone [Aldactone] 25 mg PO QAM 01/09/18 07/09/18 06/30/18 History Levothyroxine Sodium [Synthroid] 88 microgm PO QAM #120 tab 01/13/18 07/09/18 06/30/18 Rx Insulin Detemir [Levemir] 5 unit SUBQ DAILY #5 insuln.pen 05/25/18 07/09/18 06/30/18 Rx Metoprolol [Lopressor] 25 mg PO BID #120 tab 07/05/18 07/09/18 Unknown Rx Naloxegol Oxalate [Movantik] 12.5 mg PO ACB #30 tab 07/05/18 07/09/18 Unknown Rx - History of Present Illness-CP Nature of Presenting Problem: pt is a 72 yr old male presenting via EMS with complaint of chest pain onset 2144, sharp constant pain per pt, pt reports same as when he was admitted last week. pt was discharged 2 days ago. pt also reports difficulty urinating, has urge but unable to go. Location: reports: substernal Chest Pain Radiation: reports: no radiation Quality of Pain: reports: sharp Severity in ED: moderate Onset/Duration: this evening (2144) Timing: still present Context/Activities at Onset: reports: rest Modifying Factors: improves with: nothing Associated Symptoms: denies: diaphoresis, headache, nausea, shortness of breath Nitro Today/Relief: no nitro taken today Aspirin Treatment Today: no aspirin today Prior Chest Pain/Cardiac Workup: reports: other (complete work up within last week, per pt normal workup) Similar Symptoms Previously?: Yes Recently Seen Here or By Another Healthcare Provider: Yes (discharged 2 days ago) Review of Systems - Adult - REVIEW OF SYSTEMS - ADULT Constitutional: reports: no symptoms reported Eyes: reports: no symptoms reported Ears, Nose, Mouth & Throat: reports: no symptoms reported Cardiovascular: reports: chest pain. denies: palpitations, syncope Respiratory: denies: cough, shortness of breath Gastrointestinal: denies: abdominal pain, nausea, vomiting Genitourinary: reports: hesitency, urinary retention, urgency. denies: dysuria, frequency Musculoskeletal: reports: no symptoms reported Integumentary: reports: no symptoms reported Neurological: denies: dizziness/vertigo, headache/migraines Psychiatric: reports: no symptoms reported Endocrine: reports: no symptoms reported Hematologic/Lymphatic: reports: no symptoms reported Allergic/Immunologic: reports: no symptoms reported All Other Systems: Reviewed and Negative Past History - Adult - PAST MEDICAL HISTORY-ADULT Review of Records: reports: Old Records Reviewed, Nursing Assessment Review, Medications Reviewed, Social history reviewed & non-contributory. Major Childhood Illnesses: reports: denies history Cardiovascular: reports: A-Fib, CAD, CHF, HTN, hyperlipidemia, IA Respiratory: reports: COPD, sleep apnea Gastrointestinal: reports: denies history, GERD Obstetrical/Gynecological: reports: denies history Genitourinary: reports: kidney disease (CKD) Musculoskeletal: reports: denies history Neurological: reports: denies history Psychiatric: reports: depression Endocrine/Immune: reports: Diabetes, thyroid disorder (hypo) Other Conditions: reports: denies history - PRIOR SURGERIES/PROCEDURES Surgical/Procedure History: reports: CABG (last bypass 1999), cholecystectomy, cardiac stent (x5, last stent 12 years ago), hernia repair, orthopedic (extremity) (bone spur), other (exploratory surgery; retina; prostate) - PRIOR HOSPITALIZATIONS Prior Hospitalizations: reports: for other non-related - IMMUNIZATION STATUS Childhood Immunizations: See Nurse Assessment Flu Vaccine: See Nurse Assessment - FAMILY HISTORY Family History: reviewed, not pertinent - SOCIAL HISTORY Living Situation: care facility Physical Exam-General - PHYSICAL EXAM-ADULT Initial Vital Signs Reviewed: Yes - CONSTITUTIONAL General Appearance: alert, no apparent distress, obese, anxious - EYES Eyes: PERRL/EOMI - HEAD, EARS, NOSE, MOUTH & THROAT HENMT: normocephalic/atraumatic, moist mucous membranes, normal ENT inspection - NECK Neck: non-tender, full range of motion, supple, normal inspection - RESPIRATORY Respiratory: chest non-tender, lungs clear, normal breath sounds, no respiratory distress, no accessory muscle use - CARDIOVASCULAR Cardiovascular: normal peripheral pulses, regular rate, rhythm, no edema - GASTROINTESTINAL (ABDOMEN) Abdominal Exam: normal bowel sounds, soft, hernia (ventral hernia) - LYMPHATIC Lymphatic: no adenopathy - MUSCULOSKELETAL Back Exam: normal inspection, no CVA tenderness, no vertebral tenderness Extremity: normal range of motion, non-tender, normal gait, normal inspection - SKIN Integumentary: normal color, normal turgor, warm/dry - NEUROLOGIC Neurologic: grossly normal - PSYCHIATRIC Psych/Mental Status: anxious - HEART Score HEART Score: History: Moderately Suspicious HEART Score: ECG: Non-Specific Repolarization Disturbance/LBBB/PM HEART Score: Age: > or = 65 Years HEART Score: Risk Factors for Atherosclerotic Disease: > or = 3 Risk Factors or History of Atherosclerotic Disease HEART Score: Troponin: < or = Normal Limit Total HEART Score:: 6 Progress - PLAN OF CARE/RESULTS Progress/Plan/Lab Results: Vital Signs - 8 hr 07/09/18 23:31 Temperature 98.0 F Pulse Rate 60 Respiratory Rate 22 Blood Pressure 104/77 O2 Sat by Pulse Oximetry 99 Laboratory Results - last 24 hr 07/09/18 07/09/18 07/09/18 23:15 23:15 23:15 WBC 7.57 RBC 3.93 L Hgb 11.6 L Hct 35.1 L MCV 89.3 MCH 29.5 MCHC 33.0 RDW Std Deviation 16.4 H Plt Count 132 MPV 10.3 Immature Gran % (Auto) 0.8 H Neut % (Auto) 65.4 Lymph % (Auto) 14.7 L [place] % (Auto) 11.5 H Eos % (Auto) 6.9 Baso % (Auto) 0.7 Immature Gran # (Auto) 0.06 H Neut # (Auto) 4.96 Lymph # (Auto) 1.11 L [place] # (Auto) 0.87 H Eos # (Auto) 0.52 Baso # (Auto) 0.05 D-Dimer, Quantitative Sodium 134 L Potassium 4.2 Chloride 99 Carbon Dioxide 22 L Anion Gap 13 BUN 48 H Creatinine 2.0 H Estimated GFR/1.73 m2 33 BUN/Creatinine Ratio 24 Glucose 167 H Calculated Osmolality 285 Calcium 9.2 Total Bilirubin 0.62 AST 26 ALT 23 Alkaline Phosphatase 115 Creatine Kinase 38 Troponin T 0.016 Kuh-P-Twyyyiakdfq Pept Total Protein 6.6 Albumin 3.9 Globulin 2.7 Albumin/Globulin Ratio 1.4 07/09/18 07/09/18 07/10/18 23:15 23:15 03:05 WBC RBC Hgb Hct MCV MCH MCHC RDW Std Deviation Plt Count MPV Immature Gran % (Auto) Neut % (Auto) Lymph % (Auto) [place] % (Auto) Eos % (Auto) Baso % (Auto) Immature Gran # (Auto) Neut # (Auto) Lymph # (Auto) [place] # (Auto) Eos # (Auto) Baso # (Auto) D-Dimer, Quantitative 1.05 H Sodium Potassium Chloride Carbon Dioxide Anion Gap BUN Creatinine Estimated GFR/1.73 m2 BUN/Creatinine Ratio Glucose Calculated Osmolality Calcium Total Bilirubin AST ALT Alkaline Phosphatase Creatine Kinase Troponin T 0.032 D Bal-P-Ooulfijrlzs Pept 23740 H Total Protein Albumin Globulin Albumin/Globulin Ratio Orders Category Date Time Status CHEST-1 VIEW [RAD] Stat Exams 07/09/18 22:58 Taken CBC WITH ELECTRONIC DIFF [HEME] Stat Lab 07/09/18 23:15 Completed CK PROFILE [SP CHEM] Stat Lab 07/09/18 23:15 Completed COMPREHENSIVE METABOLIC PANEL [CHEM] Stat Lab 07/09/18 23:15 Completed D-DIMER [COAG] Stat Lab 07/09/18 23:15 Completed PRO B-NATRIURETIC PEPTIDE Stat Lab 07/09/18 23:15 Completed TROPONIN T Stat Lab 07/09/18 23:15 Completed TROPONIN T Stat Lab 07/10/18 03:05 Completed Aspirin Med 07/09/18 23:53 Discontinued 325 mg .ROUTE .STK-MED ONE Aspirin Med 07/09/18 23:53 Discontinued 325 mg PO NOW ONE Furosemide [Lasix] Med 07/10/18 01:13 Discontinued 40 mg IV NOW ONE Morphine Med 07/10/18 01:16 Discontinued 1 mg IV NOW ONE Morphine Med 07/10/18 01:19 Discontinued 2 mg .ROUTE .STK-MED ONE EKG [EKG] Stat Ther 07/09/18 22:49 Ordered Result Diagrams: 07/09/18 23:15 07/09/18 23:15 - EKG 1 Time of EKG reading by physician:: 22:53 EKG Read and Signed by:: Cameron Christianson EKG Interpretation (*Must complete 3 of following elements*): Abnormal Rate: 62 Rhythm: afib [place]: left QRS: LBB - CONSULTS/PCP/HOSPITALIST Notification #1 *Consult/PCP/Hospitalist*: d/w Dr Jose Time Discussed: 02:10 Reason/Comments: recommended to observe in ED and repeat labs #2 Consult: DR JOSE Time Discussed: 04:47 Reason/Comments: ADMIT FOR OBS Departure - Departure Date of Disposition Decision: 07/10/18 Time of Disposition Decision: 04:47 DIAGNOSIS: Chest pain, Elevated brain natriuretic peptide (BNP) level, CHF (congestive heart failure) Disposition: ADMITTED INPATIENT 09 Certified Medical Emergency: Emergent Condition: Stable - Critical Care Note This patient required my direct & personal management of CC.: No Attestation - Physician/ LILI Attestation Patient care was provided by Advanced Practice Provider:: No The physician spent face to face time with patient:: Yes Advanced Practice Provider documentation review:: Supervising physician onsite and consulted in the evaluation and care of this patient. The physician did have a face to face encounter with the patient. This chart was documented by the indicated scribe, (Daisha Bourne Scribe) and accurately reflects the services I performed and decisions made by me, Cameron Christianson MD, as attested by the provider's signature.
[2018-07-10] MEDS ORDERED: VISINE OPH DROPS BOTH EYES PRN (05:19)
[2018-07-10] MEDS ORDERED: TYLENOL PO PRN (05:19)
[2018-07-10] MEDS ORDERED: XOPENEX NEB INH PRN (05:19)
[2018-07-10] MEDS ORDERED: NITROGLYCERIN SL PRN (05:19)
--- NOTE | 2018-07-10 07:00 | HISTORY AND PHYSICAL ---
CHIEF COMPLAINT: Chest pain. PRIMARY CARE PROVIDER: Dr. Shaw. HISTORY OF PRESENT ILLNESS: Mr. Gibbs is a pleasant 72-year-old male who was last admitted to our service on 06/30/2018. He has multiple admissions related to chest pain. Stated that he was having shortness of breath with exertion over the past couple of days as well as chest pain. He is well known to Cardiology. Had a stress test in May. I believe he has an ejection fraction around 33%. He is being medically maintained. He had coronary artery bypass grafting as well as multiple stents in the past. Said that the chest pain was substernal or 10/10. Did not have any nausea or vomiting associated with this. It did not radiate into his neck, back or jaw. Patient stated that it was unrelieved by his nitroglycerin spray so he came into the emergency room. His laboratory data in the emergency room was roughly baseline. On his previous admission, he was taken off his Lasix. His ProBNP was elevated on his labs; however, he does not appear to be having a CHF exacerbation. He does not look fluid volume overloaded clinically. We will admit the patient in observation and trend his cardiac enzymes. PAST MEDICAL HISTORY: 1. Congestive heart failure with an ejection fraction of 33%. 2. Coronary artery disease status post bypass grafting and multiple stents. 3. Severe pulmonary hypertension. 4. COPD. 5. Chronic kidney disease stage 3. 6. Troponinemia. 7. Chronic atrial fibrillation. 8. GERD. PREVIOUS SURGICAL HISTORY: 1. CABG, multiple cardiac stents. 2. Hernia repair. 3. Cataract surgery. SOCIAL HISTORY: No tobacco, alcohol or illicit drugs. FAMILY HISTORY: Father in his 40s from myocardial infarction. ALLERGIES: Reglan. HOME MEDICATION LIST: 1. Nitroglycerin 0.4 mg sublingual p.r.n. 2. Atorvastatin 80 mg p.o. at bedtime. 3. Melatonin 5 mg p.o. at bedtime. 4. Lexapro 20 mg p.o. q.a.m. 5. Plavix 75 mg p.o. q.a.m. 6. Colace 25 mg p.o. at bedtime. 7. Loratadine 10 mg p.o. daily. 8. Flomax 0.4 mg p.o. at bedtime. 9. Eliquis 2.5 mg p.o. b.i.d. 10.Lactulose 10 grams p.o. q.a.m. 11.Protonix 40 mg p.o. daily. 12.MiraLAX 17 grams p.o. q.a.m. 13.Opti-Clear eyedrops p.r.n. 14.Incruse Ellipta 62.5 mcg inhalation q.a.m. 15.Symbicort 160/4.5 one inhalation at bedtime. 16.Trazodone 50 mg p.o. at bedtime. 17.Tylenol 500 mg p.o. q.6 p.r.n. 18.Multivitamin 1 daily. 19.Xopenex 0.63 mg inhalation q.4. 20.Spironolactone 25 mg p.o. q.a.m. 21.Levothyroxine 88 mcg p.o. q.a.m. 22.Levemir 5 units subcu daily. 23.Metoprolol 25 mg p.o. b.i.d. 24.Movantik 12.5 mg p.o. ACB. REVIEW OF SYSTEMS: Fourteen point review of systems conducted with the patient. Pertinent positives listed above in the HPI. He also complained of weakness in his legs. All other systems reviewed and found to be negative. PHYSICAL EXAMINATION: VITAL SIGNS: Temp 98 degrees, pulse 54, respirations 18, blood pressure 104/62, oxygen saturation 98%. GENERAL: Pleasant 72-year-old male lying in the ER stretcher, answers all questions appropriately. He is alert and oriented x3. HEENT: Head is atraumatic, normocephalic. Pupils equal, round and react to light. Extraocular eye movements are intact. Sclerae anicteric. Conjunctivae pink. Oral mucosa is moist. NECK: Supple. No JVD, no thyromegaly. Trachea is midline. No cervical lymphadenopathy. CARDIAC: S1 and S2 are appreciated. Irregularly irregular. No murmurs, gallops, rubs. LUNGS: Crepitations noted bilateral bases. No rhonchi, no wheezing. Symmetric rise and fall of respirations. ABDOMEN: Protuberant, soft, nondistended. Hernia noted just above the umbilicus. Bowel sounds present in all 4 quadrants. Normoactive. No pulsatile mass. No organomegaly. EXTREMITIES: No cyanosis, clubbing or edema. 1+ pedal pulses bilaterally. Radial pulses are also diminished. GENITOURINARY: No bladder distention. Patient voids. Otherwise deferred. NEUROLOGICAL: Alert and oriented x3. No focal motor deficits otherwise. Nonfocal examination. DIAGNOSTIC DATA: Chest x-ray shows stable cardiomegaly. LABORATORY DATA: Hemoglobin 11.6, hematocrit 35.1. Sodium 134, potassium 4.2, chloride 99, carbon dioxide 22, BUN 48, creatinine 2, glucose 167. CKs and troponins are negative x2 sets. ProBNP 10,419. ASSESSMENT AND PLAN: 1. Chest pain. This is chronic and continually is not relieved by nitroglycerin. It does not appear to be cardiac in nature. We will continue to trend cardiac enzymes. The patient is having some dyspnea on exertion. We will continue to monitor O2 protocol. 2. Congestive heart failure with an ejection fraction of 33%. Again, the patient does not appear to be in florid failure. There is no extremis noted. He did have mild crepitations in his bases and received Lasix in the emergency room. He is diuresed accordingly. Recommended that the patient be started back on Lasix one time a day as opposed to the original dosing that he was taken off of on that last admission prior to discharge. 3. Coronary artery disease with previous CABG and stenting. Continue Eliquis and other home medications. 4. Hyperlipidemia. Continue atorvastatin. 5. Hypothyroidism. Continue Synthroid. 6. Diabetes mellitus type 2 with hyperglycemia. Check hemoglobin A1c. Continue home medications. Fingerstick blood sugars q.a.c. and at bedtime. Further recommendations per patient's clinical course. Dictated by ROBIN Parnell for Papo Jose MD cc: ROBIN Parnell Agree with the above. the following is my own face to face assessment and plan. patient with chest pain which is likely noncardiac and dyspnea on exertion. does have minimal bibasilar crackles on lung exam. likely trying to become minimally volume overloaded since his lasix was discontinued. will rule out ACS and start back lasix at a lower frequency than previously. if troponins remain negative then can likely go home in the morning. [facility]
--- NOTE | 2018-07-10 07:40 | Diag Imaging Result Doc PS360 ---
EXAM: CHEST-1 VIEW HISTORY: CP TECHNIQUE: Chest single view COMPARISON: 07/05/2018 FINDINGS: The lungs are well expanded. The heart is mildly enlarged. Mild central vascular prominence. There are no infiltrates. No effusion identified. Scattered granuloma. IMPRESSION: Mild central vascular prominence. Electronically signed by Patrice Ordonez 07/10/2018 7:38 AM
[2018-07-10] MEDS ORDERED: SYNTHROID PO SCH (09:00)
[2018-07-10] MEDS: MIRALAX PO SCH (09:05)
[2018-07-10] MEDS: MOVANTIK PO SCH (09:06)
[2018-07-10] MEDS: LEXAPRO PO SCH (09:06)
[2018-07-10] MEDS: CLARITIN PO SCH (09:06)
[2018-07-10] MEDS: PLAVIX PO SCH (09:06)
[2018-07-10] MEDS: THERA M PLUS PO SCH (09:06)
[2018-07-10] MEDS: ALDACTONE PO SCH (09:06)
[2018-07-10] MEDS: ELIQUIS PO SCH ×2 (09:06→20:50)
[2018-07-10] MEDS: LOPRESSOR PO SCH ×3 (09:07→20:54)
[2018-07-10] MEDS: LACTULOSE PO SCH (09:07)
[2018-07-10] MEDS: PRILOSEC PO SCH (09:10)
[2018-07-10] MEDS: LANOXIN PO SCH (15:36)
[2018-07-10] MEDS: MORPHINE IV PRN ×2 (15:38→23:31)
[2018-07-10] MEDS: LASIX PO SCH ×2 (15:38→20:50)
[2018-07-10] MEDS: LEVEMIR SUBQ SCH (15:41)
--- NOTE | 2018-07-10 18:25 | PROGRESS NOTE ---
DATE: 07/10/2018 SUBJECTIVE: Mr. Johnson was just discharged from the hospital about 5 days ago, mainly because of atypical chest pain. The patient was evaluated by Cardiology on that occasion. Of note, even during the later part of that hospital course his blood pressures were on the lower, so most of his blood pressure medications were withheld and he was hydrated gently and sent home. Anyway, he said at home he started having more difficulty breathing so he came back. He was found to be in some form of congestive heart failure and got admitted. Mr. Gibbs has an ejection fraction of 33% on a recent stress test that was done in May this year. OBJECTIVE: His current blood pressure is 84/52, pulse of 53, respirations 16, temperature 97.7 degrees. On general exam Mr. Johnson is a 72-year-old male. He is in bed. He is in mild distress. Mucosa is pink and moist. Anicteric. Acyanotic. Neck is supple. There is positive JVD. Chest: Air entry is bilaterally reduced. There are positive crackles in posterior lung bashir.Cardiovascular: Regular rate and rhythm. Abdomen is soft. It is distended. There is an old sternotomy scar on the anterior chest wall. There is also a mid abdominal scar. There is positive fluid wave dullness. LABORATORY DATA: Reviewed from yesterday. ProBNP is up to 10,419. The last time he came in was about 3229. This has about tripled since last time. DIAGNOSTIC DATA: A chest x-ray this time shows mild central venous prominence. ASSESSMENT: 1. [id number] congestive heart failure with ejection fraction of 33%. 2. Severe coronary artery disease, status post coronary artery bypass graft and stents. 3. Hypothyroidism. 4. Dyslipidemia. 5. Diabetes mellitus. 6. Chronic kidney disease stage 3B. 7. Persistent hypotension, which could be a combination of blood pressure medications as well as poor cardiac output. Blood pressure medications were discontinued the last time. The patient has been started on digoxin and Cardiology has been consulted to evaluate the patient. PLAN: In general, Mr. Johnson seems to be in congestive heart failure associated with hypotension. He is on IV diuretics. We started him on p.o. digoxin and will be waiting on further recommendations from Cardiology today. cc: Dereck Schaefer MD
[2018-07-10] MEDS: MELATONIN PO SCH (20:49)
[2018-07-10] MEDS: COLACE PO SCH (20:49)
[2018-07-10] MEDS: LIPITOR PO SCH (20:49)
[2018-07-10] MEDS: FLOMAX PO SCH (20:50)
[2018-07-10] MEDS: DESYREL PO SCH (20:50)
--- NOTE | 2018-07-10 23:20 | CARDIOLOGY CONSULTATION ---
DATE: 07/10/2018 REQUESTED BY: The hospitalist service. REASON FOR CONSULTATION: Chest pain. HISTORY: Mr. Johnson is a 72-year-old male who is known to me. At this time, he states that he was doing okay at the assisted-living facility where he has been staying for a long time. He was recently admitted to the hospital just few days ago between July 03 and July 05. Apparently they told him not to take Lasix for few days because of his chronic kidney disease getting decompensated. At any rate, yesterday in the evening he started having sharp shooting left anterior chest discomfort with some radiation to the shoulder and arm. This crept up in intensity, he could not take it anymore. He came into the ER at 10:58 p.m. They did a chest x-ray that shows central vascular prominence. Troponin levels showed some borderline abnormality 0.016 ng/ml, 0.032 and 0.042 in 3 sequential measurements 8 hours apart from each other. Pro BNP level was 10,419 pg/ml. During the last 2 admissions, one May 23 through 05/25/2018 and July 03 through 07/05/2018 his troponins were checked and we do have a total of 7 troponin measurements during those admissions and all of them were similarly found in the "richmond zone." His pro BNP level on the other hand was higher at this time than the 2 previous admissions. In May was 1963 pg/ml, on June 30 was 3229 pg/ml, now is 10,419, indicating that he is probably getting fluid overloaded. His blood pressure at the time of admission was not elevated. It was 104/77 mm Hg and it had been running in that neighborhood on recent admission. He was given some Lasix and he has experienced some diuresis. He is feeling more comfortable right now. PAST HISTORY: Positive for really multiple hospital admissions just within the past month and a half this is the 3rd admission. Last year he was admitted multiple times to the hospital. At some point we were really in a conundrum as to why he was having so much chest pain. We went ahead and did a heart catheterization which really showed patent coronary arteries even though he has had bypass, his vessels were really patent and the main finding was really that he had pulmonary hypertension and we had made a referral to the Pulmonary Hypertension Clinic at [facility]. However, he has not been able to make it there due to logistics of getting somebody to take him there and so forth. Of note, his heart catheterization 09/17/2017 showed severe pulmonary hypertension. The mean pulmonary pressure of 40 mmHg. He had total occlusion of LAD, total occlusion of PDA, patent mammary graft to the LAD and patent vein graft to PDA. Ejection fraction 40%. No mitral regurgitation. The patient does have a longstanding history of atrial fibrillation, renal insufficiency, acid reflux. 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 He has been admitted again multiple times with the same process. SURGICAL HISTORY: Includes hiatal hernia, cataract extraction. SOCIAL HISTORY: He is , lives by himself at assisted living for the past 2-3 yrs. HOME MEDICATIONS: Included at the time of this admission he is on apixaban 2.5 twice a day, atorvastatin 20 at bedtime, escitalopram 20 mg in the morning, Levemir insulin 5 units subcu, levothyroxine 88 mcg daily, Lopressor 25 twice a day, spironolactone 25 in the morning, Flomax 0.4 mg at bedtime, trazodone 50 mg at bedtime, Plavix 75 mg daily. He is supposed to be on furosemide. REVIEW OF SYSTEMS: He is chronically debilitated. His abdomen has been swelling up this past few days since he discontinued the Lasix. He does have intermittent chest pains and as I said multiple hospital admissions because of recurrent chest pains and dyspnea and abdominal swelling. PHYSICAL EXAMINATION: Vital signs: Blood pressure is 84/52, temperature 97.7 degrees, pulse 53, respirations 16. He is awake, alert, no distress. HEENT: Unremarkable. Chest: Diminished breath sounds at bases. Heart: Sounds are slightly irregular. I do not hear gallop or murmur. Abdomen: Shows probably mild ascites. Extremities: Showed no edema. Pulses diminished. Neurological: Nonfocal. Moves 4 extremities. DATA: A 12 lead EKG done at 10:51 p.m. yesterday shows atrial fibrillation, left bundle branch block versus IVCD with left axis. The rate is controlled at 62 beats per minute. IMPRESSION: 1. Patient who presents with chest pain. This is probably noncardiac given his history of recent heart catheterization showing that all his vessels were patent. 2. Chronic systolic and diastolic heart failure. 3. Severe coronary heart disease. 4. 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 5. Severe pulmonary hypertension. 6. Chronic kidney disease. RECOMMENDATION: At this point in time, we will add Lasix to his regimen and we will observe him. He just recently had a nuclear stress test on May 24 2018 that showed perfusion defect moderate to large involving the apex, distal anterior septum and mid anterior septum. This is chronic. This has not really changed. I do not believe that we need to pursue any further cardiac testing. We will try to optimize his volume status and whenever he is comfortable he can go back home. I really do not have any other suggestions. This patient is probably bound to keep on coming back to the hospital with the same symptoms, which are again in my opinion ,noncardiac (the chest pain component of it). cc: Juan Manuel Null MD MTDD
[2018-07-11] MEDS: PRILOSEC PO SCH (06:16)
[2018-07-11] MEDS: MOVANTIK PO SCH (06:16)
[2018-07-11] MEDS: SYNTHROID PO SCH (06:16)
[2018-07-11 07:22] LABS: BASO# 0.04 X1000 (0.0-0.2); BASO% 0.6 % (0.0-0.8); EOS# 0.56 X1000 (0.0-0.7); HEMATOCRIT 32.8 % (42.0-52.0); HEMOGLOBIN 10.7 g/dL (14.0-18.0); IMM GRAN# 0.03 X1000 (0.0-0.04); IMM GRAN% 0.4 % (0.0-0.5); LYMPH# 1.05 X1000 (1.2-3.4); MCH 29.5 PG (27-31); MCHC 32.6 g/dL (33-37); MCV 90.4 FL (81-99); MONO# 0.74 X1000 (0.11-0.59); MONO% 10.6 % (1.7-9.3); MPV 9.9 FL (7.4-10.4); NEUT# 4.56 X1000 (1.4-6.5); NEUT% 65.4 % (42.2-75.2); PLT 121 X1000 (130-400); RBC 3.63 XMIL (4.7-6.1); RDW 16.7 % (11.5-14.5); WBC 6.98 X1000 (4.8-10.8)
[2018-07-11 07:31] LABS: HEMOGLOBIN A1C 6.4 % (4.8-6.0)
[2018-07-11 07:44] LABS: CALCIUM 9.1 mg/dL (8.8-10.2); POTASSIUM 4.4 mmol/L (3.5-5.1)
[2018-07-11] MEDS ORDERED: INSULIN PEN NEEDLES ONE (07:56)
[2018-07-11] MEDS: ZOFRAN IV PRN (08:20)
[2018-07-11] MEDS: MORPHINE IV PRN ×2 (08:20→13:23)
[2018-07-11] MEDS: ALDACTONE PO SCH (08:26)
[2018-07-11] MEDS: CLARITIN PO SCH (08:26)
[2018-07-11] MEDS: LANOXIN PO SCH (08:26)
[2018-07-11] MEDS: LEXAPRO PO SCH (08:26)
[2018-07-11] MEDS: PLAVIX PO SCH (08:26)
[2018-07-11] MEDS: ELIQUIS PO SCH ×2 (08:26→21:47)
[2018-07-11] MEDS: THERA M PLUS PO SCH (08:26)
[2018-07-11] MEDS: LASIX PO SCH (08:26)
[2018-07-11] MEDS: LOPRESSOR PO SCH ×2 (08:27→21:47)
[2018-07-11] MEDS: MIRALAX PO SCH (08:27)
[2018-07-11] MEDS: LEVEMIR SUBQ SCH (08:28)
[2018-07-11] MEDS: LACTULOSE PO SCH (08:28)
[2018-07-11] MEDS: INCRUSE ELLIPTA INH SCH ×2 (08:43→09:17)
--- NOTE | 2018-07-11 11:08 | PROGRESS NOTE ---
DATE: 07/11/2018 SUBJECTIVE: This morning, Mr. Johnson refers to be feeling a little bit better. He said the chest pain has improved some and his breathing has significantly improved. He said he has been able to go to the restroom without any difficulty. OBJECTIVE: Current Vital Signs: Blood pressure is 95/69, pulse of 62 respirations are 16, temperature is 97.5 degrees, patient was saturating 97% on room air. General Examination: Mr. Johnson is a 72-year-old, male. He is in bed. Does not seem to be in any cardiopulmonary distress. HEENT: Mucosa is pink and moist. Anicteric. Acyanotic. Neck: Supple. Positive JVD. Chest: Air entry is bilaterally reduced. A few crackles in the posterior lung bashir. Cardiovascular: Regular rate and rhythm. There is an old sternotomy scar on the anterior chest wall. Abdomen: Soft and distended but nontender. Bowel sounds present. Extremities: No pedal edema. On the abdominal exam, there is a positive fluid shift and shifting dullness on percussion. Laboratory Data: Has been reviewed. CBC is unremarkable. Chemistry shows the creatinine is 2.0 which has been fairly the same as previous admissions. ProBNP is 11,617. ASSESSMENT: 1. Acute on chronic congestive heart failure with ejection fraction of 33%. Patient is on diuretic therapy. Seems to be responding well. 2. Severe coronary artery disease, status post coronary artery bypass graft and stents. The patient is on home medications. Cardiology is on board. 3. Recurrent persistent chest pains. This had been thoroughly evaluated multiple times by cardiology. They think, at this point, the pain is noncardiac. 4. Diabetes mellitus. We will continue with insulin regimen. 5. Chronic kidney disease stage IIIB. His creatinine is stable. 6. Hypotension, seems to be improving. We think this is related to antihypertensive medications. These have been withheld. The patient is also on digoxin. 7. Dyslipidemia. We will continue with atorvastatin. PLAN: This morning, we have switched the p.o. Lasix to IV because of elevation in the proBNP. However, clinically, Mr. Johnson refers to be feeling a lot better. We will repeat a chest x-ray tomorrow morning. If there is not much congestion, we will switch to oral. The patient has been advised by cardiology that he will need to be on a diuretic all the time because of poor EF. Mr. Johnson is also aware his chest pain is deemed noncardiac after evaluation by cardiology . DISPOSITION: I think in the next 24 to 48 hours, we can potentially discharge Mr. Johnson back to the assisted living. cc: Dereck Schaefer MD MTDD
--- NOTE | 2018-07-11 11:10 | CARDIOLOGY PROGRESS NOTE ---
DATE: 07/11/2018 CHIEF COMPLAINT: Dyspnea, swelling. SUBJECTIVE: Mr. Johnson says that his swelling is going down. The chest pain that he reported yesterday has changed in nature. It is more dull now. It is more bearable. His troponins continue to be in the richmond zone. His EKG has not been uploaded in the system. OBJECTIVE: Blood pressure is 95/69, pulse 62, temperature 97.5, respirations 16. The patient is awake, alert, follows commands. HEENT unremarkable. Chest: Clear to auscultation and percussion. Heart sounds regular and rhythmic. Abdomen is distended. Mild degree of ascites. Extremities show no edema. Neurologic: Follows commands. Moves all 4 extremities. IMPRESSION: 1. The patient presented with atypical, probably noncardiac, chest pain. This is a recurrent theme for him. 2. Congestive heart failure, chronic systolic plus diastolic. 3. 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 4. Severe pulmonary hypertension. 5. Chronic kidney disease. RECOMMENDATIONS: At this time, we will continue furosemide as we are doing. We will follow his clinical course. He may get to go home in a couple of days. I will order a followup EKG and troponins. cc: Juan Manuel Null MD
[2018-07-11] MEDS: LASIX IV SCH ×2 (13:53→21:47)
[2018-07-11] MEDS: LIPITOR PO SCH (21:47)
[2018-07-11] MEDS: DESYREL PO SCH (21:47)
[2018-07-11] MEDS: COLACE PO SCH (21:47)
[2018-07-11] MEDS: MELATONIN PO SCH (21:47)
[2018-07-11] MEDS: FLOMAX PO SCH (21:47)
[2018-07-11] MEDS: SYMBICORT 160/4.5 MICROGM INHALER INH SCH (23:28)
[2018-07-12] MEDS: PRILOSEC PO SCH (06:10)
[2018-07-12] MEDS: SYNTHROID PO SCH (06:10)
[2018-07-12] MEDS: MOVANTIK PO SCH (06:10)
--- NOTE | 2018-07-12 07:27 | EKG Report ---
Test Performed on : 07/11/2018 1:19:40 PM Test Reason : chest pain Blood Pressure : / mmHG Vent. Rate : 060 BPM Atrial Rate : 069 BPM P-R Int : 000 ms QRS Dur : 174 ms QT Int : 480 ms P-R-T Axes : 000 -51 106 degrees QTc Int : 480 ms Atrial fibrillation. Left axis deviation Left bundle branch block Abnormal ECG When compared with ECG of 09-JUL-2018 22:51, (Unconfirmed) No significant change was found Confirmed by Roderick LI, Donaldo Brown ([id number]) on 07/13/2018 12:41:47 PM
[2018-07-12] MEDS: INCRUSE ELLIPTA INH SCH (08:07)
--- NOTE | 2018-07-12 08:10 | EKG Report ---
Test Performed on : 07/12/2018 07:36:11 AM Test Reason : chest pain FL Blood Pressure : / mmHG Vent. Rate : 057 BPM Atrial Rate : 375 BPM P-R Int : 000 ms QRS Dur : 170 ms QT Int : 474 ms P-R-T Axes : 000 -59 103 degrees QTc Int : 461 ms Atrial fibrillation. with slow ventricular response. Left axis deviation Nonspecific intraventricular block Possible Lateral infarct , age undetermined Abnormal ECG When compared with ECG of 11-JUL-2018 13:19, (Unconfirmed) No significant change was found Confirmed by Roderick LI, Donaldo Brown ([id number]) on 07/13/2018 12:42:11 PM
[2018-07-12] MEDS: LANOXIN PO SCH (09:02)
[2018-07-12] MEDS: MIRALAX PO SCH (09:02)
[2018-07-12] MEDS: LASIX IV SCH ×2 (09:02→20:22)
[2018-07-12] MEDS: ELIQUIS PO SCH ×2 (09:03→20:21)
[2018-07-12] MEDS: THERA M PLUS PO SCH (09:03)
[2018-07-12] MEDS: ALDACTONE PO SCH (09:03)
[2018-07-12] MEDS: CLARITIN PO SCH (09:03)
[2018-07-12] MEDS: PLAVIX PO SCH (09:03)
[2018-07-12] MEDS: LACTULOSE PO SCH (09:03)
[2018-07-12] MEDS: LEXAPRO PO SCH (09:03)
[2018-07-12] MEDS: LEVEMIR SUBQ SCH (09:03)
[2018-07-12] MEDS: LOPRESSOR PO SCH ×3 (09:04→20:33)
[2018-07-12] MEDS: ZOFRAN IV PRN (09:16)
--- NOTE | 2018-07-12 13:00 | CARDIOLOGY PROGRESS NOTE ---
DATE: 07/12/2018 CHIEF COMPLAINT: Swelling, dyspnea, chest pain. SUBJECTIVE: Mr. Johnson is feeling better. He is breathing more comfortably. His chest discomfort is more dull, less intense. His electrocardiogram this morning shows atrial fibrillation with a pattern of left bundle; it has not changed. Troponins have been just about the same, 0.034, 0.030. He is making good urine. OBJECTIVE: Blood pressure is 93/65, pulse 72, respirations 16, temperature 98 degrees. Awake, alert, in no distress. HEENT is unremarkable. Chest: Symmetrical breath sounds. I do not hear rales. Heart sounds are irregularly irregular. No definite gallop or murmur. Abdomen is slightly distended, nontender. Extremities showed no edema. Neurologic: Follows commands. Moves all 4 extremities. DIAGNOSTIC DATA: Blood work from yesterday showed a ProBNP of 11,617. IMPRESSION: 1. The patient has chronic systolic and diastolic heart failure. 2. Pulmonary hypertension, severe. 3. Question of cardiac cirrhosis. 4. Severe coronary heart disease with bypass surgery. 5. Probably noncardiac chest pain. 6. Chronic kidney disease. RECOMMENDATIONS: At this time, I would continue with diuresis as we are doing. The patient may be getting closer to going home. We will follow him. cc: Juan Manuel Null MD
[2018-07-12] MEDS: MORPHINE IV PRN ×2 (13:08→20:20)
--- NOTE | 2018-07-12 13:40 | PROGRESS NOTE ---
DATE: 07/12/2018 SUBJECTIVE: Patient has no major complaints but he is still having some chest pain. He was eating lunch and having some chest pain. OBJECTIVE: Blood pressure 93/65, heart rate 69, respiratory 17, temperature 98 degrees, 94% on room air.Cardiovascular: Regular rate and rhythm. Pulmonary: Bilateral breath sounds clear to auscultation. GI: Soft, nontender, nondistended. Bowel sounds are positive. LABORATORY DATA: I do not have any new data today. His troponin was negative. His proBNP was still elevated. PROBLEM LIST: 1. Acute congestive heart failure, ejection fraction is around 33%. He is on diuretics which I think he is still on intravenous diuretics Dr. Schaefer had put him on 20 q.12. Cardiology is still following. Anticipate discharge so soon I think by tomorrow. 2. Coronary artery disease status post coronary artery bypass graft. I am not sure if he is amenable to any further treatment. Cardiology is following. His chest pain is felt to be most likely noncardiac. 3. Chronic renal failure stage 3B. We will continue to monitor. DISPOSITION: I think probably can get him home soon. I think we could probably switch him back to p.o. Lasix tomorrow. Looking at his outpatient regimen though he is not on any Lasix at least it is not listed but he is from assisted living so I do not think we will be able take him back till tomorrow because of needing his pharmaceutical treatments not sure if we could switch him to p.o. Lasix soon and will switch him to p.o. Lasix in the morning and Dr. Schaefer can decide about discharge that time if he is stable. cc: Keith Ferreira MD
[2018-07-12] MEDS: FLOMAX PO SCH (20:20)
[2018-07-12] MEDS: MELATONIN PO SCH (20:21)
[2018-07-12] MEDS: COLACE PO SCH (20:21)
[2018-07-12] MEDS: DESYREL PO SCH (20:21)
[2018-07-12] MEDS: LIPITOR PO SCH (20:21)
[2018-07-12] MEDS: SYMBICORT 160/4.5 MICROGM INHALER INH SCH (22:30)
[2018-07-13] MEDS: MOVANTIK PO SCH (06:24)
[2018-07-13] MEDS: SYNTHROID PO SCH (06:24)
[2018-07-13] MEDS: PRILOSEC PO SCH (06:24)
[2018-07-13] MEDS: SYMBICORT 160/4.5 MICROGM INHALER INH SCH (06:54)
--- NOTE | 2018-07-13 07:53 | EKG Report ---
Test Performed on : 07/09/2018 10:51:17 PM Test Reason : CP Blood Pressure : / mmHG Vent. Rate : 062 BPM Atrial Rate : 052 BPM P-R Int : 000 ms QRS Dur : 172 ms QT Int : 462 ms P-R-T Axes : 000 -43 083 degrees QTc Int : 468 ms Atrial fibrillation. Left axis deviation Left bundle branch block Abnormal ECG When compared with ECG of 01-JUL-2018 07:09, No significant change was found Unconfirmed Result
[2018-07-13 08:16] LABS: POTASSIUM 4.7 mmol/L (3.5-5.1)
[2018-07-13 08:17] LABS: CALCIUM 8.4 mg/dL (8.8-10.2); CREATININE 2.3 mg/dL (0.7-1.2)
[2018-07-13] MEDS: INCRUSE ELLIPTA INH SCH (08:17)
[2018-07-13] MEDS ORDERED: LASIX PO SCH (09:00)
[2018-07-13] MEDS: LACTULOSE PO SCH (09:25)
[2018-07-13] MEDS: MIRALAX PO SCH (09:25)
[2018-07-13] MEDS: ELIQUIS PO SCH (09:25)
[2018-07-13] MEDS: THERA M PLUS PO SCH (09:26)
[2018-07-13] MEDS: LANOXIN PO SCH (09:26)
[2018-07-13] MEDS: ALDACTONE PO SCH (09:26)
[2018-07-13] MEDS: LEVEMIR SUBQ SCH (09:27)
[2018-07-13] MEDS: LEXAPRO PO SCH (09:27)
[2018-07-13] MEDS: PLAVIX PO SCH (09:27)
[2018-07-13] MEDS: CLARITIN PO SCH (09:27)
[2018-07-13] MEDS: LOPRESSOR PO SCH (13:00)
--- NOTE | 2018-07-13 13:49 | DISCHARGE SUMMARY ---
ADMISSION DATE: 07/10/2018 DISCHARGE DATE: 07/13/2018 ADMITTING DIAGNOSES: 1. Noncardiac chest pain. 2. Acute on chronic systolic heart failure. 3. Coronary artery disease. 4. Hyperlipidemia. 5. Hypothyroidism. 6. Type 2 diabetes with hyperglycemia. DISCHARGE DIAGNOSES: 1. Noncardiac chest pain. 2. Acute on chronic systolic heart failure. 3. Coronary artery disease. 4. Hyperlipidemia. 5. Hypothyroidism. 6. Type 2 diabetes with hyperglycemia. DIAGNOSTIC PROCEDURES AND FINDINGS: EKG on 07/09/2018 shows rate controlled atrial fibrillation with a left bundle branch block. Chest x-ray on 07/09/2018 shows mild central vascular prominence. CONSULTATIONS: Dr. Null with Cardiology. HOSPITAL COURSE: Mr. Johnson is a 72-year-old male who has been admitted multiple times to our facility for chest pain. His last admission was in 05/2018. He came in with 10/10 substernal chest pain. This was unrelieved by nitroglycerin. He had also been having progressive dyspnea on exertion over 3 days prior to admission. He came to the ER for evaluation. EKG showed left bundle branch block which is chronic. His labs did show elevated creatinine as well as mild elevation in troponin. This was all felt to be secondary to volume overload and CHF. He was started on diuresis which he had recently stopped. We continued on all of his other home medications. We consulted Cardiology, who again felt like this was not cardiac in nature. He was ruled out of [place] with cardiac enzymes, and he did diurese a little over 3 L. We started him back on his Lasix at home, and he is stable for discharge. DISCHARGE MEDICATIONS: Nitroglycerin 0.4 mg sublingual as needed, Lipitor 20 mg p.o. at bedtime, melatonin 5 mg at bedtime, escitalopram 20 mg in a.m., Plavix 75 mg daily, Colace 250 mg p.o. at bedtime, loratadine 10 mg p.o. a.m., Flomax 0.4 mg p.o. at bedtime, Eliquis 2.5 mg p.o. b.i.d., lactulose 10 g p.o. daily, Protonix 40 mg p.o. a.m., MiraLAX 17 g in a.m., OptiClear eyedrops as directed, Incruse Ellipta 62.5 mcg inhaled a.m., Symbicort 160/4.5 mcg inhaler 1 puff inhaled at bedtime, trazodone 50 mg at bedtime, Tylenol as needed for pain, multivitamin 1 daily, levalbuterol 0.63 mg inhaled every 4 hours, Aldactone 25 mg in a.m., Levemir 5 units subcutaneously daily, metoprolol 25 mg p.o. b.i.d., Movantik 12.5 mg p.o. before breakfast, Lasix 20 mg daily, Synthroid 100 mcg daily. DISCHARGE DIET: Heart healthy, diabetic, low sodium. DISCHARGE ACTIVITY: Resume activity as tolerated. DISPOSITION AND OTHER DISCHARGE INSTRUCTIONS: The patient is discharged back to assisted living. He is to follow up with his PCP and propeller engineer within the next 2 weeks or sooner if needed. He is to continue all medications as directed and return to the ER or call 911 for worsening complaints or concerns. All questions answered. Discharge time greater than 35 minutes. Dictated by ROBIN Lau for Dereck Schaefer MD cc: ROBIN Lau MD Luis N. Villanueva, MD I have seen and examined Mr Johnson today. He feels better. Currently asymptomatic and clinically stable for discharge. I have reviewed his medication and reconciled them. Mr Johnson is discharge today back to [facility]. All discharge instructions discussed with him and he voices understanding. I agree with the above discharge summary. MTDD
[2018-07-13 14:46] VITALS: BP 101/71
[2018-07-14] MEDS ORDERED: LASIX PO SCH (09:00)
== END 2018-07-13 16:51 | DRG 291 ==
LOC: ED 22:46 → 3N 22:46 → SUATTDRO 07-10 07:24
PROVIDERS: ATTEND Internal Medicine
CPT/HCPCS: 71010; 71045; 80048; 80053; 82550; 82948; 83036; 83880; 84443; 84484; 85025; 85379; 93005; 93010; 94640; 94761; 96374; 96375; 99285; A9270; J1940; J2270; J2405; XXXXX

== ENCOUNTER 2018-10-02 07:49 | Inpatient (IN) ==
[2018-10-02 08:25] LABS: HEMATOCRIT 40.1 % (42.0-52.0); HEMOGLOBIN 12.8 g/dL (14.0-18.0); MCH 28.7 PG (27-31); MCV 89.9 FL (81-99); RBC 4.46 XMIL (4.7-6.1); WBC 7.28 X1000 (4.8-10.8)
[2018-10-02 08:26] LABS: BASO# 0.05 X1000 (0.0-0.2); BASO% 0.7 % (0.0-0.8); EOS# 0.36 X1000 (0.0-0.7); EOS% 4.9 % (0.0-10.0); IMM GRAN# 0.03 X1000 (0.0-0.04); IMM GRAN% 0.4 % (0.0-0.5); LYMPH# 1.07 X1000 (1.2-3.4); LYMPH% 14.7 % (20.5-51.1); MCHC 31.9 g/dL (33-37); MONO# 0.95 X1000 (0.11-0.59); MPV 10.4 FL (7.4-10.4); NEUT# 4.82 X1000 (1.4-6.5); NEUT% 66.3 % (42.2-75.2); PLT 119 X1000 (130-400); RDW 16.2 % (11.5-14.5)
[2018-10-02 08:33] LABS: INR 1.56; PTT 33.7 Seconds (22.3-41.8)
--- NOTE | 2018-10-02 08:44 | PROVIDER DOCUMENTATION ---
HPI-Chest Pain - General Chief Complaint: Chest Pain Stated Complaint: chest pain since last night Time Seen by Provider: 10/02/18 07:57 Source: patient Allergies/Adverse Reactions: Patient Allergies Allergy/AdvReac Type Severity Reaction Status Date / Time metoclopramide HCl * AdvReac Intermediate NAUSEA Verified 10/02/18 09:27 [From Reglan] Home Medications: Home Medication List Medication Instructions Recorded Confirmed Last Taken Type Atorvastatin Calcium 20 mg PO QHS 10/11/16 10/02/18 10/01/18 History Clopidogrel Bisulfate [Clopidogrel] 75 mg PO QAM 10/11/16 10/02/18 10/02/18 History Escitalopram Oxalate 20 mg PO QAM 10/11/16 10/02/18 10/02/18 History Melatonin 5 mg PO QHS 10/11/16 10/02/18 10/01/18 History Nitroglycerin 0.4 mg SL PRN PRN 10/11/16 10/02/18 10/02/18 History Docusate Sodium [Colace] 250 mg PO QHS 12/23/16 10/02/18 10/01/18 History Loratadine 10 mg PO QAM 03/28/17 10/02/18 10/02/18 History Tamsulosin [Flomax] 0.4 mg PO QHS 09/11/17 10/02/18 10/01/18 History Acetaminophen [Tylenol] 500 mg PO Q6H PRN PRN 10/23/17 10/02/18 07/29/18 07:00 History Apixaban [Eliquis] 2.5 mg PO BID 10/23/17 10/02/18 10/01/18 History Budesonide/Formoterol Fumarate 1 puff INH QHS 10/23/17 10/02/18 10/01/18 History [Symbicort 160-4.5 Mcg Inhaler] Lactulose 10 gm PO QAM 10/23/17 10/02/18 10/02/18 History Multivitamin [Multi-Vitamin Daily] 1 tab PO QAM 10/23/17 10/02/18 10/02/18 History Pantoprazole [Protonix] 40 mg PO QAM 10/23/17 10/02/18 10/02/18 History Polyethylene Glycol 3350 [Miralax] 1 packet PO QAM 10/23/17 10/02/18 10/02/18 History Tetrahydrozoline HCl [Opti-Clear] 15 ml OP PRN PRN 10/23/17 10/02/18 07/29/18 07:00 History Trazodone [Desyrel] 50 mg PO QHS 10/23/17 10/02/18 10/01/18 History Umeclidinium [place] [Incruse 62.5 mcg IH QAM 10/23/17 10/02/18 10/02/18 History Ellipta] Levalbuterol HCl 0.63 mg IH Q4H PRN PRN 01/09/18 10/02/18 10/02/18 History Spironolactone [Aldactone] 25 mg PO QAM 01/09/18 10/02/18 10/02/18 History Insulin Detemir [Levemir] 5 unit SUBQ DAILY #5 insuln.pen 05/25/18 10/02/18 10/02/18 Rx Metoprolol [Lopressor] 25 mg PO BID #120 tab 07/05/18 10/02/18 10/02/18 Rx Levothyroxine [Synthroid] 100 microgm PO DAILY@0700 tab 07/13/18 10/02/18 Rx Naloxegol Oxalate [Movantik] 12.5 mg PO DAILY 07/29/18 10/02/18 10/02/18 History Ranitidine HCl [Zantac] 150 mg PO QAM 07/29/18 10/02/18 10/02/18 History Furosemide 1 tab PO DAILY 10/02/18 10/02/18 10/02/18 History - History of Present Illness-CP Nature of Presenting Problem: 72 y/o WM c/o lt sided chest pain since last night that is not radiating. Pt also has had some SOB but has hx of COPD. Location: reports: other (lt chest) Chest Pain Radiation: reports: shoulders Quality of Pain: reports: aching, pressure Severity in ED: mild Onset/Duration: last night Timing: still present Context/Activities at Onset: reports: light activity Modifying Factors: improves with: nothing Associated Symptoms: reports: shortness of breath Nitro Today/Relief: no relief Aspirin Treatment Today: 81 mg x 4, provided by EMS Similar Symptoms Previously?: Yes Recently Seen Here or By Another Healthcare Provider: No Review of Systems - Adult - REVIEW OF SYSTEMS - ADULT Constitutional: reports: no symptoms reported, see HPI Eyes: reports: no symptoms reported, see HPI Ears, Nose, Mouth & Throat: reports: no symptoms reported, see HPI Cardiovascular: reports: see HPI, chest pain Respiratory: reports: see HPI, shortness of breath Gastrointestinal: reports: no symptoms reported, see HPI Genitourinary: reports: no symptoms reported, see HPI Musculoskeletal: reports: no symptoms reported, see HPI Integumentary: reports: no symptoms reported, see HPI Neurological: reports: no symptoms reported, see HPI Psychiatric: reports: no symptoms reported, see HPI Endocrine: reports: no symptoms reported, see HPI Hematologic/Lymphatic: reports: no symptoms reported, see HPI Allergic/Immunologic: reports: no symptoms reported, see HPI All Other Systems: Reviewed and Negative Past History - Adult - PAST MEDICAL HISTORY-ADULT Review of Records: reports: Nursing Assessment Review, Medications Reviewed, Social history reviewed & non-contributory. Major Childhood Illnesses: reports: denies history Cardiovascular: reports: A-Fib, CAD, CHF, HTN, hyperlipidemia, TN Respiratory: reports: COPD, sleep apnea Gastrointestinal: reports: denies history, GERD Obstetrical/Gynecological: reports: denies history Genitourinary: reports: kidney disease (CKD) Musculoskeletal: reports: denies history Neurological: reports: denies history Psychiatric: reports: depression Endocrine/Immune: reports: Diabetes, thyroid disorder (hypo) Other Conditions: reports: denies history - PRIOR SURGERIES/PROCEDURES Surgical/Procedure History: reports: CABG (last bypass 1999), cholecystectomy, cardiac stent (x5, last stent 12 years ago), hernia repair, orthopedic (extremity) (bone spur), other (exploratory surgery; retina; prostate) - PRIOR HOSPITALIZATIONS Prior Hospitalizations: reports: for other non-related - IMMUNIZATION STATUS Childhood Immunizations: See Nurse Assessment Flu Vaccine: See Nurse Assessment - FAMILY HISTORY Family History: reviewed, not pertinent Physical Exam-General - PHYSICAL EXAM-ADULT Initial Vital Signs Reviewed: Yes - CONSTITUTIONAL General Appearance: appears well, alert, mild distress - EYES Eyes: PERRL/EOMI - HEAD, EARS, NOSE, MOUTH & THROAT HENMT: normocephalic/atraumatic, moist mucous membranes - NECK Neck: non-tender, full range of motion, supple, normal inspection - RESPIRATORY Respiratory: chest non-tender, lungs clear, normal breath sounds, no pleuratic chest pain, no respiratory distress, no accessory muscle use - CARDIOVASCULAR Cardiovascular: normal peripheral pulses, regular rate, rhythm, no edema, no gallop, no JVD, no murmur - GASTROINTESTINAL (ABDOMEN) Abdominal Exam: normal bowel sounds, non tender, soft, no organomegaly, no pulsatile mass - LYMPHATIC Lymphatic: no adenopathy - MUSCULOSKELETAL Back Exam: normal inspection, no CVA tenderness, no vertebral tenderness Extremity: normal range of motion, non-tender, normal gait, normal inspection, no pedal edema, no calf tenderness, normal capillary refill - SKIN Integumentary: normal color, normal turgor - NEUROLOGIC 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, grossly normal, no motor/sensory deficits - PSYCHIATRIC Psych/Mental Status: normal mood/affect, normal thought content, normal thought process, oriented x 3 - HEART Score HEART Score: History: Moderately Suspicious HEART Score: ECG: Non-Specific Repolarization Disturbance/LBBB/PM HEART Score: Age: > or = 65 Years HEART Score: Risk Factors for Atherosclerotic Disease: > or = 3 Risk Factors or History of Atherosclerotic Disease HEART Score: Troponin: < or = Normal Limit Total HEART Score:: 6 Progress - PLAN OF CARE/RESULTS Progress/Plan/Lab Results: Vital Signs - 8 hr 10/02/18 07:56 10/02/18 08:04 10/02/18 08:32 Temperature 97.5 F L Pulse Rate 60 63 60 Respiratory Rate 20 22 19 Blood Pressure 101/78 101/78 114/77 O2 Sat by Pulse Oximetry 95 95 96 10/02/18 09:02 10/02/18 09:32 10/02/18 09:40 Temperature Pulse Rate 62 62 66 Respiratory Rate 21 23 20 Blood Pressure 111/79 102/75 106/72 O2 Sat by Pulse Oximetry 95 95 97 10/02/18 10:02 Temperature Pulse Rate 61 Respiratory Rate 16 Blood Pressure 84/61 O2 Sat by Pulse Oximetry 95 Laboratory Results - last 24 hr 10/02/18 10/02/18 10/02/18 08:10 08:10 08:10 WBC 7.28 RBC 4.46 L Hgb 12.8 L Hct 40.1 L MCV 89.9 MCH 28.7 MCHC 31.9 L RDW Std Deviation 16.2 H Plt Count 119 L MPV 10.4 Immature Gran % (Auto) 0.4 Neut % (Auto) 66.3 Lymph % (Auto) 14.7 L [place] % (Auto) 13.0 H Eos % (Auto) 4.9 Baso % (Auto) 0.7 Immature Gran # (Auto) 0.03 Neut # (Auto) 4.82 Lymph # (Auto) 1.07 L [place] # (Auto) 0.95 H Eos # (Auto) 0.36 Baso # (Auto) 0.05 PT INR PTT (Actin FS) Sodium 136 Potassium 4.5 Chloride 104 Carbon Dioxide 22 L Anion Gap 10 BUN 55 H Creatinine 2.0 H Estimated GFR/1.73 m2 33 BUN/Creatinine Ratio 28 Glucose 143 H Calculated Osmolality 290 Calcium 9.3 Total Bilirubin 1.00 AST 27 ALT 13 Alkaline Phosphatase 161 H Troponin T Adw-R-Fhyvcotbuew Pept 06968 H Total Protein 6.9 Albumin 4.2 Globulin 2.7 Albumin/Globulin Ratio 1.6 10/02/18 10/02/18 08:10 08:10 WBC RBC Hgb Hct MCV MCH MCHC RDW Std Deviation Plt Count MPV Immature Gran % (Auto) Neut % (Auto) Lymph % (Auto) [place] % (Auto) Eos % (Auto) Baso % (Auto) Immature Gran # (Auto) Neut # (Auto) Lymph # (Auto) [place] # (Auto) Eos # (Auto) Baso # (Auto) PT 19.0 H INR 1.56 PTT (Actin FS) 33.7 Sodium Potassium Chloride Carbon Dioxide Anion Gap BUN Creatinine Estimated GFR/1.73 m2 BUN/Creatinine Ratio Glucose Calculated Osmolality Calcium Total Bilirubin AST ALT Alkaline Phosphatase Troponin T 0.021 Fmc-V-Uthqfdhtqlq Pept Total Protein Albumin Globulin Albumin/Globulin Ratio Orders Category Date Time Status cxr [CHEST-1 VIEW] [RAD] Stat Exams 10/02/18 07:57 Completed CBC WITH ELECTRONIC DIFF [HEME] Stat Lab 10/02/18 08:10 Completed COMPREHENSIVE METABOLIC PANEL [CHEM] Stat Lab 10/02/18 08:10 Completed PRO B-NATRIURETIC PEPTIDE Stat Lab 10/02/18 08:10 Completed PROTIME WITH INR [COAG] Stat Lab 10/02/18 08:10 Completed PTT [COAG] Stat Lab 10/02/18 08:10 Completed TROPONIN T Stat Lab 10/02/18 08:10 Completed 0.9% Sodium Chloride Inj [Ns] 500 ml Med 10/02/18 10:14 Discontinued .ROUTE As directed 0.9% Sodium Chloride Inj [Ns] 500 ml Med 10/02/18 10:11 Active IV 999 mls/hr Hydromorphone [Dilaudid] Med 10/02/18 09:31 Discontinued 1 mg IV NOW ONE Ondansetron [Zofran] Med 10/02/18 09:31 Discontinued 4 mg IV NOW ONE EKG [EKG] Stat Ther 10/02/18 07:58 Draft Result Diagrams: 10/02/18 08:10 10/02/18 08:10 - EKG 1 Time of EKG reading by physician:: 06:45 EKG Read and Signed by:: Aristides Jimenez EKG Interpretation (*Must complete 3 of following elements*): Abnormal Rate: 79 Rhythm: nsr [place]: normal QRS: normal HI Interval: normal ST Wave: non-specific ST changes 2 Time of EKG reading by physician:: 07:56 EKG Read and Signed by:: Aristides Jimenez EKG Interpretation (*Must complete 3 of following elements*): Abnormal Rate: 57 Rhythm: atrial fibrillation w/ slow ventricular response [place]: left QRS: LBB Prior EKG Comparison: changes noted (6:45 on 10/02/18) - XRAY 1 XRAY Study: Chest Impression: Abnormal, See EMR Report ([facility] - [address] [facility] [address] [place] [id number] [facility] - [address] [place] [address] Department of Imaging Patient: TAWNYA ANDERSONDM Date: 10/02/18MR#: [id number] : 1945DM Status: REG ERAcct#: [id number] Age/Sex: 72/MRoom/Bed: Loc: ED Ordering Physician: Aristides Jimenez MD Family Physician: Rocio Anand MD Reason for Procedure: chest pain Signed EXAM: CHEST-1 VIEW HISTORY: chest pain TECHNIQUE: Chest single view COMPARISON: 07/29/2018 FINDINGS: Poor inspiratory effort. The heart is mildly enlarged. The vessels are not distended. There are no infiltrates. No effusion identified. IMPRESSION: Mild cardiomegaly. Electronically signed by Patrice Ordonez 10/02/2018 8:51 AM 10/02/18 0851 Interpreting Physician: Patrice Ordonez MD Dictated Date/Time: 10/02/18 0850 cc: Aristides Jimenez MD; Rocio Anand MD) - CONSULTS/PCP/HOSPITALIST Notification #1 *Consult/PCP/Hospitalist*: Time Discussed: 09:41 Consult Disposition: Will see in ED, Admit Departure - Departure Date of Disposition Decision: 10/02/18 Time of Disposition Decision: 09:44 DIAGNOSIS: CHF (congestive heart failure), Chest pain at rest, Atrial fibrillation, Renal insufficiency Disposition: ADMITTED INPATIENT 09 Certified Medical Emergency: Emergent Condition: Fair Referrals and Follow-Ups: Rocio Anand MD [Primary Care Provider] - - Critical Care Note This patient required my direct & personal management of CC.: No Attestation - Physician/ LILI Attestation Patient care was provided by Advanced Practice Provider:: No The physician spent face to face time with patient:: Yes Advanced Practice Provider documentation review:: Supervising physician onsite and consulted in the evaluation and care of this patient. The physician did have a face to face encounter with the patient.
--- NOTE | 2018-10-02 08:53 | Diag Imaging Result Doc PS360 ---
EXAM: CHEST-1 VIEW HISTORY: chest pain TECHNIQUE: Chest single view COMPARISON: 07/29/2018 FINDINGS: Poor inspiratory effort. The heart is mildly enlarged. The vessels are not distended. There are no infiltrates. No effusion identified. IMPRESSION: Mild cardiomegaly. Electronically signed by Patrice Ordonez 10/02/2018 8:51 AM
[2018-10-02 09:06] LABS: ALB/GLOB RATIO 1.6; ALBUMIN 4.2 g/dL (3.5-5.0); CALCIUM 9.3 mg/dL (8.8-10.2); POTASSIUM 4.5 mmol/L (3.5-5.1); TOTAL PROTEIN 6.9 g/dL (6.3-8.3)
--- NOTE | 2018-10-02 09:16 | EKG Report ---
Test Performed on : 10/02/2018 07:56:14 AM Test Reason : cp Blood Pressure : / mmHG Vent. Rate : 057 BPM Atrial Rate : 241 BPM P-R Int : 000 ms QRS Dur : 170 ms QT Int : 478 ms P-R-T Axes : 000 -56 118 degrees QTc Int : 465 ms Atrial fibrillation. with slow ventricular response. Left axis deviation Left bundle branch block Abnormal ECG When compared with ECG of 29-JUL-2018 12:06, (Unconfirmed) No significant change was found Unconfirmed Result
[2018-10-02] MEDS ORDERED: DILAUDID IV ONE (09:31)
[2018-10-02] MEDS ORDERED: ZOFRAN IV ONE (09:31)
[2018-10-02] MEDS ORDERED: NS 500 ML IV ONE (10:11)
[2018-10-02] MEDS ORDERED: NS 500 ML ONE (10:14)
[2018-10-02] MEDS ORDERED: NITROGLYCERIN SL PRN (10:26)
[2018-10-02] MEDS ORDERED: VISINE OPH DROPS BOTH EYES PRN (10:26)
[2018-10-02] MEDS: HUMULIN R SUBQ SCH ×3 (11:42→21:37)
--- NOTE | 2018-10-02 12:48 | HISTORY AND PHYSICAL ---
PRIMARY CARE PROVIDER: Dr. Shaw. CHIEF COMPLAINT: Chest pain. HISTORY OF PRESENT ILLNESS: Mr. Khris Johnson is a 72-year-old male with a medical history of coronary artery disease, TN's, congestive heart failure, CABG, stents, who now presents with complaints of chest pain. He is well-known to us. Has frequent admissions for noncardiac related chest pain. He states that the pain started at 7 p.m. last night. It is substernal, did not radiate. The only symptoms he had was shortness of breath and somewhat of an unsteady gait. The pain went up to as high as a 9/10, could not be reproducible when palpating his chest. He has negative cardiac enzymes x1 set. EKG without ST elevations. He has chronic atrial fibrillation. It is currently mildly hypotensive, so will admit him and do serial cardiac enzymes. Consult Cardiology. He will be on PVC due to the lower blood pressures. PAST MEDICAL HISTORY: 1. Systolic congestive heart failure, ejection fraction 33%. 2. Coronary artery disease with CABG and stents in the past. 3. Severe pulmonary hypertension. 4. COPD. 5. Chronic kidney disease stage III. 6. Troponinemia. 7. Chronic atrial fibrillation. 8. GERD. 9. Diabetes mellitus type 2. Started insulin May 2018. 10. BPH. SURGICAL HISTORY: 1. Two cardiac stents in 1998, then CABG in 1999, and then 4 more stents in 2003. 2. Hernia repair. 3. Bilateral cataract surgery. SOCIAL HISTORY: Denies tobacco, alcohol or illicit drug use. Has 2 adult daughters. Currently lives at home alone. FAMILY HISTORY: He had a father who in his 40s from a heart attack. ALLERGIES: Reglan. HOME MEDICATIONS: 1. Atorvastatin calcium 20 mg p.o. nightly. 2. Colace 250 mg p.o. nightly. 3. Desyrel 50 mg p.o. nightly. 4. Flomax 0.4 mg p.o. nightly. 5. Melatonin 5 mg p.o. nightly. 6. Symbicort 1 puff inhaled nightly. 7. Aldactone 25 mg p.o. daily. 8. Plavix 75 mg p.o. daily. 9. Eliquis 2.5 mg p.o. twice daily. 10. Escitalopram 20 mg p.o. daily. 11. Lasix 20 mg p.o. daily. 12. Ellipta 62.5 mcg inhaled daily. 13. Lactulose 10 g p.o. daily. 14. Levalbuterol 0.63 mg inhaled every 4 hours p.r.n. 15. Loratadine 10 mg p.o. daily. 16. MiraLAX 17 g p.o. daily. 17. Movantik 12.5 mg p.o. daily. 18. Multivitamin 1 tablet p.o. daily. 19. Nitroglycerin 0.4 mg sublingual p.r.n. 20. Eyedrops p.r.n. 21. Protonix 40 mg p.o. daily. 22. Tylenol 500 mg p.o. every 6 hours p.r.n. 23. Ranitidine 150 mg p.o. daily. 24. Levemir 5 units subcutaneous daily. 25. Lopressor 25 mg p.o. twice daily. 26. Synthroid 100 mcg p.o. daily. REVIEW OF SYSTEMS: Fourteen point review of systems are complete and all were negative, except for those mentioned above in the HPI. He did feel like he had a little bit of an unsteady gait as well. PHYSICAL EXAMINATION: VITAL SIGNS: Temperature 97.5 degrees, heart rate 61, respiratory rate 16, blood pressure 84/61, O2 saturation 95% on room air. GENERAL: Mr. Khris Johnson is a 72-year-old male, who is in no acute distress. He is able to answer questions appropriately. HEENT: Atraumatic, normocephalic. Pupils are equal, round, reactive to light. Extraocular movements intact. Mucous membranes are dry. NECK: Trachea midline. CARDIOVASCULAR: Irregularly irregular rate and rhythm. No rubs, gallops, or murmurs. Trace lower extremity edema. +2 dorsalis and radial pulses. Negative JVD or carotid bruit. PULMONARY: Clear to auscultation. Bilateral breath sounds. No accessory muscle use or work of breathing noted. GI: Soft, nontender, nondistended. Positive bowel sounds x4. EXTREMITIES: Moves all extremities equally. Decreased range of motion. NEUROLOGIC: A and O x3. Follows commands. Sensory is intact. SKIN: Warm, dry, intact. LABORATORY DATA: White blood cells 7000, hemoglobin 12, hematocrit 40, platelet count 119. INR is 1.56, PTT 33.7. Sodium 136, potassium 4.5, BUN 55, creatinine is 2.0, glucose 143, calcium 9.3. Bilirubin is 1.0, AST 27, ALT 13, troponin 0.021. ProBNP 10,236, albumin is 4.2. IMAGIN. Chest x-ray: Mild cardiomegaly. 2. EKG: Atrial fibrillation with a slow ventricular response 57. QTc 465. ASSESSMENT/PLAN: 1. Chest pain with history of coronary artery disease, but also a history of noncardiac chest pain. We will do serial cardiac enzymes. Check an EKG in the morning and consult Cardiology for any further recommendations. We will continue his Plavix and his Eliquis. 2. Chronic atrial fibrillation. Again, continue Eliquis. 3. Systolic congestive heart failure. ProBNP is greater than 10,000. Will continue with oral Lasix. No exacerbation obvious at this time. 4. Chronic kidney disease, stage III. Stable. 5. Diabetes mellitus type 2. We will do pattern blood glucoses, sliding scale insulin. 6. Chronic obstructive pulmonary disease. No exacerbation. Continue home medications. 7. Gastroesophageal reflux disease. Continue proton pump inhibitor and H 2 inhibitor. 8. Currently with hypotension. He is receiving a fluid bolus in the emergency room. We will monitor in the PVC unit, and he did receive his beta-ignacio this morning, so parameters were placed on the beta ignacio medication to hold if systolic less than 100. Dictated by ROBIN Skinner for Jim Bailey MD Addendum: Patient seen and examined by myself. Agree with ROBIN note. It reflects my assessment and plan. Patient is being admitted to hospital for chest pain. He is known to have history of CAD. Will monitor troponins and consult Cardiology and will go from there. cc: ROBIN Skinner MD [facility]
[2018-10-02] MEDS: XOPENEX NEB INH PRN (15:46)
--- NOTE | 2018-10-02 16:07 | CONSULTATION ---
DATE OF CONSULTATION: 10/02/2018 IMPRESSION: 1. Chest heaviness/pressure aggravated by lying down. Suspect likely related to acute on chronic systolic heart failure/volume overload given constellation of clinical findings. 2. Atherosclerotic coronary disease. Patient is status post previous coronary bypass grafting. Last cardiac catheterization study September 2017 dictated continued medical management. Left ventricular ejection fraction around 40%. The patient has moderate to severe pulmonary hypertension. 3. Moderate to severe pulmonary hypertension. 4. Chronic obstructive pulmonary disease. 5. Chronic atrial fibrillation. 6. Chronic kidney disease. 7. History of apical thrombus. RECOMMENDATIONS: 1. Diurese with intravenous Lasix. 2. Continue medical management patient's coronary atherosclerosis/ischemic cardiomyopathy. 3. Importance of adherence to sodium restriction discussed with the patient. This may be difficult for him since he lives in an independent living center where it is difficult to arrange a low-salt diet. HISTORY: This 72-year-old white male with past history of previous coronary bypass surgery, ischemic cardiomyopathy with left ventricular ejection fraction of 40%, moderate to severe pulmonary hypertension, chronic kidney disease creatinine 2.0, and chronic atrial fibrillation was admitted to the emergency room with chest discomfort. He lives in a independent living center. He has difficulty restricting the sodium in his diet. He had taco salad yesterday. Yesterday evening he started having chest heaviness which was worse when he would lie down. There was some associated shortness of breath. Symptoms pretty much persisted overnight and prompted him to come on into the hospital for evaluation after which he was admitted. Discomfort has resolved. He reports compliance with his medications but he has difficulty complying with sodium restriction in his currently living situation. He has had several admissions and evaluations for chest discomfort over the past 2 years. Coronary angiography in November of last year demonstrated systolic PA pressure of 70 mmHg, included left anterior descending coronary artery, occluded posterior descending artery, patent left internal mammary artery graft to left anterior descending coronary, and patent saphenous vein graft to the posterior descending artery. Left ventricular ejection fraction was 40%. Last Lexiscan sestamibi study demonstrated evidence of infarction in distribution of left anterior descending coronary but no significant burden of ischemia. Left ventricular ejection fraction on sestamibi study was 33%. PAST MEDICAL HISTORY: 1. Atherosclerotic coronary disease with previous coronary bypass grafting and ischemic cardiomyopathy. 2. Moderate to severe pulmonary hypertension. 3. Chronic COPD. 4. Chronic kidney disease stage 3. 5. Chronic atrial fibrillation. 6. Gastroesophageal reflux disease. ALLERGIES: He is allergic or intolerant to Reglan. MEDICATIONS PRIOR TO ADMISSION: As listed. SOCIAL HISTORY: He lives at an independent living center. He does not currently smoke. He does have history of previous significant cigarette use in the past. He does not use alcohol. FAMILY HISTORY: Positive for coronary disease. REVIEW OF SYSTEMS: Pulmonary: Noteworthy for some shortness of breath but negative for cough. Gastrointestinal: Negative. Constitutional: Negative. Remainder review of systems negative/noncontributory with 14 total systems reviewed. PHYSICAL EXAMINATION: General: This is a pleasant, elderly white male in no distress on room air. Vital signs: Blood pressure 91/61, heart rate 61 and regular, oxygen saturation 95%. HEENT: Extraocular movements appear intact. Mucous membranes are moist. Neck: Supple. Significant jugular venous distention is evident with neck veins pulsating seen just anterior to earlobes consistent with markedly elevated central venous pressure. There are no carotid bruits. Chest: Clear to auscultation. Cardiac: Reveals a regular rate and rhythm without appreciable murmur or gallop. Abdomen: Soft. Bowel sounds are normal. Extremities: Without edema. Neurologic: Reveals him to be alert and fully oriented. Speech is fluent. Moves all 4 extremities equally well. Skin: Warm, dry. Psych: Reveals his mood to be appropriate. DATA: Twelve-lead EKG demonstrates atrial fibrillation, left axis deviation and left bundle branch block. LABORATORY DATA: Includes white blood cell count 7.28, hematocrit 40.1, hemoglobin 12.8, platelet count 119,000. Sodium 136, potassium 4.5, chloride 104, carbon dioxide 22, BUN 55, creatinine 2.0, glucose 143. Troponin T 0.022. Pro B natriuretic peptide level 10,236. cc: Alec Khan MD
[2018-10-02] MEDS: LASIX IV SCH (16:09)
[2018-10-02] MEDS: ZOFRAN IV PRN (17:21)
[2018-10-02] MEDS: SYMBICORT 160/4.5 MICROGM INHALER INH SCH ×2 (19:56→20:00)
[2018-10-02] MEDS ORDERED: LOPRESSOR PO SCH (21:00)
[2018-10-02] MEDS ORDERED: ELIQUIS PO SCH (21:00)
[2018-10-02] MEDS: MORPHINE IV PRN (21:14)
[2018-10-02] MEDS: MELATONIN PO SCH (21:32)
[2018-10-02] MEDS: LIPITOR PO SCH (21:32)
[2018-10-02] MEDS: ELIQUIS PO SCH (21:32)
[2018-10-02] MEDS: SURFAK PO SCH (21:32)
[2018-10-02] MEDS: FLOMAX PO SCH (21:32)
[2018-10-02] MEDS: DESYREL PO SCH (21:32)
[2018-10-02] MEDS: LOPRESSOR PO SCH (21:33)
--- NOTE | 2018-10-02 21:46 | EKG Report ---
Test Performed on : 10/02/2018 9:31:12 PM Test Reason : chest pain Blood Pressure : / mmHG Vent. Rate : 063 BPM Atrial Rate : 088 BPM P-R Int : 000 ms QRS Dur : 176 ms QT Int : 490 ms P-R-T Axes : 000 -57 115 degrees QTc Int : 501 ms Atrial fibrillation. Left axis deviation Left bundle branch block Abnormal ECG When compared with ECG of 02-OCT-2018 07:56, (Unconfirmed) No significant change was found Confirmed by Breanne Glover MD ([id number]) on 10/05/2018 12:05:37 PM
[2018-10-02] MEDS: TYLENOL PO PRN (23:46)
[2018-10-03 03:04] LABS: BASO# 0.07 X1000 (0.0-0.2); BASO% 1.1 % (0.0-0.8); EOS# 0.42 X1000 (0.0-0.7); EOS% 6.4 % (0.0-10.0); HEMATOCRIT 39.8 % (42.0-52.0); HEMOGLOBIN 12.8 g/dL (14.0-18.0); LYMPH# 0.87 X1000 (1.2-3.4); LYMPH% 13.2 % (20.5-51.1); MCH 29.1 PG (27-31); MCHC 32.2 g/dL (33-37); MCV 90.5 FL (81-99); MONO# 0.88 X1000 (0.11-0.59); MONO% 13.4 % (1.7-9.3); NEUT# 4.33 X1000 (1.4-6.5); NEUT% 65.9 % (42.2-75.2); PLT 119 X1000 (130-400); RDW 16.1 % (11.5-14.5); WBC 6.57 X1000 (4.8-10.8)
[2018-10-03 03:40] LABS: INR 1.65; PROTIME 19.9 Seconds (11.0-16.0)
[2018-10-03] MEDS: LASIX IV SCH ×2 (03:40→15:47)
[2018-10-03 03:56] LABS: ALB/GLOB RATIO 1.7; CALCIUM 9.6 mg/dL (8.8-10.2); CREATININE 1.8 mg/dL (0.7-1.2); MAGNESIUM 2.3 mg/dL (1.5-2.7); POTASSIUM 4.5 mmol/L (3.5-5.1); TOTAL BILIRUBIN 0.99 mg/dL (0.20-1.00); TOTAL PROTEIN 6.3 g/dL (6.3-8.3)
[2018-10-03] MEDS: HUMULIN R SUBQ SCH ×4 (06:14→20:15)
[2018-10-03] MEDS: SYNTHROID PO SCH (06:20)
[2018-10-03] MEDS: PROTONIX PO SCH (06:20)
[2018-10-03] MEDS: ELIQUIS PO SCH ×2 (08:52→20:14)
[2018-10-03] MEDS: MIRALAX PO SCH (08:52)
[2018-10-03] MEDS: THERA M PLUS PO SCH (08:52)
[2018-10-03] MEDS: LEVEMIR SUBQ SCH (08:52)
[2018-10-03] MEDS: ALDACTONE PO SCH (08:52)
[2018-10-03] MEDS: CLARITIN PO SCH (08:52)
[2018-10-03] MEDS: MOVANTIK PO SCH (08:52)
[2018-10-03] MEDS: LEXAPRO PO SCH (08:52)
[2018-10-03] MEDS: LOPRESSOR PO SCH ×3 (08:52→20:14)
[2018-10-03] MEDS: PLAVIX PO SCH (08:52)
[2018-10-03] MEDS: ZANTAC PO SCH (08:52)
[2018-10-03] MEDS: LACTULOSE PO SCH (08:53)
[2018-10-03] MEDS ORDERED: LASIX PO SCH (09:00)
--- NOTE | 2018-10-03 10:18 | PROGRESS NOTE ---
DATE: 10/03/2018 SUBJECTIVE: Patient reports that the chest pain is gone. He denies any chest discomfort. No issues noted as per telemetry team. No acute issues noted as per nursing staff overnight. OBJECTIVE: Vital Signs: Temperature 97.9 degrees, heart rate 63, respiratory rate 17, blood pressure 93/51, O2 saturation 92% on 2 L nasal cannula. General Examination: This is a chronically ill-appearing, 72-year-old, male, lying in bed, in no acute distress. Cardiovascular Examination: S1 and S2 heard. No murmurs, gallops, or rubs. Irregularly irregular heart rhythm. No murmurs, gallops, or rubs. Respiratory Examination: Clear bilaterally to auscultation. No work of breathing or using accessory muscles. Abdomen: Soft, nontender to palpation. Bowel sounds present. No organomegaly. Extremities: No clubbing, cyanosis, or edema. Peripheral pulses present in both legs. Neurological Examination: The patient is alert and oriented x3. Moves 4 extremities. Laboratory Data: Reviewed and creatinine is 1.8. Troponins have been normal. ASSESSMENT AND PLAN: 1. Chest pain. The patient has a history of coronary artery disease. Evaluated by cardiology. They think that this discomfort is related to acute on chronic systolic heart failure and volume overload. At this point, the patient is being diuresed with intravenous Lasix. We will continue with home medications. The patient has coronary arteriosclerosis. We will continue with the same management. 2. Chronic atrial fibrillation. We will continue with Eliquis. 3. Chronic kidney disease stage 2, stable. We will continue to monitor BMP daily. 4. Diabetes mellitus type 2. We will continue with Accu-Chek before meals and also at bedtime, and sliding scale insulin as well. 5. Chronic obstructive pulmonary disease, not in exacerbation. We will continue home medications. 6. Gastroesophageal reflux disease. We will continue with H2 inhibitor. 7. Hypertension. Blood pressure is actually borderline, in the range of 90s and 80s. Currently, he is on Lasix 60 mg intravenous every 12 hours and metoprolol 25 mg by mouth twice a day. At this point, we will continue with the same management. 8. Disposition. I think if the patient is feeling better tomorrow and the x-ray that we have ordered shows improvement, I think the patient will be good to go tomorrow. cc: Jim Bailey MD MTDD
[2018-10-03] MEDS: XOPENEX NEB INH PRN (10:20)
[2018-10-03] MEDS: INCRUSE ELLIPTA INH SCH (10:21)
[2018-10-03] MEDS: MORPHINE IV PRN ×2 (11:40→20:25)
--- NOTE | 2018-10-03 14:39 | EKG Report ---
Test Performed on : 10/03/2018 05:48:29 AM Test Reason : chest pain Blood Pressure : / mmHG Vent. Rate : 052 BPM Atrial Rate : 079 BPM P-R Int : 000 ms QRS Dur : 170 ms QT Int : 490 ms P-R-T Axes : 000 -50 120 degrees QTc Int : 455 ms Atrial fibrillation. with slow ventricular response. Left axis deviation Left bundle branch block Abnormal ECG When compared with ECG of 02-OCT-2018 21:31, (Unconfirmed) No significant change was found Confirmed by Breanne Glover MD ([id number]) on 10/05/2018 12:05:42 PM
[2018-10-03] MEDS: ZOFRAN IV PRN (17:16)
[2018-10-03] MEDS: SYMBICORT 160/4.5 MICROGM INHALER INH SCH ×2 (19:57→23:50)
[2018-10-03] MEDS: FLOMAX PO SCH (20:14)
[2018-10-03] MEDS: DESYREL PO SCH (20:14)
[2018-10-03] MEDS: LIPITOR PO SCH (20:14)
[2018-10-03] MEDS: MELATONIN PO SCH (20:15)
[2018-10-03] MEDS: SURFAK PO SCH (20:16)
[2018-10-04] MEDS: LASIX IV SCH ×2 (04:05→16:34)
[2018-10-04] MEDS: HUMULIN R SUBQ SCH ×4 (06:35→21:22)
[2018-10-04] MEDS: SYNTHROID PO SCH (06:35)
[2018-10-04] MEDS: PROTONIX PO SCH (06:35)
[2018-10-04 07:21] LABS: BASO# 0.05 X1000 (0.0-0.2); BASO% 0.8 % (0.0-0.8); EOS# 0.38 X1000 (0.0-0.7); HEMATOCRIT 39.1 % (42.0-52.0); HEMOGLOBIN 12.6 g/dL (14.0-18.0); IMM GRAN# 0.02 X1000 (0.0-0.04); IMM GRAN% 0.3 % (0.0-0.5); LYMPH# 0.84 X1000 (1.2-3.4); LYMPH% 13.2 % (20.5-51.1); MCH 28.8 PG (27-31); MCHC 32.2 g/dL (33-37); MCV 89.3 FL (81-99); MONO% 12.5 % (1.7-9.3); MPV 10.8 FL (7.4-10.4); NEUT# 4.29 X1000 (1.4-6.5); NEUT% 67.2 % (42.2-75.2); PLT 114 X1000 (130-400); RBC 4.38 XMIL (4.7-6.1); RDW 15.9 % (11.5-14.5); WBC 6.38 X1000 (4.8-10.8)
[2018-10-04 07:47] LABS: CALCIUM 9.3 mg/dL (8.8-10.2); CREATININE 2.2 mg/dL (0.7-1.2); POTASSIUM 4.2 mmol/L (3.5-5.1)
--- NOTE | 2018-10-04 08:09 | Diag Imaging Result Doc PS360 ---
EXAM: CHEST-2 VIEWS INDICATION: pulmonary edema, pleural effusion TECHNIQUE: 2 views COMPARISON: 10/02/2018 FINDINGS: There appears be mild blunting of the costophrenic angles bilaterally suggesting trace pleural fluid versus chronic pleural thickening. There is suggestion of fissural fluid on the left. The lungs are grossly clear, otherwise. There is no evidence of pneumothorax. The cardiac silhouette is mildly prominent. Central vasculature is unremarkable. IMPRESSION: Costophrenic blunting bilaterally suggesting small effusions versus chronic pleural thickening. Electronically signed by Justin Rodriguez 10/04/2018 8:06 AM
[2018-10-04] MEDS: INCRUSE ELLIPTA INH SCH (08:13)
[2018-10-04] MEDS: MIRALAX PO SCH (08:42)
[2018-10-04] MEDS: THERA M PLUS PO SCH (08:42)
[2018-10-04] MEDS: CLARITIN PO SCH (08:42)
[2018-10-04] MEDS: LEXAPRO PO SCH (08:42)
[2018-10-04] MEDS: MOVANTIK PO SCH (08:42)
[2018-10-04] MEDS: ELIQUIS PO SCH ×2 (08:43→21:19)
[2018-10-04] MEDS: LACTULOSE PO SCH (08:43)
[2018-10-04] MEDS: PLAVIX PO SCH (08:43)
[2018-10-04] MEDS: ZANTAC PO SCH (08:43)
[2018-10-04] MEDS: ALDACTONE PO SCH (08:43)
[2018-10-04] MEDS: LEVEMIR SUBQ SCH (08:43)
[2018-10-04] MEDS: LOPRESSOR PO SCH ×2 (08:44→21:20)
--- NOTE | 2018-10-04 10:24 | PROGRESS NOTE ---
DATE: 10/04/2018 SUBJECTIVE: Patient reports still some chest discomfort. He reports those are similar to what he had when he was admitted. OBJECTIVE: Vital Signs: Temperature 97.6 degrees, heart rate 71, respiratory rate 17, blood pressure 98/73, O2 saturation 97% on 1.5 L nasal cannula. General: This is a chronically ill- appearing, 72-year-old male, lying in bed, in no acute distress. Cardiovascular: Irregularly irregular heart rhythm. No murmurs, gallops, or rubs. Respiratory: Clear bilaterally to auscultation. No work of breathing or using accessory muscles. Abdomen: Soft, nontender to palpation. Bowel sounds present. No organomegaly. Extremities: No clubbing, cyanosis, or edema. Peripheral pulses present in both legs. Neurological: Patient alert and oriented x3. Moves all 4 extremities. ASSESSMENT AND PLAN: 1. Chest pain. According to Cardiology is most likely related to acute on chronic systolic heart failure. The patient continues to receive Lasix 40 mg IV q.24 hours. I think this patient is almost euvolemic at this time. The patient also has coronary artery disease. In any case, we will continue with the same management. 2. Chronic atrial fibrillation. Patient is on Eliquis. Will continue with the same management. 3. Chronic kidney disease stage 2. We will continue to monitor BMP daily. Creatinine is at his baseline. 4. Diabetes mellitus type 2. We will continue with Accu-Chek before meals and also at bedtime and sliding scale insulin as well. 5. Chronic obstructive pulmonary disease. Patient is not in exacerbation. We will continue home medications. 6. Gastroesophageal reflux disease. We will continue with Protonix. 7. Hypertension. Blood pressure is still borderline but I think he needs to continue with Lasix IV q.12 hours plus metoprolol. If blood pressure reaches 80, probably will need to stop home metoprolol for a day. 8. Disposition. We will continue to monitor this patient closely. X-ray shows basically the same findings from admission. cc: Jim Bailey MD MTDD
[2018-10-04] MEDS: TYLENOL PO PRN (14:47)
--- NOTE | 2018-10-04 16:28 | PROGRESS NOTE ---
DATE: 10/04/2018 SUBJECTIVE: Patient denies shortness of breath or chest discomfort, on supplemental oxygen per nasal cannula. OBJECTIVE: Vital Signs: Blood pressure 99/56, heart rate 65, oxygen saturation 98% on nasal cannula oxygen. Neck: Jugular venous distention cannot be appreciated. Chest: Auscultation of the chest reveals a few inspiratory crackles in the bases. Cardiac: Reveals a regular rate and rhythm without appreciable murmur or gallop. Extremities: Without edema. LABORATORY DATA: Includes a white blood cell count of 6.3, hematocrit 39.1, hemoglobin 12.6, platelet count 114,000. Sodium 136, potassium 4.2, chloride 101, carbon dioxide 22, BUN 56, creatinine 2.2. Glucose 120. Initial troponin 0.021 with followup troponin 0.022, 0.018, and 0.021. IMPRESSION: 1. Acute on chronic systolic heart failure. 2. Atherosclerotic coronary disease with history of previous coronary bypass grafting. Last cardiac catheterization performed for similar presentation dictated continued medical management with left ventricular ejection fraction approximately 40%. Bypass grafts were patent. The patient has moderate to severe pulmonary hypertension. 3. Chronic chronic obstructive pulmonary disease. 4. Chronic atrial fibrillation. 5. Chronic kidney disease. RECOMMENDATIONS: Gently increase Lasix and diuresed further. cc: Alec Khan MD
[2018-10-04] MEDS: FLOMAX PO SCH (21:19)
[2018-10-04] MEDS: LIPITOR PO SCH (21:20)
[2018-10-04] MEDS: MELATONIN PO SCH (21:21)
[2018-10-04] MEDS: DESYREL PO SCH (21:21)
[2018-10-04] MEDS: SURFAK PO SCH (21:22)
[2018-10-04] MEDS: SYMBICORT 160/4.5 MICROGM INHALER INH SCH (21:42)
[2018-10-05] MEDS: LASIX IV SCH ×2 (03:48→15:45)
[2018-10-05] MEDS: PROTONIX PO SCH (05:59)
[2018-10-05] MEDS: SYNTHROID PO SCH (05:59)
[2018-10-05] MEDS: HUMULIN R SUBQ SCH ×4 (06:01→20:26)
[2018-10-05 07:22] LABS: BASO# 0.06 X1000 (0.0-0.2); EOS% 6.3 % (0.0-10.0); HEMATOCRIT 41.1 % (42.0-52.0); HEMOGLOBIN 13.3 g/dL (14.0-18.0); IMM GRAN# 0.02 X1000 (0.0-0.04); IMM GRAN% 0.3 % (0.0-0.5); LYMPH# 0.74 X1000 (1.2-3.4); LYMPH% 11.7 % (20.5-51.1); MCH 28.7 PG (27-31); MCHC 32.4 g/dL (33-37); MCV 88.8 FL (81-99); MONO% 12.7 % (1.7-9.3); MPV 10.5 FL (7.4-10.4); NEUT# 4.29 X1000 (1.4-6.5); PLT 124 X1000 (130-400); RBC 4.63 XMIL (4.7-6.1); RDW 15.9 % (11.5-14.5); WBC 6.31 X1000 (4.8-10.8)
[2018-10-05 07:50] LABS: CALCIUM 10.1 mg/dL (8.8-10.2); CREATININE 2.3 mg/dL (0.7-1.2)
[2018-10-05] MEDS: INCRUSE ELLIPTA INH SCH (07:53)
[2018-10-05] MEDS: LEXAPRO PO SCH (08:01)
[2018-10-05] MEDS: THERA M PLUS PO SCH (08:01)
[2018-10-05] MEDS: PLAVIX PO SCH (08:01)
[2018-10-05] MEDS: CLARITIN PO SCH (08:01)
[2018-10-05] MEDS: MIRALAX PO SCH (08:01)
[2018-10-05] MEDS: MOVANTIK PO SCH (08:01)
[2018-10-05] MEDS: LOPRESSOR PO SCH ×2 (08:01→20:26)
[2018-10-05] MEDS: ZANTAC PO SCH (08:01)
[2018-10-05] MEDS: LEVEMIR SUBQ SCH (08:02)
[2018-10-05] MEDS: ELIQUIS PO SCH ×2 (08:02→20:25)
[2018-10-05] MEDS: ALDACTONE PO SCH (08:02)
[2018-10-05] MEDS: LACTULOSE PO SCH (08:03)
--- NOTE | 2018-10-05 09:48 | PROGRESS NOTE ---
DATE: 10/05/2018 SUBJECTIVE: Within the last 24 hours, patient has not reported any chest discomfort. He reports feeling fine. OBJECTIVE: Vital Signs: Temperature 97.4 degrees, heart rate 87, respiratory rate 15, blood pressure 113/63, O2 saturation 98% on 2 L nasal cannula. General Examination: This is a chronically ill-appearing, 72-year-old male, lying in bed in no acute distress. Cardiovascular Exam: Irregularly irregular heart rhythm. No murmurs, gallops, or rubs noted. Respiratory Exam: Clear bilaterally to auscultation. No work of breathing or using accessory muscles. Abdomen: Soft, nontender to palpation. Bowel sounds present. No organomegaly. Extremities: No clubbing, cyanosis, or edema. Peripheral pulses present in both legs. Neurological Exam: Patient alert and oriented x3. Moves 4 extremities. LABORATORY DATA: Reviewed. ASSESSMENT AND PLAN: 1. Chest pain. As we mentioned before, Cardiology thinks and we agree that this pain is related to acute on chronic systolic heart failure. They have increased the dose of Lasix to 80 mg intravenous every 12 hours, and since then patient is not complaining of any chest pain. I think at this point we will continue with the same management. 2. Chronic atrial fibrillation. Patient is on Eliquis. We will continue with same management. 3. Chronic kidney disease stage II. Creatinine is at baseline. We will continue to monitor. 4. Diabetes mellitus type 2. We will continue with Accu-Chek before meals and also at bedtime. 5. Chronic obstructive pulmonary disease. The patient is not on any exacerbation. We will continue home medications. 6. Gastroesophageal reflux disease. We will continue with Protonix. 7. Hypertension. Blood pressure is stable. We will continue to monitor. 8. Disposition: At this point, I will keep this patient with the same dose of furosemide for 24 hours and, if the patient continues to improve, then will switch to oral and let this patient go. cc: Jim Bailey MD
[2018-10-05] MEDS: MORPHINE IV PRN (11:28)
--- NOTE | 2018-10-05 18:15 | PROGRESS NOTE ---
DATE: 10/05/2018 SUBJECTIVE: Patient reports feeling progressively better. He denies shortness of breath or chest discomfort. He is presently on nasal cannula oxygen at 2 L/minute. OBJECTIVE: Blood pressure 98/70, heart rate 50, oxygen saturation 98%. There is no significant jugular venous distention.Chest: Clear to auscultation bilaterally. Cardiac Exam: Reveals a regular rate and rhythm without appreciable murmur or gallop. There is no evidence of peripheral edema. LABORATORY DATA: Includes a white blood cell count 6.31, hematocrit 41.1, hemoglobin 13.3, platelet count 124,000. Sodium 138, potassium 4.0, chloride 100, carbon dioxide 25, BUN 57, creatinine 2.3, glucose 133. IMPRESSION: 1. Acute on chronic systolic heart failure. Patient improved with diuresis. 2. Atherosclerotic coronary disease with previous coronary bypass grafting. Last cardiac catheterization November 2017 performed for similar presentation demonstrated bypass graft patent, left ventricular ejection fraction 40%, and moderate to severe pulmonary hypertension. Continued medical management recommended. 3. Chronic obstructive pulmonary disease. 4. Chronic atrial fibrillation. 5. Chronic kidney disease. RECOMMENDATIONS: 1. Transition back to oral diuretic regimen. 2. Continue medical management of patient's coronary atherosclerosis and ischemic cardiomyopathy. 3. If clinical improvement maintain, can be reasonable for patient to be discharged in the next 24 hours. cc: Alec Khan MD
[2018-10-05] MEDS: SYMBICORT 160/4.5 MICROGM INHALER INH SCH (19:40)
[2018-10-05] MEDS: FLOMAX PO SCH (20:25)
[2018-10-05] MEDS: DESYREL PO SCH (20:25)
[2018-10-05] MEDS: LIPITOR PO SCH (20:25)
[2018-10-05] MEDS: MELATONIN PO SCH (20:25)
[2018-10-05] MEDS: SURFAK PO SCH (20:26)
[2018-10-06] MEDS: TYLENOL PO PRN (03:15)
[2018-10-06] MEDS: SYNTHROID PO SCH (06:19)
[2018-10-06] MEDS: PROTONIX PO SCH (06:19)
[2018-10-06] MEDS: HUMULIN R SUBQ SCH (06:21)
[2018-10-06 06:51] LABS: BASO# 0.05 X1000 (0.0-0.2); BASO% 0.8 % (0.0-0.8); EOS# 0.48 X1000 (0.0-0.7); EOS% 7.4 % (0.0-10.0); HEMATOCRIT 38.6 % (42.0-52.0); HEMOGLOBIN 12.6 g/dL (14.0-18.0); IMM GRAN# 0.02 X1000 (0.0-0.04); IMM GRAN% 0.3 % (0.0-0.5); LYMPH# 0.94 X1000 (1.2-3.4); LYMPH% 14.4 % (20.5-51.1); MCH 28.8 PG (27-31); MCHC 32.6 g/dL (33-37); MCV 88.1 FL (81-99); MONO# 0.83 X1000 (0.11-0.59); MONO% 12.7 % (1.7-9.3); MPV 10.2 FL (7.4-10.4); NEUT% 64.4 % (42.2-75.2); PLT 127 X1000 (130-400); RBC 4.38 XMIL (4.7-6.1); RDW 15.7 % (11.5-14.5); WBC 6.52 X1000 (4.8-10.8)
[2018-10-06 07:07] LABS: CALCIUM 9.7 mg/dL (8.8-10.2); CREATININE 2.1 mg/dL (0.7-1.2); POTASSIUM 4.1 mmol/L (3.5-5.1)
[2018-10-06] MEDS: INCRUSE ELLIPTA INH SCH (08:17)
[2018-10-06] MEDS: CLARITIN PO SCH (08:25)
[2018-10-06] MEDS: ELIQUIS PO SCH (08:25)
[2018-10-06] MEDS: THERA M PLUS PO SCH (08:25)
[2018-10-06] MEDS: LEXAPRO PO SCH (08:25)
[2018-10-06] MEDS: ALDACTONE PO SCH (08:26)
[2018-10-06] MEDS: MIRALAX PO SCH (08:26)
[2018-10-06] MEDS: MOVANTIK PO SCH (08:26)
[2018-10-06] MEDS: ZANTAC PO SCH (08:26)
[2018-10-06] MEDS: PLAVIX PO SCH (08:26)
[2018-10-06] MEDS: LACTULOSE PO SCH (08:27)
[2018-10-06] MEDS: LEVEMIR SUBQ SCH (08:27)
[2018-10-06] MEDS: LOPRESSOR PO SCH (08:28)
[2018-10-06] MEDS ORDERED: LASIX PO SCH (09:00)
[2018-10-06 11:54] VITALS: BP 109/73
--- NOTE | 2018-10-06 12:49 | DISCHARGE SUMMARY ---
ADMISSION DATE: 10/02/2018 DISCHARGE DATE: 10/06/2018 CONSULTATIONS: Dr. Khan with Cardiology. PERTINENT PROCEDURES: 1. Chest x-ray, mild cardiomegaly. DISCHARGE DIAGNOSES: 1. Chest pain. The patient has been followed by Cardiology. I agree and we concur that the pain is related to his acute on chronic systolic heart failure. They have increased his Lasix to 80 mg p.o. daily. He is currently chest pain free and has been diuresed appropriately with the Lasix and will be discharged back home to follow up with Cardiology. 2. Chronic atrial fibrillation. Continue Eliquis. 3. Chronic kidney disease stage 2. Creatinine is at baseline. 4. Diabetes mellitus type 2. Continue home medications. 5. Chronic obstructive pulmonary disease without exacerbation. 6. Gastroesophageal reflux disease. 7. Hypertension. Continue home medications. HOSPITAL COURSE: Briefly, Mr. Johnson is a 72-year-old gentleman well known to our service with a past medical history of coronary artery disease, MIs, congestive heart failure, CABG and stents, who presented with complaint of chest pain. He has had frequent admissions for noncardiac related chest pain. He had several sets of negative cardiac enzymes. [place] [id number] when he was admitted and was followed by Cardiology. His volume status improved with diuresis. They increased his p.o. to 80 mg a day and he will continue his medical management of his coronary atherosclerosis and ischemic cardiomyopathy. Again, he has diuresed well over the past few days and will be discharged back home with home health. VITAL SIGNS: At time of discharge, temperature is 97.6 degrees, heart rate 60, respirations 16, blood pressure 100/62, O2 is 97% on room air. DISCHARGE DIET: Diabetic. DISCHARGE MEDICATIONS: 1. Lipitor 20 mg p.o. at bedtime. 2. Colace 250 mg p.o. at bedtime. 3. Desyrel 50 mg p.o. at bedtime. 4. Flomax 0.4 mg p.o. at bedtime. 5. Melatonin 5 mg p.o. at bedtime. 6. Symbicort 160-4.5 mcg inhaler 1 puff inhaled at bedtime. 7. Aldactone 25 mg p.o. q.a.m. 8. Plavix 75 mg p.o. q.a.m. 9. Eliquis 2.5 mg p.o. b.i.d. 10. Lexapro 20 mg p.o. q.a.m. 11. Incruse Ellipta inhaler 62.5 mcg inhaler q.a.m. 12. Lactulose 10 g p.o. q.a.m. 13. Xopenex nebulizer 0.63 mg inhaled q. 4 hours p.r.n. 14. Claritin 10 mg p.o. q.a.m. 15. MiraLAX 17 g p.o. q.a.m. 16. Movantik 12.5 mg p.o. daily. 17. Multivitamin 1 tab p.o. q.a.m. 18. Nitroglycerin 0.4 mg sublingual p.r.n. chest pain. 19. Opti-Clear 15 mL ophthalmic p.r.n. 20. Protonix 40 mg p.o. q.a.m. 21. Tylenol 500 mg p.o. q. 6 hours p.r.n. 22. Zantac 150 mg p.o. q.a.m. 23. Lasix 80 mg p.o. daily. 24. Levemir 5 units subcutaneous daily. 25. Lopressor 25 mg p.o. b.i.d. 26. Synthroid 100 mcg p.o. daily. FOLLOWUP: Mr. Johnson is being discharged back home with home health. 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 Null, as well as his primary care provider, Dr. Anand, in 7 to 10 days. He can return to the ED or call 911 for any worsening of symptoms. He is to take all medications as prescribed. Dictated by ROBIN Cabrera for Jim Bailey MD Addendum: Patient is seen and examined by myself. Agree with ROBIN note. It reflects my assessment and plan. Patient is being discharged in stable condition. Will be seen by PCP in a week. cc: Jim Bailey MD [facility]
== END 2018-10-06 13:17 | disposition home health service (06) | DRG 291 ==
LOC: SUPCPDRO → ED 07:49 → 2N 10:58
PROVIDERS: ATTEND Internal Medicine

== ENCOUNTER 2018-10-22 23:15 | Inpatient (IN) ==
[2018-10-22 23:45] LABS: BASO# 0.03 X1000 (0.0-0.2); BASO% 0.2 % (0.0-0.8); EOS# 0.23 X1000 (0.0-0.7); EOS% 1.9 % (0.0-10.0); HEMATOCRIT 42.2 % (42.0-52.0); HEMOGLOBIN 13.6 g/dL (14.0-18.0); IMM GRAN# 0.02 X1000 (0.0-0.04); IMM GRAN% 0.2 % (0.0-0.5); LYMPH# 1.26 X1000 (1.2-3.4); LYMPH% 10.4 % (20.5-51.1); MCH 28.3 PG (27-31); MCHC 32.2 g/dL (33-37); MCV 87.7 FL (81-99); MONO# 1.25 X1000 (0.11-0.59); MONO% 10.3 % (1.7-9.3); MPV 10.5 FL (7.4-10.4); NEUT# 9.35 X1000 (1.4-6.5); PLT 131 X1000 (130-400); RBC 4.81 XMIL (4.7-6.1); RDW 16.5 % (11.5-14.5); WBC 12.14 X1000 (4.8-10.8)
[2018-10-22] MEDS: PROTONIX IV SCH (23:45)
[2018-10-22] MEDS ORDERED: NS 1,000 ML IV ONE ×2 (23:46→23:59)
[2018-10-22] MEDS ORDERED: PROTONIX IV ONE (23:47)
[2018-10-22] MEDS ORDERED: SODIUM CHLORIDE 0.9% INJ ONE ×2 (23:47→23:58)
--- NOTE | 2018-10-22 23:52 | PROVIDER DOCUMENTATION ---
HPI-Abdominal Pain/GI Problem - General Chief Complaint: Rectal Bleeding Stated Complaint: rectal bleed Time Seen by Provider: 10/22/18 23:30 Source: patient Allergies/Adverse Reactions: Patient Allergies Allergy/AdvReac Type Severity Reaction Status Date / Time metoclopramide HCl * AdvReac Intermediate NAUSEA Verified 10/22/18 23:18 [From Reglan] Home Medications: Home Medication List Medication Instructions Recorded Confirmed Last Taken Type Atorvastatin Calcium 20 mg PO QHS 10/11/16 10/02/18 10/01/18 History Clopidogrel Bisulfate [Clopidogrel] 75 mg PO QAM 10/11/16 10/02/18 10/02/18 History Escitalopram Oxalate 20 mg PO QAM 10/11/16 10/02/18 10/02/18 History Melatonin 5 mg PO QHS 10/11/16 10/02/18 10/01/18 History Nitroglycerin 0.4 mg SL PRN PRN 10/11/16 10/02/18 10/02/18 History Docusate Sodium [Colace] 250 mg PO QHS 12/23/16 10/02/18 10/01/18 History Loratadine 10 mg PO QAM 03/28/17 10/02/18 10/02/18 History Tamsulosin [Flomax] 0.4 mg PO QHS 09/11/17 10/02/18 10/01/18 History Acetaminophen [Tylenol] 500 mg PO Q6H PRN PRN 10/23/17 10/02/18 07/29/18 07:00 History Apixaban [Eliquis] 2.5 mg PO BID 10/23/17 10/02/18 10/01/18 History Budesonide/Formoterol Fumarate 1 puff INH QHS 10/23/17 10/02/18 10/01/18 History [Symbicort 160-4.5 Mcg Inhaler] Lactulose 10 gm PO QAM 10/23/17 10/02/18 10/02/18 History Multivitamin [Multi-Vitamin Daily] 1 tab PO QAM 10/23/17 10/02/18 10/02/18 History Pantoprazole [Protonix] 40 mg PO QAM 10/23/17 10/02/18 10/02/18 History Polyethylene Glycol 3350 [Miralax] 1 packet PO QAM 10/23/17 10/02/18 10/02/18 History Tetrahydrozoline HCl [Opti-Clear] 15 ml OP PRN PRN 10/23/17 10/02/18 07/29/18 07:00 History Trazodone [Desyrel] 50 mg PO QHS 10/23/17 10/02/18 10/01/18 History Umeclidinium Armbrust [Incruse 62.5 mcg IH QAM 10/23/17 10/02/18 10/02/18 History Ellipta] Levalbuterol HCl 0.63 mg IH Q4H PRN PRN 01/09/18 10/02/18 10/02/18 History Spironolactone [Aldactone] 25 mg PO QAM 01/09/18 10/02/18 10/02/18 History Insulin Detemir [Levemir] 5 unit SUBQ DAILY #5 insuln.pen 05/25/18 10/02/18 10/02/18 Rx Metoprolol [Lopressor] 25 mg PO BID #120 tab 07/05/18 10/02/18 10/02/18 Rx Levothyroxine [Synthroid] 100 microgm PO DAILY@0700 tab 07/13/18 10/02/18 10/02/18 Rx Naloxegol Oxalate [Movantik] 12.5 mg PO DAILY 07/29/18 10/02/18 10/02/18 History Ranitidine HCl [Zantac] 150 mg PO QAM 07/29/18 10/02/18 10/02/18 History Furosemide [Lasix] 80 mg PO DAILY #90 tab 10/06/18 Unknown Rx Hydrocodone/Acetaminophen [[place]le[place] 1 ea PO Q4H PRN #20 tab 10/10/18 Unknown Rx 10-325 Tablet] Ranolazine E.r. [Ranexa] 500 mg PO Q12HR #120 tab 10/10/18 Unknown Rx - History of Present Illness-ABD Nature of Presenting Problems: patient is a 72 year old white male with history of chronic atrial fibrillation (currently taking Eloquis), CAD, who presents by EMS complaining of dark rectal bleeding since today Abdominal Pain Onset Location: reports: other (lower abdomen) Quality of Pain: reports: cramping Severity in ED: reports: moderate Onset/Duration: reports: gradual Timing: reports: intermittent Review of Systems - Adult - REVIEW OF SYSTEMS - ADULT Constitutional: denies: chills, fever Eyes: reports: no symptoms reported Ears, Nose, Mouth & Throat: reports: no symptoms reported Cardiovascular: denies: chest pain Respiratory: reports: no symptoms reported Gastrointestinal: reports: abdominal pain (lower abdominal cramping, rectal exam reveals profuse dark blood) Genitourinary: denies: dysuria Musculoskeletal: reports: no symptoms reported Integumentary: reports: no symptoms reported Neurological: reports: no symptoms reported Psychiatric: reports: no symptoms reported Endocrine: reports: no symptoms reported Hematologic/Lymphatic: reports: see HPI, prolonged bleeding (due to Eloquis) Allergic/Immunologic: reports: no symptoms reported Past History - Adult - PAST MEDICAL HISTORY-ADULT Review of Records: reports: Old Records Reviewed, Nursing Assessment Review, Medications Reviewed, Social history reviewed & non-contributory. Major Childhood Illnesses: reports: denies history Cardiovascular: reports: A-Fib, CAD, CHF, HTN, hyperlipidemia, [place] Respiratory: reports: COPD, sleep apnea Gastrointestinal: reports: denies history, GERD Obstetrical/Gynecological: reports: denies history Genitourinary: reports: kidney disease (CKD) Musculoskeletal: reports: denies history Neurological: reports: denies history Psychiatric: reports: depression Endocrine/Immune: reports: Diabetes, thyroid disorder (hypo) Other Conditions: reports: denies history - PRIOR SURGERIES/PROCEDURES Surgical/Procedure History: reports: CABG (last bypass 1999), cholecystectomy, cardiac stent (x5, last stent 12 years ago), hernia repair, orthopedic (extr emity) (bone spur), other (exploratory surgery; retina; prostate) - PRIOR HOSPITALIZATIONS Prior Hospitalizations: reports: for other non-related - IMMUNIZATION STATUS Childhood Immunizations: See Nurse Assessment Flu Vaccine: See Nurse Assessment - FAMILY HISTORY Family History: reviewed, not pertinent Physical Exam-General - PHYSICAL EXAM-ADULT Initial Vital Signs Reviewed: Yes - CONSTITUTIONAL General Appearance: alert, no apparent distress - EYES Eyes: other (clear) - HEAD, EARS, NOSE, MOUTH & THROAT HENMT: normocephalic/atraumatic, moist mucous membranes - NECK Neck: non-tender, full range of motion, supple - RESPIRATORY Respiratory: lungs clear - CARDIOVASCULAR Cardiovascular: regular rate, rhythm - GASTROINTESTINAL (ABDOMEN) Abdominal Exam: other (lower abdomen tenderness). negative: guarding - MUSCULOSKELETAL Extremity: normal range of motion Peripheral Pulses: radial (R): 2+, radial (L): 2+ - SKIN Integumentary: normal color, normal turgor, warm/dry - NEUROLOGIC Neurologic: grossly normal - PSYCHIATRIC Psych/Mental Status: oriented x 3, anxious Progress - PLAN OF CARE/RESULTS Progress/Plan/Lab Results: Vital Signs - 8 hr 10/22/18 23:25 Temperature 99.2 F Pulse Rate 74 Respiratory Rate 23 Blood Pressure 105/70 O2 Sat by Pulse Oximetry 99 Laboratory Results - last 24 hr 10/22/18 23:33 WBC 12.14 H RBC 4.81 Hgb 13.6 L Hct 42.2 MCV 87.7 MCH 28.3 MCHC 32.2 L RDW Std Deviation 16.5 H Plt Count 131 MPV 10.5 H Immature Gran % (Auto) 0.2 Neut % (Auto) 77.0 H Lymph % (Auto) 10.4 L [place] % (Auto) 10.3 H Eos % (Auto) 1.9 Baso % (Auto) 0.2 Immature Gran # (Auto) 0.02 Neut # (Auto) 9.35 H Lymph # (Auto) 1.26 [place] # (Auto) 1.25 H Eos # (Auto) 0.23 Baso # (Auto) 0.03 Orders Category Date Time Status Orthostatic Vital Signs NOW Care 10/22/18 23:21 Active CBC WITH ELECTRONIC DIFF [HEME] Stat Lab 10/22/18 23:33 Completed CMP [COMPREHENSIVE METABOLIC PANEL] [CHEM] Stat Lab 10/22/18 23:33 Received OCCULT BLOOD SCREEN STOOL PL Stat Lab 10/22/18 23:25 Received PT [PROTIME WITH INR] [COAG] Stat Lab 10/22/18 23:33 Received TYPE & SCREEN [BBK] Stat Lab 10/22/18 23:26 Uncollected 0.9% Sodium Chloride Inj [Ns] 1,000 ml Med 10/22/18 23:46 Active IV 999 mls/hr Pantoprazole [Protonix] Med 10/22/18 23:47 Discontinued 40 mg IV NOW ONE Sodium Chloride 0.9% Med 10/22/18 23:47 Discontinued 10 ml INJ NOW ONE Result Diagrams: 10/23/18 03:18 10/23/18 03:18 - CONSULTS/PCP/HOSPITALIST Notification #1 *Consult/PCP/Hospitalist*: Dr. Conley, hospitalist crack off person at [facility] Time Discussed: 23:50 Reason/Comments: transfer to [facility] ICU Consult Disposition: Admit #2 Consult: Dr. Gaviria, GI doctor Time Discussed: 23:45 Reason/Comments: IV Protonix, IV fluids bolus Consult Disposition: Admit Departure - Departure Date of Disposition Decision: 10/23/18 Time of Disposition Decision: 01:37 DIAGNOSIS: GI bleeding Qualifiers: GI bleed type/associated pathology: unspecified gastrointestinal hemorrhage type Qualified Code(s): K92.2 - Gastrointestinal hemorrhage, unspecified Disposition: ADMITTED INPATIENT 09 Certified Medical Emergency: Emergent Condition: Serious - Critical Care Note This patient required my direct & personal management of CC.: No Attestation - Physician/ LILI Attestation Patient care was provided by Advanced Practice Provider:: No The physician spent face to face time with patient:: Yes Advanced Practice Provider documentation review:: Supervising physician onsite and consulted in the evaluation and care of this patient. The physician did have a face to face encounter with the patient.
[2018-10-23 00:01] LABS: INR 1.72
[2018-10-23 00:07] LABS: OCCULT BLOOD 1 POSITIVE (NEGATIVE)
[2018-10-23 00:08] LABS: ALBUMIN 4.4 g/dL (3.5-5.0); CALCIUM 9.5 mg/dL (8.8-10.2); CREATININE 2.8 mg/dL (0.7-1.2); POTASSIUM 4.4 mmol/L (3.5-5.1); TOTAL BILIRUBIN 1.7 mg/dL (0.20-1.00); TOTAL PROTEIN 7.6 g/dL (6.3-8.3)
[2018-10-23 03:23] LABS: HEMOGLOBIN 13.6 g/dL (14.0-18.0)
[2018-10-23] MEDS ORDERED: OFIRMEV 1000 MG/ISOTONIC SOLN 1,000 MG/100 ML BOTTLE IV ONE (03:27)
[2018-10-23] MEDS ORDERED: ZOFRAN IV PRN (03:38)
[2018-10-23] MEDS ORDERED: NS 1,000 ML IV SCH (03:45)
[2018-10-23 03:51] LABS: BASO# 0.04 X1000 (0.0-0.2); BASO% 0.4 % (0.0-0.8); EOS# 0.27 X1000 (0.0-0.7); EOS% 2.6 % (0.0-10.0); HEMATOCRIT 41.7 % (42.0-52.0); HEMOGLOBIN 13.6 g/dL (14.0-18.0); IMM GRAN# 0.02 X1000 (0.0-0.04); IMM GRAN% 0.2 % (0.0-0.5); LYMPH# 1.07 X1000 (1.2-3.4); LYMPH% 10.3 % (20.5-51.1); MCH 28.4 PG (27-31); MCHC 32.6 g/dL (33-37); MCV 87.1 FL (81-99); MONO# 0.92 X1000 (0.11-0.59); MONO% 8.8 % (1.7-9.3); MPV 10.6 FL (7.4-10.4); NEUT# 8.09 X1000 (1.4-6.5); NEUT% 77.7 % (42.2-75.2); PLT 113 X1000 (130-400); RBC 4.79 XMIL (4.7-6.1); RDW 16.4 % (11.5-14.5); WBC 10.41 X1000 (4.8-10.8)
[2018-10-23 04:00] LABS: INR 1.9; PROTIME 22.2 Seconds (11.0-16.0)
[2018-10-23 04:02] LABS: CALCIUM 9.1 mg/dL (8.8-10.2); CREATININE 2.1 mg/dL (0.7-1.2); POTASSIUM 4.4 mmol/L (3.5-5.1)
[2018-10-23] MEDS ORDERED: NS 500 ML IV SCH (05:00)
[2018-10-23] MEDS ORDERED: NS 1,000 ML IV ONE (06:49)
[2018-10-23] MEDS: HUMULIN R SUBQ SCH ×4 (07:07→21:00)
[2018-10-23 07:09] LABS: URINE SOURCE CATH
[2018-10-23 07:13] LABS: BILIRUBIN URINE NEGATIVE (NEGATIVE); BLOOD URINE NEGATIVE (NEGATIVE); COLOR YELLOW; GLUCOSE URINE NEGATIVE (NEGATIVE); KETONE URINE NEGATIVE (NEGATIVE); LEUKOCYTES URINE NEGATIVE (NEGATIVE); NITRITE URINE NEGATIVE (NEGATIVE); PH URINE 5.5; PROTEIN URINE NEGATIVE (NEGATIVE); SP GRAVITY URINE 1.014; TURBIDITY URINE CLEAR (CLEAR); UROBILINOGEN URINE NORMAL (NORMAL)
[2018-10-23 07:14] LABS: UR EPITHELIAL CELLS <10 /HPF (<10); URINE BACTERIA NEGATIVE /HPF; URINE RBC <10 /HPF (<10); URINE WBC <10 /HPF (<10)
[2018-10-23] MEDS ORDERED: LEVOPHED 8 MG in D5 1/2 NS 250 ML IV SCH (07:45)
[2018-10-23] MEDS ORDERED: NITROGLYCERIN SL PRN (07:48)
[2018-10-23] MEDS ORDERED: XOPENEX NEB INH PRN (07:48)
[2018-10-23 07:54] LABS: HEMATOCRIT 39.3 % (42.0-52.0); HEMOGLOBIN 12.7 g/dL (14.0-18.0)
--- NOTE | 2018-10-23 08:59 | Diag Imaging Result Doc PS360 ---
CHEST-PORTABLE - 10/23/2018 INDICATION: shortness of breath COMPARISON: 10/10/2018 FINDINGS: There has been decrease in the tiny left pleural effusion and retrocardiac atelectasis. The lungs are now grossly clear. Stable cardiomegaly. Pulmonary vascularity is top normal. IMPRESSION: Decrease in the tiny left pleural effusion. Mild cardiomegaly. Electronically signed by Dawson Willams 10/23/2018 8:57 AM
[2018-10-23] MEDS ORDERED: MIRALAX PO SCH (09:00)
[2018-10-23] MEDS: THERA M PLUS PO SCH (09:26)
[2018-10-23] MEDS: MIRALAX PO SCH ×2 (09:26→21:00)
[2018-10-23] MEDS: LEXAPRO PO SCH (09:26)
[2018-10-23] MEDS: RANEXA PO SCH ×2 (09:26→20:59)
[2018-10-23] MEDS: DULCOLAX PR SCH ×2 (09:27→21:00)
--- NOTE | 2018-10-23 10:59 | Diag Imaging Result Doc PS360 ---
ABDOMEN FLAT/UPRIGHT - 10/23/2018 INDICATION: GI bleeding COMPARISON: 07/05/2018 FINDINGS: Stable extensive ventral hernia repair mesh. There is mild constipation. No bowel obstruction or free air. There are numerous surgical clips in the right upper quadrant. IMPRESSION: Mild constipation but no acute disease. Electronically signed by Dawson Willams 10/23/2018 10:57 AM
[2018-10-23] MEDS: PROTONIX IV SCH ×2 (11:03→20:59)
--- NOTE | 2018-10-23 11:35 | HISTORY AND PHYSICAL ---
PRIMARY CARE PROVIDER: Rocio Anand MD AUTO SERVICE WRITER: Juan Manuel Null MD ENDODONTIC ASSISTANT: Dr. Shaw DATE AND TIME: 10/23/2018 at 0230. CHIEF COMPLAINT: Rectal bleeding. HISTORY OF PRESENT ILLNESS: Mr. Johnosn is a 72-year-old male with a past medical history most notable for coronary artery disease status post CABG and multiple cardiac stents, congestive heart failure, ischemic cardiomyopathy, and chronic atrial fibrillation and does take an anticoagulant of Eliquis and anti-platelet of Plavix. The patient states that he does have problems with chronic constipation and had not had a bowel movement for approximately 5 days until today when he noticed he had black stools. Just prior to arrival to the ER, he did report having some increase in his rectal bleeding, stating this was a little more reddish in color. The patient also complains of generalized abdominal pain and rectal pain as well. He also reports that he feels nauseated. He has reported some dizziness. He denies any [id number] use of NSAIDs. He also denies any use of Pepto-Bismol. He denies any headache, chest pain, shortness of breath. He denies any vomiting or diarrhea. He denies any dysuria or urinary frequency. He also denies any pain numbness, tingling, or swelling in extremities. The patient did present to the ER at [facility]. Upon arrival there, he did have initial vital signs of temperature 99.2 degrees, heart rate 74, respirations 23, blood pressure is 105/70 with oxygen saturation of 99% on nasal cannula at 2 L. Hemoglobin and hematocrit were 13.6 and 42.2. They did perform a Hemoccult stool which was positive. They also did perform orthostatic blood pressures, which the patient did have a significant tilt. Upon sitting, his blood pressure went from 107/68 to 73/42. Upon standing, his blood pressure further reduced to 64/42. The patient was given 2 L normal saline bolus and since that time his blood pressure has improved though still remains borderline with systolics that run in the high 80s to 90s. Though, his MAP is maintaining above 65 at this time. He is not tachycardic. His heart rate is maintaining in the high 60s to low [address] Gaviria with Gastroenterology was consulted by the ER physician. The patient will be placed for inpatient admission to the ICU at [facility]. REVIEW OF SYSTEMS: A 14 point review of systems was conducted with the patient. All were negative except for pertinent positives mentioned above HPI. PAST MEDICAL HISTORY: 1. Congestive heart failure with a last known ejection fraction of 40% in June 2018. 2. Coronary artery disease status post coronary artery bypass graft and multiple cardiac stents. 3. Ischemic cardiomyopathy. 4. Chronic obstructive pulmonary disease with severe pulmonary hypertension. 5. Chronic kidney disease. 6. Chronic atrial fibrillation. 7. Diabetes mellitus type 2. 8. BPH. 9. Hypertension. 10. Gastroesophageal reflux disease. PAST SURGICAL HISTORY: 1. Multiple cardiac stents. 2. Coronary artery bypass graft. 3. Hernia repair. 4. Bilateral cataract surgery. SOCIAL HISTORY: The patient did have a very brief history of smoking for approximately 1 year while he served in [employer], though states he has not smoked since then. There is no known alcohol or illicit drug use. The patient does live in [facility]. FAMILY HISTORY: Positive for his father having a history of coronary artery disease and at a young age secondary to this. ALLERGIES: Patient has allergies to Reglan. HOME MEDICATIONS: We are waiting for the patient's home medication list to be reconciled, though we did confirm that he does take Eliquis and Plavix though he does not take any aspirin. DIAGNOSTIC DATA/LABORATORY [place]ULTS: [place] [address], hemoglobin 13.6, hematocrit 42.2, platelet count is 131,000, PT 21, INR 1.72. Sodium 136, potassium 4.4, chloride 99, serum bicarbonate is 23, BUN 54, creatinine is 2.8, GFR is 22, glucose 149, calcium 9.5, total bilirubin is 1.7, AST 22, ALT 14, alkaline phosphatase is 177. Hemoccult stool was positive. PHYSICAL EXAMINATION: VITAL SIGNS: Temperature 98.5 degrees, heart rate 69, respirations 14, blood pressure was 85/59 with a MAP of 70, oxygen saturation is 99% on nasal cannula at 2 L. GENERAL: Mr. Johnson is a very pleasant 72-year-old male. He was resting in the ICU bed. He was in no acute distress. He was awake, alert, and able to answer questions appropriately. HEENT: Head is atraumatic, normocephalic. Pupils are equal, round, reactive to light 3 mm bilaterally and brisk. Sub-conjunctivae were pink. Oral mucosa was slightly dry. Oropharynx was clear. NECK: Supple trachea midline. CARDIOVASCULAR: Patient has S1-S2 present. No murmurs, gallops, or rubs appreciated. He does have an irregularly irregular rate though the rate is controlled in the high 60s to low 80s. PULMONARY: Patient has symmetrical chest expansion bilaterally. Lung sounds are clear to auscultation in bilateral full bashir. ABDOMEN: Soft, does not appear to be distended. He does have a slightly protuberant abdomen noted. They did report some generalized tenderness upon palpation. Bowel sounds are present in all 4 quadrants, were normoactive. EXTREMITIES: No cyanosis or edema noted. Pulse, motor, and sensory were intact in all extremities. Radial and pedal pulses were 2+ bilaterally. INTEGUMENTARY: The patient's skin is pink, warm, and dry. NEUROLOGICAL: Patient is alert and oriented to person, place, time and situation. He is able to move all extremities. There are no focal neurological deficits noted. ASSESSMENT AND PLAN: 1. Gastrointestinal bleed. We suspect at this time that this may be possibly upper gastrointestinal bleed, given that he has been having melena. The patient's hemoglobin and hematocrit are stable, though he is borderline hypotensive. He was orthostatic previously in the ER at [facility]. He has received 2 L normal saline bolus. We will continue with normal saline at 50 mL/h, though we will monitor this very closely. Given that the patient does have a history of congestive heart failure, we will do strict intake and output. We will do some serial hemoglobin and hematocrit draws. We have placed him NPO and have placed a consult with Dr. Gaviria of Gastroenterology. We will await his evaluation and further recommendations for management. We have also placed him with Protonix 40 mg IV q.12 hours. 2. Mild hypotension. This is likely secondary to his gastrointestinal bleed and some fluid and some volume depletion. As previously mentioned, the patient has received two 1 L normal saline boluses, we will continue with some gentle intravenous hydration with normal saline at 50 mL per hour. At this time the patient's blood pressures have improved. He is maintaining MAP's above 65. We will monitor this closely. He is in the ICU for close monitoring. 3. History of congestive heart failure. At this time, we are holding the patient's diuretics. We are providing some gentle fluid hydration given his hypotension and volume depletion. We will do strict intake and output and continue to follow closely. 4. History of coronary artery disease status post coronary artery bypass graft and cardiac stent placement. 5. History of chronic atrial fibrillation on anticoagulation with Eliquis. The patient's heart rate is controlled at this time in the 60s to 80s. He is in atrial fibrillation on the bedside monitor. We are holding his Eliquis and Plavix at this time. 6. Acute on chronic kidney disease. The patient has had a slight elevation in his creatinine. It is at 2.8 at this time. This may be secondary to hypotension and volume depletion. We are providing some very gentle fluid hydration as mentioned above. We will avoid nephrotoxic medications and renally dose medicines as necessary. We will continue to follow. 7. Diabetes mellitus type 2. The patient is NPO at this time. We have placed him on a patient specific sliding scale regular insulin. 8. Deep vein thrombosis prophylaxis provided with sequential compression devices. The patient has been placed in the ICU. He will be on continuous cardiac telemetry. Vital signs per ICU protocol. We will repeat a CBC, BMP, PT and INR later on this morning. Further orders and recommendations pending hospital course, diagnostic studies, and physician evaluations. Dictated by ROBIN Sexton for Terry Conley MD This patient was intterviewed and examined by me simultaneously with ROBIN in the ICU after transer from [facility]. We discussed findings, treatment plan and consultations going forward. This document accurately reflects our findings and treatment plan. cc: Terry Conley MD [facility]
[2018-10-23] MEDS: VITAMIN K 10 MG in NS 50 ML IV SCH (12:10)
--- NOTE | 2018-10-23 13:38 | PROGRESS NOTE ---
DATE: 10/23/2018 INTERVAL HISTORY: He states that he has been having bright looking blood since last 2 days. He has been on clopidogrel and Eliquis as per the review of medication list. He states there has not been any new changes in his medications made recently. He denies any chest pain or shortness of breath. He denies feeling dizzy, but he has not been out of bed. VITALS: Currently, temperature of 98 degrees, pulse of 62, respiratory rate 14, blood pressure 130/90, saturating 98% on room air. PHYSICAL EXAMINATION: General: Does not appear in any acute distress. Oral cavity: Moist. Lungs: Air entry bilaterally equal. No wheeze, rhonchi, crackles. Cardiovascular: S1, S2 normal. Regular. No murmur, rub or gallop. Midline scar of previous sternotomy. Abdomen: Has laparotomy scar. Abdominal hernia. Soft, mildly tender. Active bowel sounds. Extremities: No lower extremity edema. Rectal Examination: External hemorrhoids and brown stool with fecal impaction. No bright red blood on examining finger. LABS: Suggestive of stable hemoglobin since admission. Mild thrombocytopenia. Elevated INR because of use of Eliquis. CKD stage 4. Normal cortisol level. Normal urinalysis. Positive fecal occult blood test. MICROBIOLOGY: No data. IMAGING: No data, except chest x-ray which was largely unremarkable, though the read is pending. He does have cardiomegaly. ASSESSMENT AND PLAN: 1. Hypotension and shock of unclear etiology. Differential includes intravascular volume depletion due to higher Lasix dose, poor oral intake versus other. No signs of sepsis at the moment. Follow up echocardiogram to rule out pericardial effusion, tamponade. Cortisol level is normal. Follow-up thyroid stimulating hormone. Blood cultures if he becomes febrile. No symptoms of infection currently. Cont Norepinephrine with goal MAP>65 mmHg. 2. Acute Gastrointestinal bleed with positive fecal occult blood test. Currently stable hemoglobin. Monitor CBC. Continue PPI IV. Follow up Abdominal xray and GI recs. 3. History of coronary artery disease status post coronary artery bypass graft and multiple stents, last being in 2003. Follow up electrocardiogram. 4. History of chronic systolic congestive heart failure with ejection fraction of 40 to 45 percent. No current signs of exacerbation. 5. History of chronic constipation. Start patient on aggressive bowel regimen. 7. Others. Continue patient's home medication of atorvastatin, ranolazine for coronary artery disease, and hold clopidogrel. Currently heart rate is well controlled. I am holding metoprolol and Eliquis for history of his chronic atrial fibrillation. 8. Disposition: I will continue to monitor patient in intensive care unit. TIME SPENT: More than 30 minutes of critical care time was spent taking care of this patient. cc: Remington Guerra MD MTDD
--- NOTE | 2018-10-23 13:50 | Diag Imaging Result Doc PS360 ---
CT ABDOMEN/PELVIS W/O CONTRAST - 10/23/2018 INDICATION: eval for colitis COMPARISON: 07/17/2018 FINDINGS: Stable cardiomegaly. No significant infiltrates or edema. There is trace ascites. Numerous stable peripelvic cysts on the right. There are a couple stable cortical cysts on the left. There is a stable large nonobstructing left renal stone measuring about 9 mm. Stable nonspecific peripancreatic stranding/edema. Stable ventral hernia mesh. No recurrent herniation. There is moderate rectal stool impaction with a 6 cm stool ball. There is moderate wall thickening and surrounding inflammation of the rectum indicating stercoral proctitis. Urinary bladder is collapsed by a Rosario catheter. Prostate is grossly normal. There are moderate degenerative changes of the spine. No acute or suspicious bony lesion. IMPRESSION: 1. Rectal stool impaction. Stercoral proctitis. 2. Trace ascites. 3. Peripancreatic and mesenteric edema stable from prior. 4. Stable nonobstructing left renal stone. This exam was performed using automated exposure control, adjustment of mA or kV according to patient size, and/or use of iterative reconstruction technique Electronically signed by Dawson Willams 10/23/2018 1:48 PM
[2018-10-23] MEDS: TYLENOL PO PRN (14:34)
--- NOTE | 2018-10-23 14:51 | EKG Report ---
Test Performed on : 10/23/2018 08:52:33 AM Test Reason : Hypotension Blood Pressure : / mmHG Vent. Rate : 080 BPM Atrial Rate : 081 BPM P-R Int : 000 ms QRS Dur : 170 ms QT Int : 456 ms P-R-T Axes : 000 -75 104 degrees QTc Int : 525 ms Atrial fibrillation. Left axis deviation Left bundle branch block Abnormal ECG When compared with ECG of 10-OCT-2018 10:24, (Unconfirmed) Vent. rate has increased BY 32 BPM QT has lengthened Confirmed by Rj LI, Teja Guo ([id number]) on 10/24/2018 8:29:11 AM
--- NOTE | 2018-10-23 17:20 | ECHO REPORT ---
ORDER DATE: 10/23/2018 LIMITED ECHOCARDIOGRAM INDICATION: Hypertension, atrial fibrillation, coronary heart disease. M-MODE MEASUREMENTS: Left ventricle end diastole: 4.6. Left ventricle end systole: 2.5. SUMMARY OF 2-DIMENSIONAL IMAGIN. The left ventricle is mildly enlarged, and it shows severely impaired function. The anterior septal segment, the apex, the anterior distal lateral wall is essentially dyskinetic. Global ejection fraction is probably on the order of 25% at best. The entire septum and apex again are dyskinetic. 2. There is no pericardial effusion. 3. The aortic valve opens normally. Color flow mapping was not done. 4. The mitral valve opens normally. There is some calcification of the annulus. 5. There is no mass and no thrombus. 6. The right-sided chambers are significantly enlarged. The right ventricle is significant dilated, as well as the right atrium. 7. The patient is in atrial fibrillation. Clinical correlation recommended. cc: MD Remington Hubbard MD
--- NOTE | 2018-10-23 17:24 | GASTROENTEROLOGY CONSULTATION ---
DATE: 10/23/2018 REASON FOR CONSULTATION: GI bleed. HPI: Mr. Khris Johnson is a 72-year-old gentleman with past medical history of hypertension, hyperlipidemia, CAD status post VA x3 and bypass as well as stents on Plavix, severe pulmonary hypertension, COPD, CKD stage 3, chronic atrial fibrillation on Eliquis, GERD, insulin-dependent diabetes, BPH, systolic CHF with EF of 33%, who presents with 2 days of rectal bleeding with bright red blood per rectum. The patient says that about a week ago he developed constipation and was not able to have a bowel movement for 5 days. This constipation was associated with some lower abdominal discomfort. Two nights ago the patient reports having bright red blood per rectum and has had multiple episodes since presenting to the [facility] [place] yesterday. He also reports having nausea that is worse with eating for the last week. No vomiting, fevers, chest pain, or shortness of breath. He has had some lightheadedness and fatigue and reports that his balance has been off over the last week. He sustained 2 falls without any obvious injuries during that time. His last endoscopy was over 10 to 15 years ago. He had a colonoscopy about 10-11 years ago in [place]. He denies any history of polyps. He does not take any NSAIDs or aspirin. He has lost about 80 pounds in the last year. REVIEW OF SYSTEMS: As per HPI, otherwise 12 point review of systems is negative. PAST MEDICAL HISTORY: As per HPI. PAST SURGICAL HISTORY: Coronary artery bypass, hiatal hernia repair, left inguinal hernia repair, remote exploratory laparoscopy, cholecystectomy, bilateral cataract surgery. FAMILY HISTORY: No family history of GI malignancies. SOCIAL HISTORY: No smoking, alcohol or drug use. MEDICATIONS: Lasix, nitroglycerin, atorvastatin, melatonin, escitalopram, Plavix, docusate, loratadine, Flomax, Eliquis, lactulose, pantoprazole, MiraLAX, Opti-Clear, Incruse Ellipta, Symbicort, trazodone, Tylenol, multivitamin, levalbuterol inhaler, Aldactone. ALLERGIES: Reglan. PHYSICAL EXAMINATION: Vital Signs: Temperature 99.7, heart rate 73, respiratory rate 14, blood pressure 98/60 on Levophed, he is 97% on 2 L nasal cannula. Earlier yesterday evening his blood pressure was systolics in the 70s. General: The patient is awake, alert, no acute distress, talking in complete sentences. HEENT: Sclerae anicteric. Moist mucous membranes. Extraocular motor intact. Neck: Supple. No JVD. Cardiac: Regular rate and rhythm. No murmurs. Lungs: Clear to auscultation bilaterally. The patient is breathing with pursed lips, some minimal respiratory distress. Abdomen: Exploratory laparotomy scar, obese, soft. Hypoactive bowel sounds. Some tenderness to palpation in lower abdomen with voluntary guarding. No rebound. Extremities: No clubbing, cyanosis, or edema. Neuro: Nonfocal. LABS: White count of 10.4 from 12.1 yesterday, hemoglobin of 12.7 from 13.6, platelets of 113,000 from 131,000, neutrophils are 77.7%. INR is 1.9 from 1.7 yesterday, sodium 139, potassium 4.4, chloride of 103, bicarb 20, BUN of 55, creatinine of 2.1 from 2.8, glucose of 133. LFTs from yesterday show a total bilirubin of 1.7. AST and ALT are within normal limits, alkaline phosphatase of 177, total protein of 7.6, albumin of 4.4, cortisol 13.6 a.m. cortisol. UA is normal. IMAGING: Chest x-ray this morning shows decrease in the tiny left pleural effusion, mild cardiomegaly. Abdominal x-ray shows mild constipation but no acute disease. ASSESSMENT AND PLAN: Mr. Khris Johnson is a 72-year-old gentleman with complicated cardiac history, pulmonary hypertension, chronic obstructive pulmonary disease, chronic kidney disease stage 3 and insulin-dependent diabetes who presents with abdominal pain and rectal bleeding as well as hypotension concerning for hypovolemic shock. He is on pressors with Levophed which they are weaning. He is awake and alert. His last bowel movement this morning showed a orange colored liquid stool. No melena or bright red blood or clots. His INR this morning is 1.7, hemoglobin is 12.7, platelets are mildly low at 131,000. The differential for his gastrointestinal bleed is likely lower gastrointestinal bleeding including diverticular, ischemic colitis, arterial venous malformation, cannot rule out malignancy. The patient has noted significant weight loss over the last year, which could also be from heart failure versus underlying lung disease. His chest x-ray here does not show evidence of pulmonary edema or pneumonia. His UA is negative. There are no blood cultures pending. He is on intravenous proton pump inhibitor b.i.d. and bowel regimen. We will plan on getting a CT with noncontrast today to evaluate for colitis. If noted, will recommend empiric antibiotics given his hypotension. If present will recommend antibiotics if in the setting of hypotension. We will plan for diagnostic colonoscopy tomorrow. Continue to wean pressors. Keep MAPs above 60 to 65. Trending his hemoglobin and hematocrit every 8 hours. Transfuse as needed for hemoglobin less than 7 or in the setting of overt bleeding and hypotension. Holding home Eliquis and Plavix. Maintain 2 large bore IVs. We will give vitamin K 10 mg IV x1. # Hematochezia # Hypotension # Anemia # Thrombocytopenia # Weight loss # CAD Thank you for this consult. Will follow with you. Please call with any questions or concerns. TOD
[2018-10-23] MEDS: FLEET MINERAL OIL ENEMA PR SCH (17:56)
[2018-10-23] MEDS ORDERED: GOLYTELY PO ONE (18:45)
[2018-10-23] MEDS: SYMBICORT 160/4.5 MICROGM INHALER INH SCH (20:00)
[2018-10-23] MEDS ORDERED: SODIUM CHLORIDE 0.9% 10 ML ONE (20:54)
[2018-10-23] MEDS: LIPITOR PO SCH (20:59)
[2018-10-23] MEDS: COLACE LIQUID PO SCH (20:59)
[2018-10-24] MEDS: FLEET MINERAL OIL ENEMA PR SCH ×2 (04:37→16:02)
[2018-10-24] MEDS: SYNTHROID PO SCH (06:10)
[2018-10-24 06:28] LABS: BASO# 0.02 X1000 (0.0-0.2); BASO% 0.2 % (0.0-0.8); EOS% 0.8 % (0.0-10.0); HEMATOCRIT 40.2 % (42.0-52.0); HEMOGLOBIN 13.3 g/dL (14.0-18.0); IMM GRAN# 0.03 X1000 (0.0-0.04); IMM GRAN% 0.2 % (0.0-0.5); LYMPH# 0.63 X1000 (1.2-3.4); LYMPH% 4.9 % (20.5-51.1); MCH 28.7 PG (27-31); MCHC 33.1 g/dL (33-37); MCV 86.6 FL (81-99); MONO# 1.21 X1000 (0.11-0.59); MONO% 9.4 % (1.7-9.3); MPV 10.5 FL (7.4-10.4); NEUT# 10.85 X1000 (1.4-6.5); NEUT% 84.5 % (42.2-75.2); PLT 88 X1000 (130-400); RBC 4.64 XMIL (4.7-6.1); RDW 16.3 % (11.5-14.5); WBC 12.84 X1000 (4.8-10.8)
[2018-10-24 06:30] LABS: INR 1.62; PROTIME 19.6 Seconds (11.0-16.0)
[2018-10-24 06:41] LABS: CALCIUM 9.5 mg/dL (8.8-10.2); CREATININE 1.8 mg/dL (0.7-1.2); POTASSIUM 3.9 mmol/L (3.5-5.1)
[2018-10-24] MEDS: HUMULIN R SUBQ SCH ×4 (06:45→21:24)
--- NOTE | 2018-10-24 08:00 | PROGRESS NOTE ---
DATE: 10/24/2018 INTERVAL HISTORY: The patient has been off norepinephrine for more than 12 hours and he has been maintaining MAP more than 65 mmHg on almost all occasions. He has had multiple bowel movements on bowel regimen and they were nonbloody. His hemoglobin was stable. SUBJECTIVE: Denies chest pain, shortness of breath, nausea, vomiting, abdominal pain. We discussed about the risks versus benefits of holding versus continuing anticoagulation. We decided to hold off anticoagulation at the moment. VITALS: Currently, temperature 98.7 degrees, pulse 85, respiratory rate 20, blood pressure 110/76, saturating 96% on 2 L nasal cannula. PHYSICAL EXAMINATION: General: Does not appear in any acute distress. Oral cavity is moist. Lungs: Air entry bilaterally equal. No wheeze, rhonchi, crackles. Cardiovascular: S1, S2 normal. Irregularly irregular. No murmur, rub, or gallop. Midline scar of previous sternotomy. Abdomen has laparotomy scar, abdominal hernia. Otherwise, soft and nontender. Active bowel sounds. No lower extremity edema. He has a Rosario catheter. He is alert and oriented x3, and able to raise both upper and lower extremities above ground level. LABS: Suggestive of close to normal hemoglobin. He does have a degree of thrombocytopenia though. INR is 1.6. CKD stage 3 to stage 4 range. No other microbiological data. IMAGING: Abdomen and pelvis CT performed yesterday had rectal stool impaction and stercoral proctitis. ASSESSMENT AND PLAN: 1. Hypotension and shock of unclear etiology. Differential includes intravenous volume depletion due to Lasix dose, poor oral intake versus others requiring norepinephrine infusion for almost 6 to 8 hours which was weaned off rapidly. No signs of sepsis at the moment. Followup echocardiogram to rule out pericardial effusion and colonoscopy to rule out ischemic colitis. Cortisol, TSH within acceptable range. 2. Acute, likely lower gastrointestinal bleed with positive fecal occult blood test, on clopidogrel and Eliquis. Currently, hemoglobin is stable and did not require any blood transfusion. Followup colonoscopy to evaluate for ischemic colitis or other sources of bleeding. Continue proton pump inhibitors and I will change it to once a day after colonoscopy. 3. History of coronary artery disease, status post coronary artery bypass graft and multiple stents around 2003; chronic systolic congestive heart failure with ejection fraction of 40 to 45 percent; chronic atrial fibrillation. I will continue his home atorvastatin, ranolazine. I am holding his clopidogrel and Eliquis, metoprolol, and Lasix. If the colonoscopy is unremarkable, my plan is to resume Eliquis while monitoring his hemoglobin closely. The patient agrees with the plan. In the future, depending on his hemoglobin, hematocrit, and bleeding status, I would add back clopidogrel, possibly outpatient basis. 4. Disposition. I will continue to monitor patient inside the intensive care unit. More than 30 minutes of critical care time were spent in the care of this patient. cc: Remington Guerra MD
[2018-10-24] MEDS: MIRALAX PO SCH ×2 (08:13→21:19)
[2018-10-24] MEDS: DULCOLAX PR SCH ×2 (08:13→21:19)
[2018-10-24] MEDS: THERA M PLUS PO SCH (08:15)
[2018-10-24] MEDS: LEXAPRO PO SCH (08:16)
[2018-10-24] MEDS: RANEXA PO SCH ×2 (08:16→21:19)
[2018-10-24] MEDS: PROTONIX IV SCH ×2 (09:08→21:18)
[2018-10-24] MEDS: VITAMIN K 10 MG in NS 50 ML IV SCH (09:08)
[2018-10-24] MEDS ORDERED: DIPRIVAN 1% ONE (09:44)
--- NOTE | 2018-10-24 12:08 | ENDOSCOPY OPERATIVE NOTE ---
[facility] ENDOSCOPY OPERATIVE NOTE , PATIENT: Khris Johnson ADM DATE: 10/24/2018 MR #: [id number] : 1945 COLONOSCOPY PROCEDURE REPORT PROCEDURE DATE: 10/24/2018 SURGEON: Dillan Gaviria MD STATUS: inpatient CYTOLOGY SUPERVISOR: PREOPERATIVE DIAGNOSIS: The patient is a 72 yr old male here for a colonoscopy due to hematochezia. PROCEDURE PERFORMED: Colonoscopy, diagnostic MEDICATIONS: Per Anesthesia PREP TYPE: GoLytely
[2018-10-24] MEDS: CALMOSEPTINE OINTMENT TOP PRN (14:41)
[2018-10-24] MEDS: SYMBICORT 160/4.5 MICROGM INHALER INH SCH (19:44)
[2018-10-24] MEDS: COLACE LIQUID PO SCH (21:19)
[2018-10-24] MEDS: TYLENOL PO PRN (21:19)
[2018-10-24] MEDS: LIPITOR PO SCH (21:19)
[2018-10-25] MEDS: TYLENOL PO PRN ×3 (06:20→23:21)
[2018-10-25] MEDS: SYNTHROID PO SCH (06:20)
[2018-10-25] MEDS: HUMULIN R SUBQ SCH ×3 (06:30→18:05)
[2018-10-25] MEDS: DULCOLAX PR SCH ×2 (09:41→20:43)
[2018-10-25] MEDS: RANEXA PO SCH ×2 (09:41→20:43)
[2018-10-25] MEDS: THERA M PLUS PO SCH (09:41)
[2018-10-25] MEDS: PROTONIX IV SCH (09:41)
[2018-10-25] MEDS: LEXAPRO PO SCH (09:41)
[2018-10-25] MEDS: MIRALAX PO SCH ×2 (09:41→20:43)
[2018-10-25] MEDS: VITAMIN K 10 MG in NS 50 ML IV SCH (09:42)
[2018-10-25] MEDS: CALMOSEPTINE OINTMENT TOP PRN (10:05)
[2018-10-25] MEDS ORDERED: ELIQUIS PO SCH (11:00)
[2018-10-25] MEDS ORDERED: TUCKS HEMORRHOIDAL OINTMENT PR SCH (11:30)
[2018-10-25] MEDS ORDERED: LMX 5 CREAM TOP PRN (12:00)
[2018-10-25] MEDS ORDERED: SODIUM CHLORIDE 0.9% 10 ML ONE (13:09)
[2018-10-25] MEDS: LOPRESSOR PO SCH ×2 (15:38→21:40)
--- NOTE | 2018-10-25 17:25 | PROGRESS NOTE ---
DATE: 10/25/2018 INTERVAL HISTORY: He underwent endoscopy which had suggested sacral ulcer, proctitis. Since then, he has not had any bloody bowel movement. However, he is experiencing a lot of pain because of external hemorrhoids. I had discussion with the Gastroenterology team and accordingly the surgical team has been consulted. The patient denies any chest pain or shortness of breath. He denies any nausea, vomiting, or abdominal pain. He is eating okay. He has had liquid brown bowel movements so far. VITAL SIGNS: Currently vitals, temperature 97.9 degrees, pulse 94, respiratory rate 19, blood pressure 100/70. He is saturating 100% on room air. PHYSICAL EXAMINATION: General: He does not appear in any acute distress. HEENT: Oral cavity is moist. Lungs: Air entry bilaterally equal. No wheeze or rhonchi. Mild inspiratory crackles. Cardiovascular: S1, S2. Irregularly irregular. No murmur, rub, or gallop. Abdomen: Has a laparotomy scar of abdominal hernia. Otherwise, soft, nontender. Active bowel sounds. Lower Extremities: No lower extremity edema. Neurologic: He is alert and oriented x3. I encouraged him to come out of bed with help and sit in the chair. INPUT AND OUTPUT: Suggests -400 mL. LABORATORY DATA: No CBC or BMP today. ASSESSMENT AND PLAN: 1. Acute lower gastrointestinal bleed because of diverticulosis or anal fissure as well as hemorrhoids, though there was no active bleed found on colonoscopy and his hemoglobin has been stable. Continue to trend CBC and I will consult surgical team for hemorrhoidectomy since it has been acutely painful. Meanwhile, apply some topical cream for pain relief. 2. Hypotension and shock on presentation. Echocardiogram had severely reduced ejection fraction. He did not have any evidence of infection. Most likely etiologies include his severely reduced ejection fraction with heart failure of 20%, as well as intravascular volume depletion, which improved after intravenous fluid resuscitation and brief IV pressors. I will continue to monitor his blood pressure now. 3. History of coronary artery disease status post coronary artery bypass graft and multiple stents around 2003; chronic systolic congestive heart failure with ejection fraction of now 25%; chronic atrial fibrillation. Continue home atorvastatin, ranolazine, and resume small dose of metoprolol. Continue to hold Eliquis anticipating hemorrhoidectomy and resume after that. I will give Lasix as tolerated. Also, he would need clopidogrel in future. 4. Disposition: I will continue to monitor patient inside the telemetry unit. Plan of care discussed with him. His questions have been answered. cc: Remington Guerra MD
--- NOTE | 2018-10-25 19:11 | GASTROENTEROLOGY PROGRESS NOTE ---
DATE: 10/25/2018 SUBJECTIVE: Patient was seen by Dr. Gaviria over the weekend for rectal bleeding. Colonoscopy was done on 10/24/2018. Findings showed external hemorrhoids, mild nonbleeding diverticulosis in the sigmoid colon, a small anal fissure in the anal canal, stercoral ulceration in the distal rectum. Patient is currently complaining of severe rectal pain. Patient is receiving stool softeners. OBJECTIVE: Vital Signs: Temperature 98.3 degrees, pulse 98, respirations 15, blood pressure 121/66. General: The patient is awake and alert. Lying on his side. He is complaining of rectal pain. Rectal: Exam shows external hemorrhoids, 1 larger thrombosed hemorrhoid noted. LABORATORY DATA: Hematology: WBC 12.84, hemoglobin 12.5 and a hematocrit 40.2, MCV 86.6. Chemistry: Sodium 135, potassium 3.9, chloride 99, CO2 18, BUN 38, creatinine 1.8, glucose 153. ASSESSMENT AND PLAN: 1. Rectal bleeding. 2. Stercoral ulcer and anal fissure noted by colonoscopy along with hemorrhoids. 3. Thrombosed external hemorrhoid. PLAN: Continue stool softeners. We all add LMX 5% cream for rectal pain. Recommend sitz baths. We will consult [facility] for thrombosed hemorrhoids. The patient was also seen and examined by Dr. Claudio. Dictated by ROBIN Griffiths for Mauri Claudio MD cc: ROBIN Castillo MD
[2018-10-25] MEDS: COLACE LIQUID PO SCH (20:42)
[2018-10-25] MEDS: LIPITOR PO SCH (20:43)
[2018-10-25] MEDS: SYMBICORT 160/4.5 MICROGM INHALER INH SCH (21:11)
[2018-10-26] MEDS: HUMULIN R SUBQ SCH ×5 (00:11→21:41)
[2018-10-26] MEDS: SYNTHROID PO SCH (06:26)
[2018-10-26 07:28] LABS: INR 1.64; PROTIME 19.7 Seconds (11.0-16.0)
[2018-10-26 07:31] LABS: BASO# 0.03 X1000 (0.0-0.2); BASO% 0.3 % (0.0-0.8); EOS# 0.35 X1000 (0.0-0.7); EOS% 4.1 % (0.0-10.0); HEMATOCRIT 37.7 % (42.0-52.0); HEMOGLOBIN 12.4 g/dL (14.0-18.0); IMM GRAN# 0.02 X1000 (0.0-0.04); IMM GRAN% 0.2 % (0.0-0.5); LYMPH# 0.77 X1000 (1.2-3.4); MCH 28.6 PG (27-31); MCHC 32.9 g/dL (33-37); MCV 87.1 FL (81-99); MONO# 0.82 X1000 (0.11-0.59); MONO% 9.5 % (1.7-9.3); MPV 10.9 FL (7.4-10.4); NEUT# 6.61 X1000 (1.4-6.5); NEUT% 76.9 % (42.2-75.2); PLT 93 X1000 (130-400); RBC 4.33 XMIL (4.7-6.1); RDW 16.2 % (11.5-14.5)
[2018-10-26 07:45] LABS: CALCIUM 9.3 mg/dL (8.8-10.2); CREATININE 1.5 mg/dL (0.7-1.2); MAGNESIUM 2.1 mg/dL (1.5-2.7); POTASSIUM 3.8 mmol/L (3.5-5.1)
--- NOTE | 2018-10-26 08:05 | GENERAL SURGERY CONSULTATION ---
DATE: 10/25/2018 CHIEF COMPLAINT: Bloody Stools HISTORY OF PRESENT ILLNESS: This is a 72-year-old gentleman with multiple medical problems including cardiomyopathy, coronary disease, copd, pulmonary hypertension, ckd, afib, DM, hypertension. He is anticoagulated. He has had coronary bypass as well as cardiac stents. He presented with lower GI bleed. He also has significant constipation. He underwent EGD that showed a stercoral ulcer and I have been consulted for possible hemorrhoid. MEDICAL HISTORY: Congestive heart failure with recent ejection fraction 40%, coronary disease, coronary artery bypass grafting, coronary stents, cardiomyopathy, COPD, pulmonary hypertension, chronic kidney disease, atrial fibrillation, diabetes, DVT, BPH, hypertension, gastroesophageal reflux. SURGICAL HISTORY: Cardiac stents. He has had exploratory laparotomy for apparent benign reasons, coronary artery bypass, apparently a hernia surgery, cataract surgery. SOCIAL HISTORY: Distant history of smoking. No alcohol. No drugs. He lives in assisted living. FAMILY HISTORY: Reviewed and negative for colorectal cancer. REVIEW OF SYSTEMS: [facility] point systems were reviewed and were negative other than what is mentioned in HPI. MEDICATIONS: He is on Eliquis and Plavix in addition to other cardiac medications. PHYSICAL EXAMINATION: Vital Signs: No fever. Pulse 70, blood pressure 107/60. General: He is a chronically ill-appearing gentleman in no acute distress. HEENT: No scleral icterus. No cervical mass. Cardiovascular: Regular rate and rhythm. Pulmonary: No increased work of breathing. Abdomen: Soft, nontender, nondistended. There is a midline incision. There is no varicosity. Integumentary: Skin is warm and dry. Psychiatric: Appropriate affect. Neurologic: Generalized weakness. Rectal Examination: Shows a thrombosed hemorrhoid that is not bleeding on the left and prolapsing hemorrhoids on the right. Lymphatic: No cervical adenopathy. LABS: White count 12, hematocrit 40 and has been overall stable here since admission. Creatinine is down to 1.8, was as high as 2.8. Glucose has been elevated consistently throughout his hospitalization. ASSESSMENT AND PLAN: This is a 72-year-old male with chronic constipation, apparent stercoral ulcer, now thrombosed left lateral hemorrhoid, very medically ill gentleman. I do not see any active bleeding and suspect that both of these issues will resolve with conservative management. Recommend strict aggressive bowel regimen, nothing per rectum and ongoing medical management. Will follow along but do not plan any surgical intervention. cc: Anahy Michaud MD MTDD
[2018-10-26] MEDS: LEXAPRO PO SCH (08:28)
[2018-10-26] MEDS: THERA M PLUS PO SCH (08:28)
[2018-10-26] MEDS: TYLENOL PO PRN ×2 (08:28→17:06)
[2018-10-26] MEDS: LOPRESSOR PO SCH ×2 (08:28→21:53)
[2018-10-26] MEDS: MIRALAX PO SCH ×2 (08:28→21:52)
[2018-10-26] MEDS: RANEXA PO SCH ×2 (08:28→21:53)
[2018-10-26] MEDS: DULCOLAX PR SCH ×2 (08:29→11:34)
[2018-10-26] MEDS: PREPARATION H OINT PR SCH (08:30)
[2018-10-26] MEDS: ELIQUIS PO SCH ×3 (11:32→21:53)
--- NOTE | 2018-10-26 13:41 | GASTROENTEROLOGY PROGRESS NOTE ---
DATE: 10/26/2018 SUBJECTIVE: Patient states he is feeling some better today. He was seen by Dr. Michaud due to his thrombosed hemorrhoid. Due to patient's medical issues, it was not recommended to proceed with surgical intervention. Symptoms have improved with current management with conservative treatment. Patient is receiving sitz baths along with hemorrhoidal cream and LMX 5 cream for rectal pain. The patient did report having a bowel movement today. No reported bleeding noted. OBJECTIVE: Vital Signs: Temperature is 98.0 degrees, pulse 97, respirations 18, blood pressure 103/74. General: Patient was awake and alert in no acute distress. LABORATORY: Hematology: WBC 8.60, hemoglobin 12.4, hematocrit 37.7, MCV 87.1. Chemistry: Sodium 137, potassium 3.8, chloride 104, CO2 19, BUN 24, creatinine 1.5, glucose 110. Calcium 9.3. ASSESSMENT AND PLAN: 1. Recent rectal bleeding has improved. 2. Colonoscopy showing stercoral ulcer and anal fissure along with hemorrhoids. Will continue current management. Continue stool softeners and LMX 5 cream. Also continue MiraLAX. Continue sitz baths. We will continue to follow and further plans to be made as needed. I have discussed this case with Dr. Claudio. Dictated by ROBIN Griffiths for Mauri Claudio MD cc: ROBIN Castillo MD [facility]
[2018-10-26] MEDS: LASIX PO SCH (17:05)
--- NOTE | 2018-10-26 17:17 | GENERAL SURGERY PROGRESS NOTE ---
DATE: 10/26/2018 SUBJECTIVE: Doing well. Less perianal pain. Very minimal bleeding. No fevers. OBJECTIVE: Vital Signs: Pulse 97, blood pressure 103/74, oxygen saturation 100%. General: He is alert. Cardiovascular: Normal rate. Abdomen: Soft, nontender, nondistended. Integument: Warm and dry. He is lying flat on the bed. LABORATORY STUDIES: White count 8, hematocrit 37. Creatinine is 1.5. ASSESSMENT AND PLAN: A 72-year-old gentleman who has stercoral proctitis with ulcer, lower gastrointestinal bleed and now thrombosed hemorrhoid. We will continue topical management and stool softeners. He is having regular bowel movements with improvement in his symptoms. Follow along. He is very high risk for any surgical procedure. cc: Anahy Michaud MD
--- NOTE | 2018-10-26 18:10 | PROGRESS NOTE ---
DATE: 10/26/2018 SUBJECTIVE: Overnight surgical team had evaluated the patient and had recommended conservative management with topical analgesics as well as sitz bath. The patient has been doing it. Has not had any more bleeding. VITAL SIGNS: Temperature 98 degrees, pulse 97, respiratory rate 18, blood pressure 110/70, saturating 100% on room air. PHYSICAL EXAMINATION: General: Does not appear in acute distress. HEENT: Oral cavity is moist. Respiratory: Air entry bilaterally equal. No wheeze, rhonchi, or crackles. Cardiovascular: S1, S2 normal. Irregularly irregular. No murmur or gallop. Abdomen: Has a laparotomy scar and abdominal hernia. Otherwise, soft, nontender. Active bowel sounds. Extremities: No lower extremity edema. Neurologic: He is alert and oriented x3. LABS: Suggestive of normal hemoglobin. His platelets are 93,000. His INR is 1.6. He has essentially normal electrolytes. Improvement in his kidney function. He has been started on Lasix just today. ASSESSMENT AND PLAN: 1. Acute lower gastrointestinal bleed because of diverticulosis or anal fissure, as well as hemorrhoids, though there was no active bleed found on colonoscopy and his hemoglobin has been stable. Surgical team has recommended conservative management considering his multiple comorbidities as compared to a hemorrhoidectomy. I will continue topical lidocaine cream for pain relief. 2. Hypotension and shock on presentation of unclear etiology, which could be related to volume depletion related to Lasix use or his baseline systolic heart function with ejection fraction of 20%. Requiring IV pressors for about 8 to 10 hours and resolved with intravenous fluid resuscitation. 3. History of coronary artery disease status post coronary artery bypass graft and multiple stents in 2003; chronic systolic congestive heart failure with ejection fraction of 25%; chronic atrial fibrillation. Continue home atorvastatin, ranolazine, metoprolol, and low dose of Eliquis. I will also resume his small dose of Lasix. 4. Disposition. I will currently monitor the patient inside the telemetry unit to make sure he does not have any more bleeding. Accordingly, my plan will be to discharge him home. Plan of care discussed with him. All of his questions have been answered. cc: Remington Guerra MD
[2018-10-26] MEDS: SYMBICORT 160/4.5 MICROGM INHALER INH SCH (21:32)
[2018-10-26] MEDS: LIPITOR PO SCH (21:53)
[2018-10-26] MEDS: COLACE LIQUID PO SCH (22:14)
[2018-10-27] MEDS: HUMULIN R SUBQ SCH (06:29)
[2018-10-27] MEDS: SYNTHROID PO SCH (06:36)
[2018-10-27] MEDS: TYLENOL PO PRN (06:36)
[2018-10-27] MEDS: THERA M PLUS PO SCH (08:55)
[2018-10-27] MEDS: MIRALAX PO SCH (08:55)
[2018-10-27] MEDS: PLAVIX PO SCH ×2 (08:56→15:42)
[2018-10-27] MEDS: RANEXA PO SCH (08:56)
[2018-10-27] MEDS: LEXAPRO PO SCH (08:56)
[2018-10-27] MEDS: ELIQUIS PO SCH (08:56)
[2018-10-27] MEDS: PREPARATION H OINT PR SCH (08:56)
[2018-10-27] MEDS: LOPRESSOR PO SCH (08:56)
[2018-10-27] MEDS: LASIX PO SCH (08:56)
[2018-10-27 11:52] VITALS: BP 110/71
--- NOTE | 2018-10-27 19:59 | GASTROENTEROLOGY PROGRESS NOTE ---
DATE: 10/27/2018 SUBJECTIVE: Patient states he is feeling a little better. He has been using the hemorrhoidal creams and has done the sitz baths once or twice. There has been no further bleeding. He has had a bowel movement. I believe he will be discharged today. OBJECTIVE: Vital Signs: Temperature 97.7 degrees, pulse 97, respirations 19, blood pressure 110/71. General: Patient is awake, alert, and in no acute distress. LABORATORY: Hematology/WBC 8.6, hemoglobin 12.4, hematocrit 37.7, MCV 87.1, platelets 93,000. Coagulation: ProTime 19.7, INR 1.64. Chemistry: Sodium 137, potassium 3.8, chloride 104, CO2 19, BUN 24, creatinine 1.5, glucose 110. ASSESSMENT AND PLAN: 1. Rectal bleeding has improved. Patient had findings of stercoral ulcer and hemorrhoids along with anal fissure. Recommend LMX 5 cream and hemorrhoidal cream as needed. I have given him a written prescription for a Sitz juárez. He can pick that up at a medical supply store. He is familiar with [facility]. He will see about picking the juárez up there. Recommend to continue laxatives. Recommend he follow up with us in the office after discharge. 2. Other medical problems are coronary artery disease, history of volume depletion. The patient has had IV resuscitation. I believe he has discharge orders today. Recommend he follow up with us as an outpatient. I have discussed this case with Dr. Claudio. Dictated by ROBIN Griffiths for Mauri Claudio MD cc: ROBIN Castillo MD
--- NOTE | 2018-10-28 06:24 | DISCHARGE SUMMARY ---
ADMISSION DATE: 10/23/2018 DISCHARGE DATE: 10/27/2018 DISCHARGE DISPOSITION: Home. DISCHARGE CONDITION: Hemodynamically stable. He has been restarted on his Eliquis and Plavix, and has not had any more bleeding episodes. He is eating his diet without any difficulty. He was provided detailed discharge instructions about following up with lung doctor. DISCHARGE DIAGNOSES: 1. Acute lower gastrointestinal bleed due to rectal Stercoral ulcer. 2. Acute blood loss anemia. 3. Shock due to hypovolemia and systolic CHF. 4. Thrombosed external hemorrhoids. 5. Anal fissure. OTHER DIAGNOSES: 1. History of coronary artery disease status post CABG and stent in 2003. 2. Chronic systolic congestive heart failure with ejection fraction of 25%. 3. Chronic atrial fibrillation on chronic anticoagulation with Eliquis. 4. Previous history of multiple chest pain episodes of unclear etiology. 5. History of coronary artery disease. 6. History of chronic obstructive pulmonary disease with severe pulmonary hypertension. 7. Chronic kidney disease stage 3 to stage 4. 8. Diabetes mellitus type 2. 9. Benign prostatic hypertrophy. 10. Chronic gastroesophageal reflux disease. DISCHARGE MEDICATIONS: 1. Ranitidine 150 mg in the morning time. 2. Spironolactone 25 mg in the morning time. 3. Tamsulosin 0.4 mg at nighttime. 4. Trazodone 50 mg at nighttime. 5. Umeclidinium [place] 62.5 mcg inhaled in the morning time. 6. Atorvastatin 20 mg at nighttime. 7. Docusate 250 mg at nighttime. 8. Melatonin 5 mg at nighttime. 9. Symbicort 1 puff inhaled at nighttime. 10. Clopidogrel 75 mg in the morning time. 11. Apixaban 2.5 mg b.i.d. 12. Escitalopram 20 mg in the morning time. 13. Lactulose 10 g in the morning time. 14. Albuterol 0.63 mg inhaled every 4 hours as needed for shortness of breath, 15. Pantoprazole 40 mg in the morning time. 16. Insulin detemir 5 units subcutaneously daily. 17. Metoprolol 25 mg b.i.d. 18. Kim 10 1 tablet every 6 hours as needed for pain. 19. Preparation H ointment for hemorrhoids, apply over rectal hemorrhoids. 20. Repeat CBC and BMP slip has also been provided to him. FOLLOW UP: He was advised to follow up with Dr. Null within 5 to 7 days. CONSULTATIONS DURING HOSPITAL ADMISSION: 1. Gastroenterology Dr. Claudio. 2. General Surgery Dr. Michaud. HOSPITAL COURSE SUMMARY: Mr. Johnson is a 72 years old man with past medical history of coronary artery disease, CABG, chronic systolic congestive heart failure with ejection fraction of 25% on recent echocardiogram, chronic atrial fibrillation on Eliquis, who presented on 10/23/2018 with chief complaints of rectal bleeding. The patient is on Plavix for his coronary artery disease and Eliquis for atrial fibrillation. He also has issues with chronic constipation. He states that just prior to arrival to the ER, he had increase in rectal bleeding, red in color, associated with generalized abdominal pain and rectal pain with some dizziness. In the emergency room, he was found to have positive rectal blood, low blood pressure with systolic blood pressure in 80s and diastolic in 40s, so he was admitted to ICU for further management. He was resuscitated with intravenous fluids and initially required intravenous norepinephrine for about 8 to 10 hours duration for his hypotension. However, with intravenous fluid, hypertension improved. His sepsis workup was not initiated considering there was no clinical suspicion of any infection. It was thought to be related to volume depletion. His Plavix and Eliquis were held initially, and Gastroenterology was consulted who took him down for colonoscopy where he was found to have a stercoral ulcer, fissure and diverticulosis but no active bleeding. He also had thrombosed external hemorrhoids at which point he was complaining of pain so surgical team was consulted. Considering his multiple comorbidities and low ejection fraction, it was decided to manage it conservatively with topical lidocaine and hemorrhoidal cream and sitz bath which helped the patient relieve. He was also started on multiple bowel regimen to ensure frequent bowel movements. At the time of discharge, his Eliquis and clopidogrel were restarted, and for 24 hours he did not have any evidence of active bleeding so it was decided to discharge him home, and have him outpatient cardiology follow-up for his heart failure. TIME SPENT: More than 30 minutes spent in discharging this patient. All of his questions were satisfactorily answered. cc: MD TOD Jalloh
== END 2018-10-27 16:38 | disposition home or self-care (01) | DRG 393 ==
LOC: P.ED 23:15 → ICU 10-23 01:16 → SUATTDRO 10-23 01:16 → 3N 10-24 23:44
PROVIDERS: ATTEND Internal Medicine